=== PATIENT | male | born 1935 | race Caucasian/White ===

== ENCOUNTER → 2020-03-24 14:30 | Outpatient (BNVA) | payer MEDICARE, SELFPAY | PROVIDERS: Visit Provider Urology | DX: R97.21 Rising PSA following treatment for malignant neoplasm of prostate (principal); N20.0 Calculus of kidney; C61 Malignant neoplasm of prostate; R35.0 Frequency of micturition | CPT/HCPCS: 81002; 99212 ==

== ENCOUNTER → 2020-07-23 14:22 | Outpatient (BNVA) | payer MEDICARE, SELFPAY | PROVIDERS: Visit Provider Urology | DX: N20.0 Calculus of kidney (principal); C61 Malignant neoplasm of prostate; R97.21 Rising PSA following treatment for malignant neoplasm of prostate | CPT/HCPCS: Q3014 ==

== ENCOUNTER → 2021-01-05 11:12 | Outpatient (BNVA) | payer MEDICARE, SELFPAY | PROVIDERS: Visit Provider Urology | DX: Z13.89 Encounter for screening for other disorder (principal) | CPT/HCPCS: Q3014 ==

== ENCOUNTER → 2021-04-08 10:24 | Outpatient (BNVA) | payer MEDICARE, SELFPAY | PROVIDERS: Visit Provider Urology | DX: C61 Malignant neoplasm of prostate (principal); N20.0 Calculus of kidney; R97.21 Rising PSA following treatment for malignant neoplasm of prostate | CPT/HCPCS: 99212 ==

== ENCOUNTER → 2021-07-27 14:53 | Outpatient (BNVA) | payer MEDICARE, SELFPAY | PROVIDERS: Visit Provider Urology | DX: C61 Malignant neoplasm of prostate (principal); N20.0 Calculus of kidney | CPT/HCPCS: 99212 ==

== ENCOUNTER → 2021-11-02 09:55 | Outpatient (BNVA) | payer MEDICARE, SELFPAY | PROVIDERS: Visit Provider Urology | DX: C61 Malignant neoplasm of prostate (principal); R97.21 Rising PSA following treatment for malignant neoplasm of prostate | CPT/HCPCS: 51798; 99212 ==

== ENCOUNTER → 2022-02-17 08:43 | Outpatient (BNVA) | payer MEDICARE, SELFPAY | PROVIDERS: PCP Hospitalist; Visit Provider Urology | DX: C61 Malignant neoplasm of prostate (principal); N20.0 Calculus of kidney | CPT/HCPCS: 51798; 99212 ==

== ENCOUNTER → 2022-05-26 08:40 | Outpatient (BNVA) | payer MEDICARE, SELFPAY | PROVIDERS: PCP Hospitalist; Visit Provider Urology | DX: C61 Malignant neoplasm of prostate (principal); N20.0 Calculus of kidney; R97.21 Rising PSA following treatment for malignant neoplasm of prostate; Z79.899 Other long term (current) drug therapy | CPT/HCPCS: Q3014 ==

== ENCOUNTER → 2022-08-24 10:55 | Outpatient (BNVA) | payer MEDICARE, SELFPAY | PROVIDERS: PCP Hospitalist; Visit Provider Urology | DX: C61 Malignant neoplasm of prostate (principal); N20.0 Calculus of kidney | CPT/HCPCS: 99212 ==

== ENCOUNTER 2023-02-22 08:41 | Outpatient (AMB) | payer MEDICARE, SELFPAY ==
--- NOTE | 2023-02-22 08:42 | A.OFFVIS_ITS ---
Intake Intake Visit Reasons: 6 month psa(set) Intake Note: Deangelo is an 87 year old male who presents today for a 6 month PSA follow up Allergies No Known Allergies [No Known Allergies*] Allergy (Verified 02/22/23 08:43) Medication List - Last Reconciled 02/22/23 by Henry Mora MD dutasteride 0.5 mg PO DAILY fluticasone propionate 50 mcg/actuation 2 intranasal DAILY lorazepam 0.5 mg PO Q8H mesalamine ER 0.75 grams PO DAILY omeprazole 40 mg PO DAILY oxybutynin chloride 5 mg PO BEDTIME phenazopyridine 200 mg PO TID PRN pioglitazone 45 mg PO DAILY rosuvastatin 40 mg PO DAILY sulfamethoxazole-trimethoprim 800-160 mg (Bactrim DS) 1 tab PO BID 10 days triamcinolone acetonide 0.025% appl topical HPI HPI Comments History of Present Illness Details Carlos Eduardo is a very pleasant male. He is a patient of Dr. Ruggiero. He is seen for the following urologic conditions - prostate cancer - nephrolithiasis Telemedicine Evaluation 15 min Consultation D[employer] It In Person Daniela Video Attempted PSA increasing despite dutasteride cycling Discussed recent approval for Antiandrogen therapy in BCR space. 01/22 - cycling dutasteride, 1 month on, 1 month off re [facility] Protocol - 08/23 PSMA scan Shows recurrence of dis ease in left base prostate abutting seminal vesicle PSA 07/23 3.9, 10/22 3.6 Dut +, 01/22 4.5 Dut +, 05/26 6.9 Dut -, 08/23 6.4, 01/23 8.0 High Risk Biochemical Recurrence following Salvage Therapy in setting of nmHSPC FDA approved use of enzalutamide (02/23) in the setting of High Risk Biochemical Recurrence based on published data from EMBARK study (NEJM 2022; 389 [address] et al) displaying improved Hazard Ratio for metastasis or comparing GnRH alone with enzalutamide combination therapy with GnRH (HR 0.42) and enzalutamide alone (HR 0.63) at 5 years. Given these findings and the improved tolerability of mono enzalutamide therapy vs GnRH or combination therapy recommendation for enzalutamide therapy Prostate cancer: Initial treatment prostate cancer 2007 with brachytherapy, rising PSA with brachy boost June 201908/23 PSMA persistent activity suggestiv e of locally recurrent disease, no evidence of spread Found to have rising PSA through 2019 Has been treated at [facility] in [place] with prostate seed implant - Performed June [address] Luna Prostate cancer was diagnosed 2007. Diagnosis was reached by needle biopsy, for elevated PSA. The Moy grade is 3+3 = 6. TNM Classification of Malignant Tumours (TNM) T1c. The D'Barbara (NCCN) risk category is Low Risk (PSA< 10, Gl < 7, T1c). Initial therapy included Primary treatment, Brachytherapy 2007 , Additional treatment 02/17 5AR - stopped 01/18 Cysto with dilation of prostate apex to 16Fr 12/20 operative DVIU for prostatic apex stricture to 18 [place] - additional treatment seeds to prostate with Dr. Luna June 2019 Recent labs included a PSA (prostate-specific antigen) 07/17 7.7, 03/18 9.9 08/17 per patient 9.1, 01/17 14.3 05/21 6.4, 10/18 5.0, 01/18 5.1 F 7.8 06/19 5.1 F 11, 09/19 6.0 F 10, 03/21 7.6 07/22 2.6, 12/22 3.1, 04/24 3.9, 07/23 3.9, 10/22 3.6 Recent imaging included 05/21 , a bone scan, with no evidence of metastasis 08/18 an ultrasound, bilateral renal cysts 08/19 , an MRI (magnetic resonance imaging) - bilateral renal cysts up to 4 cm, bilateral renal proteinaceous cysts. Associated conditions erectile dysfunction Yes Nephrolithiasis/Urolithiasis: Episode treated at [facility] 12/22 Calcium oxalate stone on right side 8 mm Urolithiasis was diagnosed 12/19 at [facility] with flank pain and dark urine. The patient previously had kidney stones whose composition w unknown. Laboratory investigations include no recent labs. 24 Hour urine evaluation none on file. Prior treatment(s) include observation. Prior imaging includes 12/[address] (computed tomography) scan of the abdomen/pelvis (stone protocol) - renal cyst, bilateral punctate stones, presumed stone passage on right side 01/18 , a renal ultrasound, small stones with bilateral cysts - 01/20 renal ultrasound no stones Current therapeutic plan will be to continue with imaging surveillance [facility] Medical History (Updated 02/22/23 @ 09:02 by Henry Mora MD) Rising PSA following treatment for malignant neoplasm of prostate Bladder infection Renal stones Neuropathy Mild acid reflux Hyperlipidemia Gross hematuria Prostate stricture Rising PSA following treatment for malignant neoplasm of prostate Urinary urgency Surgical History History of surgery Review of Systems Const All systems reviewed & are unremarkable except as noted in HPI and below Reports no additional complaints Resp Reports no additional complaints GI Reports no additional complaints Reports as per HPI Musc Reports no additional complaints Physical Exam Telemedicine evaluation Appropriate responses Regular breathing rate and rhythm HEENT Head: Yes normal to inspection Ears: hearing grossly normal bilaterally Eyes General: appearance normal, both eyes and all related structures Neck Neck: Yes normal visual inspection Chest Chest palpation & inspection: normal inspection of the chest Resp Effort & Inspection: normal respiratory effort and able to speak in complete sentences Assessment & Plan Assessment & Plan (1) Biochemically recurrent castration-sensitive adenocarcinoma of prostate: Code(s): C61 - Malignant neoplasm of prostate; R97.21 - Rising PSA following treatment for malignant neoplasm of prostate; Z19.1 - Hormone sensitive malignancy status Plan Initiated enzalutamide. Did discuss cycling therapy with patient. Four month follow-up PSA Risks and benefits highlight Orders: Orders PSA,Total (Free>4and<10) 4 Months R97.21 - Rising PSA following treatment for malignant neoplasm of prostate Patient Instructions: Imaging studies, laboratory and physical exam results were discussed and reviewed in detail. No major barriers to patient understanding were identified. An opportunity to ask questions regarding the treatment plan was provided. All questions were answered. The patient expressed understanding and agreement with the above treatment plan. The patient is aware they should contact our office by phone for worsening of their current condition or the appearance of new urologic symptoms. Compliance is encouraged with any medications and followup testing that is ordered. It is a privilege to participate in the urologic care of your patient. If you have any questions or concerns regarding treatment for the above conditions, or other urologic issues, please do not hesitate to contact me. The office telephone contact is [phone]. This note is constructed using voice recognition software. While every effort has been made to ensure accuracy locomotive supervisor errors may have been included. Yours sincerely, Dr Henry Mora MD, [facility] - Urology Providers of Expert, Compassionate Care for the Genitourinary System Telehealth Telehealth Location of provider rendering services: practice address Location of patient: address on file Patient Identification confirmed using: Name, : Yes Telehealth method: video Patient verbally consented to treatment: Yes Patient verbally consented to billing insurance company: Yes Patient informed of any privacy concerns related to visit: Yes Coding Level of Care Code Tele Est Pt Level 4 (68871) Diagnoses Biochemically recurrent castration-sensitive adenocarcinoma of prostate C61; R97.21; Z19.1
== END 2023-02-22 09:19 | disposition home or self-care (01) ==
LOC: HO.HUSH 08:41
PROVIDERS: PCP Hospitalist; Visit Provider Urology
DX: C61 Malignant neoplasm of prostate (principal); R97.21 Rising PSA following treatment for malignant neoplasm of prostate; Z19.1 Hormone sensitive malignancy status
CPT/HCPCS: 99214

== ENCOUNTER → 2023-02-22 08:41 | Outpatient (BNVA) | payer MEDICARE, SELFPAY | PROVIDERS: PCP Hospitalist; Visit Provider Urology ==

== ENCOUNTER 2023-06-13 09:09 | Outpatient (AMB) | payer MEDICARE, SELFPAY ==
--- NOTE | 2023-06-13 09:23 | HO.NEPHOV_ITS ---
HPI HPI Comments History of Present Illness Details I had the privilege of seeing Carlos Eduardo in follow-up of his chronic kidney disease. He has diabetes and has been on Actos. His hemoglobin A1c is under good control. In the past he has taken CHARLIE inhibitor which has been discontinued due to low blood pressures. He has history of prostate cancer and is closely followed up by Dr. Henry Mora. His PSA has gone up and his medications have been changed. He has history of renal stones but has not had a symptom from calculus for a long time. He does not take excessive nonsteroidal anti-inflammatories. He has history of inflammatory bowel disease(ulcerative colitis). He also has renal cyst which is closely followed by Dr. Mora. His serum creatinine has been stable at 1.6. His hemoglobin has dropped to 10.9. He does not have any active blood loss. [facility] Medical History (Updated 06/13/23 @ 10:11 by iMlton Jensen MD) Rising PSA following treatment for malignant neoplasm of prostate Bladder infection Renal stones Neuropathy Mild acid reflux Hyperlipidemia Gross hematuria Prostate stricture Rising PSA following treatment for malignant neoplasm of prostate Urinary urgency Surgical History History of surgery Vital Signs 06/13/23 09:24 Height 5 ft 8 in Weight 145 lb BMI 22.0 BP 110/60 Blood Pressure Location Lt brachial Position Sitting Pulse 60 Pulse Source Pulse Oximeter Pulse Oximetry (%) 100 Oxygen Delivery Method Room Air Physical Exam Vital Signs: Last Vital Signs Pulse 60 06/13/23 09:24 BP 110/60 06/13/23 09:24 Pulse Ox 100 06/13/23 09:24 Oxygen Delivery Method Room Air 06/13/23 09:24 BMI result Body Mass Index 22.0 Const General: comfortable and no acute distress Orientation/consciousness: patient oriented x3 HEENT Head: Yes normocephalic Mouth: Normal oral and palatal mucosa present Eyes EOM: EOMs intact bilaterally Neck Neck: Yes supple Resp Auscultation: clear to auscultation bilaterally Cardio Jugular venous distension: no JVD Rate: regular rate GI Palpation (GI): Soft to palpation Auscultation: normal bowel sounds General: Yes no CVA tenderness Back/Spine/Pelvis Back: no CVA tenderness Skin General skin exam: no rashes or lesions noted Neuro General: patient oriented x3 and moves all extremities Extrem General: Yes no pedal edema Assessment & Plan Assessment & Plan (1) Nephrolithiasis: Code(s): N20.0 - Calculus of kidney (2) CKD (chronic kidney disease) stage 3, GFR 30-59 ml/min: Code(s): N18.30 - Chronic kidney disease, stage 3 unspecified Qualifiers: Chronic kidney disease stage 3 subtype: stage 3a (GFR 45-59) Qualified Code(s): N18.31 - Chronic kidney disease, stage 3a (3) Renal cysts, acquired, bilateral: Code(s): N28.1 - Cyst of kidney, acquired Plan His renal functions are stable and and is at baseline. His blood pressure is at goal. There are no active issues from his renal cysts or renal calculi. He does not take any nonsteroidal inflammatories and tries to maintain good hydration. He is on a new medication for his prostate cancer. He has anemia but his hemoglobin is 10.9. I have ordered repeat CBC and iron studies. He needs a B12 and folate levels checked along with stool occult blood. He will be a candidate for Procrit once his hemoglobin drops less than 10 and if his transferrin saturation is more than 20%. I did not make any medication changes today. Follow-up blood work ordered. Answered all questions. Follow-up appointment given. Orders: Orders Calcium Today N18.30 - Chronic kidney disease, stage 3 unspecified, N20.0 - Calculus of kidney Blood Urea Nitrogen Today N18.30 - Chronic kidney disease, stage 3 unspecified, N20.0 - Calculus of kidney Ferritin Today N18.30 - Chronic kidney disease, stage 3 unspecified, N20.0 - Calculus of kidney Complete Blood Count Auto Diff Today N18.30 - Chronic kidney disease, stage 3 unspecified, N20.0 - Calculus of kidney Electrolytes Today N18.30 - Chronic kidney disease, stage 3 unspecified, N20.0 - Calculus of kidney Creatinine Today N18.30 - Chronic kidney disease, stage 3 unspecified, N20.0 - Calculus of kidney IRON PROFILE Today N18.30 - Chronic kidney disease, stage 3 unspecified, N20.0 - Calculus of kidney Protein Creatinine Ratio, Ur Today N18.30 - Chronic kidney disease, stage 3 unspecified, N20.0 - Calculus of kidney Coding Level of Care Code Est Pt Level 4 (60431) Diagnoses Nephrolithiasis N20.0 Stage 3a chronic kidney disease N18.31 Chronic kidney disease stage 3 subtype: stage 3a (GFR 45-59) Renal cysts, acquired, bilateral N28.1 Results Reviewed Nephrology Results: No Data to Display
[2023-06-13 09:24] VITALS: BP 110/60; PULSE 60; O2SAT 100; BMI 22.0
== END 2023-06-13 09:53 | disposition home or self-care (01) ==
PROVIDERS: PCP Hospitalist; Visit Provider Internal Medicine Nephrology
DX: N20.0 Calculus of kidney (principal); N18.31 Chronic kidney disease, stage 3a; N28.1 Cyst of kidney, acquired
CPT/HCPCS: 99214

== ENCOUNTER → 2023-06-13 09:09 | Outpatient (BNVA) | payer MEDICARE, SELFPAY | PROVIDERS: PCP Hospitalist; Visit Provider Internal Medicine Nephrology | DX: N20.0 Calculus of kidney (principal); N18.31 Chronic kidney disease, stage 3a; N28.1 Cyst of kidney, acquired | CPT/HCPCS: 99212 ==

== ENCOUNTER 2023-06-22 10:09 | Outpatient (AMB) | payer MEDICARE, SELFPAY ==
--- NOTE | 2023-06-22 10:30 | A.OFFVIS_ITS ---
Intake Intake Visit Reasons: 4m/PSA(set) Intake Note: Patient presents today for a follow-up on PSA Meds- Enzalutamide Allergies to Antibiotic- No Known Allergies Blood Thinner- None Stock Dealer Required: No Accompanied by: Self / Same As Patient Allergies No Known Allergies [No Known Allergies*] Allergy (Verified 06/22/23 10:38) HPI HPI Comments History of Present Illness Details Carlos Eduardo is a very pleasant male. He is a patient of Dr. Ruggiero. He is seen for the following urologic conditions - prostate cancer - nephrolithiasis Significant drop in PSA on enzalutamide Will cycle enzalutamide monthly Plan PSMA scan in 3 months with PSA Does have fatigue and tender breasts when on medication - reduced to 1 tab - 08/23 PSMA scan Shows recurrence of dis ease in left base prostate abutting seminal vesicle PSA 07/23 3.9, 10/22 3.6 Dut +, 01/22 4.5 Dut +, 05/26 6.9 Dut -, 08/23 6.4, 01/23 8.0, 06/24 0.2 High Risk Biochemical Recurrence following Salvage Therapy in setting of nmHSPC FDA approved use of enzalutamide (02/23) in the setting of High Risk Biochemical Recurrence based on published data from EMBARK study ([facility] 2022; [facility] [place] et al) displaying improved Hazard Ratio for metastasis or comparing GnRH alone with enzalutamide combination therapy with GnRH (HR 0.42) and enzalutamide alone (HR 0.63) at 5 years. Given these findings and the improved tolerability of mono enzalutamide therapy vs GnRH or combination therapy recommendation for enzalutamide therapy Prostate cancer: Initial treatment prostate cancer 2007 with brachytherapy, rising PSA with brachy boost June 201908/23 PSMA persistent activity suggestiv e of locally recurrent disease, no evidence of spread Found to have rising PSA through 2018 Has been treated at [facility] in [place] with prostate seed implant - Performed June [address] Luna Prostate cancer was diagnosed 2007. Diagnosis was reached by needle biopsy, for elevated PSA. The Presho grade is 3+3 = 6. TNM Classification of Malignant Tumours (TNM) T1c. The D'Barbara (NCCN) risk category is Low Risk (PSA< 10, Gl < 7, T1c). Initial therapy included Primary treatment, Brachytherapy 2007 , Additional treatment 02/17 5AR - stopped 01/18 Cysto with dilation of prostate apex to 16Fr 12/20 operative DVIU for prostatic apex stricture to 18 [place] - additional treatment seeds to prostate with Dr. Luna June 2019 Recent labs included a PSA (prostate-specific antigen) 07/17 7.7, 03/18 9.9 08/17 per patient 9.1, 01/17 14.3 05/21 6.4, 10/18 5.0, 01/18 5.1 F 7.8 06/19 5.1 F 11, 09/19 6.0 F 10, 03/21 7.6 07/22 2.6, 12/22 3.1, 04/24 3.9, 07/23 3.9, 10/22 3.6 Recent imaging included 05/21 , a bone scan, with no evidence of metastasis 08/18 an ultrasound, bilateral renal cysts 08/19 , an MRI (magnetic resonance imaging) - bilateral renal cysts up to 4 cm, bilateral renal proteinaceous cysts. Associated conditions erectile dysfunction Yes Nephrolithiasis/Urolithiasis: Episode treated at [facility] 12/22 Calcium oxalate stone on right side 8 mm Urolithiasis was diagnosed 12/19 at [facility] with flank pain and dark urine. The patient previously had kidney stones whose composition w unknown. Laboratory investigations include no recent labs. 24 Hour urine evaluation none on file. Prior treatment(s) include observation. Prior imaging includes 12/[address] (computed tomography) scan of the abdomen/pelvis (stone protocol) - renal cyst, bilateral punctate stones, presumed stone passage on right side 01/18 , a renal ultrasound, small stones with bilateral cysts - 01/20 renal ultrasound no stones Current therapeutic plan will be to continue with imaging surveillance [facility] Medical History Rising PSA following treatment for malignant neoplasm of prostate Bladder infection Renal stones Neuropathy Mild acid reflux Hyperlipidemia Gross hematuria Prostate stricture Rising PSA following treatment for malignant neoplasm of prostate Urinary urgency Surgical History History of surgery Review of Systems Const Denies chills and Denies fever(s) Card Reports no additional complaints and Denies syncope Resp Denies cough GI Denies abdominal pain and Denies heartburn Reports as per HPI and Denies change in libido Neuro Denies syncope Psych Denies change in libido Endo Denies change in libido Physical Exam Const General: cooperative, healthy appearing, comfortable and no acute distress Orientation/consciousness: patient oriented x3 HEENT Face and sinus: Yes normal facial exam Mouth: moist mucous membranes Neck Neck: Yes normal visual inspection, Yes full ROM and Yes trachea midline Chest Chest palpation & inspection: normal inspection of the chest Resp Effort & Inspection: normal respiratory effort, able to speak in complete sentences and no respiratory distress GI Inspection: Yes normal to inspection Back/Spine/Pelvis Cervical Spine: normal cervical lordosis Thoracic/Lumbar Spine: thoracic and lumbar spine normal to inspection Skin General skin exam: no rashes or lesions noted Neuro General: patient oriented x3, gait normal, tone normal and moves all extremities Extrem General: Yes normal to inspection and Yes capillary refill normal Assessment & Plan Assessment & Plan (1) Biochemically recurrent castration-sensitive adenocarcinoma of prostate: Code(s): C61 - Malignant neoplasm of prostate; R97.21 - Rising PSA following treatment for malignant neoplasm of prostate; Z19.1 - Hormone sensitive malignancy status (2) Prostate cancer: Comment: Initial treatment brachytherapy 2008, brachy boost 2019 [facility]. New gradual rising PSA Code(s): C61 - Malignant neoplasm of prostate Plan Three-month follow-up imaging Orders: Orders PET CT fusion skull to thigh 3 Months C61 - Malignant neoplasm of prostate, R97.21 - Rising PSA following treatment for malignant neoplasm of prostate, Z19.1 - Hormone sensitive malignancy status Creatinine 3 Months C61 - Malignant neoplasm of prostate, R97.21 - Rising PSA following treatment for malignant neoplasm of prostate, Z19.1 - Hormone sensitive malignancy status Blood Urea Nitrogen 3 Months C61 - Malignant neoplasm of prostate, R97.21 - Rising PSA following treatment for malignant neoplasm of prostate, Z19.1 - Hormone sensitive malignancy status Patient Instructions: Imaging studies, laboratory and physical exam results were discussed and reviewed in detail. No major barriers to patient understanding were identified. An opportunity to ask questions regarding the treatment plan was provided. All questions were answered. The patient expressed understanding and agreement with the above treatment plan. The patient is aware they should contact our office by phone for worsening of their current condition or the appearance of new urologic symptoms. Compliance is encouraged with any medications and followup testing that is ordered. It is a privilege to participate in the urologic care of your patient. If you have any questions or concerns regarding treatment for the above conditions, or other urologic issues, please do not hesitate to contact me. The office telephone contact is [phone]. This note is constructed using voice recognition software. While every effort has been made to ensure accuracy senior medical transcriptionist errors may have been included. Yours sincerely, Dr Henry Mora MD, [facility] - Urology Providers of Expert, Compassionate Care for the Genitourinary System Coding Level of Care Code Est Pt Level 4 (89682) Diagnoses Biochemically recurrent castration-sensitive adenocarcinoma of prostate C61; R97.21; Z19.1 Prostate cancer C61
== END 2023-06-22 11:12 | disposition home or self-care (01) ==
PROVIDERS: PCP Hospitalist; Visit Provider Urology
DX: C61 Malignant neoplasm of prostate (principal); R97.21 Rising PSA following treatment for malignant neoplasm of prostate; Z19.1 Hormone sensitive malignancy status
CPT/HCPCS: 99213

== ENCOUNTER → 2023-06-22 10:09 | Outpatient (BNVA) | payer MEDICARE, SELFPAY | PROVIDERS: PCP Hospitalist; Visit Provider Urology | DX: C61 Malignant neoplasm of prostate (principal); R97.21 Rising PSA following treatment for malignant neoplasm of prostate; Z19.1 Hormone sensitive malignancy status | CPT/HCPCS: 99212 ==

== ENCOUNTER 2023-07-27 22:34 | Inpatient (IN) | payer MEDICARE, SELFPAY ==
--- NOTE | ~2023-07-27 | CT_ITS ---
EXAMINATION: CT ABDOMEN AND PELVIS WITHOUT CONTRAST CLINICAL INFORMATION: Abdominal pain. COMPARISON: None available. TECHNIQUE: Multidetector volumetric imaging was performed from the superior aspect of the liver through the pubic symphysis. Sagittal and coronal reformatted images were obtained on the Workstation. This CT examination was performed using dose optimization techniques as appropriate, variously including the following: *Automated exposure control *Adjustment of mA and/or kV according to patient size (this includes techniques or standardized protocols for targeted exams where dose is matched to indication/reason for exam; i.e. extremities or head) *Use of iterative reconstruction technique DLP: 471 mGy-cm FINDINGS: LUNG BASES: There is scarring at both lung bases. LIVER, GALLBLADDER, AND BILIARY TREE: There are a few small hepatic hypodensities measuring up to 2 cm likely small cysts. There is no intrahepatic biliary duct dilatation. A few small gallstones are noted. PANCREAS: There is a 2 mm calcification in the region of the in the pancreatic head near the distal common bile duct. SPLEEN: Unremarkable. ADRENAL GLANDS: Unremarkable. KIDNEYS AND URETERS: The kidneys are normal in overall size and position. Stable bilateral renal cysts are seen. There is mild right hydronephrosis and hydroureter to the level of a 2 mm distal right ureteric calculus. There is mild left hydronephrosis/left renal collecting system dilatation without ureteral calculus. BLADDER: Unremarkable. GASTROINTESTINAL TRACT: There are a few diverticula of the distal descending and sigmoid colon without diverticulitis. The appendix is not identified. ABDOMINAL WALL: There is a small umbilical hernia containing fat. LYMPH NODES: Normal. VASCULAR: There is mild atherosclerotic plaque of the abdominal aorta and proximal branches. PELVIC VISCERA: Unremarkable. OSSEOUS STRUCTURES: There is mild diffuse thoracolumbar disc degenerative change. CT/CT abdomen pelvis wo IV con IMPRESSION: Mild right hydronephrosis and hydroureter to the level of a 2 mm distal right ureteric calculus. Mild left hydronephrosis/left renal collecting system dilatation without ureteral calculus. 2 mm calcification in the region of the pancreatic head near the distal common bile duct. This is likely parenchymal and less likely related to the ductal system. Correlation with biliary function enzymes needed. Small gallstones. Diverticulosis of the distal descending and sigmoid colon without evidence of diverticulitis. Fleischner guidelines were followed.
--- NOTE | ~2023-07-27 | FL_ITS ---
EXAMINATION: XR FLUOROSCOPY WITH IMAGES CLINICAL INFORMATION: Right cysto/ureteroscopy/retro/laser, left stent COMPARISON: None available. TECHNIQUE: Fluoroscopy Supervised By: Dr. Mora. Fluoroscopy Time: 41.3 seconds. Cumulative Dose: 12.52 mGy. DAP: No measurements recorded by the imaging unit Images: 5. FINDINGS: 5 images demonstrate right cysto/ureteroscopy, right retrograde pyelogram and left ureteral stent placement. The final images demonstrate the distal portion of the bilateral ureteral stents projected over the bladder. For full details see Dr. Mora's report. FL/FL guidance in OR IMPRESSION: Fluoroscopic guidance provided for right cysto/ureteroscopy/retro/laser and left ureteral stent placement.
--- NOTE | ~2023-07-27 | US_ITS ---
EXAMINATION: US VENOUS ULTRASOUND WITH DOPPLER LOWER EXTREMITY, BILATERAL CLINICAL INFORMATION: Edema. COMPARISON: None available. TECHNIQUE: Ultrasound of the deep veins is performed from the hip to the calf with compression sonography and color and pulse Doppler assessment. Spectral analysis with color-flow imaging is performed. FINDINGS: RIGHT: There is normal venous compression and respiratory variation and augmented flow. The visualized common femoral vein, superficial femoral vein, profunda femoral vein, popliteal vein, and the trifurcation region shows no evidence of deep venous thrombosis. There is no significant popliteal fossa cyst. LEFT: There is normal venous compression and respiratory variation and augmented flow. The visualized common femoral vein, superficial femoral vein, profunda femoral vein, popliteal vein, and the trifurcation region shows no evidence of deep venous thrombosis. There is no significant popliteal fossa cyst. If the patient's symptoms persist, followup ultrasound in 5 days 7 days might be of value to exclude proximal propagation from a non-visualized calf vein. US/US venous duplex LE BI IMPRESSION: No DVT demonstrated in the bilateral lower extremities.
--- NOTE | ~2023-07-27 | XR_ITS ---
EXAMINATION: XR ABDOMEN KUB CLINICAL INDICATION: constipation COMPARISON: CT abdomen/pelvis 07/27/2023 TECHNIQUE: AP view of the abdomen. FINDINGS: There are no dilated loops of small or large bowel. Stool and air is visualized throughout the entirety of the colon to the rectum. Mild to moderate stool burden. No air-fluid levels. Bilateral ureteral stents in place with the proximal pigtail overlying the regions of the respective renal calyces, and the distal pigtail overlying the region of the bladder. Right inguinal hernia repair mesh. Prostate seeds noted. Pelvis and lower extremity arterial calcifications. Visualized lung bases are clear. No acute osseous abnormality. XR/XR abdomen 1V IMPRESSION: Nonobstructive bowel gas pattern. Mild to moderate stool burden.
[2023-07-27 22:36] VITALS: BP 126/68; PULSE 85; RESP 16; TEMP 36; O2SAT 100; BMI 22.0
[2023-07-27 22:56] LABS: Basophils Percent Auto 0.1 % (0-2); Eosinophils Percent Auto 0.2 % (0-4); Hematocrit 33.4 % (42.0-52.0); Imm Gran Abs Auto 0.03 X10*3/uL (0.00-0.03); Imm Gran Pct Auto 0.4 % (0.0-0.4); Lymphocytes Absolute Auto 0.5 X10*3/uL (1.2-4.9); Lymphocytes Percent Auto 6.2 % (20-40); MANUAL DIFF FLAG NO; Mean Corpuscular HGB Conc 32.9 g/dl (31.0-36.0); Mean Platelet Volume 9.7 fL (9.4-12.4); Monocytes Absolute Auto 1.2 X10*3/uL (0.1-1.2); Monocytes Percent Auto 13.6 % (2-11); Neutrophils Absolute Auto 6.7 x10*3/uL (2.0-8.3); Neutrophils Percent Auto 79.5 % (45-73); Platelet Count 132 X10*3/uL (160-400); Red Blood Count 3.67 X10*6/uL (4.60-5.80); Red Cell Distribution Width 14.6 % (11.0-16.0); White Blood Count 8.5 X10*3/uL (4.8-10.8)
[2023-07-27 23:13] VITALS: BP 125/73; PULSE 81; RESP 16; TEMP 36.8; O2SAT 98
[2023-07-27 23:13] LABS: Alanine Aminotransferase 16 U/L (0-40); Albumin Level 3.7 g/dL (3.5-5.0); Alkaline Phosphatase 69 U/L (39-117); Anion Gap 14 (12-20); Aspartate Amino Transferase 24 U/L (5-37); Bilirubin Total 0.6 mg/dL (0.0-1.0); Blood Urea Nitrogen 51 mg/dL (9-16); Carbon Dioxide 22 mmol/L (22-29); Chloride 109 mmol/L (96-108); Creatinine Clr Calc Pharmacy 8.2; Estimated Glomerular Filt Rate 9; Glucose Random 149 mg/dL (60-115); Potassium 4.7 mmol/L (3.3-5.1); Sodium 140 mmol/L (135-145); Total Protein 6.6 g/dL (6.5-8.0)
--- NOTE | 2023-07-27 23:14 | MHC.EDTECH ---
provide aware the bladder scan was done by this pct and rn Leopoldo and and thev result is reading 0 .
--- NOTE | 2023-07-27 23:34 | ED_ITS ---
HPI - Male Genitourinary General Chief complaint: Urogenital-Male Stated complaint: Dr Corrales ref here, hasnt voided in 3-4 days Time Seen by Provider: 07/27/23 23:14 Source: patient and family Mode of arrival: ambulatory Limitations: no limitations History of Present Illness HPI Narrative: Patient comes to the emergency room accompanied by his son. Patient came in complaining that he has not been able to urinate in over 48 hours. Patient states that he has abdominal bloating but no significant abdominal pain. Over last few weeks, patient states that his urinary stream has become very weak and has not been urinating much. Patient has history of prostate cancer diagnosed in 2007. Patient denies fever chills, no flank pain. Patient states that he has been having loose stools once a day for a few weeks but no significant amount of diarrhea , and denies vomiting. Related Data Home Medications ?Medication ?Instructions ?Recorded ?Confirmed pioglitazone 45 mg tablet 45 mg PO DAILY 07/23/20 02/22/23 rosuvastatin 40 mg tablet 40 mg PO DAILY 07/23/20 02/22/23 cetirizine 10 mg tablet (Zyrtec) 10 mg PO DAILY PRN 06/13/23 cholecalciferol (vitamin D3) 50 50 mcg PO DAILY 06/13/23 mcg (2,000 unit) capsule melatonin 5 mg capsule mg PO BEDTIME PRN 06/13/23 metoprolol succinate 25 mg 25 mg PO DAILY 06/13/23 tablet,extended release 24 hr vitamin B complex 1 tab PO DAILY 06/13/23 Previous Rx's ?Medication ?Instructions ?Recorded dutasteride 0.5 mg capsule 0.5 mg PO DAILY #90 caps 02/20/23 enzalutamide 80 mg tablet 160 mg (2 x 80 mg) PO DAILY 90 02/28/23 days #180 tabs Allergies Allergy/AdvReac Type Severity Reaction Status Date / Time No Known Allergies Allergy Verified 07/27/23 22:41 [No Known Allergies*] Review of Systems 2 Review of Systems: Constitutional : No Weight loss, No Fever, No Chills, No Night Sweats, No Fatigue, No Malaise ENT/Mouth : No Hearing loss, No Ear Pain, No Nasal Congestion, No Sinus Pain, No Hoarseness, No sore throat, No Rhinorrhea, No Swallowing Difficulty Eyes: No Eye Pain, No Swelling, No Redness, No Foreign Body, No Discharge, No Vision Changes Cardiovascular : No Chest Pain, No SOB, No Dyspnea on Exertion, No Orthopnea, No Edema, No Palpitations Respiratory : No Cough, No Sputum, No Wheezing, No Smoke Exposure, No Dyspnea Gastrointestinal : No Nausea, No Vomiting, No Diarrhea, No Constipation, No abdominal Pain, No Hematochezia, No Melena Genitourinary : Unable to urinate for 48 hours, No Dysuria, No Urinary Frequency, No Hematuria, No Urinary Incontinence, No Urgency, No Flank Pain, significantly decreased urinary flow change Musculoskeletal : No joint pain, No Myalgias, No Joint Swelling Skin : No Skin Lesions, No rash Neuro : No Weakness, No Numbness, No Paresthesias, No Loss of Consciousness, No Dizziness, No Headache Psych : No Anxiety/Panic, No Depression, No SI/HI/AH/VH, No Social Issues, Heme/Lymph: No Bruising, No Bleeding,No Lymphadenopathy Endocrine : No Polyuria, No Polydipsia, No Temperature Intolerance [facility] Past Medical History Medical History Rising PSA following treatment for malignant neoplasm of prostate Bladder infection Renal stones Neuropathy Mild acid reflux Hyperlipidemia Gross hematuria Prostate stricture Rising PSA following treatment for malignant neoplasm of prostate Urinary urgency Surgical History History of surgery Social History Social History Advance Directives: No Advance Directives Information Provided: No Do you have a plan to hurt others: No Plan Physical Exam 2 Vital Signs: Vital Signs: Last Vital Signs Temp 97.9 F 07/28/23 01:16 Pulse 89 07/28/23 01:16 Resp 16 07/28/23 01:16 BP 157/64 H 07/28/23 01:16 Pulse Ox 98 07/28/23 01:16 O2 Del Method Room Air 07/28/23 01:16 BMI result Body Mass Index 22.0 Const: Other: Appearance: Alert. Oriented X3. No acute distress. Eyes: Pupils equal, round and reactive to light. ENT: Pharynx normal. Neck: Normal inspection. Neck supple. No lymph nodes noted. No crepitus CVS: Normal heart rate and rhythm. Pulses normal. Normal S1 and S2 Respiratory: No respiratory distress. Breath sounds normal. No Wheezing. No rales Abdomen: Soft , mild discomfort to palpation in suprapubic area and distension, no rigidity Skin: Skin warm and dry. Normal skin color. Normal skin turgor. Extremities: No lower extremity edema. No Lacerations. No Rash Neuro: Oriented X 3. No motor deficit. No sensory deficit. Moving all extremities. No slurred speech. CN 2 through 12 grossly intact Psych: calm, cooperative, normal affect Course Course Course Narrative: Patient receiving IV fluids and CT scan pending -bladder scan shows 0 mL of urine in the bladder Medications Administered Discontinued Medications Generic Name Dose Route Start Last Admin Trade Name Freq PRN Reason Stop Dose Admin Sodium Chloride 2,000 mls @ 999 mls/hr 07/27/23 23:28 07/28/23 00:05 Ns IVCONT 07/28/23 01:28 999 mls/hr .Q2H1M ONE Administration Medical Decision Making Medical Decision Making [facility] Narrative: -my interpretation of labs: Patient's hemoglobin 11.0, patient isn't on blood thinners, patient's creatinine is 6.07, BUN is 51. According to the patient, he has never heard that his labs are this elevated. -there is a note which I reviewed from scientific software engineer Dr. Jensen in the system, in 06/13/2023, patient went to Nephrology office, per Dr. Jensen's note, patient's creatinine has been stable at 1.6 the recent decrease in hemoglobin to 10.9. -CT scan of the abdomen pending, there is a good likelihood that patient may have some kind of urinary obstruction -per ED windshield technician, patient's bladder ultrasound shows 0 mL -my interpretation of CT scan: Large renal cysts which have been previously documented in patient's medical record. However, this time the may be too large and causing an urologic obstruction -patient received 2 L of fluid, creatinine levels will be checked again. -radiology report of the CT scans pending. -sign-out given to Dr. Murguia. I also spoke with Dr. Thorne, admission pending on CT scan results Differential Diagnosis Differential Diagnoses: The differential diagnosis associated with the presentation includes (Acute kidney injury, urology obstruction) Admission/Observation Consideration of admission/observation: Escalation of care including admission/observation considered Consult Healthcare Provider Management of the patient was discussed with: Hospitalist Lab Data MDM Lab Attestation statement: I reviewed the patient's lab results. 07/27/23 22:51 07/27/23 22:51 Labs: Lab Results 07/27/23 Range/Units 22:51 WBC 8.5 (4.8-10.8) X10*3/uL RBC 3.67 L (4.60-5.80) X10*6/uL Hgb 11.0 L (14.0-18.0) g/dl Hct 33.4 L (42.0-52.0) % MCV 91.0 (80.0-98.0) fL MCH 30.0 (27.0-33.0) pg MCHC 32.9 (31.0-36.0) g/dl RDW 14.6 (11.0-16.0) % Plt Count 132 L (160-400) X10*3/uL MPV 9.7 (9.4-12.4) fL Immature Gran % (Auto) 0.4 (0.0-0.4) % Neut % (Auto) 79.5 H (45-73) % Lymph % (Auto) 6.2 L (20-40) % [place] % (Auto) 13.6 H (2-11) % Eos % (Auto) 0.2 (0-4) % Baso % (Auto) 0.1 (0-2) % Lymph # (Auto) 0.5 L (1.2-4.9) X10*3/uL [place] # (Auto) 1.2 (0.1-1.2) X10*3/uL Eos # (Auto) 0.0 (0.0-0.4) X10*3/uL Baso # (Auto) 0.0 (0.0-0.2) X10*3/uL Abs Immat Gran (auto) 0.03 (0.00-0.03) X10*3/uL Absolute Neuts (auto) 6.7 (2.0-8.3) x10*3/uL Absolute Nucleated RBC 0.000 (0.0-0.012) X10*3/uL Nucleated RBC % (auto) 0.0 (0.0-0.2) /100WBC Sodium 140 (135-145) mmol/L Potassium 4.7 (3.3-5.1) mmol/L Chloride 109 H (96-108) mmol/L Carbon Dioxide 22 (22-29) mmol/L Anion Gap 14 (12-20) BUN 51 H (9-16) mg/dL Creatinine 6.07 H* (0.5-1.4) mg/dL Estim Creat Clear Calc 8.2 Estimated GFR 9 Random Glucose 149 H (60-115) mg/dL Calcium 9.0 (8.4-10.2) mg/dL Total Bilirubin 0.6 (0.0-1.0) mg/dL AST 24 (5-37) U/L ALT 16 (0-40) U/L Alkaline Phosphatase 69 (39-117) U/L Total Protein 6.6 (6.5-8.0) g/dL Albumin 3.7 (3.5-5.0) g/dL Critical Care Time Critical Care Time Critical Care Time: Yes Total Critical Care Time: 60 Attestation: I have personally provided critical care time. Time includes review of lab data, radiology results, discussion with consultants, and monitoring for potential decompensation. Intervention performed as documented. Discharge Plan Discharge Clinical Impression: Acute kidney injury Patient Disposition: Admitted As Inpatient Print Language: Czech
[2023-07-28] VITALS (14 sets, daily range): BP systolic 122–157; BP diastolic 52–71; PULSE 70–93; RESP 14–18; TEMP 36.1–37.4; O2SAT 94–100
[2023-07-28] MEDS: 0.9 % Sodium Chloride 2,000 ML 999 ML IVCONT (00:05)
--- NOTE | 2023-07-28 02:42 | MHC.EDTECH ---
PATIENT BELONGING LIST DONE ,WARM BLANKET AND PILLOW GIVEN ,PATIENT AWAKE ,CALL WRIGHT AT PATIENT REACH ,PROVIDER AND RN FREDY AWARE PATIENT NOT ABLE TO GIVE URINE SAMPLE .
[2023-07-28 02:57] LABS: Anion Gap 16 (12-20); Blood Urea Nitrogen 54 mg/dL (9-16); Calcium 8.1 mg/dL (8.4-10.2); Carbon Dioxide 15 mmol/L (22-29); Chloride 113 mmol/L (96-108); Creatinine Clr Calc Pharmacy 7.4; Estimated Glomerular Filt Rate 8; Glucose Random 87 mg/dL (60-115); Potassium 4.6 mmol/L (3.3-5.1); Sodium 139 mmol/L (135-145)
[2023-07-28] MEDS: Lidocaine HCl 2 % Urojet 10 ML JEL.PF.APP TOPICAL ×3 (05:33→09:49)
--- NOTE | 2023-07-28 05:36 | P.HPHOSP_ITS ---
History of Present Illness Date of Service: 07/28/23 Attending physician on admission: Allan Evans Chief Complaint: Inability to urinate Deangelo Wade is 87 years old man with past medical history significant for CKD stage 3 (f/u by Dr. Jensen), nephrolithiasis, colitis, hyperlipidemia, prostate cancer on enzalutamide (every other month; last use at the end of June -f/u with Dr. Mora), hyperlipidemia and type 2 diabetes mellitus presents to the emergency department complaining of inability to urinate over the last 2 days. He recently came back from [place]. He mentioned that last Monday he experience pain to his left groin and took 1 pills of Aleve (naproxen 200 mg) q12h X2. He denied any event of recent vomiting or diarrhea. He mentioned that he usually has loose stools which he attributes to his colitis. He currently denies any abdominal pain. He reports breasts tenderness. He denies headache, chest pain, shortness on breath, fever or chills. Reported swelling to lower extremity. Denied alcohol abuse, tobacco smoking or illicit drug use. In the ED, he was found to have stable vital signs. Blood workup showed no leukocytosis. Hemoglobin is at baseline, 11.0 (last mo it was 10.9). Platelet level is 132. Creatinine increase from 6.07 --> 6.78 (creatinine was 1.6 last month). Bicarb is 15. Potassium 4.6. LFTs are normal. UA is not available. Abdomen pelvis CT scan showed mild right hydronephrosis and hydroureter to the level of 2 mm distal right ureteral calculi, mild left hydronephrosis/left renal collecting system dilatation with a ureteral calculus, small gallstones, diverticulitis without diverticulitis. ED tx: NS 2 L bolus. Review of Systems 2 Review of Systems: All 12 systems were reviewed and normal except as noted in HPI. [facility] Medical History Rising PSA following treatment for malignant neoplasm of prostate Bladder infection Renal stones Neuropathy Mild acid reflux Hyperlipidemia Gross hematuria Prostate stricture Rising PSA following treatment for malignant neoplasm of prostate Urinary urgency Surgical History History of surgery Social History (Reviewed 06/22/23 @ 10:39 by CLAY Guerrero Patient Tobacco Use Status: Never used Tobacco Advance Directives: No Advance Directives Information Provided: No Do you have a plan to hurt others: No Plan Meds Allergies Allergy/AdvReac Type Severity Reaction Status Date / Time No Known Allergies Allergy Verified 07/27/23 22:41 [No Known Allergies*] Active Medications: Current Medications Heparin Sodium (Porcine) (Heparin Sodium,Porcine 5,000 Unit/Ml Vial) 5,000 unit SUBCUT Q12H DOMONIQUE Lactated Ringer's (Lr) 1,000 mls @ 999 mls/hr IV .Q1H1M DOMONIQUE Stop: 07/28/23 06:15 Sodium Chloride (0.9 % Sodium Chloride Flush 3 Ml Syringe) 3 ml [facility] Home Medications ?Medication ?Instructions ?Recorded ?Confirmed ?Last Taken ?Type pioglitazone 45 mg tablet 45 mg PO DAILY 07/23/20 02/22/23 Unknown History rosuvastatin 40 mg tablet 40 mg PO DAILY 07/23/20 02/22/23 Unknown History cetirizine 10 mg tablet (Zyrtec) 10 mg PO DAILY PRN 06/13/23 Unknown History cholecalciferol (vitamin D3) 50 50 mcg PO DAILY 06/13/23 Unknown History mcg (2,000 unit) capsule melatonin 5 mg capsule mg PO BEDTIME PRN 06/13/23 Unknown History metoprolol succinate 25 mg 25 mg PO DAILY 06/13/23 Unknown History tablet,extended release 24 hr vitamin B complex 1 tab PO DAILY 06/13/23 Unknown History Physical Exam 2 Vital Signs and Narrative: Vital Signs: Last Vital Signs Temp 98.2 F 07/28/23 03:18 Pulse 93 07/28/23 03:18 Resp 14 07/28/23 03:18 BP 128/57 L 07/28/23 03:18 Pulse Ox 99 07/28/23 03:18 O2 Del Method Room Air 07/28/23 03:18 BMI result Body Mass Index 22.0 Constitutional - Awake and Alert, No apparent distress. Pleasant and cooperative. Eyes - Normal sclerae Heart - RRR. No murmur. Lungs - Normal lung expansion, Normal respiratory effort, No respiratory distress, CTA bilaterally Breasts: Tenderness to palpation. Gastrointestinal - NT / ND; +BS; No rebound or guarding Extremities - lower extremity pitting edema (L>R) Musculoskeletal - Normal inspection, normal ROM Skin - Warm/Dry Neurological - Alert & oriented x3. No focal weakness. Normal speech. Psychological - Appropriate affect Results Labs 07/27/23 22:51 07/28/23 02:11 Labs: Laboratory Results - last 24 hr 07/27/23 07/28/23 22:51 02:11 MCV 91.0 MCH 30.0 MCHC 32.9 RDW 14.6 Plt Count 132 L MPV 9.7 Immature Gran % (Auto) 0.4 Neut % (Auto) 79.5 H Lymph % (Auto) 6.2 L [place] % (Auto) 13.6 H Eos % (Auto) 0.2 Baso % (Auto) 0.1 Lymph # (Auto) 0.5 L [place] # (Auto) 1.2 Eos # (Auto) 0.0 Baso # (Auto) 0.0 Abs Immat Gran (auto) 0.03 Absolute Neuts (auto) 6.7 Absolute Nucleated RBC 0.000 Nucleated RBC % (auto) 0.0 Anion Gap 14 16 Estim Creat Clear Calc 8.2 7.4 Estimated GFR 9 8 Random Glucose 149 H 87 Calcium 9.0 8.1 L D Total Bilirubin 0.6 AST 24 ALT 16 Alkaline Phosphatase 69 Total Protein 6.6 Albumin 3.7 Imaging Radiologist's Impressions: Impressions Abdomen/Pelvis CT 07/27/23 23:59 IMPRESSION: Mild right hydronephrosis and hydroureter to the level of a 2 mm distal right ureteric calculus. Mild left hydronephrosis/left renal collecting system dilatation without ureteral calculus. 2 mm calcification in the region of the pancreatic head near the distal common bile duct. This is likely parenchymal and less likely related to the ductal system. Correlation with biliary function enzymes needed. Small gallstones. Diverticulosis of the distal descending and sigmoid colon without evidence of diverticulitis. Fleischner guidelines were followed. Assessment and Plan (1) Acute kidney injury: Status: Acute (2) Bilateral hydronephrosis: Status: Acute (3) Lower extremity edema: Status: Acute Plan Deangelo Wade is 87 years old man admitted with: * Acute on chronic renal failure and anuria. Admit to hospitalist service. Avoid nephrotoxic agents. Renal diet. Nephrology consult -Dr. Richmond. * Bilateral lower extremity edema (L>R) likely secondary to above. Recent travel from [place] -will assess for DVT. Check bilateral LE venous US. * Mild left hydronephrosis/left renal collecting duct dilatation without ureteral calculus + mild right hydronephrosis and hydroureter with mm distal right ureteral calculus. Urology consult. * Type 2 diabetes mellitus. Blood glucose monitoring before meals and bedtime. Diabetic diet. Hold Actos. Insulin sliding scale. * BPH and prostate cancer. On enzalutamide every other more. * Hyperlipidemia. Hold statin. * Angina. Continue metoprolol. DVT prophylaxis: Heparin Code status: Full Patient will need hospitalization for at least 2 midnights for acute and chronic renal failure with anuria management and evaluation by Nephrology. Quality Stroke Does the patient have a stroke diagnosis?: No VTE Prior VTE?: No VTE Risk Level:: Medical - moderate - high VTE Device Contraindication: Treatment Not Indicated VTE Drug Contraindication: N/A - Med Ordered
[2023-07-28 05:54] LABS: Phosphorus 4.5 mg/dL (2.7-4.5)
--- NOTE | 2023-07-28 06:38 | MHC.EDTECH ---
0600 ROUNDING DONE ,VITALS TAKING ,PATIENT RESTING IN BED ,CALL WRIGHT WITHIN PATIENT REACH .
[2023-07-28 07:03] LABS: Glucose, Whole Blood 87 mg/dL (60-115)
--- NOTE | 2023-07-28 07:25 | PC.NURSE ---
at approx 0535 esquivel catheter was placed w/ assistance from MD. bladder scan was performed prior to placement and scanned for 3mL. catheter was advanced all the way to the hub by MD w/ no urine output. 10cc balloon inflated by this RN per instruction of the MD. no resistance met. tolerated well by patient. scant amount of blood noted around urethra. MD is aware.
[2023-07-28] MEDS: 0.9 % Sodium Chloride Flush 3 ML SYRINGE IVFLUSH (08:05)
--- NOTE | 2023-07-28 08:16 | PHA.MEDREC ---
Pharmacy Consult ? Medication Reconciliation Pharmacy has completed the medication reconciliation. Pharmacy spoke with patient to confirm, daniel had list on their phone. Last filled mesalamine ER 0.375 gram caps on 06/05/23, but patient is is not really taking. Patient also takes nitric oxide once daily. Patient states he last took Xtandi mid July, and is currently not taking it this month, and will resume next month.
--- NOTE | 2023-07-28 08:22 | PC.NURSE ---
Patient reports bladder spasms from catheter , no output in esquivel bag, bladder scanned for 0mls, provider aware
--- NOTE | 2023-07-28 09:11 | PC.NURSE ---
Provider at bedside and removed esquivel, bladder scanned patient for 2mls, patient reports relief from esquivel removal
--- NOTE | 2023-07-28 09:43 | PC.NURSE ---
Provider at bed side to place new esquivel via guide wire
--- NOTE | 2023-07-28 09:50 | PM.UROCN ---
History of Present Illness Consult details Consult date: 07/28/23 Narrative: Deangelo is an 87-year-old male who is followed by urology for advanced prostate cancer. He has had history of prostate seed implant for treatment. Patient came in complaining that he has not been able to urinate in over 48 hours. Over last few weeks, patient states that his urinary stream has become very weak and has not been urinating much. The patient admitted to some loose stools last couple days. CT imaging nodes mild bilateral hydronephrosis with a 2 mm distal right ureteral stone. Bladder scan notes 2 mL in the bladder. On inspection the patient had a Esquivel that did not irrigate and was not felt to be in the bladder. Attempted placement of 18 Turkish with lidocaine jelly was not successful. Flexible cystoscope noted a narrowing in the proximal urethra. Sixteen [place] tip catheter placed over a guidewire. The patient has chronic kidney disease and presents with acute kidney injury which is less likely due to obstructive uropathy process. Review of Systems Review of Systems: Yes all other systems are reviewed and are negative Constitutional: Constitutional: Reports no additional constitutional complaints Eyes: Eyes: Reports no additional eye complaints ENT: Reports system reviewed and no additional complaints, except as documented Cardiovascular: Cardiovascular: Reports no additional cardiovascular complaints Respiratory: Respiratory: Reports no additional respiratory complaints Gastrointestinal: Gastrointestinal: Reports no additional gastrointestinal complaints Genitourinary: Genitourinary: Reports as per HPI Musculoskeletal: Musculoskeletal: Reports no additional musculoskeletal complaints Integumentary/Breasts: Skin/Breast: Reports system reviewed and no additional complaints, except as docu Neurologic: Reports system reviewed and no additional complaints, except as documented Psychiatric: Psychiatric: Reports no additional psychiatric complaints Endocrine: Endocrine: Reports no additional endocrine complaints Hematologic/Lymphatic: Hematologic/Lymphatic: Reports no additional hematologic/lymphatic complaints Allergic/Immunologic: Allergic/Immunologic: Reports no additional allergic/immunologic complaints [facility] Past Medical History Medical History Rising PSA following treatment for malignant neoplasm of prostate Bladder infection Renal stones Neuropathy Mild acid reflux Hyperlipidemia Gross hematuria Prostate stricture Rising PSA following treatment for malignant neoplasm of prostate Urinary urgency Surgical History Surgical History History of surgery Social History Social History Patient Tobacco Use Status: Never used Tobacco Advance Directives: No Advance Directives Information Provided: No Do you have a plan to hurt others: No Plan Meds Allergies Allergy/AdvReac Type Severity Reaction Status Date / Time No Known Allergies Allergy Verified 07/27/23 22:41 [No Known Allergies*] Active Medications: Current Medications Glucose (Glucose Gel 15 Gm Gel..Gram.) 15 gm PO Q15M PRN; Protocol PRN Reason: per Hypoglycemia Standing Ord. Heparin Sodium (Porcine) (Heparin Sodium,Porcine 5,000 Unit/Ml Vial) 5,000 unit SUBCUT Q12H [facility] Dextrose (D10) 250 mls @ 750 mls/hr IV Q15M PRN; Protocol PRN Reason: per Hypoglycemia Standing Ord. Insulin Human Lispro (Insulin Lispro 100 Unit/Ml 3 Ml Vial) 0 unit SUBCUT QIDACHS [facility]; Protocol Last Admin: 07/28/23 07:14 Dose: Not Given Loratadine (Loratadine 10 Mg Tablet) 10 mg PO DAILY PRN PRN Reason: Allergic Symptoms Metoprolol Succinate (Metoprolol Succinate Er 25 Mg Tab.Er.24h) 25 mg PO DAILY [facility]; Protocol Oxybutynin Chloride (Oxybutynin Chloride Er 5 Mg Tab.Er.24) 5 mg PO DAILY [facility] Sodium Chloride (0.9 % Sodium Chloride Flush 3 Ml Syringe) 3 ml IVFLUSH QSHIFT [facility] Last Admin: 07/28/23 08:05 Dose: 3 ml Vitamin D (Cholecalciferol (Vitamin D3) 25 Mcg Tablet) 50 mcg PO DAILY [facility] Home Medications ?Medication ?Instructions ?Recorded ?Confirmed ?Last Taken ?Type pioglitazone 45 mg tablet 45 mg PO DAILY 07/23/20 07/28/23 07/27/23 History rosuvastatin 40 mg tablet 40 mg PO DAILY 07/23/20 07/28/23 07/27/23 History cetirizine 10 mg tablet (Zyrtec) 10 mg PO DAILY PRN Allergic 06/13/23 07/28/23 07/27/23 History Symptoms cholecalciferol (vitamin D3) 50 50 mcg PO DAILY 06/13/23 07/28/23 07/27/23 History mcg (2,000 unit) capsule melatonin 5 mg capsule mg PO BEDTIME 06/13/23 07/27/23 History metoprolol succinate 25 mg 25 mg PO DAILY 06/13/23 07/28/23 07/27/23 History tablet,extended release 24 hr vitamin B complex 1 tab PO DAILY 06/13/23 07/27/23 History Physical Exam Vital Signs: Vital Signs: Last Vital Signs Temp 97.9 F 07/28/23 06:34 Pulse 82 07/28/23 06:34 Resp 16 07/28/23 06:34 BP 123/65 07/28/23 06:34 Pulse Ox 99 07/28/23 06:34 O2 Del Method Room Air 07/28/23 06:34 BMI result Body Mass Index 22.0 Const: General: healthy appearing, no acute distress and well developed Orientation/consciousness: patient oriented x3 HEENT: Head: Yes normocephalic and Yes atraumatic Eyes: Conjunctivae: conjunctivae normal Neck: Neck: Yes normal visual inspection Chest: Chest palpation & inspection: normal inspection of the chest Resp: Effort & Inspection: normal respiratory effort GI: Inspection: Yes normal to inspection Palpation (GI): Soft to palpation : Penis: normal penis Scrotum: scrotum normal Skin: General skin exam: no rashes or lesions noted Neuro: General: patient oriented x3 Psych: Appearance: grossly normal Affect: normal affect Results Labs 07/27/23 22:51 07/28/23 02:11 Labs: Abnormal lab results 07/27/23 07/28/23 Range/Units 22:51 02:11 RBC 3.67 L (4.60-5.80) X10*6/uL Hgb 11.0 L (14.0-18.0) g/dl Hct 33.4 L (42.0-52.0) % Plt Count 132 L (160-400) X10*3/uL Neut % (Auto) 79.5 H (45-73) % Lymph % (Auto) 6.2 L (20-40) % Orange % (Auto) 13.6 H (2-11) % Lymph # (Auto) 0.5 L (1.2-4.9) X10*3/uL Chloride 109 H 113 H (96-108) mmol/L Carbon Dioxide 15 L (22-29) mmol/L BUN 51 H 54 H (9-16) mg/dL Creatinine 6.07 H* 6.78 H* (0.5-1.4) mg/dL Random Glucose 149 H (60-115) mg/dL Calcium 8.1 L D (8.4-10.2) mg/dL Short CBC 07/27/23 Range/Units 22:51 WBC 8.5 (4.8-10.8) X10*3/uL Hgb 11.0 L (14.0-18.0) g/dl Hct 33.4 L (42.0-52.0) % Plt Count 132 L (160-400) X10*3/uL BMP 07/27/23 07/28/23 22:51 02:11 Sodium 140 139 Potassium 4.7 4.6 Chloride 109 H 113 H Carbon Dioxide 22 15 L BUN 51 H 54 H Creatinine 6.07 H* 6.78 H* Calcium 9.0 8.1 L D Liver Function 07/27/23 Range/Units 22:51 Total Bilirubin 0.6 (0.0-1.0) mg/dL AST 24 (5-37) U/L ALT 16 (0-40) U/L Alkaline Phosphatase 69 (39-117) U/L Albumin 3.7 (3.5-5.0) g/dL Imaging Additional studies: Date of Service: 07/27/23 EXAMINATION: CT ABDOMEN AND PELVIS WITHOUT CONTRAST CLINICAL INFORMATION: Abdominal pain. COMPARISON: None available. TECHNIQUE: Multidetector volumetric imaging was performed from the superior aspect of the liver through the pubic symphysis. Sagittal and coronal reformatted images were obtained on the Workstation. This CT examination was performed using dose optimization techniques as appropriate, variously including the following: *Automated exposure control *Adjustment of mA and/or kV according to patient size (this includes techniques or standardized protocols for targeted exams where dose is matched to indication/reason for exam; i.e. extremities or head) *Use of iterative reconstruction technique DLP: 471 mGy-cm FINDINGS: LUNG BASES: There is scarring at both lung bases. LIVER, GALLBLADDER, AND BILIARY TREE: There are a few small hepatic hypodensities measuring up to 2 cm likely small cysts. There is no intrahepatic biliary duct dilatation. A few small gallstones are noted. PANCREAS: There is a 2 mm calcification in the region of the in the pancreatic head near the distal common bile duct. SPLEEN: Unremarkable. ADRENAL GLANDS: Unremarkable. KIDNEYS AND URETERS: The kidneys are normal in overall size and position. Stable bilateral renal cysts are seen. There is mild right hydronephrosis and hydroureter to the level of a 2 mm distal right ureteric calculus. There is mild left hydronephrosis/left renal collecting system dilatation without ureteral calculus. BLADDER: Unremarkable. GASTROINTESTINAL TRACT: There are a few diverticula of the distal descending and sigmoid colon without diverticulitis. The appendix is not identified. ABDOMINAL WALL: There is a small umbilical hernia containing fat. LYMPH NODES: Normal. VASCULAR: There is mild atherosclerotic plaque of the abdominal aorta and proximal branches. PELVIC VISCERA: Unremarkable. OSSEOUS STRUCTURES: There is mild diffuse thoracolumbar disc degenerative change. IMPRESSION: Mild right hydronephrosis and hydroureter to the level of a 2 mm distal right ureteric calculus. Mild left hydronephrosis/left renal collecting system dilatation without ureteral calculus. 2 mm calcification in the region of the pancreatic head near the distal common bile duct. This is likely parenchymal and less likely related to the ductal system. Correlation with biliary function enzymes needed. Small gallstones. Diverticulosis of the distal descending and sigmoid colon without evidence of diverticulitis. Assessment and Plan (1) Prostate cancer: Status: Acute (2) Bilateral hydronephrosis: Status: Acute (3) Acute kidney injury: Status: Acute (4) Biochemically recurrent castration-sensitive adenocarcinoma of prostate: Status: Acute (5) Ureteral stone: Status: Acute Plan Patient with history of castration sensitive adenocarcinoma of the prostate, chronic kidney disease and acute renal failure. CT scan notes mild bilateral hydro with a 2 mm right ureteral stone. It is unlikely that the 2 mm stone is contributing to a high-grade obstruction. Recommend conservative therapy. Observe for now. Bladder is empty. Patient is not making urine. Procedures Date of Service Date of Service: 07/28/23 Catheter Insertion (Urinary) Date of insertion: 07/28/23 Time of insertion: 09:32 Reason for placing: Measure accurate output Bladder scan/ultrasound used before catheterization: Yes Estimated amount of urine (mLs): 2 Antiseptic solution prep: Povidone-Iodine Topical anesthesia used: Yes Catheter type/location: 2-way Urethral Size (Turkish): 16 Catheter balloon amount: 10 Results: unable to pass, retried with different size/type catheter and consulted Comment: 18 fr esquivel attempted met with resistance Additional comments: There was a esquivel in inserted, that was not in the bladder. 18 fr esquivel attempted. Flexible cystoscope needed for direct visualization and 16 fr [place] tip esquivel placed over a guide wire. Stricture noted.
[2023-07-28] MEDS: Metoprolol Succinate ER 25 MG TAB.ER.24H PO (10:22)
[2023-07-28] MEDS: Cholecalciferol (Vitamin D3) 25 MCG TABLET 50 MCG PO (10:22)
[2023-07-28] MEDS: oxyBUTYnin chloride ER 5 MG TAB.ER.24 PO (10:22)
--- NOTE | 2023-07-28 10:25 | PC.NURSE ---
Patient with scant amount of output in esquivel tubing , provider at bedside and aware.
--- NOTE | 2023-07-28 11:34 | PC.NURSE ---
Patient reporting pain in bladder from catheter. Only scant amount of output from esquivel (appears to be fluid used in cath insertion procedure) , patient educated that esquivel should remain in place for accurate tracking of urine output
[2023-07-28] MEDS: Morphine Sulfate 2 MG/ML CARTRIDGE IVPUSH ×3 (11:50→22:25)
--- NOTE | 2023-07-28 11:59 | P.CONNP_ITS ---
History of Present Illness Reason for Consult Consult date: 07/28/23 Chief Complaint Chief complaint: Acute Kidney Injury, Anuria History of Present Illness Narrative: 87 years old man with a history significant for CKD stage 3 (f/u by Dr. Jensen), nephrolithiasis, s/p removal and stent ,colitis, hyperlipidemia, prostate cancer on enzalutamide (every other month; last use at the end of June -f/u with Dr. Mora), hyperlipidemia and type 2 diabetes mellitus presents to the emergency department complaining of inability to urinate over the last 2 days. HE flew in from [place] last night and cam straight ot ED. 2 days h/o lack of urine output. He mentioned that last Monday he experience pain to his left groin and took 1 pills of Aleve (naproxen 200 mg) He denied any event of recent vomiting or diarrhea. He mentioned that he usually has loose stools which he attributes to his colitis. He currently denies any abdominal pain. He denies headache, chest pain, shortness on breath, fever or chills. Reported swelling to lower extremity. Denied alcohol abuse, tobacco smoking or illicit drug use. In ED, Esquivel has been inserted No urine output Imaging shows thom hydronephrosis- new finding Review of Systems Review of Systems Yes all other systems are reviewed and are negative PMFSH Past Medical History Medical History Rising PSA following treatment for malignant neoplasm of prostate Bladder infection Renal stones Neuropathy Mild acid reflux Hyperlipidemia Gross hematuria Prostate stricture Rising PSA following treatment for malignant neoplasm of prostate Urinary urgency Surgical History Surgical History History of surgery Social History Social History Patient Tobacco Use Status: Never used Tobacco Advance Directives on File: Yes Advance Directives Date on File: 07/28/23 Do you have a plan to hurt others: No Plan Meds Allergies Allergy/AdvReac Type Severity Reaction Status Date / Time No Known Allergies Allergy Verified 07/27/23 22:41 [No Known Allergies*] Active Medications: Current Medications Glucose (Glucose Gel 15 Gm Gel..Gram.) 15 gm PO Q15M PRN; Protocol PRN Reason: per Hypoglycemia Standing Ord. Heparin Sodium (Porcine) (Heparin Sodium,Porcine 5,000 Unit/Ml Vial) 5,000 unit SUBCUT Q12H [facility] Dextrose (D10) 250 mls @ 750 mls/hr IV Q15M PRN; Protocol PRN Reason: per Hypoglycemia Standing Ord. Insulin Human Lispro (Insulin Lispro 100 Unit/Ml 3 Ml Vial) 0 unit SUBCUT QIDACHS [facility]; Protocol Last Admin: 07/28/23 07:14 Dose: Not Given Loratadine (Loratadine 10 Mg Tablet) 10 mg PO DAILY PRN PRN Reason: Allergic Symptoms Metoprolol Succinate (Metoprolol Succinate Er 25 Mg Tab.Er.24h) 25 mg PO DAILY [facility]; Protocol Last Admin: 07/28/23 10:22 Dose: 25 mg Morphine Sulfate (Morphine Sulfate 2 Mg/Ml Cartridge) 2 mg IVPUSH Q4H PRN; Protocol PRN Reason: severe pain Last Admin: 07/28/23 11:50 Dose: 2 mg Oxybutynin Chloride (Oxybutynin Chloride Er 5 Mg Tab.Er.24) 5 mg PO DAILY [facility] Last Admin: 07/28/23 10:22 Dose: 5 mg Sodium Chloride (0.9 % Sodium Chloride Flush 3 Ml Syringe) [facility] Last Admin: 07/28/23 08:05 Dose: 3 ml Vitamin D (Cholecalciferol (Vitamin D3) 25 Mcg Tablet) 50 mcg PO DAILY [facility] Last Admin: 07/28/23 10:22 Dose: 50 mcg Home Medications ?Medication ?Instructions ?Recorded ?Confirmed ?Last Taken ?Type pioglitazone 45 mg tablet 45 mg PO DAILY 07/23/20 07/28/23 07/27/23 History rosuvastatin 40 mg tablet 40 mg PO DAILY 07/23/20 07/28/23 07/27/23 History cetirizine 10 mg tablet (Zyrtec) 10 mg PO DAILY PRN Allergic 06/13/23 07/28/23 07/27/23 History Symptoms cholecalciferol (vitamin D3) 50 50 mcg PO DAILY 06/13/23 07/28/23 07/27/23 History mcg (2,000 unit) capsule melatonin 5 mg capsule mg PO BEDTIME 06/13/23 07/27/23 History metoprolol succinate 25 mg 25 mg PO DAILY 06/13/23 07/28/23 07/27/23 History tablet,extended release 24 hr vitamin B complex 1 tab PO DAILY 06/13/23 07/27/23 History Physical Exam Vital Signs: Last Vital Signs Temp 97.9 F 07/28/23 06:34 Pulse 86 07/28/23 10:22 Resp 16 07/28/23 06:34 BP 123/65 07/28/23 06:34 Pulse Ox 99 07/28/23 06:34 O2 Del Method Room Air 07/28/23 06:34 BMI result Body Mass Index 22.0 Const General: comfortable and no acute distress Orientation/consciousness: patient oriented x3 HEENT Head: Yes normocephalic Mouth: Normal oral and palatal mucosa present Neck Neck: Yes supple Resp Auscultation: clear to auscultation bilaterally Cardio Jugular venous distension: no JVD Rate: regular rate GI Palpation (GI): Soft to palpation Auscultation: normal bowel sounds General: Yes no CVA tenderness Back/Spine/Pelvis Back: no CVA tenderness Skin General skin exam: no rashes or lesions noted Neuro General: patient oriented x3 and moves all extremities Extrem General: Yes edema (1+) Results Lab Results 07/27/23 22:51 07/28/23 02:11 Lab results: Chemistry 07/27/23 07/28/23 22:51 02:11 Sodium 140 139 Potassium 4.7 4.6 Carbon Dioxide 22 15 L BUN 51 H 54 H Creatinine 6.07 H* 6.78 H* Calcium 9.0 8.1 L D Phosphorus 4.5 Hematology 07/27/23 22:51 WBC 8.5 Hgb 11.0 L Plt Count 132 L Assessment and Plan (1) Acute kidney injury: Status: Acute (2) CKD (chronic kidney disease) stage 3, GFR 30-59 ml/min: Qualifiers: Chronic kidney disease stage 3 subtype: stage 3a (GFR 45-59) Qualified Code(s): N18.31 - Chronic kidney disease, stage 3a Status: Acute (3) Nephrolithiasis: Status: Acute Plan . 87 yr old man with JAVON superimposed on CKD Currently anuric with imaging showing thom hydronephrosis - new finding JAVON is most likely due to obstructive uropathy DDX could include hypoperfusion or possible ATN AGN/AiN seem less likely Mild Met acidosis /Potassium is normal Suggest Keep esquivel Cautious hydration - 1/2NS with 50 meq NaHCO3 at 50 cc/hr x 2 L Repeat renal ultrasonogram in 24 hours if no urine output Check urine for Na/Cr and protein, UA NO absolute indication for dialysis at this time Shall follow closely along with the team Procedures Date of Service Date of Service: 07/28/23
--- NOTE | 2023-07-28 12:03 | PC.NURSE ---
Patient aware that he is NPO until stent placement rosanne
--- NOTE | 2023-07-28 12:14 | MHC.CM.PN ---
Met with patient in regards to discharge planning. Patient lives with his , ambulates independently and had no services prior to coming to the hospital. Patient denies the need for services or STR at d/c. PCP verifed as Dr Mounika Ruggiero. Copy of HCP verified to be on file. IMM explained and signed. Patient's or son will transport him home when medically stable. Continue to monitor for d/c needs.
--- NOTE | 2023-07-28 12:51 | PC.NURSE ---
Patient seen by Dr. Mora aware of plan of care
[2023-07-28 13:32] LABS: Glucose, Whole Blood 79 mg/dL (60-115)
--- NOTE | 2023-07-28 14:50 | PM.EVENT ---
Event Note Date of Service: 07/28/23 Event Note: Day hospitalist update S: c/o bladder pain from [place] anuric O: Temp Pulse Resp BP Pulse Ox O2 Del Method 97.9 F 86 16 123/65 99 Room Air 07/28/23 06:34 07/28/23 10:22 07/28/23 06:34 07/28/23 06:34 07/28/23 06:34 07/28/23 06:34 Gen: in no acute distress HEENT: sclera anicteric, moist mucus membranes Neck: supple Lungs: clear to auscultation bilaterally Heart: regular rate and rhythm, no murmurs Abd: soft, non-tender, non-distended Ext: L>R leg edema Skin: warm/well-perfused Neuro: alert and oriented x3, no focal findings Psych: appropriate affect A/P: d1 87yo M with CKD3, nephrolithiasis s/p stenting, colitis, HLD, prostate CA on enzalutamide, HLD, DM2 presenting with anuria x2d, recent though minimal use of naproxen found to have JAVON with Cr 6.07-6.78, bicarbonate 15 bilateral hydronephrosis which is new for pt JAVON/CKD3 - suspect obstructive per Nephrology; Urology consulted and will go for stenting later today metabolic acidosis - IV bicarbonate supplementation leg edema - Doppler pending DM2 - A1c pending; hold pioglitazone; give breann-dose lispro prostate CA - enzalutamide HLD - hold statin stable angina - continue metoprolol VTE ppx - UFH dispo - TBD In my clinical judgment, the patient requires continued inpatient hospitalization for the following reasons: JAVON Time Spent With Patient Time: Total time managing care of this patient today ____ minutes.
--- NOTE | 2023-07-28 15:30 | PC.NURSE ---
report from macrina MASON
[2023-07-28 16:09] LABS: Glucose, Whole Blood 66 mg/dL (60-115)
[2023-07-28] MEDS: Dextrose 10 % 250 ML 750 ML IV (16:24)
--- NOTE | 2023-07-28 16:25 | MHC.EDTECH ---
THIS PCT ASSUMED CARE OF PATIENT AT 1500 ,VITALS TAKEN ,PATIENT ALERT AND ORIENTED ,PATIENT IS RESTING QUIETLY IN BED .
--- NOTE | 2023-07-28 16:27 | PC.NURSE ---
patient awake and alert. skin pwd. resp even and non labored. speaking in full, clear sentences. prn dextrose administered per order for hypoglycemia.
[2023-07-28 16:52] LABS: Glucose, Whole Blood 126 mg/dL (60-115)
--- NOTE | 2023-07-28 17:12 | HO.ANESPROP2 ---
[facility] Active Problems Active Problems: All Active Problems Ureteral stone (Acute) Lower extremity edema (Acute) Bilateral hydronephrosis (Acute) Acute kidney injury (Acute) Renal cysts, acquired, bilateral (Acute) CKD (chronic kidney disease) stage 3, GFR 30-59 ml/min (Acute) Biochemically recurrent castration-sensitive adenocarcinoma of prostate (Acute) Nephrolithiasis (Acute) Prostate cancer (Acute) Frequency of micturition (Acute) Past Medical History Medical History Rising PSA following treatment for malignant neoplasm of prostate Bladder infection Renal stones Neuropathy Mild acid reflux Hyperlipidemia Gross hematuria Prostate stricture Rising PSA following treatment for malignant neoplasm of prostate Urinary urgency Functional capacity: independent ambulation Family History Family history of problems with anesthesia: No Surgical History Surgical History History of surgery History of Problems with Anesthesia: No Social History Social History Patient Tobacco Use Status: Never used Tobacco Advance Directives Date on File: 07/28/23 service: No Meds Allergies Allergy/AdvReac Type Severity Reaction Status Date / Time No Known Allergies Allergy Verified 07/27/23 22:41 [No Known Allergies*] Active Medications: Current Medications Glucose (Glucose Gel 15 Gm Gel..Gram.) 15 gm PO Q15M PRN; Protocol PRN Reason: per Hypoglycemia Standing Ord. Heparin Sodium (Porcine) (Heparin Sodium,Porcine 5,000 Unit/Ml Vial) 5,000 unit SUBCUT Q12H [facility] Dextrose (D10) 250 mls @ 750 mls/hr IV Q15M PRN; Protocol PRN Reason: per Hypoglycemia Standing Ord. Last Admin: 07/28/23 16:24 Dose: 750 mls/hr Sodium Bicarbonate 50 meq/ (Dextrose) 1,000 mls @ 50 mls/hr IV .Q20H [facility] Insulin Human Lispro (Insulin Lispro 100 Unit/Ml 3 Ml Vial) 0 unit SUBCUT QIDACHS [facility]; Protocol Last Admin: 07/28/23 13:50 Dose: Not Given Loratadine (Loratadine 10 Mg Tablet) 10 mg PO DAILY PRN PRN Reason: Allergic Symptoms Metoprolol Succinate (Metoprolol Succinate Er 25 Mg Tab.Er.24h) 25 mg PO DAILY [facility]; Protocol Last Admin: 07/28/23 10:22 Dose: 25 mg Morphine Sulfate (Morphine Sulfate 2 Mg/Ml Cartridge) 2 mg IVPUSH Q4H PRN; Protocol PRN Reason: severe pain Last Admin: 07/28/23 15:52 Dose: 2 mg Oxybutynin Chloride (Oxybutynin Chloride Er 5 Mg Tab.Er.24) 5 mg PO DAILY [facility] Last Admin: 07/28/23 10:22 Dose: 5 mg Sodium Chloride (0.9 % Sodium Chloride Flush 3 Ml Syringe) 3 ml IVFLUSH QSHIFT [facility] Last Admin: 07/28/23 08:05 Dose: 3 ml Vitamin D (Cholecalciferol (Vitamin D3) 25 Mcg Tablet) 50 mcg PO DAILY [facility] Last Admin: 07/28/23 10:22 Dose: 50 mcg Home Medications ?Medication ?Instructions ?Recorded ?Confirmed ?Last Taken ?Type pioglitazone 45 mg tablet 45 mg PO DAILY 07/23/20 07/28/23 07/27/23 History rosuvastatin 40 mg tablet 40 mg PO DAILY 07/23/20 07/28/23 07/27/23 History cetirizine 10 mg tablet (Zyrtec) 10 mg PO DAILY PRN Allergic 06/13/23 07/28/23 07/27/23 History Symptoms cholecalciferol (vitamin D3) 50 50 mcg PO DAILY 06/13/23 07/28/23 07/27/23 History mcg (2,000 unit) capsule melatonin 5 mg capsule mg PO BEDTIME 06/13/23 07/27/23 History metoprolol succinate 25 mg 25 mg PO DAILY 06/13/23 07/28/23 07/27/23 History tablet,extended release 24 hr vitamin B complex 1 tab PO DAILY 06/13/23 07/27/23 History Exam Height,Weight and Vital Signs: Height 5 ft 8 in Weight 65.771 kg Last Vital Signs Temp 97.9 F 07/28/23 17:04 Pulse 78 07/28/23 17:04 Resp 18 07/28/23 17:04 BP 156/71 H 07/28/23 17:04 Pulse Ox 97 07/28/23 17:04 O2 Del Method Room Air 07/28/23 17:04 Pertinent Lab Results Pertinent Lab Results: Laboratory Tests 07/27/23 07/28/23 07/28/23 22:51 02:11 06:57 WBC 8.5 RBC 3.67 L Hgb 11.0 L Hct 33.4 L MCV 91.0 MCH 30.0 MCHC 32.9 RDW 14.6 Plt Count 132 L MPV 9.7 Immature Gran % (Auto) 0.4 Neut % (Auto) 79.5 H Lymph % (Auto) 6.2 L [place] % (Auto) 13.6 H Eos % (Auto) 0.2 Baso % (Auto) 0.1 Lymph # (Auto) 0.5 L [place] # (Auto) 1.2 Eos # (Auto) 0.0 Baso # (Auto) 0.0 Abs Immat Gran (auto) 0.03 Absolute Neuts (auto) 6.7 Absolute Nucleated RBC 0.000 Nucleated RBC % (auto) 0.0 Sodium 140 139 Potassium 4.7 4.6 Chloride 109 H 113 H Carbon Dioxide 22 15 L Anion Gap 14 16 BUN 51 H 54 H Creatinine 6.07 H* 6.78 H* Estim Creat Clear Calc 8.2 7.4 Estimated GFR 9 8 POC Glucose 87 Random Glucose 149 H 87 Calcium 9.0 8.1 L D Phosphorus 4.5 Total Bilirubin 0.6 AST 24 ALT 16 Alkaline Phosphatase 69 Total Protein 6.6 Albumin 3.7 07/28/23 07/28/23 07/28/23 13:29 16:06 16:49 WBC RBC Hgb Hct MCV MCH MCHC RDW Plt Count MPV Immature Gran % (Auto) Neut % (Auto) Lymph % (Auto) [place] % (Auto) Eos % (Auto) Baso % (Auto) Lymph # (Auto) [place] # (Auto) Eos # (Auto) Baso # (Auto) Abs Immat Gran (auto) Absolute Neuts (auto) Absolute Nucleated RBC Nucleated RBC % (auto) Sodium Potassium Chloride Carbon Dioxide Anion Gap BUN Creatinine Estim Creat Clear Calc Estimated GFR POC Glucose 79 66 126 H Random Glucose Calcium Phosphorus Total Bilirubin AST ALT Alkaline Phosphatase Total Protein Albumin Assessment and Plan Final Anesthetic Review Family History of Problems with Anesthesia: No History of Problems with Anesthesia: No
--- NOTE | 2023-07-28 17:13 | HO.ANESPROP2 ---
[facility] Active Problems Active Problems: All Active Problems Ureteral stone (Acute) Lower extremity edema (Acute) Bilateral hydronephrosis (Acute) Acute kidney injury (Acute) Renal cysts, acquired, bilateral (Acute) CKD (chronic kidney disease) stage 3, GFR 30-59 ml/min (Acute) Biochemically recurrent castration-sensitive adenocarcinoma of prostate (Acute) Nephrolithiasis (Acute) Prostate cancer (Acute) Frequency of micturition (Acute) Past Medical History Medical History (Updated 07/28/23 @ 17:32 by Belén Marcelino) Diabetes SOB (shortness of breath) Bladder infection Renal stones Neuropathy Mild acid reflux Hyperlipidemia Gross hematuria Prostate stricture Rising PSA following treatment for malignant neoplasm of prostate Urinary urgency Rising PSA following treatment for malignant neoplasm of prostate Functional capacity: independent ambulation Family History Family history of problems with anesthesia: No Surgical History Surgical History History of prostate surgery History of appendectomy H/O hernia repair History of Problems with Anesthesia: No Social History Social History Patient Tobacco Use Status: Former Tobacco user Tobacco use type: Cigarette Years Smoked: 15 Advance Directives Date on File: 07/28/23 service: No Meds Allergies Allergy/AdvReac Type Severity Reaction Status Date / Time No Known Allergies Allergy Verified 07/28/23 17:33 [No Known Allergies*] Active Medications: Current Medications Glucose (Glucose Gel 15 Gm Gel..Gram.) 15 gm PO Q15M PRN; Protocol PRN Reason: per Hypoglycemia Standing Ord. Heparin Sodium (Porcine) (Heparin Sodium,Porcine 5,000 Unit/Ml Vial) 5,000 unit SUBCUT Q12H [facility] Dextrose (D10) 250 mls @ 750 mls/hr IV Q15M PRN; Protocol PRN Reason: per Hypoglycemia Standing Ord. Last Admin: 07/28/23 16:24 Dose: 750 mls/hr Sodium Bicarbonate 50 meq/ (Dextrose) 1,000 mls @ 50 mls/hr IV .Q20H [facility] Insulin Human Lispro (Insulin Lispro 100 Unit/Ml 3 Ml Vial) 0 unit SUBCUT QIDACHS [facility]; Protocol Last Admin: 07/28/23 13:50 Dose: Not Given Loratadine (Loratadine 10 Mg Tablet) 10 mg PO DAILY PRN PRN Reason: Allergic Symptoms Metoprolol Succinate (Metoprolol Succinate Er 25 Mg Tab.Er.24h) 25 mg PO DAILY [facility]; Protocol Last Admin: 07/28/23 10:22 Dose: 25 mg Morphine Sulfate (Morphine Sulfate 2 Mg/Ml Cartridge) 2 mg IVPUSH Q4H PRN; Protocol PRN Reason: severe pain Last Admin: 07/28/23 15:52 Dose: 2 mg Oxybutynin Chloride (Oxybutynin Chloride Er 5 Mg Tab.Er.24) 5 mg PO DAILY [facility] Last Admin: 07/28/23 10:22 Dose: 5 mg Sodium Chloride (0.9 % Sodium Chloride Flush 3 Ml Syringe) 3 ml IVFLUSH QSHIFT [facility] Last Admin: 07/28/23 08:05 Dose: 3 ml Vitamin D (Cholecalciferol (Vitamin D3) 25 Mcg Tablet) 50 mcg PO DAILY [facility] Last Admin: 07/28/23 10:22 Dose: 50 mcg Home Medications ?Medication ?Instructions ?Recorded ?Confirmed ?Last Taken ?Type pioglitazone 45 mg tablet 45 mg PO DAILY 07/23/20 07/28/23 07/27/23 History rosuvastatin 40 mg tablet 40 mg PO DAILY 07/23/20 07/28/23 07/27/23 History cetirizine 10 mg tablet (Zyrtec) 10 mg PO DAILY PRN Allergic 06/13/23 07/28/23 07/27/23 History Symptoms cholecalciferol (vitamin D3) 50 50 mcg PO DAILY 06/13/23 07/28/23 07/27/23 History mcg (2,000 unit) capsule melatonin 5 mg capsule mg PO BEDTIME 06/13/23 07/27/23 History metoprolol succinate 25 mg 25 mg PO DAILY 06/13/23 07/28/23 07/27/23 History tablet,extended release 24 hr vitamin B complex 1 tab PO DAILY 06/13/23 07/27/23 History Exam Height,Weight and Vital Signs: Height 5 ft 8 in Weight 65.771 kg Last Vital Signs Temp 97.9 F 07/28/23 17:04 Pulse 78 07/28/23 17:04 Resp 18 07/28/23 17:04 BP 156/71 H 07/28/23 17:04 Pulse Ox 97 07/28/23 17:04 O2 Del Method Room Air 07/28/23 17:04 Pertinent Lab Results Pertinent Lab Results: Laboratory Tests 07/27/23 07/28/23 07/28/23 22:51 02:11 06:57 WBC 8.5 RBC 3.67 L Hgb 11.0 L Hct 33.4 L MCV 91.0 MCH 30.0 MCHC 32.9 RDW 14.6 Plt Count 132 L MPV 9.7 Immature Gran % (Auto) 0.4 Neut % (Auto) 79.5 H Lymph % (Auto) 6.2 L [place] % (Auto) 13.6 H Eos % (Auto) 0.2 Baso % (Auto) 0.1 Lymph # (Auto) 0.5 L [place] # (Auto) 1.2 Eos # (Auto) 0.0 Baso # (Auto) 0.0 Abs Immat Gran (auto) 0.03 Absolute Neuts (auto) 6.7 Absolute Nucleated RBC 0.000 Nucleated RBC % (auto) 0.0 Sodium 140 139 Potassium 4.7 4.6 Chloride 109 H 113 H Carbon Dioxide 22 15 L Anion Gap 14 16 BUN 51 H 54 H Creatinine 6.07 H* 6.78 H* Estim Creat Clear Calc 8.2 7.4 Estimated GFR 9 8 POC Glucose 87 Random Glucose 149 H 87 Calcium 9.0 8.1 L D Phosphorus 4.5 Total Bilirubin 0.6 AST 24 ALT 16 Alkaline Phosphatase 69 Total Protein 6.6 Albumin 3.7 07/28/23 07/28/23 07/28/23 13:29 16:06 16:49 WBC RBC Hgb Hct MCV MCH MCHC RDW Plt Count MPV Immature Gran % (Auto) Neut % (Auto) Lymph % (Auto) [place] % (Auto) Eos % (Auto) Baso % (Auto) Lymph # (Auto) [place] # (Auto) Eos # (Auto) Baso # (Auto) Abs Immat Gran (auto) Absolute Neuts (auto) Absolute Nucleated RBC Nucleated RBC % (auto) Sodium Potassium Chloride Carbon Dioxide Anion Gap BUN Creatinine Estim Creat Clear Calc Estimated GFR POC Glucose 79 66 126 H Random Glucose Calcium Phosphorus Total Bilirubin AST ALT Alkaline Phosphatase Total Protein Albumin Airway Mallampati Class: II TM Dist: >3cm Neck ROM: Full Heart: RRR Lungs: CTA Assessment and Plan Assessment Anesthesia Assessment: Anesthesia Plan Discussed Final Anesthetic Review Family History of Problems with Anesthesia: No History of Problems with Anesthesia: No NPO: Yes ASA Class: III and Emergency Final Preanesthetic Review: Meds/Allgs Chart Reviewed, Consent Obtained/Reviewed and Anes Risks/Benef Reviewed Patient Risk: Intermediate Procedure Risk: Low Anesthetic Plan Anesthetic Plan: GA Disposition: Standard PACU
--- NOTE | 2023-07-28 17:38 | PC.NURSE ---
Pt. was called to OR immediately upon arrival to the floor, no assessment or admission done yet.
--- NOTE | 2023-07-28 17:40 | PC.NURSE ---
Patient arrived to preop with a PRN angio #22 in left AC. Site asymptomatic, flushed well.
--- NOTE | 2023-07-28 17:43 | MHC.SHP ---
Pre-Procedural Eval Section A - 24 Hr Update-Section A only Date of Service: 07/28/23 The patient is an INPATIENT: No Changes since office visit: No Cold of Flu in the past 2 weeks, No New Medical Problems, No Changes in Medication and No Patient answered all questions The patient has been examined within 24 hours of the surgical procedure. The History & Physical has been completed within 30 days and I have reviewed it.: Yes Section B - Complete if H&P > 30 days Chief Complaint: Acute Kidney Injury, Anuria Allergies: Allergies Allergy/AdvReac Type Severity Reaction Status Date / Time No Known Allergies Allergy Verified 07/28/23 17:33 [No Known Allergies*] Plan Diagnosis/Plan: Unchanged (cysto, right retrograde, ureteroscopy laser and right stent, left retrograde and stent placement) I have reviewed the history and physical and performed a pertinent physical examination on my patient. No changes have occurred unless specified. Time Spent With Patient Time: Total time managing care of this patient today ____ minutes.
--- NOTE | 2023-07-28 18:39 | W.PM.OPN ---
Operative Note Operative Note Date of Service: 07/28/23 Narrative: PreOperative Diagnosis: Right distal ureteric stone with hydronephrosis, left hydronephrosis Post Operative Diagnosis: Bilateral hydronephrosis with distal stone right side Procedure: - cystoscopy, left retrograde - left stent placement - right retrograde - right ureteroscopy - right stent placement Surgeon: Dr Henry Mora Anesthesia: General Indications for procedure: Presents with anuria. Creatinine 6.7. Question of bilateral ureteric obstruction. Prior history of brachytherapy Procedure: After informed consent was verified the patient was brought to the operating room and placed in a supine position. Anesthesia was administered per protocol. The patient was placed in a modified dorsal lithotomy position and prepped and draped in a sterile fashion. Safety pause time-out and side of surgery were confirmed. Images were available for review. Antibiotic administration confirmed. A 22 [place] cystoscope was inserted per urethra. The urethra was without aabnormality. The bladder was normal in its entirety. Both ureteric orifices were seen in normal position. Open prostate. The left ureteric orifice was cannulated and a retrograde examination was performed. Mild hydro nephrosis with tortuous upper ureter . A Sensor guidewire was placed up to the level of the renal pelvis under fluoroscopy. Six [place] by 26 cm double-J [place] placed into left kidney. Hydronephrotic drip noted after stent placement. Right retrograde performed. Narrowing seen at junction between mid and distal 3rd of ureter. Tortuous upper ureter with hydronephrosis. Sensor guidewire placed. Debris ejected from ureter on sensor guidewire placement. The semi rigid ureteral scope was placed alongside the Sensor guidewire. Transition point between distal and mid ureter with irritation at mid ureter indicative of prior stone. No stone seen. The rigid cystoscope was backloaded over the wire and advanced into the bladder. A 6 [place] by 26 cm double-J stent was placed into the renal pelvis and bladder under a combination of fluoroscopy and direct visualization. A 16 [place] Aden catheter placed into the bladder and a 2 L bag attached. Good urine output seen in to bag. This was in contrast to and urea at beginning of operative case. The patient tolerated the procedure well and was extubated in the operating room. They were transferred in stable condition to the recovery area. Discussion with Madyson outlining findings and stent placement. Pathology: Drains: Bilateral ureteric stents
[2023-07-28 20:24] LABS: Glucose, Whole Blood 95 mg/dL (60-115)
[2023-07-28] MEDS: Acetaminophen 1,000 MG/100 ML PIGGYBACK 400 MG IV (20:37)
[2023-07-28] MEDS: Heparin Sodium,Porcine 5,000 UNIT/ML VIAL 5000 UNIT SUBCUT (21:16)
[2023-07-28] MEDS: Sodium Bicarbonate 8.4% 50 MEQ in Dextrose 5 % 950 ML IV (21:16)
[2023-07-29] MEDS: Morphine Sulfate 2 MG/ML CARTRIDGE IVPUSH ×2 (02:22→08:30)
[2023-07-29 03:11] VITALS: BP 117/56; PULSE 70; RESP 18; TEMP 36.1; O2SAT 98
[2023-07-29 06:16] LABS: MANUAL DIFF FLAG NO
[2023-07-29 06:25] LABS: Basophils Percent Auto 0.2 % (0-2); Eosinophils Absolute Auto 0.1 X10*3/uL (0.0-0.4); Eosinophils Percent Auto 0.8 % (0-4); Hematocrit 28.7 % (42.0-52.0); Hemoglobin 9.2 g/dl (14.0-18.0); Imm Gran Abs Auto 0.03 X10*3/uL (0.00-0.03); Imm Gran Pct Auto 0.5 % (0.0-0.4); Lymphocytes Absolute Auto 0.4 X10*3/uL (1.2-4.9); Lymphocytes Percent Auto 7.2 % (20-40); Mean Corpuscular HGB Conc 32.1 g/dl (31.0-36.0); Mean Corpuscular Hemoglobin 29.3 pg (27.0-33.0); Mean Corpuscular Volume 91.4 fL (80.0-98.0); Mean Platelet Volume 10.7 fL (9.4-12.4); Monocytes Absolute Auto 0.8 X10*3/uL (0.1-1.2); Monocytes Percent Auto 12.4 % (2-11); Neutrophils Absolute Auto 4.8 x10*3/uL (2.0-8.3); Neutrophils Percent Auto 78.9 % (45-73); Platelet Count 113 X10*3/uL (160-400); Red Blood Count 3.14 X10*6/uL (4.60-5.80); Red Cell Distribution Width 14.7 % (11.0-16.0); White Blood Count 6.1 X10*3/uL (4.8-10.8)
[2023-07-29 06:43] LABS: Anion Gap 13 (12-20); Blood Urea Nitrogen 48 mg/dL (9-16); Calcium 8.2 mg/dL (8.4-10.2); Carbon Dioxide 20 mmol/L (22-29); Chloride 112 mmol/L (96-108); Creatinine Clr Calc Pharmacy 9.2; Estimated Glomerular Filt Rate 10; Glucose Random 96 mg/dL (60-115); Potassium 5.1 mmol/L (3.3-5.1); Sodium 140 mmol/L (135-145)
[2023-07-29 07:04] LABS: Estimated Average Glucose 128 mg/dL; Hemoglobin A1C 118.6445 umol/L; Hemoglobin A1c % 6.1 % (<6.0)
[2023-07-29 07:37] LABS: Glucose, Whole Blood 95 mg/dL (60-115)
[2023-07-29 07:42] VITALS: BP 131/59; PULSE 68; RESP 16; TEMP 36.4; O2SAT 99
[2023-07-29] MEDS: Lactated Ringers 1,000 ML 100 ML IVCONT ×2 (08:33→23:54)
[2023-07-29 09:12] VITALS: BP 126/58; PULSE 64
[2023-07-29 09:30] VITALS: BP 126/58; PULSE 64
[2023-07-29] MEDS: Metoprolol Succinate ER 25 MG TAB.ER.24H PO (09:30)
[2023-07-29] MEDS: Cholecalciferol (Vitamin D3) 25 MCG TABLET 50 MCG PO (09:31)
[2023-07-29] MEDS: oxyBUTYnin chloride ER 5 MG TAB.ER.24 PO (09:31)
[2023-07-29] MEDS: Heparin Sodium,Porcine 5,000 UNIT/ML VIAL 5000 UNIT SUBCUT ×2 (09:32→19:40)
--- NOTE | 2023-07-29 10:48 | HO.PM.IMPN ---
Subjective Subjective Date of Service: 07/29/23 Interval History: POD1 c/o irritation from Aden diuresing well Cr improving Review of Systems Review of Systems: Yes all other systems are reviewed and are negative Physical Exam Vital Signs: Vital Signs: Last Vital Signs Temp 97.5 F 07/29/23 07:42 Pulse 64 07/29/23 09:30 Resp 16 07/29/23 07:42 BP 126/58 L 07/29/23 09:30 Pulse Ox 99 07/29/23 07:42 O2 Del Method Room Air 07/29/23 07:42 BMI result Body Mass Index 22.0 Gen: in no acute distress HEENT: sclera anicteric, moist mucus membranes Neck: supple Lungs: clear to auscultation bilaterally Heart: regular rate and rhythm, no murmurs Abd: soft, non-tender, non-distended : Aden draining clear urine Ext: trace bilateral leg edema Skin: warm/well-perfused Neuro: alert and oriented x3, no focal findings Psych: appropriate affect Objective Data Active Medications Glucose (Glucose Gel 15 Gm Gel..Gram.) 15 gm PO Q15M PRN; Protocol PRN Reason: per Hypoglycemia Standing Ord. Heparin Sodium (Porcine) (Heparin Sodium,Porcine 5,000 Unit/Ml Vial) 5,000 unit SUBCUT Q12H [facility] Last Admin: 07/29/23 09:32 Dose: 5,000 unit Documented By: SANDIE Dextrose (D10) 250 mls @ 750 mls/hr IV Q15M PRN; Protocol PRN Reason: per Hypoglycemia Standing Ord. Last Infusion: 07/28/23 23:54 Dose: Infused Documented By: ANTOIC Lactated Ringer's (Lr) 1,000 mls @ 100 mls/hr IVCONT .Q10H [facility] Last Admin: 07/29/23 08:33 Dose: 100 mls/hr Documented By: DOBROB Insulin Human Lispro (Insulin Lispro 100 Unit/Ml 3 Ml Vial) 0 unit SUBCUT QIDACHS [facility]; Protocol Last Admin: 07/29/23 07:56 Dose: Not Given Documented By: SANDIE Non-Admin Reason: No Insulin Coverage Loratadine (Loratadine 10 Mg Tablet) 10 mg PO DAILY PRN PRN Reason: Allergic Symptoms Melatonin (Melatonin 3 Mg Tablet) 6 mg PO BEDTIME PRN PRN Reason: Insomnia Metoprolol Succinate (Metoprolol Succinate Er 25 Mg Tab.Er.24h) 25 mg PO DAILY [facility]; Protocol Last Admin: 07/29/23 09:30 Dose: 25 mg Documented By: SANDIE Morphine Sulfate (Morphine Sulfate 2 Mg/Ml Cartridge) 2 mg IVPUSH Q4H PRN; Protocol PRN Reason: severe pain Last Admin: 07/29/23 08:30 Dose: 2 mg Documented By: EFREN Oxybutynin Chloride (Oxybutynin Chloride Er 5 Mg Tab.Er.24) 5 mg PO DAILY [facility] Last Admin: 07/29/23 09:31 Dose: 5 mg Documented By: SANDIE Sodium Chloride (0.9 % Sodium Chloride Flush 3 Ml Syringe) 3 ml IVFLUSH QSHIFT [facility] Last Admin: 07/29/23 08:17 Dose: Not Given Documented By: EFREN Non-Admin Reason: IV Running Vitamin D (Cholecalciferol (Vitamin D3) 25 Mcg Tablet) 50 mcg PO DAILY [facility] Last Admin: 07/29/23 09:31 Dose: 50 mcg Documented By: SANDIE Labs 07/29/23 05:47 07/29/23 05:47 Labs: Laboratory Results - last 24 hr 07/28/23 07/28/23 07/28/23 13:29 16:06 16:49 MCV MCH MCHC RDW Plt Count MPV Immature Gran % (Auto) Neut % (Auto) Lymph % (Auto) [place] % (Auto) Eos % (Auto) Baso % (Auto) Lymph # (Auto) [place] # (Auto) Eos # (Auto) Baso # (Auto) Abs Immat Gran (auto) Absolute Neuts (auto) Absolute Nucleated RBC Nucleated RBC % (auto) Anion Gap Estim Creat Clear Calc Estimated GFR POC Glucose 79 66 126 H Random Glucose Estimat Average Glucose Hemoglobin A1c % Calcium 07/28/23 07/28/23 07/29/23 20:20 22:51 05:47 MCV 91.4 MCH 29.3 MCHC 32.1 RDW 14.7 Plt Count 113 L MPV 10.7 Immature Gran % (Auto) 0.5 H Neut % (Auto) 78.9 H Lymph % (Auto) 7.2 L [place] % (Auto) 12.4 H Eos % (Auto) 0.8 Baso % (Auto) 0.2 Lymph # (Auto) 0.4 L [place] # (Auto) 0.8 Eos # (Auto) 0.1 Baso # (Auto) 0.0 Abs Immat Gran (auto) 0.03 Absolute Neuts (auto) 4.8 Absolute Nucleated RBC 0.000 Nucleated RBC % (auto) 0.0 Anion Gap 13 Estim Creat Clear Calc 9.2 Estimated GFR 10 POC Glucose 95 Random Glucose 96 Estimat Average Glucose 128 Hemoglobin A1c % 6.1 H Calcium 8.2 L 07/29/23 07:34 MCV MCH MCHC RDW Plt Count MPV Immature Gran % (Auto) Neut % (Auto) Lymph % (Auto) [place] % (Auto) Eos % (Auto) Baso % (Auto) Lymph # (Auto) [place] # (Auto) Eos # (Auto) Baso # (Auto) Abs Immat Gran (auto) Absolute Neuts (auto) Absolute Nucleated RBC Nucleated RBC % (auto) Anion Gap Estim Creat Clear Calc Estimated GFR POC Glucose 95 Random Glucose Estimat Average Glucose Hemoglobin A1c % Calcium Assessment and Plan (1) Ureteral stone: Status: Acute (2) Bilateral hydronephrosis: Status: Acute (3) Acute kidney injury: Status: Acute Plan d2 87yo M with CKD3, nephrolithiasis s/p stenting, colitis, HLD, prostate CA on enzalutamide, HLD, DM2 presenting with anuria x2d, recent though minimal use of naproxen found to have JAVON with Cr 6.07-6.78, bicarbonate 15 bilateral hydronephrosis suggestive of obstructive etiology JAVON/CKD3 ureteral stone - s/p cysto/bilateral stent placement, found to have distal R ureteral stone - SCr improving, monitor UOP + BMP metabolic acidosis - resolving, switch bicarbonate to LR leg edema - Doppler negative for DVT DM2, A1c 6 - d/c correction-dose lispro; on pioglitazone at home prostate CA - enzalutamide HLD - hold statin stable angina - continue metoprolol VTE ppx - UFH dispo - TBD In my clinical judgment, the patient requires continued inpatient hospitalization for the following reasons: JAVON Total time managing care of this patient today: 35 minutes. Quality Stroke Does the patient have a stroke diagnosis?: No VTE Prior VTE?: No VTE Risk Level:: Medical - moderate - high VTE Device Contraindication: Treatment Not Indicated VTE Drug Contraindication: N/A - Med Ordered
[2023-07-29 11:07] LABS: Glucose, Whole Blood 158 mg/dL (60-115)
[2023-07-29] MEDS: Morphine Sulfate 2 MG/ML CARTRIDGE 4 MG IVPUSH ×3 (11:35→23:54)
--- NOTE | 2023-07-29 12:28 | HO.POSTANES ---
Post Anesthesia Evaluation Post Anesthesia Evaluation Date of Service: 07/28/23 Vital Signs: Vital Signs Temp Pulse Resp BP Pulse Ox O2 Del Method 07/29/23 09:30 64 126/58 L 07/29/23 09:12 64 126/58 L 07/29/23 07:42 97.5 F 68 16 131/59 L 99 Room Air 07/29/23 03:11 97.0 F 70 18 117/56 L 98 Room Air Anesthesia: General LMA and General Mental Status: Awake Pain Control: Satisfactory Nausea/Vomiting: None Hydration: Adequate Anesthesia-Related Issues: No Anes. Related Issues
[2023-07-29 14:14] LABS: Appearance Urine Cloudy; Color Urine Red; Glucose Urine UA Negative (Negative); Leukocyte Esterase Urine Moderate (2+) (Negative); Nitrite Urine Negative (Negative); UMIC TRIGGER UACC YES; Urine Blood Large (3+) (Negative); Urine Ketones Negative (Negative); Urine Protein 30 (1+) mg/dL (Neg-Trace)
[2023-07-29 14:15] LABS: Bacteria Urine None Seen (None Seen); Hyaline Casts Urine 0-2 /LPF (0-2); RBC Urine >20 /HPF (0-2); UACC Culture Trigger YES; WBC Urine 21-50 /HPF (0-5)
[2023-07-29 14:32] LABS: Creatinine Urine 63.17 mg/dL; Total Protein Urine Random 42 mg/dL (<12)
[2023-07-29 16:00] VITALS: BP 144/66; PULSE 66; RESP 20; TEMP 36.4; O2SAT 99
[2023-07-29 16:14] LABS: Glucose, Whole Blood 75 mg/dL (60-115)
[2023-07-29 20:00] VITALS: BP 124/60; PULSE 70; RESP 18; TEMP 36.4; O2SAT 94
[2023-07-29 21:15] LABS: Glucose, Whole Blood 103 mg/dL (60-115)
[2023-07-30 03:19] VITALS: BP 139/66; PULSE 67; RESP 20; TEMP 36.3; O2SAT 100
[2023-07-30 06:17] LABS: Hematocrit 30.1 % (42.0-52.0); Hemoglobin 9.8 g/dl (14.0-18.0); Mean Corpuscular HGB Conc 32.6 g/dl (31.0-36.0); Mean Corpuscular Hemoglobin 29.7 pg (27.0-33.0); Mean Corpuscular Volume 91.2 fL (80.0-98.0); Mean Platelet Volume 10.2 fL (9.4-12.4); Platelet Count 131 X10*3/uL (160-400); Red Cell Distribution Width 14.6 % (11.0-16.0); White Blood Count 4.8 X10*3/uL (4.8-10.8)
[2023-07-30 06:51] LABS: Anion Gap 12 (12-20); Blood Urea Nitrogen 35 mg/dL (9-16); Calcium 8.5 mg/dL (8.4-10.2); Carbon Dioxide 22 mmol/L (22-29); Chloride 113 mmol/L (96-108); Creatinine Clr Calc Pharmacy 16.5; Estimated Glomerular Filt Rate 20; Glucose Random 79 mg/dL (60-115); Potassium 5.1 mmol/L (3.3-5.1); Sodium 142 mmol/L (135-145)
[2023-07-30 08:00] VITALS: BP 140/66; PULSE 71; RESP 16; TEMP 36.8; O2SAT 97
[2023-07-30 09:01] VITALS: BP 140/66; PULSE 72
[2023-07-30] MEDS: Metoprolol Succinate ER 25 MG TAB.ER.24H PO (09:01)
[2023-07-30] MEDS: Heparin Sodium,Porcine 5,000 UNIT/ML VIAL 5000 UNIT SUBCUT (09:02)
[2023-07-30] MEDS: oxyBUTYnin chloride ER 5 MG TAB.ER.24 PO (09:02)
[2023-07-30] MEDS: Cholecalciferol (Vitamin D3) 25 MCG TABLET 50 MCG PO (09:02)
--- NOTE | 2023-07-30 10:05 | HO.PM.IMPN ---
Subjective Subjective Date of Service: 07/30/23 Interval History: urinating copiuosly and Cr improving bladder irritation improved constipated Review of Systems Review of Systems: Yes all other systems are reviewed and are negative Physical Exam Vital Signs: Vital Signs: Last Vital Signs Temp 98.3 F 07/30/23 08:00 Pulse 72 07/30/23 09:01 Resp 16 07/30/23 08:00 BP 140/66 H 07/30/23 09:01 Pulse Ox 97 07/30/23 08:00 O2 Del Method Room Air 07/30/23 08:00 BMI result Body Mass Index 22.0 Gen: in no acute distress HEENT: sclera anicteric, moist mucus membranes Neck: supple Lungs: clear to auscultation bilaterally Heart: regular rate and rhythm, no murmurs Abd: soft, non-tender, non-distended : Aden draining clear urine Ext: trace bilateral leg edema Skin: warm/well-perfused Neuro: alert and oriented x3, no focal findings Psych: appropriate affect Objective Data Active Medications Heparin Sodium (Porcine) (Heparin Sodium,Porcine 5,000 Unit/Ml Vial) 5,000 unit SUBCUT Q12H [facility] Last Admin: 07/30/23 09:02 Dose: 5,000 unit Documented By: EFREN Lactulose (Lactulose 20 Gm/30 Ml Solution) 20 gm PO ONCE ONE Stop: 07/30/23 10:05 Loratadine (Loratadine 10 Mg Tablet) 10 mg PO DAILY PRN PRN Reason: Allergic Symptoms Melatonin (Melatonin 3 Mg Tablet) 6 mg PO BEDTIME PRN PRN Reason: Insomnia Metoprolol Succinate (Metoprolol Succinate Er 25 Mg Tab.Er.24h) 25 mg PO DAILY [facility]; Protocol Last Admin: 07/30/23 09:01 Dose: 25 mg Documented By: EFREN Morphine Sulfate (Morphine Sulfate 2 Mg/Ml Cartridge) 4 mg IVPUSH Q4H PRN; Protocol PRN Reason: Pain, Severe (Pain Scale 7-10) Last Admin: 07/29/23 23:54 Dose: 4 mg Documented By: ADRIANA Oxybutynin Chloride (Oxybutynin Chloride Er 5 Mg Tab.Er.24) 5 mg PO DAILY [facility] Last Admin: 07/30/23 09:02 Dose: 5 mg Documented By: EFREN Polyethylene Glycol (Polyethylene Glycol 3350 17 Gm Powd.Pack) 17 gm PO DAILY [facility] Senna/Docusate Sodium (Sennosides/Docusate Sodium Tablet) 2 tab PO BID [facility] Sodium Chloride (0.9 % Sodium Chloride Flush 3 Ml Syringe) 3 ml IVFLUSH QSHIFT [facility] Last Admin: 07/30/23 09:07 Dose: Not Given Documented By: EFREN Non-Admin Reason: IV Running Vitamin D (Cholecalciferol (Vitamin D3) 25 Mcg Tablet) 50 mcg PO DAILY [facility] Last Admin: 07/30/23 09:02 Dose: 50 mcg Documented By: EFREN Labs 07/30/23 05:54 07/30/23 05:54 Labs: Laboratory Results - last 24 hr 07/29/23 07/29/23 07/29/23 11:03 13:56 13:56 MCV MCH MCHC RDW Plt Count MPV Absolute Nucleated RBC Nucleated RBC % (auto) Anion Gap Estim Creat Clear Calc Estimated GFR POC Glucose 158 H Random Glucose Calcium Urine Color Red A Urine Appearance Cloudy Urine pH 5.0 Ur Specific [place] 1.010 Urine Protein 30 (1+) H Urine Glucose (UA) Negative Urine Ketones Negative Urine Blood Large (3+) H Urine Nitrite Negative Ur Leukocyte Esterase Moderate (2+) H Urine RBC >20 H Urine WBC 21-50 H Ur Squamous Epith Cells 3-5 Urine Bacteria None Seen Hyaline Casts 0-2 U Random Total Protein Cancelled 42 H Ur Random Sodium 79.0 Urine Creatinine 63.17 07/29/23 07/29/23 07/30/23 16:10 20:06 05:54 MCV 91.2 MCH 29.7 MCHC 32.6 RDW 14.6 Plt Count 131 L MPV 10.2 Absolute Nucleated RBC 0.000 Nucleated RBC % (auto) 0.0 Anion Gap 12 Estim Creat Clear Calc 16.5 Estimated GFR 20 POC Glucose 75 103 Random Glucose 79 Calcium 8.5 Urine Color Urine Appearance Urine pH Ur Specific [place] Urine Protein Urine Glucose (UA) Urine Ketones Urine Blood Urine Nitrite Ur Leukocyte Esterase Urine RBC Urine WBC Ur Squamous Epith Cells Urine Bacteria Hyaline Casts U Random Total Protein Ur Random Sodium Urine Creatinine Assessment and Plan (1) Ureteral stone: Status: Acute (2) Bilateral hydronephrosis: Status: Acute (3) Acute kidney injury: Status: Acute Plan d3 87yo M with CKD3 [baseline SCr around 1.6], nephrolithiasis s/p stenting, colitis, HLD, prostate CA on enzalutamide, HLD, DM2 presenting with anuria x2d, recent though minimal use of naproxen found to have JAVON with Cr 6.07-6.78, bicarbonate 15 bilateral hydronephrosis suggestive of obstructive etiology JAVON/CKD3 ureteral stone - s/p cysto/bilateral stent placement, found to have distal R ureteral stone - SCr improving, continue to monitor UOP + BMP, d/c IV fluids metabolic acidosis - resolving, off bicarbonate supplementation now leg edema - Doppler negative for DVT DM2, A1c 6 - d/c correction-dose lispro; on pioglitazone at home prostate CA - enzalutamide HLD - resume statin stable angina - continue metoprolol VTE ppx - UFH dispo - home pending further improvement in SCr In my clinical judgment, the patient requires continued inpatient hospitalization for the following reasons: JAVON Total time managing care of this patient today: 35 minutes. Quality Stroke Does the patient have a stroke diagnosis?: No VTE Prior VTE?: No VTE Risk Level:: Medical - moderate - high VTE Device Contraindication: Treatment Not Indicated VTE Drug Contraindication: N/A - Med Ordered
[2023-07-30] MEDS: polyethylene glycoL 3350 17 GM POWD.PACK PO (10:58)
[2023-07-30] MEDS: Sennosides/Docusate Sodium TABLET 2 TAB PO ×2 (10:58→21:06)
[2023-07-30] MEDS: Lactulose 20 GM/30 ML SOLUTION PO (10:58)
[2023-07-30] MEDS: Morphine Sulfate 2 MG/ML CARTRIDGE 4 MG IVPUSH ×3 (13:06→23:06)
[2023-07-30] MEDS: Artificial Tears Ophth Oint 3.5 GM TUBE 1 APPL EYE-BOTH (15:17)
[2023-07-30 16:00] VITALS: BP 149/67; PULSE 75; RESP 16; TEMP 36.7; O2SAT 96
[2023-07-30 19:26] VITALS: BP 166/69; PULSE 84; RESP 18; TEMP 36.8; O2SAT 97
--- NOTE | 2023-07-30 20:00 | PC.NURSE ---
Patient c/o pain in groin/penis area - stating pain is from the esquivel catheter, requesting to have the catheter pulled. Message sent to the urologist applications packager. Per Dr. Pederson focaesar needs to stay in place. Patient was informed that per urology esquivel catheter will stay in place and pain medication was offered.
[2023-07-31 03:19] VITALS: BP 146/65; PULSE 78; RESP 18; TEMP 37.4; O2SAT 97
[2023-07-31 07:04] LABS: Anion Gap 12 (12-20); Blood Urea Nitrogen 27 mg/dL (9-16); Calcium 8.6 mg/dL (8.4-10.2); Carbon Dioxide 21 mmol/L (22-29); Chloride 112 mmol/L (96-108); Creatinine Clr Calc Pharmacy 23.5; Estimated Glomerular Filt Rate 30; Glucose Random 83 mg/dL (60-115); Potassium 4.8 mmol/L (3.3-5.1); Sodium 140 mmol/L (135-145)
[2023-07-31 07:20] VITALS: BP 132/63; PULSE 74; RESP 18; TEMP 36.9; O2SAT 95
[2023-07-31 08:04] VITALS: BP 132/63; PULSE 74
[2023-07-31] MEDS: Sennosides/Docusate Sodium TABLET 2 TAB PO (08:04)
[2023-07-31] MEDS: oxyBUTYnin chloride ER 5 MG TAB.ER.24 PO (08:04)
[2023-07-31] MEDS: Atorvastatin Calcium 80 MG TABLET PO (08:04)
[2023-07-31] MEDS: Cholecalciferol (Vitamin D3) 25 MCG TABLET 50 MCG PO (08:04)
[2023-07-31] MEDS: Metoprolol Succinate ER 25 MG TAB.ER.24H PO (08:04)
[2023-07-31] MEDS: polyethylene glycoL 3350 17 GM POWD.PACK PO (08:05)
[2023-07-31] MEDS: Heparin Sodium,Porcine 5,000 UNIT/ML VIAL 5000 UNIT SUBCUT ×2 (08:05→21:09)
[2023-07-31] MEDS: 0.9 % Sodium Chloride Flush 3 ML SYRINGE IVFLUSH ×3 (08:05→21:50)
--- NOTE | 2023-07-31 09:40 | PC.NURSE ---
Aden removed per MD, Pt tolerated well, Due to void 16:00, Pt resting in bed with call calvert within reach, respirations even and unlabored.
[2023-07-31] MEDS: Morphine Sulfate 2 MG/ML CARTRIDGE 4 MG IVPUSH ×2 (09:46→13:36)
--- NOTE | 2023-07-31 12:36 | MHC.CM.PN ---
EMR reviewed. Per MD rounds esquivel to be removed today, ne home no services if successful voiding trial. CM will continue to follow.
--- NOTE | 2023-07-31 12:52 | P.PNNP_ITS ---
Subjective Subjective Date of Service: 07/31/23 Interval history: Feels much better Cr trending down Non oliguric Physical Exam 2 Vital Signs: Vital Signs: Last Vital Signs Temp 98.4 F 07/31/23 07:20 Pulse 74 07/31/23 08:04 Resp 18 07/31/23 07:20 BP 132/63 07/31/23 08:04 Pulse Ox 95 07/31/23 07:20 O2 Del Method Room Air 07/31/23 07:20 BMI result Body Mass Index 22.0 Const: General: comfortable and no acute distress O rientation/consciousness: patient oriented x3 HEENT: Head: Yes normocephalic Mouth: Normal oral and palatal mucosa present Neck: Neck: Yes supple Resp: Auscultation: clear to auscultation bilaterally Cardio: Jugular venous distension: no JVD Rate: regular rate GI: Palpation (GI): Soft to palpation Auscultation: normal bowel sounds : General: Yes no CVA tenderness Back/Spine/Pelvis: Back: no CVA tenderness Skin: General skin exam: no rashes or lesions noted Neuro: General: patient oriented x3 and moves all extremities Extrem: General: Yes edema (1+) Objective Data Labs 07/30/23 05:54 07/31/23 05:44 Labs: Laboratory Results - last 24 hr 07/31/23 05:44 Hold Purple Top SEE NOTE Sodium 140 Potassium 4.8 Chloride 112 H Carbon Dioxide 21 L Anion Gap 12 BUN 27 H Creatinine 2.13 H Estim Creat Clear Calc 23.5 Estimated GFR 30 Random Glucose 83 Calcium 8.6 Microbiology Microbiology Results: Microbiology 07/29/23 Unknown Urine clean catch - Urine palm top Urine Culture - Final No growth. Procedures Date of Service Date of Service: 07/31/23 Assessment & Plan Assessment and plan (1) Acute kidney injury: Status: Acute (2) CKD (chronic kidney disease) stage 3, GFR 30-59 ml/min: Status: Acute (3) Nephrolithiasis: Status: Acute Plan . 87 yr old man with JAVON superimposed on CKD Currently anuric with imaging showing thom hydronephrosis - new finding JAVON due to obstructive uropathy s/p cystoscopy, left retrograde - left stent placement - right retrograde - right ureteroscopy - right stent placement Mild Met acidosis /Potassium is normal Suggest Keep I > O catheter management per Time Spent With Patient Time: Total time managing care of this patient today ____ minutes. Progress Note: Quality Stroke Does the patient have a stroke diagnosis?: No
[2023-07-31] MEDS: Lactulose 20 GM/30 ML SOLUTION PO (15:00)
[2023-07-31 15:28] VITALS: BP 122/59; PULSE 58; RESP 18; TEMP 36.4; O2SAT 96
--- NOTE | 2023-07-31 16:12 | P.PNIM_ITS ---
Subjective Subjective Date of Service: 07/31/23 Interval History: having severe LLQ pain SCr improved voiding on own after Aden removed Review of Systems Review of Systems: Yes all other systems are reviewed and are negative Physical Exam 2 Vital Signs: Vital Signs: Last Vital Signs Temp 97.6 F 07/31/23 15:28 Pulse 58 07/31/23 15:28 Resp 18 07/31/23 15:28 BP 122/59 L 07/31/23 15:28 Pulse Ox 96 07/31/23 15:28 O2 Del Method Room Air 07/31/23 15:28 BMI result Body Mass Index 22.0 Gen: in no acute distress HEENT: sclera anicteric, moist mucus membranes Neck: supple Lungs: clear to auscultation bilaterally Heart: regular rate and rhythm, no murmurs Abd: soft, non-tender, non-distended Ext: no edema Skin: warm/well-perfused Neuro: alert and oriented x3, no focal findings Psych: appropriate affect Objective Data Active Medications Atorvastatin Calcium (Atorvastatin Calcium 80 Mg Tablet) 80 mg PO DAILY [facility] Last Admin: 07/31/23 08:04 Dose: 80 mg Documented By: CLAUDIO Heparin Sodium (Porcine) (Heparin Sodium,Porcine 5,000 Unit/Ml Vial) 5,000 unit SUBCUT Q12H [facility] Last Admin: 07/31/23 08:05 Dose: 5,000 unit Documented By: CLAUDIO Loratadine (Loratadine 10 Mg Tablet) 10 mg PO DAILY PRN PRN Reason: Allergic Symptoms Melatonin (Melatonin 3 Mg Tablet) 6 mg PO BEDTIME PRN PRN Reason: Insomnia Metoprolol Succinate (Metoprolol Succinate Er 25 Mg Tab.Er.24h) 25 mg PO DAILY [facility]; Protocol Last Admin: 07/31/23 08:04 Dose: 25 mg Documented By: CLAUDIO Morphine Sulfate (Morphine Sulfate 2 Mg/Ml Cartridge) 4 mg IVPUSH Q4H PRN; Protocol PRN Reason: Pain, Severe (Pain Scale 7-10) Last Admin: 07/31/23 13:36 Dose: 4 mg Documented By: CLAUDIO Multi-Ingred Cream/Lotion/Oil/Oint (Artificial Tears Ophth Oint 3.5 Gm Tube) 1 appl EYE-BOTH TID PRN; Protocol PRN Reason: dry eye/irritation Last Admin: 07/30/23 15:17 Dose: 1 appl Documented By: DOBROB Oxybutynin Chloride (Oxybutynin Chloride Er 5 Mg Tab.Er.24) 5 mg PO DAILY [facility] Last Admin: 07/31/23 08:04 Dose: 5 mg Documented By: CLAUDIO Polyethylene Glycol (Polyethylene Glycol 3350 17 Gm Powd.Pack) 17 gm PO DAILY [facility] Last Admin: 07/31/23 08:05 Dose: 17 gm Documented By: CLAUDIO Senna/Docusate Sodium (Sennosides/Docusate Sodium Tablet) 2 tab PO BID [facility] Last Admin: 07/31/23 08:04 Dose: 2 tab Documented By: CLAUDIO Sodium Chloride (0.9 % Sodium Chloride Flush 3 Ml Syringe) 3 ml IVFLUSH QSHIFT [facility] Last Admin: 07/31/23 15:01 Dose: 3 ml Documented By: CLAUDIO Vitamin D (Cholecalciferol (Vitamin D3) 25 Mcg Tablet) 50 mcg PO DAILY [facility] Last Admin: 07/31/23 08:04 Dose: 50 mcg Documented By: CLAUDIO Labs 07/30/23 05:54 07/31/23 05:44 Labs: Laboratory Results - last 24 hr 07/31/23 05:44 Hold Purple Top SEE NOTE Anion Gap 12 Estim Creat Clear Calc 23.5 Estimated GFR 30 Random Glucose 83 Calcium 8.6 Microbiology Microbiology Results: Microbiology 07/29/23 Unknown Urine Culture - Final Urine clean catch - Urine palm top No growth. Assessment and Plan (1) Ureteral stone: Status: Acute (2) Bilateral hydronephrosis: Status: Acute (3) Acute kidney injury: Status: Acute Plan d4 87yo M with CKD3 [baseline SCr around 1.6], nephrolithiasis s/p stenting, colitis, HLD, prostate CA on enzalutamide, HLD, DM2 presenting with anuria x2d, recent though minimal use of naproxen found to have JAVON with Cr 6.07-6.78, bicarbonate 15 bilateral hydronephrosis suggestive of obstructive etiology JAVON/CKD3 ureteral stone - s/p cysto/bilateral stent placement, found to have distal R ureteral stone. Urology follow up in 3 weeks. - SCr improving, continue to monitor UOP + BMP, d/c'ed IV fluids constipation - bowel regimen metabolic acidosis - resolving, off bicarbonate supplementation now leg edema - Doppler negative for DVT DM2, A1c 6 - d/c correction-dose lispro; on pioglitazone at home prostate CA - enzalutamide HLD - resumed statin stable angina - continue metoprolol VTE ppx - UFH dispo - home pending further improvement in SCr In my clinical judgment, the patient requires continued inpatient hospitalization for the following reasons: JAVON Total time managing care of this patient today: 35 minutes. Quality Stroke Does the patient have a stroke diagnosis?: No VTE Prior VTE?: No VTE Risk Level:: Medical - moderate - high VTE Device Contraindication: Treatment Not Indicated VTE Drug Contraindication: N/A - Med Ordered
[2023-07-31] MEDS: bisacodyL 10 MG SUPP.RECT PR (18:03)
[2023-07-31 19:27] VITALS: BP 134/91; PULSE 79; RESP 16; TEMP 37; O2SAT 95
[2023-08-01 03:12] VITALS: BP 144/64; PULSE 68; RESP 16; TEMP 36.4; O2SAT 97
[2023-08-01 07:26] LABS: Anion Gap 13 (12-20); Blood Urea Nitrogen 23 mg/dL (9-16); Calcium 8.5 mg/dL (8.4-10.2); Carbon Dioxide 21 mmol/L (22-29); Chloride 111 mmol/L (96-108); Estimated Glomerular Filt Rate 41; Glucose Random 81 mg/dL (60-115); Potassium 4.5 mmol/L (3.3-5.1); Sodium 140 mmol/L (135-145)
[2023-08-01 07:40] VITALS: BP 157/69; PULSE 78; RESP 16; TEMP 36.4; O2SAT 96
[2023-08-01 08:29] VITALS: BP 157/69; PULSE 78
[2023-08-01] MEDS: Metoprolol Succinate ER 25 MG TAB.ER.24H PO (08:29)
[2023-08-01] MEDS: Sennosides/Docusate Sodium TABLET 2 TAB PO (08:29)
[2023-08-01] MEDS: oxyBUTYnin chloride ER 5 MG TAB.ER.24 PO (08:29)
[2023-08-01] MEDS: Cholecalciferol (Vitamin D3) 25 MCG TABLET 50 MCG PO (08:29)
[2023-08-01] MEDS: Atorvastatin Calcium 80 MG TABLET PO (08:29)
[2023-08-01] MEDS: 0.9 % Sodium Chloride Flush 3 ML SYRINGE IVFLUSH (08:30)
[2023-08-01] MEDS: Heparin Sodium,Porcine 5,000 UNIT/ML VIAL 5000 UNIT SUBCUT (08:30)
--- NOTE | 2023-08-01 10:14 | P.DS_ITS ---
DS: Providers Provider Date of Service: 08/01/23 Date of admission: 07/28/23 05:30 Date of discharge: 08/01/23 Primary care physician: Akshat Ruggiero MD Consults: 07/28/23 05:33 Consult to Nephrology Routine Consulting Provider: [facility] Reason for consultation: JAOVN, Seen by Dr. Mikey Rose Has provider been notified: No 07/28/23 06:04 Consult to Urology Routine Consulting Provider: Henry Mora Reason for consultation: Prostate CA on Xtandi, JAVON Has provider been notified: No DS: Diagnosis Discharge Diagnosis (1) Ureteral stone: Status: Acute (2) Bilateral hydronephrosis: Status: Acute (3) Acute kidney injury: Status: Acute (4) CKD (chronic kidney disease) stage 3, GFR 30-59 ml/min: Status: Acute DS: Summary Hospital Course Hospital Course: From the history and physical by the admitting hospitalist, Allan Izaguirre, 07/28/23: Deangelo Wade is 87 years old man with past medical history significant for CKD stage 3 (f/u by Dr. Jensen), nephrolithiasis, colitis, hyperlipidemia, prostate cancer on enzalutamide (every other month; last use at the end of June -f/u with Dr. Mora), hyperlipidemia and type 2 diabetes mellitus presents to the emergency department complaining of inability to urinate over the last 2 days. He recently came back from [place]. He mentioned that last Monday he experience pain to his left groin and took 1 pills of Aleve (naproxen 200 mg) q12h X2. He denied any event of recent vomiting or diarrhea. He mentioned that he usually has loose stools which he attributes to his colitis. He currently denies any abdominal pain. He reports breasts tenderness. He denies headache, chest pain, shortness on breath, fever or chills. Reported swelling to lower extremity. Denied alcohol abuse, tobacco smoking or illicit drug use. In the ED, he was found to have stable vital signs. Blood workup showed no leukocytosis. Hemoglobin is at baseline, 11.0 (last mo it was 10.9). Platelet level is 132. Creatinine increase from 6.07 --> 6.78 (creatinine was 1.6 last month). Bicarb is 15. Potassium 4.6. LFTs are normal. UA is not available. Abdomen pelvis CT scan showed mild right hydronephrosis and hydroureter to the level of 2 mm distal right ureteral calculi, mild left hydronephrosis/left renal collecting system dilatation with a ureteral calculus, small gallstones, diverticulitis without diverticulitis. ED tx: NS 2 L bolus. 87yo M with CKD3 [baseline SCr around 1.6], nephrolithiasis s/p stenting, colitis, HLD, prostate CA on enzalutamide, HLD, DM2 presenting with anuria x2d, and recent though minimal use of naproxen who presented with anuria and was f ound to have JAVON with Cr 6.07-6.78, bicarbonate 15. Imaging showed bilateral hydronephrosis suggestive of obstructive etiology. He was admitted to the medical-surgical service with Nephrology and Urology consulting. He underwent cystoscopy with placement of bilateral stent placements with Dr Henry Mora on 07/28/23 and was found intraoperatively to find a distal R ureteral stone. Postoperatively, he underwent brisk autodiuresis and creatinine returned to normal. Metabolic acidosis resolved. He was given a bowel regimen for severe constipation. He was discharged home and will need Urology follow up in 3 weeks. Time Attestation Discharge Coordination Time (in mins): 40 Quality: Safe Use of Opioids Does Pt have an Active Cancer Diagnosis on the Problem List?: No Quality: Stroke Does the patient have a stroke diagnosis?: No Physical Exam Vital Signs: Vital Signs: Last Vital Signs Temp 97.5 F 08/01/23 07:40 Pulse 78 08/01/23 08:29 Resp 16 08/01/23 07:40 BP 157/69 H 08/01/23 08:29 Pulse Ox 96 08/01/23 07:40 O2 Del Method Room Air 08/01/23 07:40 BMI result Body Mass Index 22.0 Gen: in no acute distress HEENT: sclera anicteric, moist mucus membranes Neck: supple Lungs: clear to auscultation bilaterally Heart: regular rate and rhythm, no murmurs Abd: soft, non-tender, non-distended Ext: no edema Skin: warm/well-perfused Neuro: alert and oriented x3, no focal findings Psych: appropriate affect DS: Data Data Completed and Pending Completed studies during hospitalization [Text1]: Laboratory Results WBC 4.8 X10*3/uL (4.8-10.8) 07/30/23 05:54 RBC 3.30 X10*6/uL (4.60-5.80) L 07/30/23 05:54 Hgb 9.8 g/dl (14.0-18.0) L 07/30/23 05:54 Hct 30.1 % (42.0-52.0) L 07/30/23 05:54 MCV 91.2 fL (80.0-98.0) 07/30/23 05:54 MCH 29.7 pg (27.0-33.0) 07/30/23 05:54 MCHC 32.6 g/dl (31.0-36.0) 07/30/23 05:54 RDW 14.6 % (11.0-16.0) 07/30/23 05:54 Plt Count 131 X10*3/uL (160-400) L 07/30/23 05:54 MPV 10.2 fL (9.4-12.4) 07/30/23 05:54 Immature Gran % (Auto) 0.5 % (0.0-0.4) H 07/29/23 05:47 Neut % (Auto) 78.9 % (45-73) H 07/29/23 05:47 Lymph % (Auto) 7.2 % (20-40) L 07/29/23 05:47 [place] % (Auto) 12.4 % (2-11) H 07/29/23 05:47 Eos % (Auto) 0.8 % (0-4) 07/29/23 05:47 Baso % (Auto) 0.2 % (0-2) 07/29/23 05:47 Lymph # (Auto) 0.4 X10*3/uL (1.2-4.9) L 07/29/23 05:47 [place] # (Auto) 0.8 X10*3/uL (0.1-1.2) 07/29/23 05:47 Eos # (Auto) 0.1 X10*3/uL (0.0-0.4) 07/29/23 05:47 Baso # (Auto) 0.0 X10*3/uL (0.0-0.2) 07/29/23 05:47 Abs Immat Gran (auto) 0.03 X10*3/uL (0.00-0.03) 07/29/23 05:47 Absolute Neuts (auto) 4.8 x10*3/uL (2.0-8.3) 07/29/23 05:47 Absolute Nucleated RBC 0.000 X10*3/uL (0.0-0.012) 07/30/23 05:54 Nucleated RBC % (auto) 0.0 /100WBC (0.0-0.2) 07/30/23 05:54 Hold Purple Top SEE NOTE 08/01/23 05:39 Sodium 140 mmol/L (135-145) 08/01/23 05:39 Potassium 4.5 mmol/L (3.3-5.1) 08/01/23 05:39 Chloride 111 mmol/L (96-108) H 08/01/23 05:39 Carbon Dioxide 21 mmol/L (22-29) L 08/01/23 05:39 Anion Gap 13 (12-20) 08/01/23 05:39 BUN 23 mg/dL (9-16) H 08/01/23 05:39 Creatinine 1.62 mg/dL (0.5-1.4) H 08/01/23 05:39 Estim Creat Clear Calc 31.0 08/01/23 05:39 Estimated GFR 41 08/01/23 05:39 POC Glucose 103 mg/dL (60-115) 07/29/23 20:06 Random Glucose 81 mg/dL (60-115) 08/01/23 05:39 Estimat Average Glucose 128 mg/dL 07/28/23 22:51 Hemoglobin A1c % 6.1 % (<6.0) H 07/28/23 22:51 Calcium 8.5 mg/dL (8.4-10.2) 08/01/23 05:39 Phosphorus 4.5 mg/dL (2.7-4.5) 07/28/23 02:11 Total Bilirubin 0.6 mg/dL (0.0-1.0) 07/27/23 22:51 AST 24 U/L (5-37) 07/27/23 22:51 ALT 16 U/L (0-40) 07/27/23 22:51 Alkaline Phosphatase 69 U/L (39-117) 07/27/23 22:51 Total Protein 6.6 g/dL (6.5-8.0) 07/27/23 22:51 Albumin 3.7 g/dL (3.5-5.0) 07/27/23 22:51 Urine Color Red A 07/29/23 13:56 Urine Appearance Cloudy 07/29/23 13:56 Urine pH 5.0 (5.0-9.0) 07/29/23 13:56 Ur Specific [place] 1.010 (1.005-1.025) 07/29/23 13:56 Urine Protein 30 (1+) mg/dL (Neg-Trace) H 07/29/23 13:56 Urine Glucose (UA) Negative mg/dL (Negative) 07/29/23 13:56 Urine Ketones Negative mg/dL (Negative) 07/29/23 13:56 Urine Blood Large (3+) (Negative) H 07/29/23 13:56 Urine Nitrite Negative (Negative) 07/29/23 13:56 Ur Leukocyte Esterase Moderate (2+) (Negative) H 07/29/23 13:56 Urine RBC >20 /HPF (0-2) H 07/29/23 13:56 Urine WBC 21-50 /HPF (0-5) H 07/29/23 13:56 Ur Squamous Epith Cells 3-5 /HPF (0-2) 07/29/23 13:56 Urine Bacteria None Seen (None Seen) 07/29/23 13:56 Hyaline Casts 0-2 /LPF (0-2) 07/29/23 13:56 U Random Total Protein 42 mg/dL (<12) H 07/29/23 13:56 U Random Total Protein Cancelled 07/29/23 13:56 Ur Random Sodium 79.0 mmol/L 07/29/23 13:56 Urine Creatinine 63.17 mg/dL 07/29/23 13:56 Impressions Abdomen/Pelvis CT 07/27/23 23:59 IMPRESSION: Mild right hydronephrosis and hydroureter to the level of a 2 mm distal right ureteric calculus. Mild left hydronephrosis/left renal collecting system dilatation without ureteral calculus. 2 mm calcification in the region of the pancreatic head near the distal common bile duct. This is likely parenchymal and less likely related to the ductal system. Correlation with biliary function enzymes needed. Small gallstones. Diverticulosis of the distal descending and sigmoid colon without evidence of diverticulitis. Fleischner guidelines were followed. Venous Duplex 07/28/23 10:08 IMPRESSION: No DVT demonstrated in the bilateral lower extremities. Guidance Fluoroscopy 07/28/23 18:47 IMPRESSION: Fluoroscopic guidance provided for right cysto/ureteroscopy/retro/laser and left ureteral stent placement. Abdomen X-Ray 07/30/23 19:03 IMPRESSION: Nonobstructive bowel gas pattern. Mild to moderate stool burden. Discharge Plan Discharge Anticipated Discharge Date/Time: 08/01/23 10:10 Patient Disposition: Home, Self-Care Discharge Diagnosis: [id number] kidney disease due to obstruction from ureteral stone constipation Referrals: Henry Mora MD [Physician] - 3 Weeks Akshat Ruggiero MD [Primary Care Provider] - 1 Week Discharge Medications: New polyethylene glycol 3350 17 gram Powder In Packet 17 g PO DAILY Qty: 30 0RF sennosides-docusate sodium [Senna Plus] 8.6-50 mg Tablet 1 tab PO BID PRN (Reason: constipation) Qty: 60 0RF Continued enzalutamide 80 mg tablet 160 mg PO DAILY 90 Days Qty: 180 1RF pioglitazone 45 mg tablet 45 mg PO DAILY rosuvastatin 40 mg tablet 40 mg PO DAILY cholecalciferol (vitamin D3) 50 mcg (2,000 unit) capsule 50 mcg PO DAILY vitamin B complex Tablet 1 tab PO DAILY cetirizine [Zyrtec] 10 mg tablet 10 mg PO DAILY PRN (Reason: Allergic Symptoms) melatonin 5 mg capsule 5 mg PO BEDTIME PRN (Reason: Insomnia) metoprolol succinate 25 mg tablet extended release 24 hr 25 mg PO DAILY Discharge Orders: Discharge Order (Routine); Ordered 08/01/23 Ordered By: Omar Vasquez Diet: Advance to usual diet Activity on Discharge: As tolerated Stand Alone Forms: Patient Portal Discharge page Print Language: Iranian Other Ambulatory Orders: Basic Metabolic Panel (Routine) Timeframe: 1 Week Facility: [facility] - Location: Laboratory Ordered By: Omar Vasquez Care Plan Goals: renal recovery Health Concerns: [id number] kidney disease due to obstruction from ureteral stone constipation Plan of Treatment: recheck BMP in 1 week follow up with Dr Mora from [facility] Urology in 3 weeks increase fluid and fiber intake take senna/docusate and Miralax as needed for constipation Please follow up with your primary care doctor within 1 week. Return to the hospital if you experience recurrent or worsening symptoms. Assessment: See Discharge Summary.
--- NOTE | 2023-08-01 10:30 | MHC.CM.PN ---
IMM 08/01/23 Patient is discharged to home self care. He has arranged for transportation home.
== END 2023-08-01 11:41 | disposition home or self-care (01) | DRG 660 ==
LOC: HO.ED 07-28 02:56 → HO.EDOVER 07-28 05:35 → HO.S3 07-28 15:10
PROVIDERS: Emergency Medicine; Urology; Admitting Provider Internal Medicine; Emergency Provider Emergency Medicine; PCP Hospitalist; Visit Provider Family Medicine
PROC: 0T788DZ Dilation of Bilateral Ureters with Intraluminal Device, Via Natural or Artificial Opening Endoscopic (ICD-10-PCS; principal; 2023-07-28 16:00)
DX: N13.2 Hydronephrosis with renal and ureteral calculous obstruction (principal); E87.20 Acidosis, unspecified; N13.8 Other obstructive and reflux uropathy; K59.00 Constipation, unspecified; I20.89 Other forms of angina pectoris; N17.9 Acute kidney failure, unspecified; N18.30 Chronic kidney disease, stage 3 unspecified; N40.1 Benign prostatic hyperplasia with lower urinary tract symptoms; E78.5 Hyperlipidemia, unspecified; C61 Malignant neoplasm of prostate; Z87.891 Personal history of nicotine dependence; Z79.899 Other long term (current) drug therapy
CPT/HCPCS: 36415; 74018; 74176; 80048; 80053; 81001; 82570; 82947; 83036; 84100; 84156; 84300; 85025; 85027; 87086; 93970; 99285; C1758; C1769; C2617; J0131; J1644; J1956; J2270; J2405; J2704; J3010; J7120; Q9967

== ENCOUNTER → 2023-07-28 05:30 | Outpatient (BNV) | payer MEDICARE, SELFPAY | PROVIDERS: Admitting Provider Internal Medicine; Emergency Provider Emergency Medicine; Visit Provider Urology | DX: C61 Malignant neoplasm of prostate (principal); N20.1 Calculus of ureter; N13.30 Unspecified hydronephrosis; N17.9 Acute kidney failure, unspecified; R97.21 Rising PSA following treatment for malignant neoplasm of prostate; Z19.1 Hormone sensitive malignancy status | CPT/HCPCS: 52332; 74420; 99222 ==

== ENCOUNTER → 2023-07-28 05:30 | Outpatient (BNV) | payer MEDICARE, SELFPAY | PROVIDERS: Admitting Provider Internal Medicine; Emergency Provider Emergency Medicine; PCP Hospitalist; Visit Provider Internal Medicine Hypertension Specialist | DX: N17.9 Acute kidney failure, unspecified (principal); N18.31 Chronic kidney disease, stage 3a; N20.0 Calculus of kidney | CPT/HCPCS: 99223; 99232 ==

== ENCOUNTER → 2023-07-28 05:30 | Outpatient (BNV) | payer MEDICARE, SELFPAY | PROVIDERS: Admitting Provider Internal Medicine; Emergency Provider Emergency Medicine; Visit Provider Internal Medicine | DX: N20.1 Calculus of ureter (principal); N13.30 Unspecified hydronephrosis; N17.9 Acute kidney failure, unspecified; N18.31 Chronic kidney disease, stage 3a | CPT/HCPCS: 99223; 99232; 99239; 99499 ==

== ENCOUNTER 2023-08-16 02:23 | Emergency (ER) | payer MEDICARE, SELFPAY ==
--- NOTE | ~2023-08-16 | CT_ITS ---
EXAMINATION: CT ABDOMEN AND PELVIS WITHOUT CONTRAST CLINICAL INFORMATION: Severe pain COMPARISON: CT scan of abdomen and pelvis on 07/27/2023 TECHNIQUE: Multidetector volumetric imaging was performed from the superior aspect of the liver through the pubic symphysis. Sagittal and coronal reformatted images were obtained on the technologist's workstation. This CT examination was performed using dose optimization techniques as appropriate, variously including the following: *Automated exposure control *Adjustment of mA and/or kV according to patient size (this includes techniques or standardized protocols for targeted exams where dose is matched to indication/reason for exam; i.e. extremities or head) *Use of iterative reconstruction technique DLP: 479 mGy-cm FINDINGS: CT ABDOMEN LUNG BASES: Bilateral lung bases are clear. Emphysematous COPD is present. A small hiatus hernia is present. LIVER: Unchanged right hepatic dome segment 8 simple cyst measuring 2.0 x 1.6 cm in size, mean attenuation of 11 Hounsfield units is seen. Posterior right hepatic dome 0.4 cm calcification is also present in segment 7. GALLBLADDER AND BILIARY TREE: Gallbladder contains small gravitating calcified stones. Common bile duct is not dilated. SPLEEN: The spleen is normal in size without focal lesion on noncontrast enhanced images. PANCREAS: Persistent punctate calcification is seen at inferior border of pancreatic neck, series 3 image #32, series 7 image #25. The pancreas appears otherwise unremarkable on noncontrast enhanced images. ADRENAL GLANDS: Adrenal glands are normal in size without focal lesion bilaterally. KIDNEYS: The visualized bilateral kidneys are normal in size without stones. Bilateral multiple large renal cortical simple cysts are present, larger and more numerous in the right kidney with the largest medial inferior right renal cortical simple cyst measuring 8.4 cm in diameter. The largest left renal cyst is seen in posterior mid left renal cortex measuring 5.0 cm in diameter, for which no follow up imaging is recommended. Right ureteric double pigtail stent is seen with the upper pigtail lobe just beneath the right lower renal Pole wrapping around the large medial right renal cyst. Left ureteric double pigtail stent is seen with the upper pigtail lobe ending in right mid renal calyx. No caliectasis or dilated pelvis is seen. No dilated ureters are found. BOWELS: There is no abnormal dilatation of the large and small bowel loops. RETROPERITONEUM: No abnormally enlarged retroperitoneal lymph nodes, mass or hematoma could be seen. BLOOD VESSELS: Abdominal aorta is normal in size, with extensive circumferential atherosclerotic calcifications. ABDOMINAL WALL: Small umbilical hernia containing mesenteric fat is seen. PERITONEUM: There is no ascites. There were no abdominal peritoneal inflammatory changes seen. No free peritoneal air was seen. BONES: Advanced L5-S1 degenerative lumbar disc disease with vacuum disc phenomenon is present. No fracture or dislocation. No focal bone lesion diagnostic of metastatic disease could be seen in the lumbar region. CT PELVIS URINARY BLADDER: The visualized urinary bladder is drained by Aden catheter with inflated balloon. No intraluminal stones are found. Bilateral ureteric stents are seen with the lower pigtail loops in the urinary bladder lumen. The previously reported distal right ureteric calculus is obscured by ureteric stent. BOWELS: There is mild fecal distention of the cecum. Appendix cannot be identified. Multiple diverticula are seen in the descending and sigmoid colon without inflammatory changes. GENITAL ORGANS: Seminal vesicles are unremarkable. Prostate gland contains numerous metastatic implants compatible with radioactive seeds.. LYMPH NODES: No abnormally enlarged iliac or inguinal lymph nodes are seen. PERITONEUM: No inflammatory changes, ascites or free peritoneal air are found in the pelvis. Unchanged small left inguinal hernia containing mesenteric fat is present. BONES: No fracture or dislocation. No focal bone lesion diagnostic of metastatic disease could be seen in the pelvis. CT/CT abdomen pelvis wo IV con IMPRESSION: 1. Interval placement of Bilateral ureteric stents, resolution of hydronephrosis. The distal right ureteric calculus is not visualized, could be obscured by right ureteric stent. 2. Unchanged Bilateral multiple large renal cortical simple cysts are present, larger and more numerous in the right kidney, for which no follow up imaging is recommended. 3. Unchanged Cholelithiasis. 4. Unchanged descending and Sigmoid diverticulosis without evidence of diverticulitis. 5. Unchanged Small hiatus hernia. 6. Unchanged Small umbilical hernia and small left inguinal hernia containing mesenteric fat. 7. Unchanged right hepatic dome simple cyst. 8. Persistent punctate calcification at inferior border of pancreatic neck. 9. Prostate gland contains numerous metastatic implants compatible with radioactive seeds, unchanged. 10. Interval placement of Aden catheter into the urinary bladder. Fleischner guidelines were followed.
[2023-08-16 02:24] VITALS: BP 165/40; PULSE 72; RESP 18; TEMP 36.8; O2SAT 100; BMI 22.0
--- NOTE | 2023-08-16 02:39 | MHC.EDTECH ---
Patient brought into triage area,labs drawn and sent to lab, bladder scanned patient and is 195 RN [place] made aware.
[2023-08-16 02:46] LABS: MANUAL DIFF FLAG NO
[2023-08-16 02:47] LABS: Basophils Percent Auto 0.9 % (0-2); Eosinophils Absolute Auto 0.1 X10*3/uL (0.0-0.4); Eosinophils Percent Auto 1.6 % (0-4); Hematocrit 31.4 % (42.0-52.0); Hemoglobin 10.4 g/dl (14.0-18.0); Lymphocytes Absolute Auto 0.9 X10*3/uL (1.2-4.9); Lymphocytes Percent Auto 27.6 % (20-40); Mean Corpuscular HGB Conc 33.1 g/dl (31.0-36.0); Mean Corpuscular Hemoglobin 30.4 pg (27.0-33.0); Mean Corpuscular Volume 91.8 fL (80.0-98.0); Mean Platelet Volume 10.4 fL (9.4-12.4); Monocytes Absolute Auto 0.4 X10*3/uL (0.1-1.2); Monocytes Percent Auto 11.2 % (2-11); Neutrophils Absolute Auto 1.9 x10*3/uL (2.0-8.3); Neutrophils Percent Auto 58.7 % (45-73); Platelet Count 206 X10*3/uL (160-400); Red Blood Count 3.42 X10*6/uL (4.60-5.80); Red Cell Distribution Width 15.2 % (11.0-16.0); White Blood Count 3.2 X10*3/uL (4.8-10.8)
[2023-08-16] MEDS: Acetaminophen 325 MG TABLET 975 MG PO (02:48)
[2023-08-16 03:01] LABS: Anion Gap 13 (12-20); Bilirubin Total 0.4 mg/dL (0.0-1.0); Blood Urea Nitrogen 26 mg/dL (9-16); Calcium 8.9 mg/dL (8.4-10.2); Carbon Dioxide 21 mmol/L (22-29); Chloride 114 mmol/L (96-108); Creatinine Clr Calc Pharmacy 37.2; Estimated Glomerular Filt Rate 50; Glucose Random 120 mg/dL (60-115); Potassium 4.4 mmol/L (3.3-5.1); Sodium 144 mmol/L (135-145)
[2023-08-16 03:02] LABS: Alanine Aminotransferase 17 U/L (0-40); Albumin Level 3.6 g/dL (3.5-5.0); Alkaline Phosphatase 57 U/L (39-117); Aspartate Amino Transferase 24 U/L (5-37)
--- NOTE | 2023-08-16 04:09 | PC.NURSE ---
pt verbalizing pain level did not decrease despite medication administration in triage. pt c/o urinary retention x 1700 this afternoon. nephrostomy tubes in place - supposed to be taken out by dr. stewart in one week. pt currently c/o 7/10 pain at site of penis. pt waiting to be seen by ED provider at this time.
[2023-08-16] MEDS: Lidocaine HCl 2 % Urojet 10 ML JEL.PF.APP TOPICAL (04:44)
--- NOTE | 2023-08-16 04:47 | ED_ITS ---
HPI - Male Genitourinary General Chief complaint: Urogenital-Male Stated complaint: unable to urination Time Seen by Provider: 08/16/23 04:15 Source: patient, family and old records reviewed Mode of arrival: ambulatory Limitations: no limitations History of Present Illness HPI Narrative: 87 yo male with PMH of CKD, ureteral stones, HLD, prostate cancer just admitted here 07/27 - 07/31 with [facility]ON and obstructive uropathy had bilateral stents done by Dr. Mora and had distal R ureteral stone. He has been going okay up until 6 hours ago when he started to have bladder spasms and cannot urinate. He denies fevers. His follow up appointment is with Morgan on 08/12. He has not had a esquivel since discharge. MD Complaint: other (urinary retention) Onset (ago): hour(s) (6) Duration: constant Location: penis and abdomen Radiation: abdomen Severity: moderate Quality: aching Relieving factors: none and urination Exacerbating factors: none Context: new medication and recent surgery Associated symptoms: Reports denies other symptoms Related Data Home Medications ?Medication ?Instructions ?Recorded ?Confirmed pioglitazone 45 mg tablet 45 mg PO DAILY 07/23/20 07/28/23 rosuvastatin 40 mg tablet 40 mg PO DAILY 07/23/20 07/28/23 cetirizine 10 mg tablet (Zyrtec) 10 mg PO DAILY PRN Allergic 06/13/23 07/28/23 Symptoms cholecalciferol (vitamin D3) 50 50 mcg PO DAILY 06/13/23 07/28/23 mcg (2,000 unit) capsule melatonin 5 mg capsule 5 mg PO BEDTIME PRN Insomnia 06/13/23 07/28/23 metoprolol succinate 25 mg 25 mg PO DAILY 06/13/23 07/28/23 tablet,extended release 24 hr vitamin B complex 1 tab PO DAILY 06/13/23 Previous Rx's ?Medication ?Instructions ?Recorded enzalutamide 80 mg tablet 160 mg (2 x 80 mg) PO DAILY 90 02/28/23 days #180 tabs polyethylene glycol 3350 17 gram 17 g PO DAILY #30 ea 08/01/23 oral powder packet sennosides 8.6 mg-docusate sodium 1 tab PO BID PRN constipation #60 08/01/23 50 mg tablet (Senna Plus) tabs Allergies Allergy/AdvReac Type Severity Reaction Status Date / Time No Known Allergies Allergy Verified 08/16/23 02:27 [No Known Allergies*] Review of Systems 2 Review of Systems: Constitutional : No Fever, No Chills, No Fatigue ENT/Mouth : No sore throat, No Rhinorrhea Eyes: No Eye Pain, No Swelling, No Redness Cardiovascular : No Chest Pain, No SOB, No Dyspnea on Exertion Respiratory : No Cough, No Sputum Gastrointestinal : No Nausea, No Vomiting, No Diarrhea, No abdominal Pain Genitourinary : No Dysuria, No Urinary Frequency, No Hematuria, pos retention Musculoskeletal : No joint pain, No Myalgias, No Joint Swelling Skin : No Skin Lesions, No rash Neuro : No Weakness, No Numbness, No Dizziness, no Headache Psych : No Anxiety/Panic, No Depression Heme/Lymph: No Bruising, No Bleeding,No Lymphadenopathy Endocrine : No Polyuria, No Polydipsia All other systems reviewed and are negative PMFSH Past Medical History Attestation statement: The following information was validated with the patient. Source: old records reviewed Medical History Diabetes SOB (shortness of breath) Bladder infection Renal stones Neuropathy Mild acid reflux Hyperlipidemia Gross hematuria Prostate stricture Rising PSA following treatment for malignant neoplasm of prostate Urinary urgency Rising PSA following treatment for malignant neoplasm of prostate Surgical History History of prostate surgery History of appendectomy H/O hernia repair Social History Social History Household Members: Spouse Housing: House Do you presently have visiting nurse or other home services: No Patient Tobacco Use Status: Former Tobacco user Tobacco use type: Cigarette Years Smoked: 15 Smoked in Last 30 Days: No Use of substances other than those prescribed or required for medical reasons: No Advance Directives: Yes Advance Directives on File: Yes Advance Directives Date on File: 07/28/23 Do you have a plan to hurt others: No Plan service: No Physical Exam 2 Vital Signs: Vital Signs: Last Vital Signs Temp 97.8 F 08/16/23 05:40 Pulse 72 08/16/23 05:40 Resp 17 08/16/23 05:40 BP 137/58 L 08/16/23 05:40 Pulse Ox 98 08/16/23 05:40 O2 Del Method Room Air 08/16/23 05:40 BMI result Body Mass Index 22.0 Appearance: Alert. Oriented X3. No acute distress. Anxious Eyes: Pupils equal, round and reactive to light. ENT: Pharynx normal. Neck: Normal inspection. Neck supple. CVS: Normal heart rate and rhythm. Pulses normal. Respiratory: No respiratory distress. Breath sounds normal. Abdomen: Soft and mild suprapubic ttp Skin: Skin warm and dry. Normal skin color. Normal skin turgor. Extremities: No lower extremity edema. No calf ttp Neuro: Oriented X 3. No motor deficit. No sensory deficit. Course Course Course Narrative: signed out to Dr. Murguia pending CT scan result Reevaluation(s) Reevaluation #1: clear yellow urine draining Medications Administered Discontinued Medications Generic Name Dose Route Start Last Admin Trade Name Freq PRN Reason Stop Dose Admin Acetaminophen 975 mg 08/16/23 02:46 08/16/23 02:48 Acetaminophen 325 Mg Tablet PO 08/16/23 02:47 975 mg ONCE ONE Administration Lidocaine HCl 10 ml 08/16/23 04:38 08/16/23 04:44 Lidocaine Hcl 2 % Urojet 10 Ml Jel.Pf.Daniela TOPICAL 08/16/23 04:39 10 ml ONCE ONE Administration Medical Decision Making Medical Decision Making [facility] Narrative: 87 yo male with PMH of CKD, ureteral stones, HLD, prostate cancer here with c/o retention and bladder spasms at this time labs, UA, CT scan for stent migration, esquivel catheter placement ordered. Will notify Dr. Mora to see if he wants to see the patient in the ED once labs and imaging resulted. Differential Diagnosis Differential Diagnoses: The differential diagnosis associated with the presentation includes retention, UTI, stent migration Admission/Observation Consideration of admission/observation: Escalation of care including admission/observation considered symptoms improved with catheter pending call back from Morgan signed out to Dr. Murguia Lab Data [facility] Lab Attestation statement: I reviewed the patient's lab results. 08/16/23 02:39 08/16/23 02:39 Labs: Lab Results 08/16/23 08/16/23 Range/Units 02:39 05:00 WBC 3.2 L (4.8-10.8) X10*3/uL RBC 3.42 L (4.60-5.80) X10*6/uL Hgb 10.4 L (14.0-18.0) g/dl Hct 31.4 L (42.0-52.0) % MCV 91.8 (80.0-98.0) fL MCH 30.4 (27.0-33.0) pg MCHC 33.1 (31.0-36.0) g/dl RDW 15.2 (11.0-16.0) % Plt Count 206 D (160-400) X10*3/uL MPV 10.4 (9.4-12.4) fL Immature Gran % (Auto) 0.0 (0.0-0.4) % Neut % (Auto) 58.7 (45-73) % Lymph % (Auto) 27.6 (20-40) % Hodgeman % (Auto) 11.2 H (2-11) % Eos % (Auto) 1.6 (0-4) % Baso % (Auto) 0.9 (0-2) % Lymph # (Auto) 0.9 L (1.2-4.9) X10*3/uL Hodgeman # (Auto) 0.4 (0.1-1.2) X10*3/uL Eos # (Auto) 0.1 (0.0-0.4) X10*3/uL Baso # (Auto) 0.0 (0.0-0.2) X10*3/uL Abs Immat Gran (auto) 0.00 (0.00-0.03) X10*3/uL Absolute Neuts (auto) 1.9 L (2.0-8.3) x10*3/uL Absolute Nucleated RBC 0.000 (0.0-0.012) X10*3/uL Nucleated RBC % (auto) 0.0 (0.0-0.2) /100WBC Sodium 144 (135-145) mmol/L Potassium 4.4 (3.3-5.1) mmol/L Chloride 114 H (96-108) mmol/L Carbon Dioxide 21 L (22-29) mmol/L Anion Gap 13 (12-20) BUN 26 H (9-16) mg/dL Creatinine 1.35 (0.5-1.4) mg/dL Estim Creat Clear Calc 37.2 Estimated GFR 50 Random Glucose 120 H (60-115) mg/dL Calcium 8.9 (8.4-10.2) mg/dL Total Bilirubin 0.4 (0.0-1.0) mg/dL AST 24 (5-37) U/L ALT 17 (0-40) U/L Alkaline Phosphatase 57 (39-117) U/L Total Protein 6.0 L (6.5-8.0) g/dL Albumin 3.6 (3.5-5.0) g/dL Urine Color Yellow Urine Appearance Clear Urine pH 5.5 (5.0-9.0) Ur Specific [place] 1.020 (1.005-1.025) Urine Protein 30 (1+) H (Neg-Trace) mg/dL Urine Glucose (UA) Negative (Negative) mg/dL Urine Ketones Negative (Negative) mg/dL Urine Blood Large (3+) H (Negative) Urine Nitrite Negative (Negative) Ur Leukocyte Esterase Trace H (Negative) Urine RBC >20 H (0-2) /HPF Urine WBC 6-10 H (0-5) /HPF Ur Squamous Epith Cells 3-5 (0-2) /HPF Urine Bacteria None Seen (None Seen) Hyaline Casts 0-2 (0-2) /LPF Independent Interpretation I performed an independent interpretation of an: CT Scan Radiology Impression Discussion of test interpretation with radiology: I have reviewed the radiologist's reading. Independent Historian Clinical information obtained from an independent historian. History obtained from or confirmed by: Spouse External Record Review External record reviewed: Inpatient record Discharge Plan Discharge Clinical Impression: Acute retention of urine Patient Disposition: Still a Patient Instructions: Esquivel Catheter Placement and Care (ED) Additional Instructions: return for worsening pain, fevers, confusion, blocked catheter or any other concerns. Prescriptions: No Action enzalutamide 80 mg tablet 160 mg PO DAILY 90 Days Qty: 180 1RF polyethylene glycol 3350 17 gram Powder In Packet 17 g PO DAILY Qty: 30 0RF sennosides-docusate sodium [Senna Plus] 8.6-50 mg Tablet 1 tab PO BID PRN (Reason: constipation) Qty: 60 0RF pioglitazone 45 mg tablet 45 mg PO DAILY rosuvastatin 40 mg tablet 40 mg PO DAILY cholecalciferol (vitamin D3) 50 mcg (2,000 unit) capsule 50 mcg PO DAILY vitamin B complex Tablet 1 tab PO DAILY cetirizine [Zyrtec] 10 mg tablet 10 mg PO DAILY PRN (Reason: Allergic Symptoms) melatonin 5 mg capsule 5 mg PO BEDTIME PRN (Reason: Insomnia) metoprolol succinate 25 mg tablet extended release 24 hr 25 mg PO DAILY Referrals: Henry Mora MD [Physician] - Print Language: Hungarian
--- NOTE | 2023-08-16 05:04 | PC.NURSE ---
16Fr esquivel catheter placed. 400ml of clear, dark yellow urine noted immediately post output. UA obtained/sent to lab. 20gIV placed in the left AC. pt waiting to go to CT at this time. plan of care ongoing.
[2023-08-16 05:06] LABS: Appearance Urine Clear; Color Urine Yellow; Glucose Urine UA Negative (Negative); Leukocyte Esterase Urine Trace (Negative); Nitrite Urine Negative (Negative); PH 5.5 (5.0-9.0); UMIC TRIGGER UACC YES; Urine Blood Large (3+) (Negative); Urine Ketones Negative (Negative); Urine Protein 30 (1+) mg/dL (Neg-Trace)
[2023-08-16 05:08] LABS: Bacteria Urine None Seen (None Seen); Hyaline Casts Urine 0-2 /LPF (0-2); RBC Urine >20 /HPF (0-2); UACC Culture Trigger YES
--- NOTE | 2023-08-16 05:18 | PC.NURSE ---
pt to CT at this time.
[2023-08-16 05:40] VITALS: BP 137/58; PULSE 72; RESP 17; TEMP 36.6; O2SAT 98
--- NOTE | 2023-08-16 10:13 | PC.NURSE ---
at bed for catheter education, verbalized and showed how to cap and uncap esquivel and attach leg bag if needed.
[2023-08-16 10:27] VITALS: BP 137/58; PULSE 72; RESP 17; TEMP 36.6; O2SAT 98
== END 2023-08-16 10:28 | disposition home or self-care (01) ==
PROVIDERS: Emergency Medicine; Emergency Provider Emergency Medicine; PCP Hospitalist
DX: R33.9 Retention of urine, unspecified (principal); R39.198 Other difficulties with micturition; E11.22 Type 2 diabetes mellitus with diabetic chronic kidney disease; N18.9 Chronic kidney disease, unspecified; Z87.442 Personal history of urinary calculi
CPT/HCPCS: 36415; 51702; 51798; 74176; 80053; 81001; 85025; 87086; 99284; 99285

== ENCOUNTER 2023-08-19 13:52 | Emergency (ER) | payer MEDICARE, SELFPAY ==
[2023-08-19 14:06] VITALS: BP 105/44; PULSE 87; RESP 19; TEMP 36.6; O2SAT 98; BMI 22.0
--- NOTE | 2023-08-19 14:07 | ED_ITS ---
HPI - Male Genitourinary General Chief complaint: Urogenital-Male Stated complaint: catheter leakage Time Seen by Provider: 08/19/23 16:35 Source: patient Mode of arrival: ambulatory Limitations: no limitations History of Present Illness ED Provider: Abdelrahman Edwards NP HPI Narrative: Patient is an 87 year old male with history of CKD, ureteral stones, HLD, prostate cancer recently admitted on 07/27 4 [facility] with obstructive uropathy and had bilateral ureteral stents placed by Dr. Mora. He went home without an indwelling urinary catheter but return to the emergency department on 08/15 with urinary retention and an indwelling catheter was placed. Patient reports that he has not had any issues until today when he noted leaking around the catheter during episodes of bladder spasms. He states that the bladder spasms are not new and that he has had these since his procedure but he typically does not have associated leakage. Is currently on pyridium for this. He denies pain, fever, nausea or vomiting. MD Complaint: other (leakage around esquivel) Onset (ago): hour(s) Location: penis Context: indwelling catheter Associated symptoms: Reports denies other symptoms Related Data Home Medications ?Medication ?Instructions ?Recorded ?Confirmed pioglitazone 45 mg tablet 45 mg PO DAILY 07/23/20 07/28/23 rosuvastatin 40 mg tablet 40 mg PO DAILY 07/23/20 07/28/23 cetirizine 10 mg tablet (Zyrtec) 10 mg PO DAILY PRN Allergic 06/13/23 07/28/23 Symptoms cholecalciferol (vitamin D3) 50 50 mcg PO DAILY 06/13/23 07/28/23 mcg (2,000 unit) capsule melatonin 5 mg capsule 5 mg PO BEDTIME PRN Insomnia 06/13/23 07/28/23 metoprolol succinate 25 mg 25 mg PO DAILY 06/13/23 07/28/23 tablet,extended release 24 hr vitamin B complex 1 tab PO DAILY 06/13/23 Previous Rx's ?Medication ?Instructions ?Recorded enzalutamide 80 mg tablet 160 mg (2 x 80 mg) PO DAILY 90 02/28/23 days #180 tabs polyethylene glycol 3350 17 gram 17 g PO DAILY #30 ea 08/01/23 oral powder packet sennosides 8.6 mg-docusate sodium 1 tab PO BID PRN constipation #60 08/01/23 50 mg tablet (Senna Plus) tabs phenazopyridine 100 mg tablet 100 mg PO TID PRN pain 5 days #15 08/17/23 (Pyridium) tabs Allergies Allergy/AdvReac Type Severity Reaction Status Date / Time No Known Allergies Allergy Verified 08/19/23 14:08 [No Known Allergies*] Review of Systems Review of Systems: As per HPI Yes all other systems are reviewed and are negative Constitutional: Constitutional: Reports as per HPI [facility] Past Medical History Medical History Diabetes SOB (shortness of breath) Bladder infection Renal stones Neuropathy Mild acid reflux Hyperlipidemia Gross hematuria Prostate stricture Rising PSA following treatment for malignant neoplasm of prostate Urinary urgency Rising PSA following treatment for malignant neoplasm of prostate Surgical History History of prostate surgery History of appendectomy H/O hernia repair Social History Social History Household Members: Spouse Housing: House Do you presently have visiting nurse or other home services: No Patient Tobacco Use Status: Former Tobacco user Tobacco use type: Cigarette Years Smoked: 15 Advance Directives: Yes Advance Directives on File: Yes Advance Directives Date on File: 07/28/23 Do you have a plan to hurt others: No Plan service: No Physical Exam Vital Signs: Vital Signs: Last Vital Signs Temp 98 F 08/19/23 14:06 Pulse 87 08/19/23 14:06 Resp 19 08/19/23 14:06 BP 105/44 L 08/19/23 14:06 Pulse Ox 98 08/19/23 14:06 O2 Del Method Room Air 08/19/23 14:06 BMI result Body Mass Index 22.0 Vital signs have been reviewed and appear to be correct. Blood pressure normal. Heart rate normal. Respiratory rate normal. Temperature normal. Oxygen saturation normal. Const: General: cooperative, healthy appearing and no acute distress Orientation/consciousness: oriented to person, oriented to place, oriented to time and patient oriented x3 Limitations: no limitations HEENT: Head: Yes normocephalic and Yes atraumatic Ears: external ears normal General nose exam: Normal external nose present Face and sinus: Yes face symmetric Mouth: oropharynx normal and moist mucous membranes Throat: Yes uvula midline Eyes: Pupils: Equal, round and reactive pupils present Neck: Neck: Yes normal visual inspection and Yes supple Resp: Effort & Inspection: normal respiratory effort and able to speak in complete sentences Auscultation: clear to auscultation bilaterally Cardio: Rate: regular rate Rhythm: regular rhythm Heart sounds: S1 normal heart sound present and S2 normal heart sound present GI: Palpation (GI): Soft to palpation and nontender Auscultation: normoactive bowel sounds : Other: Approximately 30mLs orange colored urine in drainage bag, scant amount noted in brief General: Yes no CVA tenderness Back/Spine/Pelvis: Back: no CVA tenderness Skin: General skin exam: elasticity normal and turgor normal Neuro: General: oriented to person, oriented to place, oriented to time, patient oriented x3, moves all extremities, no focal motor deficits and CN's II- XI intact bilaterally Cranial nerves: Yes Equal, round and reactive pupils present Cognition (Neuro): normal cognition Extrem: General: Yes full ROM, Yes no pedal edema and Yes no calf tenderness Psych: Mental Status: mental status grossly normal Affect: normal affect Thought process: Normal thought process present Course Course Course Narrative: This is a rapid medical exam. Deferred additional HPI, ROS PE to primary provider. 87 yo male with history of CKD here complaining of bladder spasm, leaking around esquivel catheter. Unable to visualize in triage. UA ordered. EUSEBIO Truong APRN Medical Decision Making Medical Decision Making [facility] Narrative: Patient is an 87 year old male with history of CKD, ureteral stones, HLD, prostate cancer recently admitted on 07/27 4 [facility] with obstructive uropathy and had bilateral ureteral stents placed by Dr. Mora. On exam patient is awake, A+Ox3, VS WNL, afebrile, normal neurological exam without focal deficits, physical exam findings as above. Given reported symptoms and physical exam findings, initial differential includes esquivel catheter malfunction, UTI. Case discussed with Dr. Mora recommends removal of indwelling catheter. Catheter removed and patient able to urinate without difficulty in the emergency department. Advised patient to keep appointment with Dr. Mora on , as this appointment is for removal of his ureteral stents. Patient discharged prior to urine specimen being obtained by RN. Unlikely UTI as patient otherwise asymptomatic. Return precautions discussed with patient at bedside. Advised patient that if he is unable to urinate he should return to the ED. patient verbalized understanding of and agreement with plan. Differential Diagnosis Differential Diagnoses: The differential diagnosis associated with the presentation includes As per MDM. Admission/Observation Consideration of admission/observation: Escalation of care including admission/observation considered Patient would have been admitted to the hospital had their work up had any findings where hospital admission was appropriate and their clinical presentation warranted hospital admission. Consult Healthcare Provider Management of the patient was discussed with: Production Sanitizer (Dr. Mora, urology) External Record Review External record reviewed: Inpatient record, Office record and Outpatient record Discharge Plan Discharge Clinical Impression: Mechanical complication of urinary catheter Patient Disposition: Home, Self-Care Additional Instructions: You were evaluated in the emergency department today for leakage around your urinary catheter. Your catheter was removed in the emergency department and you were able to urinate without difficulty. Please keep your appointment with Dr. Mora on . Return to the emergency department if you are unable to urinate, develop abdominal pain, fever, nausea and vomiting or any other concerning symptoms. Prescriptions: No Action enzalutamide 80 mg tablet 160 mg PO DAILY 90 Days Qty: 180 1RF phenazopyridine [Pyridium] 100 mg tablet 100 mg PO TID PRN (Reason: pain) 5 Days Qty: 15 0RF polyethylene glycol 3350 17 gram Powder In Packet 17 g PO DAILY Qty: 30 0RF sennosides-docusate sodium [Senna Plus] 8.6-50 mg Tablet 1 tab PO BID PRN (Reason: constipation) Qty: 60 0RF pioglitazone 45 mg tablet 45 mg PO DAILY rosuvastatin 40 mg tablet 40 mg PO DAILY cholecalciferol (vitamin D3) 50 mcg (2,000 unit) capsule 50 mcg PO DAILY vitamin B complex Tablet 1 tab PO DAILY cetirizine [Zyrtec] 10 mg tablet 10 mg PO DAILY PRN (Reason: Allergic Symptoms) melatonin 5 mg capsule 5 mg PO BEDTIME PRN (Reason: Insomnia) metoprolol succinate 25 mg tablet extended release 24 hr 25 mg PO DAILY Referrals: [facility] [Provider Group] Print Language: Maltese
[2023-08-19 18:21] VITALS: BP 123/59; PULSE 69; RESP 18; TEMP 37.1; O2SAT 98
== END 2023-08-19 18:21 | disposition home or self-care (01) ==
PROVIDERS: Emergency Provider Internal Medicine; PCP Hospitalist
DX: T83.098A Other mechanical complication of other urinary catheter, initial encounter (principal); Y84.6 Urinary catheterization as the cause of abnormal reaction of the patient, or of later complication, without mention of misadventure at the time of the procedure; Y92.9 Unspecified place or not applicable; Z46.6 Encounter for fitting and adjustment of urinary device
CPT/HCPCS: 99282

== ENCOUNTER 2023-08-24 12:31 | Outpatient (AMB) | payer MEDICARE, SELFPAY ==
--- NOTE | 2023-08-24 12:57 | A.OFFVIS_ITS ---
Intake Visit Reasons: stent removal/CREAN Allergies No Known Allergies [No Known Allergies*] Allergy (Verified 08/19/23 14:08) HPI Comments Details: Carlos Eduardo is a very pleasant male. He is a patient of Dr. Ruggiero. He is seen for the following urologic conditions - prostate cancer - nephrolithiasis - retention with tortuous ureters and elevated creatinine Here for cysto and stent removal Plan for Lasix renogram in 3-4 weeks to ensure renal clearance Significant drop in PSA on enzalutamide Cycle enzalutamide monthly Plan PSMA scan with PSA Does have fatigue and tender breasts when on medication - reduced to 1 tab - 08/23 PSMA scan Shows recurrence of disease in left base prostate abutting seminal vesicle PSA 07/23 3.9, 10/22 3.6 Dut +, 01/22 4.5 Dut +, 05/26 6.9 Dut -, 08/23 6.4, 01/23 8.0, 06/24 0.2 High Risk Biochemical Recurrence following Salvage Therapy in setting of nmHSPC FDA approved use of enzalutamide (02/23) in the setting of High Risk Biochemical Recurrence based on published data from EMBARK study (NEJM 2022; 389 [facility] et al) displaying improved Hazard Ratio for metastasis or comparing GnRH alone with enzalutamide combination therapy with GnRH (HR 0.42) and enzalutamide alone (HR 0.63) at 5 years. Given these findings and the improved tolerability of mono enzalutamide therapy vs GnRH or combination therapy recommendation for enzalutamide therapy Bilateral hydronephrosis Presentation through emergency room with retention and elevated creatinine to 6.[address] - 07/25 here is mild right hydronephrosis and hydroureter to the level of a 2 mm distal right ureteric calculus. There is mild left hydronephrosis/left renal collecting system dilatation without ureteral calculus Prostate cancer: Initial treatment prostate cancer 2007 with brachytherapy, rising PSA with brachy boost June 201908/23 PSMA persistent activity suggestive of locally recurrent disease, no evidence of spread Found to have rising PSA through 2019 Has been treated at [facility] in [place] with prostate seed implant - Performed June [address] Luna Prostate cancer was diagnosed 2007. Diagnosis was reached by needle biopsy, for elevated PSA. The Moy grade is 3+3 = 6. TNM Classification of Malignant Tumours (TNM) T1c. The D'Barbara (NCCN) risk category is Low Risk (PSA< 10, Gl < 7, T1c). Initial therapy included Primary treatment, Brachytherapy 2007 , Additional treatment 02/17 5AR - stopped 01/18 Cysto with dilation of prostate apex to 16Fr 12/20 operative DVIU for prostatic apex stricture to 18 Mosotho - additional treatment seeds to prostate with Dr. Luna June 2019 Recent labs included a PSA (prostate-specific antigen) 07/17 7.7, 03/18 9.9 08/17 per patient 9.1, 01/17 14.3 05/21 6.4, 10/18 5.0, 01/18 5.1 F 7.8 06/19 5.1 F 11, 09/19 6.0 F 10, 03/21 7.6 07/22 2.6, 12/22 3.1, 04/24 3.9, 07/23 3.9, 10/22 3.6 Recent imaging included 05/21 , a bone scan, with no evidence of metastasis 08/18 an ultrasound, bilateral renal cysts 08/19 , an MRI (magnetic resonance imaging) - bilateral renal cysts up to 4 cm, bilateral renal proteinaceous cysts. Associated conditions erectile dysfunction Yes Nephrolithiasis/Urolithiasis: Episode treated at [facility] 12/22 Calcium oxalate stone on right side 8 mm Urolithiasis was diagnosed 12/[address] [facility] with flank pain and dark urine. The patient previously had kidney stones whose composition w unknown. Laboratory investigations include no recent labs. 24 Hour urine evaluation none on file. Prior treatment(s) include observation. Prior imaging includes 12/[address] (computed tomography) scan of the abdomen/pelvis (stone protocol) - renal cyst, bilateral punctate stones, presumed stone passage on right side 01/18 , a renal ultrasound, small stones with bilateral cysts - 01/20 renal ultrasound no stones Current therapeutic plan will be to continue with imaging surveillance [facility] Medical History Diabetes SOB (shortness of breath) Bladder infection Renal stones Neuropathy Mild acid reflux Hyperlipidemia Gross hematuria Prostate stricture Rising PSA following treatment for malignant neoplasm of prostate Urinary urgency Rising PSA following treatment for malignant neoplasm of prostate Surgical History History of prostate surgery History of appendectomy H/O hernia repair Social History Household Members: Spouse Housing: House Do you presently have visiting nurse or other home services: No Patient Tobacco Use Status: Former Tobacco user Tobacco use type: Cigarette Years Smoked: 15 Advance Directives Date on File: 07/28/23 service: No Review of Systems Const Denies chills and Denies fever(s) Card Reports no additional complaints and Denies syncope Resp Denies cough GI Denies abdominal pain and Denies heartburn Reports as per HPI and Denies change in libido Neuro Denies syncope Psych Denies change in libido Endo Denies change in libido Physical Exam Const General: cooperative, healthy appearing, comfortable and no acute distress Orientation/consciousness: patient oriented x3 HEENT Face and sinus: Yes normal facial exam Mouth: moist mucous membranes Neck Neck: Yes normal visual inspection, Yes full ROM and Yes trachea midline Chest Chest palpation & inspection: normal inspection of the chest Resp Effort & Inspection: normal respiratory effort, able to speak in complete sentences and no respiratory distress GI Inspection: Yes normal to inspection Back/Spine/Pelvis Cervical Spine: normal cervical lordosis Thoracic/Lumbar Spine: thoracic and lumbar spine normal to inspection Skin General skin exam: no rashes or lesions noted Neuro General: patient oriented x3, gait normal, tone normal and moves all extremities Extrem General: Yes normal to inspection and Yes capillary refill normal Office Procedures Cystoscopy Consent Discussed risk and benefit or proposed procedure with the patient. Information consent for procedure given to the patient. Discussed technical aspects, risks, benefits and alternatives in full. Addressed all of the patient's questions and concerns regarding the procedure. The patient demonstrated knowledge and understanding. They wish to proceed with this procedure. Preparation The patient was prepped in the usual manner. A office supervisor was present and in the room. Genitalia was prepped with betadine solution in a sterile manner. Lidocaine Jelly 2% was placed into the urethra and 16Fr flexible Olympus cystoscope was inserted into the meatus after adequate lubrication. Procedure A well lubricated 16 Mosotho cystoscope was placed No abnormality noted of urethra during placement Indwelling stent seen within bladder emerging from bilateral ureteric orifices The stent was grasped with a 3 prong grasper and removed without difficulty, the scope was placed in the 2nd stent removed The patient tolerated the procedure well [id number] DISPOSABLE SCOPE URO-G FLEXIBLE SCOPE Procedure code (CPT) selection complete Office Meds lidocaine HCl 2 % mucosal jelly in applicator Performing Provider: Henry Mora MD Performing Location: [facility] [place] [facility] Administered by: Ellyn Matos RN on 08/24/23 13:26 Dose Route Admin Location Dispensed Lot Number Expiration Date [employer] 10 mL intra-urethral 10 mL nitrofurantoin monohydrate/macrocrystals 100 mg capsule Performing Provider: Henry Mora MD Performing Location: [facility] [place] [facility] Administered by: Ellyn aMtos RN on 08/24/23 13:26 Dose Route Admin Location Dispensed Lot Number Expiration Date [employer] 100 mg PO 1 cap naproxen 500 mg tablet Performing Provider: Henry Mora MD Performing Location: [facility] [place] [facility] Administered by: Ellyn Matos RN on 08/24/23 13:26 Dose Route Admin Location Dispensed Lot Number Expiration Date [employer] 500 mg PO 1 tab Results AMB Urinalysis, Automated UA Leukoctes 70 Gregorio/uL Last Edit by ANTONIO Olson on 08/24/23 13:35 UA Nitrite Negative Last Edit by ANTONIO Olson on 08/24/23 13:35 UA Urobilinogen 0.2 mg/dL Last Edit by ANTONIO Olson on 08/24/23 13:3 5 UA Protein 30 mg/dL Last Edit by ANTONIO Olson on 08/24/23 13:35 UA pH 6.0 Last Edit by ANTONIO Olson on 08/24/23 13:35 UA Blood 80 Ciaran/uL Last Edit by YANET Olson on 08/24/23 13:35 UA Specific [place] 1.015 Last Edit by ANTONIO Olson on 08/24/23 13: 35 UA Ketone Negative Last Edit by ANTONIO Olson on 08/24/23 13:35 UA Bilirubin 0 mg/dL Last Edit by ANTONIO Olson on 08/24/23 13:35 UA Glucose 0 mg/dL Last Edit by ANTONIO Olson on 08/24/23 13:35 Results Reviewed Results Reviewed: Laboratory Last Values Urine pH (Auto) 6.0 08/24/23 13:24 Specific [place] (Auto) 1.015 08/24/23 13:24 Urine Protein (Auto) 30 mg/dL 08/24/23 13:24 Glucose (UA)(Auto) 0 mg/dL 08/24/23 13:24 Urine Ketones (Auto) Negative 08/24/23 13:24 Urine Blood (Auto) 80 Ciaran/uL 08/24/23 13:24 Urine Nitrite (Auto) Negative 08/24/23 13:24 Urine Bilirubin (Auto) 0 mg/dL 08/24/23 13:24 Urine Urobilinogen (Auto) 0.2 mg/dL 08/24/23 13:24 Leukocyte Esterase (Auto) 70 Gregorio/uL 08/24/23 13:24 Assessment & Plan Assessment & Plan (1) Prostate cancer: Comment: Initial treatment brachytherapy 2008, brachy boost 2019 [facility]. New gradual rising PSA Code(s): C61 - Malignant neoplasm of prostate Category: Medical (2) Acute kidney injury: Code(s): N17.9 - Acute kidney failure, unspecified Category: Medical Plan Keep September follow-up for prostate cancer Plan nuclear renal scan to review emptying Orders: Orders NM renal flow w pharm int Today N13.30 - Unspecified hydronephrosis, N17.9 - Acute kidney failure, unspecified AMB Cystoscopy Today N17.9 - Acute kidney failure, unspecified AMB Urinalysis Automated Today N17.9 - Acute kidney failure, unspecified, Z13.9 - Encounter for screening, unspecified Patient Instructions: Imaging studies, laboratory and physical exam results were discussed and reviewed in detail. No major barriers to patient understanding were identified. An opportunity to ask questions regarding the treatment plan was provided. All questions were answered. The patient expressed understanding and agreement with the above treatment plan. The patient is aware they should contact our office by phone for worsening of their current condition or the appearance of new urologic symptoms. Compliance is encouraged with any medications and followup testing that is ordered. It is a privilege to participate in the urologic care of your patient. If you have any questions or concerns regarding treatment for the above conditions, or other urologic issues, please do not hesitate to contact me. The office telephone contact is [phone]. This note is constructed using voice recognition software. While every effort has been made to ensure accuracy dealer analyst errors may have been included. Yours sincerely, Dr Henry Mora MD, ROJELIO [facility] - Urology Providers of Expert, Compassionate Care for the Genitourinary System Coding Level of Care Code Est Pt Level 3 (49579) Diagnoses Prostate cancer C61 Acute kidney injury N17.9 CPT Codes Cystoscopy - CPT: [id number] ([id number])
== END 2023-08-24 13:48 | disposition home or self-care (01) ==
PROVIDERS: PCP Hospitalist; Visit Provider Urology
DX: C61 Malignant neoplasm of prostate (principal); N17.9 Acute kidney failure, unspecified; Z96.0 Presence of urogenital implants; Z13.9 Encounter for screening, unspecified
CPT/HCPCS: 52310; 99213

== ENCOUNTER → 2023-08-24 12:31 | Outpatient (BNVA) | payer MEDICARE, SELFPAY | PROVIDERS: PCP Hospitalist; Visit Provider Urology | DX: R33.9 Retention of urine, unspecified (principal); N13.8 Other obstructive and reflux uropathy; C61 Malignant neoplasm of prostate; N17.9 Acute kidney failure, unspecified | CPT/HCPCS: 52310; 81003; 99212 ==

== ENCOUNTER 2023-09-04 11:04 | Outpatient (REF) | payer MEDICARE, SELFPAY | END 2023-09-04 11:05 | disposition home or self-care (01) | LOC: HO.LAB 11:04 | PROVIDERS: PCP Hospitalist; Visit Provider Urology | DX: C61 Malignant neoplasm of prostate (principal); R35.0 Frequency of micturition | CPT/HCPCS: 51798; 81003; 87086; 87088; 87186 ==

== ENCOUNTER 2023-09-04 11:04 | Outpatient (AMB) | payer MEDICARE, SELFPAY ==
--- NOTE | 2023-09-04 11:20 | AM.OFFVISNUR ---
Intake Intake Visit Reasons: PVR/UA/CS Allergies No Known Allergies [No Known Allergies*] Allergy (Verified 08/19/23 14:08) Nursing Note Patient presents to office for PVR and urinalysis after calling in stating that he thinks he may have a UTI, but is also having trouble urinating. Patient reporting that he was able to urinate before coming to office at 10:30, but not much urine came out. Patient also reporting that during the day he is usually able to urinate just fine, but it seems at night and when he gets up he is having these issues. Patient able to give urine for sample with no issues, UA not indicative of infection but will send for culture. PVR 27mls. Inquired if patient is drinking fluids up until he goes to sleep, patient reporting stopping fluids at dinner time which is 2-3 hours before bed. Patient does not have regular intake of caffeine, spicy foods, acidic fruits, juice or other bladder irritants. Reviewed all information with Dr. Barajas as Dr. Mora who is provider is in OR today. Patient is not in retention, has no UTI indications from UA- schedule patient televisit with Dr. Mora to discuss concerns. Patient agreeable to have tele appt scheduled at checkout. Office Procedures Post Void Residual Post Residual Void Details: bladder scanned for 27mls Post Void Residual (PVR): 27 [id number] Void Residual by ultrasound Results AMB Urinalysis, Automated UA Leukoctes 15 Gregorio/uL Last Edit by Alex De La Garza LPN on 09/04/23 11:44 UA Nitrite Negative Last Edit by Alex De La Garza LPN on 09/04/23 11:44 UA Urobilinogen 0 mg/dL Last Edit by Alex De La Garza LPN on 09/04/23 11:44 UA Protein 30 mg/dL Last Edit by Alex De La Garza LPN on 09/04/23 11:44 UA pH 6.0 Last Edit by Alex De La Garza LPN on 09/04/23 11:44 UA Blood 10 Ciaran/uL Last Edit by Alex De La Garza LPN on 09/04/23 11:44 UA Specific [place] 1.015 Last Edit by Alex De La Garza LPN on 09/04/23 11:44 UA Ketone Negative Last Edit by Alex De La Garza LPN on 09/04/23 11:44 UA Bilirubin 0 mg/dL Last Edit by Alex De La Garza LPN on 09/04/23 11:44 UA Glucose 0 mg/dL Last Edit by Alex De La Garza LPN on 09/04/23 11:44 Coding CPT Codes Post Residual Void - PVR CPT Code: [id number]-[id number] Void Residual by ultrasound ([id number]) Assessment & Plan Assessment & Plan Orders: Orders AMB Post Void Residual by ultrasound Today C61 - Malignant neoplasm of prostate, R35.0 - Frequency of micturition AMB Urinalysis Automated Today C61 - Malignant neoplasm of prostate, R35.0 - Frequency of micturition
== END 2023-09-04 12:00 | disposition home or self-care (01) ==
PROVIDERS: PCP Hospitalist; Visit Provider Urology
DX: R35.0 Frequency of micturition (principal); C61 Malignant neoplasm of prostate

== ENCOUNTER 2023-09-05 10:29 | Outpatient (AMB) | payer MEDICARE, SELFPAY ==
--- NOTE | 2023-09-05 10:29 | A.OFFVIS_ITS ---
Intake Visit Reasons: Nocturia Intake Note: Patient is Present for Telephone Follow Up Nocturia Urology Med:Enzalutamide Antibiotic Allergy: None Blood Thinner:None Allergies No Known Allergies [No Known Allergies*] Allergy (Verified 08/19/23 14:08) HPI Comments Details: Carlos Eduardo is a very pleasant male. He is a patient of Dr. Ruggiero. He is seen for the following urologic conditions - prostate cancer - nephrolithiasis - retention with tortuous ureters and elevated creatinine Telemedicine Evaluation 15 min Consultation Trupanion Daniela Video attempted Creatinine 1.3 Restart Enzalutamide - 1 tab Cycle enzalutamide monthly Plan PSMA scan with PSA Does have fatigue and tender breasts when on medication - reduced to 1 tab - 08/23 PSMA scan Shows recurrence of disease in left base prostate abutting seminal vesicle PSA 07/23 3.9, 10/22 3.6 Dut +, 01/22 4.5 Dut +, 05/26 6.9 Dut -, 08/23 6.4, 01/23 8.0, 06/24 0.2 High Risk Biochemical Recurrence following Salvage Therapy in setting of nmHSPC FDA approved use of enzalutamide (02/23) in the setting of High Risk Biochemical Recurrence based on published data from EMBARK study (NEJ 2022; [facility] et al) displaying improved Hazard Ratio for metastasis or comparing GnRH alone with enzalutamide combination therapy with GnRH (HR 0.42) and enzalutamide alone (HR 0.63) at 5 years. Given these findings and the improved tolerability of mono enzalutamide therapy vs GnRH or combination therapy recommendation for enzalutamide therapy Bilateral hydronephrosis Presentation through emergency room with retention and elevated creatinine to 6.[address] - 07/25 here is mild right hydronephrosis and hydroureter to the level of a 2 mm distal right ureteric calculus. There is mild left hydronephrosis/left renal collecting system dilatation without ureteral calculus Prostate cancer: Initial treatment prostate cancer 2007 with brachytherapy, rising PSA with brachy boost June 201908/23 PSMA persistent activity suggestive of locally recurrent disease, no evidence of spread Found to have rising PSA through 2019 Has been treated at [facility] in [place] with prostate seed implant - Performed June [address] Luna Prostate cancer was diagnosed 2007. Diagnosis was reached by needle biopsy, for elevated PSA. The Co[place] grade is 3+3 = 6. TNM Classification of Malignant Tumours (TNM) T1c. The D'Barbara (NCCN) risk category is Low Risk (PSA< 10, Gl < 7, T1c). Initial therapy included Primary treatment, Brachytherapy 2007 , Additional treatment 02/17 5AR - stopped 01/18 Cysto with dilation of prostate apex to 16Fr 12/20 operative DVIU for prostatic apex stricture to 18 Stateless - additional treatment seeds to prostate with Dr. Luna June 2019 Recent labs included a PSA (prostate-specific antigen) 07/17 7.7, 03/18 9.9 08/17 per patient 9.1, 01/17 14.3 05/21 6.4, 10/18 5.0, 01/18 5.1 F 7.8 06/19 5.1 F 11, 09/19 6.0 F 10, 03/21 7.6 07/22 2.6, 12/22 3.1, 04/24 3.9, 07/23 3.9, 10/22 3.6 Recent imaging included 05/21 , a bone scan, with no evidence of metastasis 08/18 an ultrasound, bilateral renal cysts 08/19 , an MRI (magnetic resonance imaging) - bilateral renal cysts up to 4 cm, bilateral renal proteinaceous cysts. Associated conditions erectile dysfunction Yes Nephrolithiasis/Urolithiasis: Episode treated at [facility] 12/22 Calcium oxalate stone on right side 8 mm Urolithiasis was diagnosed 12/19 [place] [facility] [place] flank pain and dark urine. The patient previously had kidney stones whose composition w unknown. Laboratory investigations include no recent labs. 24 Hour urine evaluation none on file. Prior treatment(s) include observation. Prior imaging includes 12/[address] (computed tomography) scan of the ab domen/pelvis (stone protocol) - renal cyst, bilateral punctate stones, presumed stone passage on right side 01/18 , a renal ultrasound, small stones with bilateral cysts - 01/20 renal ultrasound no stones Current therapeutic plan will be to continue with imaging surveillance [facility] Medical History Diabetes SOB (shortness of breath) Bladder infection Renal stones Neuropathy Mild acid reflux Hyperlipidemia Gross hematuria Prostate stricture Rising PSA following treatment for malignant neoplasm of prostate Urinary urgency Rising PSA following treatment for malignant neoplasm of prostate Surgical History History of prostate surgery History of appendectomy H/O hernia repair Social History Household Members: Spouse Housing: House Do you presently have visiting nurse or other home services: No Patient Tobacco Use Status: Former Tobacco user Tobacco use type: Cigarette Years Smoked: 15 Advance Directives Date on File: 07/28/23 service: No Review of Systems Const All systems reviewed & are unremarkable except as noted in HPI and below Reports no additional complaints Resp Reports no additional complaints GI Reports no additional complaints Reports as per HPI Musc Reports no additional complaints Physical Exam Telemedicine evaluation Appropriate responses Regular breathing rate and rhythm HEENT Head: Yes normal to inspection Ears: hearing grossly normal bilaterally Eyes General: appearance normal, both eyes and all related structures Neck Neck: Yes normal visual inspection Chest Chest palpation & inspection: normal inspection of the chest Resp Effort & Inspection: normal respiratory effort and able to speak in complete sentences Telehealth Telehealth Location of provider rendering services: practice address Location of patient: address on file Patient Identification confirmed using: Name, : Yes Telehealth method: video Patient verbally consented to treatment: Yes Patient verbally consented to billing insurance company: Yes Patient informed of any privacy concerns related to visit: Yes Assessment & Plan Assessment & Plan (1) Acute kidney injury: Code(s): N17.9 - Acute kidney failure, unspecified Category: Medical (2) Prostate cancer: Comment: Initial treatment brachytherapy 2008, brachy boost 2019 [facility]. New gradual rising PSA Code(s): C61 - Malignant neoplasm of prostate Category: Medical Plan Follow-up is planned for PSMA scan Patient Instructions: Imaging studies, laboratory and physical exam results were discussed and reviewed in detail. No major barriers to patient understanding were identified. An opportunity to ask questions regarding the treatment plan was provided. All questions were answered. The patient expressed understanding and agreement with the above treatment plan. The patient is aware they should contact our office by phone for worsening of their current condition or the appearance of new urologic symptoms. Compliance is encouraged with any medications and followup testing that is ordered. It is a privilege to participate in the urologic care of your patient. If you have any questions or concerns regarding treatment for the above conditions, or other urologic issues, please do not hesitate to contact me. The office telephone contact is [phone]. This note is constructed using voice recognition software. While every effort has been made to ensure accuracy accountant bookkeeper errors may have been included. Yours sincerely, Dr Henry Mora MD, ROJELIO [facility] - Urology Providers of Expert, Compassionate Care for the Genitourinary System Coding Level of Care Code Tele Est Pt Level 3 (02402) Diagnoses Acute kidney injury N17.9 Prostate cancer C61
== END 2023-09-05 10:51 | disposition home or self-care (01) ==
LOC: HO.HUSH 10:29
PROVIDERS: PCP Hospitalist; Visit Provider Urology
DX: N17.9 Acute kidney failure, unspecified (principal); C61 Malignant neoplasm of prostate
CPT/HCPCS: 99213

== ENCOUNTER → 2023-09-05 10:29 | Outpatient (BNVA) | payer MEDICARE, SELFPAY | PROVIDERS: PCP Hospitalist; Visit Provider Urology ==

== ENCOUNTER 2023-09-21 10:28 | Outpatient (AMB) | payer MEDICARE, SELFPAY ==
--- NOTE | 2023-09-21 10:35 | MHC.OFFVIS ---
Intake Visit Reasons: follow up/PSA Intake Note: Patient is Present for Telephone Follow Up PSA Urology Med Enzalutamide Antibiotic Allergy:None Blood Thinner:None Allergies No Known Allergies [No Known Allergies*] Allergy (Verified 08/19/23 14:08) Medication List - Last Reconciled 09/21/23 by Henry Mora MD cetirizine (Zyrtec) 10 mg PO DAILY PRN cholecalciferol (vitamin D3) 50 mcg PO DAILY enzalutamide 160 mg (2 x 80 mg) PO DAILY 90 days melatonin 5 mg PO BEDTIME PRN metoprolol succinate ER 25 mg PO DAILY phenazopyridine (Pyridium) 100 mg PO TID PRN 5 days pioglitazone 45 mg PO DAILY polyethylene glycol 3350 17 grams PO DAILY rosuvastatin 40 mg PO DAILY sennosides-docusate sodium 8.6-50 mg (Senna Plus) 1 tab PO BID PRN tadalafil 5 mg PO DAILY 90 days vitamin B complex 1 tab PO DAILY HPI Comments Details: Carlos Eduardo is a very pleasant male. He is a patient of Dr. Ruggiero. He is seen for the following urologic conditions - prostate cancer - nephrolithiasis - retention with tortuous ureters and elevated creatinine Telemedicine Evaluation 15 min Consultation [place] Daniel[place] Video attempted Main issue is urinary urgency at night and only getting an hour of sleep at a time Trial tadalafil Has upcoming PSMA scan 08/24 Creatinine 1.3 Restart Enzalutamide - 1 tab Cycle enzalutamide monthly Does have fatigue and tender breasts when on medication - reduced to 1 tab - 08/23 PSMA scan Shows recurrence of disease in left base prostate abutting seminal vesicle PSA 07/23 3.9, 10/22 3.6 Dut +, 01/22 4.5 Dut +, 05/26 6.9 Dut -, 08/23 6.4, 01/23 8.0, 06/24 0.2, 09/24 3.2 High Risk Biochemical Recurrence following Salvage Therapy in setting of nmHSPC FDA approved use of enzalutamide (02/23) in the setting of High Risk Biochemical Recurrence based on published data from EMBARK study (NEJ 2022; 389 Chance et al) displaying improved Hazard Ratio for metastasis or comparing GnRH alone with enzalutamide combination therapy with GnRH (HR 0.42) and enzalutamide alone (HR 0.63) at 5 years. Given these findings and the improved tolerability of mono enzalutamide therapy vs GnRH or combination therapy recommendation for enzalutamide therapy Bilateral hydronephrosis Presentation through emergency room with retention and elevated creatinine to 6.[address] - 07/25 here is mild right hydronephrosis and hydroureter to the level of a 2 mm distal right ureteric calculus. There is mild left hydronephrosis/left renal collecting system dilatation without ureteral calculus Prostate cancer: Initial treatment prostate cancer 2007 with brachytherapy, rising PSA with brachy boost June 201908/23 PSMA persistent activity suggestive of locally recurrent disease, no evidence of spread Found to have rising PSA through 2018 Has been treated at [facility] in [place] with prostate seed implant - Performed June [address] Luna Prostate cancer was diagnosed 2007. Diagnosis was reached by needle biopsy, for elevated PSA. The [place] grade is 3+3 = 6. TNM Classification of Malignant Tumours (TNM) T1c. The D'Barbara (NCCN) risk category is Low Risk (PSA< 10, Gl < 7, T1c). Initial therapy included Primary treatment, Brachytherapy 2007 , Additional treatment 02/17 5AR - stopped 01/18 Cysto with dilation of prostate apex to 16Fr 12/20 operative DVIU for prostatic apex stricture to 18 Italian - additional treatment seeds to prostate with Dr. Luna June 2019 Recent labs included a PSA (prostate-specific antigen) 07/17 7.7, 03/18 9.9 08/17 per patient 9.1, 01/17 14.3 05/21 6.4, 10/18 5.0, 01/18 5.1 F 7.8 06/19 5.1 F 11, 09/19 6.0 F 10, 03/21 7.6 07/22 2.6, 12/22 3.1, 04/24 3.9, 07/23 3.9, 10/22 3.6 Recent imaging included 05/21 , a bone scan, with no evidence of metastasis 08/18 an ultrasound, bilateral renal cysts 08/19 , an MRI (magnetic resonance imaging) - bilateral renal cysts up to 4 cm, bilateral renal proteinaceous cysts. Associated conditions erectile dysfunction Yes Nephrolithiasis/Urolithiasis: Episode treated at [facility] 12/22 Calcium oxalate stone on right side 8 mm Urolithiasis [place] [facility] [place] and dark urine. The patient previously had kidney stones whose composition w unknown. Laboratory investigations include no recent labs. 24 Hour urine evaluation none on file. Prior treatment(s) include observation. Prior imaging includes 12/[address] (computed tomography) scan of the abdomen/pelvis (stone protocol) - renal cyst, bilateral punctate stones, presumed stone passage on right side 01/18 , a renal ultrasound, small stones with bilateral cysts - 01/20 renal ultrasound no stones Current therapeutic plan will be to continue with imaging surveillance REPLACED BY [facility] Medical History Diabetes SOB (shortness of breath) Bladder infection Renal stones Neuropathy Mild acid reflux Hyperlipidemia Gross hematuria Prostate stricture Rising PSA following treatment for malignant neoplasm of prostate Urinary urgency Rising PSA following treatment for malignant neoplasm of prostate Surgical History History of prostate surgery History of appendectomy H/O hernia repair Social History Household Members: Spouse Housing: House Do you presently have visiting nurse or other home services: No Patient Tobacco Use Status: Former Tobacco user Tobacco use type: Cigarette Years Smoked: 15 Advance Directives Date on File: 07/28/23 service: No Review of Systems Const All systems reviewed & are unremarkable except as noted in HPI and below Reports no additional complaints Resp Reports no additional complaints GI Reports no additional complaints Reports as per HPI Musc Reports no additional complaints Physical Exam Telemedicine evaluation Appropriate responses Regular breathing rate and rhythm HEENT Head: Yes normal to inspection Ears: hearing grossly normal bilaterally Eyes General: appearance normal, both eyes and all related structures Neck Neck: Yes normal visual inspection Chest Chest palpation & inspection: normal inspection of the chest Resp Effort & Inspection: normal respiratory effort and able to speak in complete sentences Telehealth Telehealth Location of provider rendering services: practice address Location of patient: address on file Patient Identification confirmed using: Name, : Yes Telehealth method: video Patient verbally consented to treatment: Yes Patient verbally consented to billing insurance company: Yes Patient informed of any privacy concerns related to visit: Yes Assessment & Plan Assessment & Plan (1) Prostate cancer: Comment: Initial treatment brachytherapy 2008, brachy boost 2019 [facility]. New gradual rising PSA Code(s): C61 - Malignant neoplasm of prostate Category: Medical (2) Frequency of micturition: Code(s): R35.0 - Frequency of micturition Category: Medical Plan Follow-up next month after imaging Orders: Orders Prostate Specific Antigen Today C61 - Malignant neoplasm of prostate, R97.21 - Rising PSA following treatment for malignant neoplasm of prostate, Z19.1 - Hormone sensitive malignancy status Medications: New tadalafil 5 mg PO DAILY 90 days 90 tabs 0RF urgency R35.0 - Frequency of micturition Patient Instructions: Imaging studies, laboratory and physical exam results were discussed and reviewed in detail. No major barriers to patient understanding were identified. An opportunity to ask questions regarding the treatment plan was provided. All questions were answered. The patient expressed understanding and agreement with the above treatment plan. The patient is aware they should contact our office by phone for worsening of their current condition or the appearance of new urologic symptoms. Compliance is encouraged with any medications and followup testing that is ordered. It is a privilege to participate in the urologic care of your patient. If you have any questions or concerns regarding treatment for the above conditions, or other urologic issues, please do not hesitate to contact me. The office telephone contact is [phone]. This note is constructed using voice recognition software. While every effort has been made to ensure accuracy room service server errors may have been included. Yours sincerely, Dr Henry Mora MD, ROJELIO [facility] - Urology Providers of Expert, Compassionate Care for the Genitourinary System Coding Level of Care Code Tele Est Pt Level 4 (15833) Diagnoses Prostate cancer C61 Frequency of micturition R35.0
== END 2023-09-21 11:20 | disposition home or self-care (01) ==
LOC: HO.HUSH 10:28
PROVIDERS: PCP Hospitalist; Visit Provider Urology
DX: C61 Malignant neoplasm of prostate (principal); R35.0 Frequency of micturition
CPT/HCPCS: 99214

== ENCOUNTER → 2023-09-21 10:28 | Outpatient (BNVA) | payer MEDICARE, SELFPAY | PROVIDERS: PCP Hospitalist; Visit Provider Urology ==

== ENCOUNTER → 2023-10-10 10:39 | Outpatient (REF) | payer MEDICARE, SELFPAY ==
--- NOTE | ~2023-10-10 | NM_ITS ---
EXAMINATION: NM RENOGRAM WITH LASIX CLINICAL INFORMATION: 88-year-old male with unspecified hydronephrosis. Status post bilateral internal ureteric stent placement done on 07/28/2023. COMPARISON: CT of the abdomen and pelvis done on 07/27/2023 and 08/16/2023. TECHNIQUE: Dynamic renal scintigraphy was performed after intravenous administration of 10.0 mCi Tc-99m Technetium 99m DTPA. 33 mg of furosemide was administered at 30 minutes and continued dynamic imaging of the abdomen/pelvis was obtained for a total of 60 minutes. Please note that approximately 17 minutes post Lasix injection, the study was stopped since the patient had to go to the bathroom for voiding. FINDINGS: Left kidney 44.8% and the right kidney 55.2% of total renal uptake. Left Kidney: Normal perfusion. Following administration of furosemide, the renal washout half-time is 15.3 minutes. The time activity curve shows downsloping following administration of Lasix consistent with progressive washout. Right Kidney: Normal perfusion. Following administration of furosemide, the renal washout half-time is 13.9 minutes. The time activity curve shows progressive washout before as well as after administration of Lasix. Other: None. NM/NM renal flow w pharm int IMPRESSION: 1. Differential renal function: Left 44.8%, Right 55.2%. 2. Left kidney has non-obstructive parameters after diuresis. 3. Right kidney has non-obstructive parameters after diuresis.
== END ==
LOC: HO.NUCMED 10:39
PROVIDERS: PCP Hospitalist; Visit Provider Urology
DX: N13.30 Unspecified hydronephrosis (principal); N17.9 Acute kidney failure, unspecified
CPT/HCPCS: 78708; A9539; J1940

== ENCOUNTER 2023-10-27 08:23 | Outpatient (AMB) | payer MEDICARE, SELFPAY ==
--- NOTE | 2023-10-27 08:36 | MHC.OFFVIS ---
Intake Visit Reasons: PSA/PSMA/Lasix renogram(set) Intake Note: Patient is Present for PSA/PSMA/Lasix reogram Urology Med Enzalutamide, pyridium, tadalafil, vitamin B Antibiotic Allergy:None Blood Thinner:None De Alcholizer Required: No Allergies No Known Allergies [No Known Allergies*] Allergy (Verified 10/27/23 08:38) HPI Comments Details: Carlos Eduardo is a very pleasant male. He is a patient of Dr. Rugigero. He is seen for the following urologic conditions - prostate cancer - nephrolithiasis - retention with tortuous ureters and elevated creatinine Follow-up from hospital admission with elevated creatinine and question of hydronephrosis 10/24 Lasix renogram. Normal bilateral excretion. No evidence of obstruction. Normal split function. PET-CT - persistent prostate activity but no activity detected outside prostate 08/24 Creatinine 1.3 Restart Enzalutamide - 1 tab Cycle enzalutamide monthly Does have fatigue and tender breasts when on medication - reduced to 1 tab - 08/23 PSMA scan Shows recurrence of disease in left base prostate abutting seminal vesicle PSA 07/23 3.9, 10/22 3.6 Dut +, 01/22 4.5 Dut +, 05/26 6.9 Dut -, 08/23 6.4, 01/23 8.0, 06/24 0.2, 09/24 3.2, 10/24 PSA 0.6 Bilateral hydronephrosis Presentation through emergency room with retention and elevated creatinine to 6.[address] - 07/25 here is mild right hydronephrosis and hydroureter to the level of a 2 mm distal right ureteric calculus. There is mild left hydronephrosis/left renal collecting system dilatation without ureteral calculus Prostate cancer: Initial treatment prostate cancer 2007 with brachytherapy, rising PSA with brachy boost June 201908/23 PSMA persistent activity suggestive of locally recurrent disease, no evidence of spread Found to have rising PSA through 2018 Has been treated at [facility] in [place] with prostate seed implant - Performed June [address] Luna Prostate cancer was diagnosed 2007. Diagnosis was reached by needle biopsy, for elevated PSA. The [place] grade is 3+3 = 6. TNM Classification of Malignant Tumours (TNM) T1c. The D'Barbara (NCCN) risk category is Low Risk (PSA< 10, Gl < 7, T1c). Initial therapy included Primary treatment, Brachytherapy 2007 , Additional treatment 02/17 5AR - stopped 01/18 Cysto with dilation of prostate apex to 16Fr 12/20 operative DVIU for prostatic apex stricture to 18 Korean - additional treatment seeds to prostate with Dr. Luna June 2019 Recent labs included a PSA (prostate-specific antigen) 07/17 7.7, 03/18 9.9 08/17 per patient 9.1, 01/17 14.3 05/21 6.4, 10/18 5.0, 01/18 5.1 F 7.8 06/19 5.1 F 11, 09/19 6.0 F 10, 03/21 7.6 07/22 2.6, 12/22 3.1, 04/24 3.9, 07/23 3.9, 10/22 3.6 Recent imaging included 05/21 , a bone scan, with no evidence of metastasis 08/18 an ultrasound, bilateral renal cysts 08/19 , an MRI (magnetic resonance imaging) - bilateral renal cysts up to 4 cm, bilateral renal proteinaceous cysts. Associated conditions erectile dysfunction Yes Nephrolithiasis/Urolithiasis: Episode treated at [facility] 12/22 Calcium oxalate stone on right side 8 mm Urolithiasis was diagnosed 12/19 at [facility] [place] pain and dark urine. The patient previously had kidney stones whose composition w unknown. Laboratory investigations include no recent labs. 24 Hour urine evaluation none on file. Prior treatment(s) include observation. Prior imaging includes 12/[address] (computed tomography) scan of the abdomen/pelvis (stone protocol) - renal cyst, bilateral punctate stones, presumed stone passage on right side 01/18 , a renal ultrasound, small stones with bilateral cysts - 01/20 renal ultrasound no stones Current therapeutic plan will be to continue with imaging surveillance [facility] Medical History Diabetes SOB (shortness of breath) Bladder infection Renal stones Neuropathy Mild acid reflux Hyperlipidemia Gross hematuria Prostate stricture Rising PSA following treatment for malignant neoplasm of prostate Urinary urgency Rising PSA following treatment for malignant neoplasm of prostate Surgical History History of prostate surgery History of appendectomy H/O hernia repair Social History Household Members: Spouse Housing: House Do you presently have visiting nurse or other home services: No Patient Tobacco Use Status: Former Tobacco user Tobacco use type: Cigarette Years Smoked: 15 Advance Directives Date on File: 07/28/23 service: No Review of Systems Const Denies chills and Denies fever(s) Card Reports no additional complaints and Denies syncope Resp Denies cough GI Denies abdominal pain and Denies heartburn Reports as per HPI and Denies change in libido Neuro Denies syncope Psych Denies change in libido Endo Denies change in libido Physical Exam Const General: cooperative, healthy appearing, comfortable and no acute distress Orientation/consciousness: patient oriented x3 HEENT Face and sinus: Yes normal facial exam Mouth: moist mucous membranes Neck Neck: Yes normal visual inspection, Yes full ROM and Yes trachea midline Chest Chest palpation & inspection: normal inspection of the chest Resp Effort & Inspection: normal respiratory effort, able to speak in complete sentences and no respiratory distress GI Inspection: Yes normal to inspection Back/Spine/Pelvis Cervical Spine: normal cervical lordosis Thoracic/Lumbar Spine: thoracic and lumbar spine normal to inspection Skin General skin exam: no rashes or lesions noted Neuro General: patient oriented x3, gait normal, tone normal and moves all extremities Extrem General: Yes normal to inspection and Yes capillary refill normal Results AMB Urinalysis, Automated UA Leukoctes 0 Gregorio/uL Last Edit by BLAISE Ornelas on 10/27/23 08:50 UA Nitrite Negative Last Edit by BLAISE Ornelas on 10/27/23 08:50 UA Urobilinogen 0.2 mg/dL Last Edit by BLAISE Ornelas on 10/27/23 08:50 UA Protein 15 mg/dL Last Edit by BLAISE Ornelas on 10/27/23 08:50 UA pH 5.5 Last Edit by BLAISE Ornelas on 10/27/23 08:50 UA Blood 80 Ciaran/uL Last Edit by BLAISE Ornelas on 10/27/23 08:50 UA Specific Ridge 1.015 Last Edit by BLAISE Ornelas on 10/27/23 08:50 UA Ketone Negative Last Edit by BLAISE Ornelas on 10/27/23 08:50 UA Bilirubin 0 mg/dL Last Edit by BLAISE Ornelas on 10/27/23 08:50 UA Glucose 0 mg/dL Last Edit by BLAISE Ornelas on 10/27/23 08:50 Results Reviewed Results Reviewed: Laboratory Last Values Urine pH (Auto) 5.5 10/27/23 08:49 Specific Ridge (Auto) 1.015 10/27/23 08:49 Urine Protein (Auto) 15 mg/dL 10/27/23 08:49 Glucose (UA)(Auto) 0 mg/dL 10/27/23 08:49 Urine Ketones (Auto) Negative 10/27/23 08:49 Urine Blood (Auto) 80 Ciaran/uL 10/27/23 08:49 Urine Nitrite (Auto) Negative 10/27/23 08:49 Urine Bilirubin (Auto) 0 mg/dL 10/27/23 08:49 Urine Urobilinogen (Auto) 0.2 mg/dL 10/27/23 08:49 Leukocyte Esterase (Auto) 0 Gregorio/uL 10/27/23 08:49 Assessment & Plan Assessment & Plan (1) Prostate cancer: Comment: Initial treatment brachytherapy 2008, brachy boost 2019 [facility]. New gradual rising PSA Code(s): C61 - Malignant neoplasm of prostate Category: Medical (2) Biochemically recurrent castration-sensitive adenocarcinoma of prostate: Code(s): C61 - Malignant neoplasm of prostate; R97.21 - Rising PSA following treatment for malignant neoplasm of prostate; Z19.1 - Hormone sensitive malignancy status Category: Medical Plan Three month follow-up Orders: Orders AMB Urinalysis Automated Today Z13.9 - Encounter for screening, unspecified Prostate Specific Antigen 3 Months C61 - Malignant neoplasm of prostate US renal BI 3 Months N28.1 - Cyst of kidney, acquired Patient Instructions: Imaging studies, laboratory and physical exam results were discussed and reviewed in detail. No major barriers to patient understanding were identified. An opportunity to ask questions regarding the treatment plan was provided. All questions were answered. The patient expressed understanding and agreement with the above treatment plan. The patient is aware they should contact our office by phone for worsening of their current condition or the appearance of new urologic symptoms. Compliance is encouraged with any medications and followup testing that is ordered. It is a privilege to participate in the urologic care of your patient. If you have any questions or concerns regarding treatment for the above conditions, or other urologic issues, please do not hesitate to contact me. The office telephone contact is [phone]. This note is constructed using voice recognition software. While every effort has been made to ensure accuracy ophthalmic medical technologist errors may have been included. Yours sincerely, Dr Henry Mora MD, ROJEL[facility] - Urology Providers of Expert, Compassionate Care for the Genitourinary System Coding Level of Care Code Est Pt Level 3 (03379) Diagnoses Prostate cancer C61 Biochemically recurrent castration-sensitive adenocarcinoma of prostate C61; R97.21; Z19.1
== END 2023-10-27 09:15 | disposition home or self-care (01) ==
PROVIDERS: PCP Hospitalist; Visit Provider Urology
DX: C61 Malignant neoplasm of prostate (principal); R97.21 Rising PSA following treatment for malignant neoplasm of prostate; Z19.1 Hormone sensitive malignancy status; Z13.9 Encounter for screening, unspecified
CPT/HCPCS: 99213

== ENCOUNTER → 2023-10-27 08:23 | Outpatient (BNVA) | payer MEDICARE, SELFPAY | PROVIDERS: PCP Hospitalist; Visit Provider Urology | DX: C61 Malignant neoplasm of prostate (principal); R97.21 Rising PSA following treatment for malignant neoplasm of prostate; N20.0 Calculus of kidney; N13.8 Other obstructive and reflux uropathy; R33.8 Other retention of urine; Z19.1 Hormone sensitive malignancy status | CPT/HCPCS: 81003; 99212 ==

== ENCOUNTER 2023-12-12 09:54 | Outpatient (AMB) | payer MEDICARE, SELFPAY ==
--- NOTE | 2023-12-12 10:07 | HO.NEPHOV_ITS ---
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 He has diabetes and has been on Actos which is causing edema. His hemoglobin A1c is under good control. In the past he has taken CHARLIE inhibitor which has been discontinued due to low blood pressures. He has history of prostate cancer and is closely followed up by Dr. Henry Mora. He recently had JAVON due to obstructive uropathy. His renal functions have settled back to baseline. He has history of renal stones. He does not take excessive nonsteroidal anti- inflammatories. He has history of inflammatory bowel disease(ulcerative colitis ). He also has renal cyst which is closely followed by Dr. Mora. His serum creatinine is back to baseline. [facility] Medical History Diabetes SOB (shortness of breath) Bladder infection Renal stones Neuropathy Mild acid reflux Hyperlipidemia Gross hematuria Prostate stricture Rising PSA following treatment for malignant neoplasm of prostate Urinary urgency Rising PSA following treatment for malignant neoplasm of prostate Surgical History History of prostate surgery History of appendectomy H/O hernia repair Social History Household Members: Spouse Housing: House Do you presently have visiting nurse or other home services: No Patient Tobacco Use Status: Former Tobacco user Tobacco use type: Cigarette Years Smoked: 15 Advance Directives Date on File: 07/28/23 service: No Review of Systems Const All systems reviewed & are unremarkable except as noted in HPI and below Physical Exam Vital Signs: Last Vital Signs Pulse 60 12/12/23 10:08 BP 104/50 L 12/12/23 10:08 Pulse Ox 100 12/12/23 10:08 Oxygen Delivery Method Room Air 12/12/23 10:08 BMI result Body Mass Index 22.1 Const General: comfortable and no acute distress Orientation/consciousness: patient oriented x3 HEENT Head: Yes normocephalic Mouth: Normal oral and palatal mucosa present Eyes EOM: EOMs intact bilaterally Neck Neck: Yes supple Resp Auscultation: clear to auscultation bilaterally Cardio Jugular venous distension: no JVD Rate: regular rate GI Palpation (GI): Soft to palpation Auscultation: normal bowel sounds General: Yes no CVA tenderness Back/Spine/Pelvis Back: no CVA tenderness Skin General skin exam: no rashes or lesions noted Neuro General: patient oriented x3 and moves all extremities Extrem General: Yes no pedal edema Results Reviewed Nephrology Results: No Data to Display Assessment & Plan Assessment & Plan (1) CKD (chronic kidney disease) stage 3, GFR 30-59 ml/min: Code(s): N18.30 - Chronic kidney disease, stage 3 unspecified Category: Medical Qualifiers: Chronic kidney disease stage 3 subtype: stage 3a (GFR 45-59) Qualified Code(s): N18.31 - Chronic kidney disease, stage 3a (2) Renal cysts, acquired, bilateral: Code(s): N28.1 - Cyst of kidney, acquired Category: Medical Plan His renal functions is back at baseline. His blood pressure is at goal. He had JAVON in July which has been resolved. He was encouraged not to take any nonsteroidal inflammatories and tries to maintain good hydration. He has anemia but his hemoglobin is stable. He will be a candidate for Procrit once his hemoglobin drops less than 10 and if his transferrin saturation is more than 20%. I did not make any medication changes today. Follow-up blood work ordered. Answered all questions. Follow-up appointment given. Orders: Orders Blood Urea Nitrogen Today N18.31 - Chronic kidney disease, stage 3a, N28.1 - Cyst of kidney, acquired Electrolytes Today N18.31 - Chronic kidney disease, stage 3a, N28.1 - Cyst of kidney, acquired Creatinine Today N18.31 - Chronic kidney disease, stage 3a, N28.1 - Cyst of kidney, acquired Calcium Today N18.31 - Chronic kidney disease, stage 3a, N28.1 - Cyst of kidney, acquired Coding Level of Care Code Est Pt Level 4 (95806) Diagnoses Stage 3a chronic kidney disease N18.31 Chronic kidney disease stage 3 subtype: stage 3a (GFR 45-59) Renal cysts, acquired, bilateral N28.1
[2023-12-12 10:08] VITALS: BP 104/50; PULSE 60; O2SAT 100; BMI 22.1
== END 2023-12-12 10:33 | disposition home or self-care (01) ==
PROVIDERS: PCP Hospitalist; Visit Provider Internal Medicine Nephrology
DX: N18.31 Chronic kidney disease, stage 3a (principal); N28.1 Cyst of kidney, acquired
CPT/HCPCS: 99214

== ENCOUNTER → 2023-12-12 09:54 | Outpatient (BNVA) | payer MEDICARE, SELFPAY | PROVIDERS: PCP Hospitalist; Visit Provider Internal Medicine Nephrology | DX: N18.31 Chronic kidney disease, stage 3a (principal); N28.1 Cyst of kidney, acquired | CPT/HCPCS: 99212 ==

== ENCOUNTER 2023-12-21 13:32 | Outpatient (AMB) | payer MEDICARE, SELFPAY ==
--- NOTE | 2023-12-21 13:40 | AM.OFFVISNUR ---
Intake Visit Reasons: PVR/UA Allergies No Known Allergies [No Known Allergies*] Allergy (Verified 12/12/23 10:09) Office Procedures Bladder/Catheter Procedure Details: Patient presents to office for PVR after calling to report he has not been able to urinate since 7am this morning. Bladder scanned for [address] Barajas- memo catheterize patient to gather urine sample, review with her for next steps but also let patient know to stop myrbetriq. 14 fr coude tip straight catheter insterted, unable to get past prostate. Reviewed with Dr. Barajas- do lidocaine urojet, place clamp and she will insert 16fr coude tip straight catheter to obtain urine sample for further steps. Patient aware of plan, instilled lidocaine urojet through urethra, clamp placed, patient tolerated well. Dr. Barajas to room for insertion of 16fr coude tip catheter. Dr. Barajas unable to pass over prostte with 16fr coude tip catheter or 14fr coude tip catheter. Patient able to void, bladder scanned again for [address] Barajas attempted to use cystoscope as well as guidewire without any success. Patient attempting to void. Bladder scanned again for 238mls. [id number] Bladder Catheter Procedure code (CPT) selection complete Post Void Residual Post Residual Void Details: bladder scanned for 370 mls Post Void Residual (PVR): 370 35669-[id number] Void Residual by ultrasound Assessment & Plan Assessment & Plan Orders: Orders AMB Post Void Residual by ultrasound Today C61 - Malignant neoplasm of prostate, N17.9 - Acute kidney failure, unspecified, N18.31 - Chronic kidney disease, stage 3a, N28.1 - Cyst of kidney, acquired, R35.0 - Frequency of micturition AMB Bladder/Catheter Procedure Today C61 - Malignant neoplasm of prostate, N17.9 - Acute kidney failure, unspecified, N18.31 - Chronic kidney disease, stage 3a, N28.1 - Cyst of kidney, acquired, R35.0 - Frequency of micturition, R97.21 - Rising PSA following treatment for malignant neoplasm of prostate, Z19.1 - Hormone sensitive malignancy status AMB Urinalysis Automated Today C61 - Malignant neoplasm of prostate, N17.9 - Acute kidney failure, unspecified, N18.31 - Chronic kidney disease, stage 3a, N28.1 - Cyst of kidney, acquired, R35.0 - Frequency of micturition, R97.21 - Rising PSA following treatment for malignant neoplasm of prostate, Z19.1 - Hormone sensitive malignancy status
--- NOTE | 2023-12-21 15:55 | MHC.OFFVIS ---
Intake Visit Reasons: PVR/UA Allergies No Known Allergies [No Known Allergies*] Allergy (Verified 12/12/23 10:09) HPI Comments Details: Carlos Eduardo is followed by Dr. Mora for h/o - prostate cancer., h/o radiation therapy, nephrolithiasis, - retention with tortuous ureters and elevated creatinine. Deangelo called the nurse complaining that he was not able to urinate, The nurse was unable to place a catheter. The patient was evaluated by me and I was not able to place a 16 fr or 14 fr catheter. Consent obtained for cystoscopy. Cystoscopy, finding obstructed proximal urethra, unable to pass a guide wire into the bladder. Discussed plan - further evaluation in the OR under anesthesia. Review of chart: 10/24 Lasix renogram. Normal bilateral excretion. No evidence of obstruction. Normal split function. PET-CT - persistent prostate activity but no activity detected outside prostate 08/24 Creatinine 1.3 Restart Enzalutamide - 1 tab, Cycle enzalutamide monthly Does have fatigue and tender breasts when on medication - reduced to 1 tab - 08/23 PSMA scan Shows recurrence of disease in left base prostate abutting seminal vesicle PSA 07/23 3.9, 10/22 3.6 Dut +, 01/22 4.5 Dut +, 05/26 6.9 Dut -, 08/23 6.4, 01/23 8.0, 06/24 0.2, 09/24 3.2, 10/24 PSA 0.6 Bilateral hydronephrosis--Presentation through emergency room with retention and elevated creatinine to 6.[address] - 07/25 here is mild right hydronephrosis and hydroureter to the level of a 2 mm distal right ureteric calculus. There is mild left hydronephrosis/left renal collecting system dilatation without ureteral calculus Prostate cancer: Initial treatment prostate cancer 2007 with brachytherapy, rising PSA with brachy boost June 2019, The [place] grade is 3+3 = 6. 08/23 PSMA persistent activity suggestive of locally recurrent disease, no evidence of spread, Found to have rising PSA through 2018 Has been treated at [facility] in [place] with prostate seed implant - Performed June [address] Luna Nephrolithiasis/Urolithiasis: Episode treated at [facility] 12/22 Calcium oxalate stone on right side 8 mm Current therapeutic plan will be to continue with imaging surveillance [facility] Medical History Diabetes SOB (shortness of breath) Bladder infection Renal stones Neuropathy Mild acid reflux Hyperlipidemia Gross hematuria Prostate stricture Rising PSA following treatment for malignant neoplasm of prostate Urinary urgency Rising PSA following treatment for malignant neoplasm of prostate Surgical History History of prostate surgery History of appendectomy H/O hernia repair Social History Household Members: Spouse Housing: House Do you presently have visiting nurse or other home services: No Patient Tobacco Use Status: Former Tobacco user Tobacco use type: Cigarette Years Smoked: 15 Advance Directives Date on File: 07/28/23 service: No Office Procedures Bladder/Catheter Procedure Details: duplicate Procedure code (CPT) selection complete Bladder/Catheter Procedure Details: Patient presents to office for PVR after calling to report he has not been able to urinate since 7am this morning. Bladder scanned for [address] Barajas- memo catheterize patient to gather urine sample, review with her for next steps but also let patient know to stop myrbetriq. 14 fr coude tip straight catheter insterted, unable to get past prostate. Reviewed with Dr. Barajas- lidocaine urojet, place clamp and she will insert 16fr coude tip straight catheter to obtain urine sample for further steps. Patient aware of plan, instilled lidocaine urojet through urethra, clamp placed, patient tolerated well. Dr. Barajas to room for insertion of 16fr coude tip catheter. Dr. Barajas unable to pass over prostte with 16fr coude tip catheter or 14fr coude tip catheter. Patient able to void, bladder scanned again for [address] Barajas attempted to use cystoscope as well as guidewire without any success. Patient attempting to void. Bladder scanned again for 238mls. [id number] Bladder Catheter Procedure code (CPT) selection complete Cystoscopy Consent Discussed risk and benefit or proposed procedure with the patient. Information consent for procedure given to the patient. Discussed technical aspects, risks, benefits and alternatives in full. Addressed all of the patient's questions and concerns regarding the procedure. The patient demonstrated knowledge and understanding. They wish to proceed with this procedure. Preparation The patient was prepped in the usual manner. A medicare nurse was present and in the room. Genitalia was prepped with betadine solution in a sterile manner. Lidocaine Jelly 2% was placed into the urethra and 16Fr flexible Olympus cystoscope was inserted into the meatus after adequate lubrication. Procedure Time out per protocol performed. Cystoscopy The 16 fr flexible cystoscope was passed transurethrally, the was an obstruction noted in the proximal urethra. [id number] Procedure code (CPT) selection complete Post Void Residual Post Residual Void Details: bladder scanned for 370 mls Post Void Residual (PVR): 370 [id number]-[id number] Void Residual by ultrasound Post Void Residual Post Residual Void Details: duplicate Post Void Residual (PVR): 0 [id number]-Joys Void Residual by ultrasound Office Meds lidocaine HCl 2 % mucosal jelly in applicator Performing Provider: Radha Pederson MD Performing [facility] Administered by: Alex De La Garza LPN on 12/21/23 15:56 Dose Route Admin Location Dispensed Lot Number Expiration Date [facility] [employer] 10 mL intra-urethral 10 mL Assessment & Plan Assessment & Plan (1) Prostate cancer: Comment: Initial treatment brachytherapy 2008, brachy boost 2019 [facility]. New gradual rising PSA Code(s): C61 - Malignant neoplasm of prostate Category: Medical (2) Urinary retention: Code(s): R33.9 - Retention of urine, unspecified Category: Medical (3) Urethral stricture: Code(s): N35.919 - Unspecified urethral stricture, male, unspecified site Category: Medical Plan Take to OR to place catheter, the patient had soup at 1:00 pm, will have to wait about 6 hours. Orders: Orders AMB Post Void Residual by ultrasound 12/21/23 Henry Mora MD C61 - Malignant neoplasm of prostate, R35.0 - Frequency of micturition, N18.31 - Chronic kidney disease, stage 3a, N28.1 - Cyst of kidney, acquired, N17.9 - Acute kidney failure, unspecified AMB Bladder/Catheter Procedure 12/21/23 Henry Mora MD N17.9 - Acute kidney failure, unspecified, N28.1 - Cyst of kidney, acquired, N18.31 - Chronic kidney disease, stage 3a, C61 - Malignant neoplasm of prostate, R97.21 - Rising PSA following treatment for malignant neoplasm of prostate, Z19.1 - Hormone sensitive malignancy status, R35.0 - Frequency of micturition AMB Urinalysis Automated 12/21/23 Henry Mora MD N17.9 - Acute kidney failure, unspecified, N28.1 - Cyst of kidney, acquired, N18.31 - Chronic kidney disease, stage 3a, C61 - Malignant neoplasm of prostate, R97.21 - Rising PSA following treatment for malignant neoplasm of prostate, Z19.1 - Hormone sensitive malignancy status, R35.0 - Frequency of micturition AMB Bladder/Catheter Procedure 12/21/23 Radha Pederson MD N17.9 - Acute kidney failure, unspecified, N28.1 - Cyst of kidney, acquired, N18.31 - Chronic kidney disease, stage 3a, C61 - Malignant neoplasm of prostate, R97.21 - Rising PSA following treatment for malignant neoplasm of prostate, Z19.1 - Hormone sensitive malignancy status, R35.0 - Frequency of micturition AMB Cystoscopy 12/21/23 Radha Pederson MD R35.0 - Frequency of micturition, C61 - Malignant neoplasm of prostate, R97.21 - Rising PSA following treatment for malignant neoplasm of prostate, Z19.1 - Hormone sensitive malignancy status, N18.31 - Chronic kidney disease, stage 3a, N28.1 - Cyst of kidney, acquired, N17.9 - Acute kidney failure, unspecified AMB Post Void Residual by ultrasound 12/21/23 Radha Pederson MD N17.9 - Acute kidney failure, unspecified, N28.1 - Cyst of kidney, acquired, N18.31 - Chronic kidney disease, stage 3a, C61 - Malignant neoplasm of prostate, R97.21 - Rising PSA following treatment for malignant neoplasm of prostate, Z19.1 - Hormone sensitive malignancy status, R35.0 - Frequency of micturition Urine Culture 12/21/23 Radha Pederson MD R35.0 - Frequency of micturition, C61 - Malignant neoplasm of prostate, R97.21 - Rising PSA following treatment for malignant neoplasm of prostate, Z19.1 - Hormone sensitive malignancy status, N18.31 - Chronic kidney disease, stage 3a, N28.1 - Cyst of kidney, acquired, N17.9 - Acute kidney failure, unspecified Coding Level of Care Code Procedure Only Diagnoses Prostate cancer C61 Urinary retention R33.9 Urethral stricture N35.919 CPT Codes Bladder/Catheter Procedure - CPT: 50092-Lyblpg Bladder Catheter ([id number]) Cystoscopy - CPT: 18169-Qfndjkfpxj ([id number]) Post Residual Void - PVR CPT Code: 50496-Snyj Void Residual by ultrasound ([id number]) Post Residual Void - PVR CPT Code: 87625-Tain Void Residual by ultrasound ([id number])
== END 2023-12-21 16:05 | disposition home or self-care (01) ==
PROVIDERS: PCP Hospitalist; Visit Provider Urology
DX: R35.0 Frequency of micturition (principal); C61 Malignant neoplasm of prostate; R97.21 Rising PSA following treatment for malignant neoplasm of prostate; Z19.1 Hormone sensitive malignancy status; N18.31 Chronic kidney disease, stage 3a; N28.1 Cyst of kidney, acquired; N17.9 Acute kidney failure, unspecified
CPT/HCPCS: 52000

== ENCOUNTER → 2023-12-21 13:32 | Outpatient (BNVA) | payer MEDICARE, SELFPAY | PROVIDERS: PCP Hospitalist; Visit Provider Urology | DX: C61 Malignant neoplasm of prostate (principal); R33.9 Retention of urine, unspecified; N35.919 Unspecified urethral stricture, male, unspecified site; N28.1 Cyst of kidney, acquired; N17.9 Acute kidney failure, unspecified; R35.0 Frequency of micturition; R97.21 Rising PSA following treatment for malignant neoplasm of prostate; Z92.3 Personal history of irradiation | CPT/HCPCS: 52000; 87086; 87088; 87186; J0690; J2405; J2704; J3010; Q9967 ==

== ENCOUNTER 2023-12-21 17:14 | Outpatient (REF) | payer MEDICARE, SELFPAY | END 2023-12-21 17:15 | disposition home or self-care (01) | LOC: HO.LNP 17:14 | PROVIDERS: Visit Provider Urology | DX: Z13.89 Encounter for screening for other disorder (principal) | CPT/HCPCS: 87086 ==

== ENCOUNTER → 2023-12-21 | Day surgery (SDC) | payer MEDICARE, SELFPAY ==
[2023-12-21 17:55] VITALS: BMI 21.8
--- NOTE | 2023-12-21 17:56 | HO.ANESPROP2 ---
HPI - Anesthesia Eval Consult details Narrative: urethral stenosis PMFSH Active Problems Active Problems: All Active Problems Acute kidney injury (Acute) Renal cysts, acquired, bilateral (Acute) CKD (chronic kidney disease) stage 3, GFR 30-59 ml/min (Acute) Biochemically recurrent castration-sensitive adenocarcinoma of prostate (Acute) Prostate cancer (Acute) Frequency of micturition (Acute) Past Medical History Medical History Diabetes SOB (shortness of breath) Bladder infection Renal stones Neuropathy Mild acid reflux Hyperlipidemia Gross hematuria Prostate stricture Rising PSA following treatment for malignant neoplasm of prostate Urinary urgency Rising PSA following treatment for malignant neoplasm of prostate Family History Family history of problems with anesthesia: No Surgical History Surgical History History of prostate surgery History of appendectomy H/O hernia repair History of Problems with Anesthesia: No Social History Social History Household Members: Spouse Housing: House Do you presently have visiting nurse or other home services: No Patient Tobacco Use Status: Former Tobacco user Tobacco use type: Cigarette Years Smoked: 15 Advance Directives Date on File: 07/28/23 service: No Meds Allergies Allergy/AdvReac Type Severity Reaction Status Date / Time No Known Allergies Allergy Verified 12/12/23 10:09 [No Known Allergies*] Home Medications ?Medication ?Instructions ?Recorded ?Confirmed ?Last Taken ?Type pioglitazone 45 mg tablet 45 mg PO DAILY 07/23/20 09/21/23 07/27/23 History rosuvastatin 40 mg tablet 40 mg PO DAILY 07/23/20 09/21/23 07/27/23 History cholecalciferol (vitamin D3) 50 50 mcg PO DAILY 06/13/23 09/21/23 07/27/23 History mcg (2,000 unit) capsule melatonin 5 mg capsule 5 mg PO BEDTIME PRN Insomnia 06/13/23 09/21/23 07/27/23 History vitamin B complex 1 tab PO DAILY 06/13/23 09/21/23 07/27/23 History enzalutamide 80 mg tablet 80 mg PO DAILY 12/12/23 Unknown History ferrous sulfate 325 mg (65 mg 325 mg PO .tiw 12/12/23 Unknown History iron) tablet (Feosol) mesalamine 0.375 gram 0.75 g PO DAILY 12/12/23 Unknown History capsule,extended release 24 hr Exam Airway Mallampati Class: II TM Dist: >3cm Neck ROM: Full Loose/Missing/Broken Teeth: No Heart: RRR Lungs: CTA Assessment and Plan Assessment Anesthesia Assessment: Anesthesia Plan Discussed and Chart Reviewed Final Anesthetic Review Family History of Problems with Anesthesia: No History of Problems with Anesthesia: No NPO: Yes ASA Class: III Final Preanesthetic Review: No Changes in Pt Med Stat, Meds/Allgs Chart Reviewed, Consent Obtained/Reviewed and Anes Risks/Benef Reviewed Patient Risk: Intermediate Procedure Risk: Low Anesthetic Plan Anesthetic Plan: GA
[2023-12-21 17:59] VITALS: BP 142/58; PULSE 75; RESP 16; TEMP 36.9; O2SAT 98
[2023-12-21 18:04] VITALS: BMI 21.8
--- NOTE | 2023-12-21 18:36 | MHC.SHP ---
Pre-Procedural Eval Section A - 24 Hr Update-Section A only Date of Service: 12/21/23 The patient is an INPATIENT: No The patient has been examined within 24 hours of the surgical procedure. The History & Physical has been completed within 30 days and I have reviewed it.: Yes Section B - Complete if H&P > 30 days Chief Complaint: ckd, urinary retention Allergies: Allergies Allergy/AdvReac Type Severity Reaction Status Date / Time No Known Allergies Allergy Verified 12/12/23 10:09 [No Known Allergies*] Review of Systems Review of Systems Comment: 10 point ROS negative other than stated in HPI Exam Surgical H&P Exam: Normal: HEENT, Normal: Heart, Normal: Lungs and Normal: Neurological Plan Diagnosis/Plan: Unchanged I have reviewed the history and physical and performed a pertinent physical examination on my patient. No changes have occurred unless specified. Cystoscopy Urethral dilation, esquivel catheter, possible suprapubic tube. Time Spent With Patient Time: Total time managing care of this patient today ____ minutes.
[2023-12-21 19:48] VITALS: BP 150/62; PULSE 74; RESP 15; TEMP 36.7; O2SAT 97
--- NOTE | 2023-12-21 19:52 | W.PM.OPN ---
Operative Note Operative Note Date of Service: 12/21/23 Narrative: PREOP DIAGNOSIS: urinary retention, h/o prostate cancer s/p brachytherapy POSTOP DIAGNOSIS: proximal urethral stricture PROCEDURE: Cystoscopy, Urethral dilation SURGEON: Radha Pederson MD ANESTHESIA: General Details of procedure: The patient was brought into the operating room placed on the OR table in supine position. Ancef 2 mg IV. General anesthesia was administered. The patient was repositioned into lithotomy position, prepped and draped in the usual sterile fashion. Time-out was done per protocol. A 20 fr cystoscope with 0 degree lens was placed transurethrally into the bladder. There was an obstruction at the proximal urethra. A 0.038 hydrophillic guide wire was passed through a pinhole opening into the bladder. Fluoroscopy was used during the case. A 6 fr open ended catheter was passed over the guide wire, contrast was injected and confirmed proper placement in the bladder. The stiff amplatz guide wire was placed and the urethra was sequentially dilated from an 8 fr to a 20 fr, a 16 fr [place] tip catheter was then placed. The patient was brought out of anesthesia and taken to recovery in stable condition. Complications: None Drains: 16 fr [place] tip catheter
[2023-12-21 19:53] VITALS: BP 149/61; PULSE 76; RESP 12; O2SAT 98
[2023-12-21 19:58] VITALS: BP 158/60; PULSE 78; RESP 12; O2SAT 98
[2023-12-21 20:03] VITALS: BP 154/66; PULSE 78; RESP 12; O2SAT 98
[2023-12-21 20:18] VITALS: BP 140/44; PULSE 76; RESP 16; TEMP 37; O2SAT 99
[2023-12-22 08:40] LABS: Glucose, Whole Blood 114 mg/dL (60-115)
== END | disposition home or self-care (01) ==
LOC: HO.SSS 12-22 08:44
PROVIDERS: PCP Hospitalist; Visit Provider Urology
PROC: (CPT 52281; principal; 2023-12-21 19:00)
DX: N35.919 Unspecified urethral stricture, male, unspecified site (principal); R33.9 Retention of urine, unspecified; C61 Malignant neoplasm of prostate; N17.9 Acute kidney failure, unspecified; E11.22 Type 2 diabetes mellitus with diabetic chronic kidney disease; N18.31 Chronic kidney disease, stage 3a; N28.1 Cyst of kidney, acquired; R35.0 Frequency of micturition; R97.21 Rising PSA following treatment for malignant neoplasm of prostate; Z19.1 Hormone sensitive malignancy status; E78.5 Hyperlipidemia, unspecified; Z79.818 Long term (current) use of other agents affecting estrogen receptors and estrogen levels; Z79.84 Long term (current) use of oral hypoglycemic drugs; Z79.899 Other long term (current) drug therapy; Z87.891 Personal history of nicotine dependence; Z98.890 Other specified postprocedural states
CPT/HCPCS: 52281; 51701; 51798; 52000; 82947; C1758; C1769

== ENCOUNTER → 2023-12-21 | Outpatient (BNV) | payer MEDICARE, SELFPAY | PROVIDERS: PCP Hospitalist; Visit Provider Urology | DX: N35.919 Unspecified urethral stricture, male, unspecified site (principal) | CPT/HCPCS: 52281 ==

== ENCOUNTER → 2023-12-27 10:06 | Outpatient (BNVA) | payer MEDICARE, SELFPAY | PROVIDERS: PCP Hospitalist; Visit Provider Urology ==

== ENCOUNTER 2024-01-16 07:40 | Outpatient (REF) | payer MEDICARE, SELFPAY ==
--- NOTE | ~2024-01-16 | US_ITS ---
EXAMINATION: US RETROPERITONEAL LIMITED (RENAL ONLY) CLINICAL INFORMATION: Cyst of kidney, acquired. COMPARISON: CT abdomen and pelvis 08/16/2023. X-ray abdomen KUB 07/30/2023. Renal ultrasound 10/19/2021 and 02/11/2021. TECHNIQUE: Real-time imaging of the kidneys. FINDINGS: RIGHT KIDNEY: 10.1 x 3.1 x 5.0 cm (SAG x AP x TRV). The kidney is normal in size, contour, and echogenicity. Renal cortical thickness is normal. No renal calculi or hydronephrosis. Multiple renal cysts largest upper pole 3.7 cm, middle Pole 8.7 cm and lower pole 1.8 cm mildly complex septated. LEFT KIDNEY: 11.6 x 4.9 x 4.9 cm (SAG x AP x TRV). The kidney is normal in size, contour, and echogenicity. Renal cortical thickness is normal. No renal calculi or hydronephrosis. Multiple renal cysts largest upper pole 2.8 cm, middle Pole 6.1 cm and lower pole 1.4 cm. Scattered echogenic foci likely nonobstructing stones. US/US renal BI IMPRESSION: 1. Bilateral renal cysts some of which are mildly complex septated cyst in the right kidney measure up to 8.7 cm. Consider correlation with follow-up ultrasound in one year. 2. Echogenic foci in the left kidney likely nonobstructing stones. Electronically signed by: Deng Espino MD 02/18/2024 07:56 PM KIT
[2024-01-16 08:39] LABS: MANUAL DIFF FLAG NO
[2024-01-16 09:10] LABS: Basophils Percent Auto 0.2 % (0-2); Eosinophils Absolute Auto 0.1 X10*3/uL (0.0-0.4); Eosinophils Percent Auto 1.8 % (0-4); Hematocrit 34.9 % (42.0-52.0); Hemoglobin 11.1 g/dl (14.0-18.0); Imm Gran Abs Auto 0.02 X10*3/uL (0.00-0.03); Imm Gran Pct Auto 0.4 % (0.0-0.4); Lymphocytes Absolute Auto 0.5 X10*3/uL (1.2-4.9); Lymphocytes Percent Auto 9.9 % (20-40); Mean Corpuscular HGB Conc 31.8 g/dl (31.0-36.0); Mean Corpuscular Hemoglobin 29.8 pg (27.0-33.0); Mean Corpuscular Volume 93.6 fL (80.0-98.0); Monocytes Absolute Auto 0.5 X10*3/uL (0.1-1.2); Monocytes Percent Auto 9.9 % (2-11); Neutrophils Absolute Auto 3.9 x10*3/uL (2.0-8.3); Neutrophils Percent Auto 77.8 % (45-73); Platelet Count 127 X10*3/uL (160-400); Red Blood Count 3.73 X10*6/uL (4.60-5.80); Red Cell Distribution Width 14.9 % (11.0-16.0)
[2024-01-16 09:13] LABS: Appearance Urine Clear; Color Urine Dark Yellow; Glucose Urine UA Negative (Negative); Leukocyte Esterase Urine Negative (Negative); Nitrite Urine Negative (Negative); PH 5.5 (5.0-9.0); Specific Gravity - Urine 1.025 (1.005-1.025); UMIC TRIGGER UA YES; Urine Blood Negative (Negative); Urine Ketones Trace mg/dL (Negative); Urine Protein 30 (1+) mg/dL (Neg-Trace)
[2024-01-16 09:19] LABS: Bacteria Urine None Seen (None Seen); Hyaline Casts Urine 0-2 /LPF (0-2); RBC Urine 0-2 /HPF (0-2); Squamous Epithelial Cell Urine 0-2 /HPF (0-2); WBC Urine 0-5 /HPF (0-5)
[2024-01-16 09:37] LABS: Anion Gap 9 (12-20); Blood Urea Nitrogen 19 mg/dL (9-16); Calcium 8.7 mg/dL (8.4-10.2); Carbon Dioxide 27 mmol/L (22-29); Chloride 110 mmol/L (96-108); Estimated Glomerular Filt Rate 59; Iron 28 mcg/dL (45-160); Percent Iron Saturation 11 % (15-50); Potassium 4.2 mmol/L (3.3-5.1); Sodium 142 mmol/L (135-145); Total Iron Binding Capacity 248 mcg/dL (228-428); Unsaturated Iron Binding 220 ug/dL
[2024-01-16 09:45] LABS: Blood Urea Nitrogen 19 mg/dL (9-16); Estimated Glomerular Filt Rate 57
[2024-01-16 10:01] LABS: Ferritin 60 ng/mL (20-250)
[2024-01-16 10:02] LABS: Prostate Specific Antigen 0.58 ng/mL (<0.05-4.0)
[2024-01-16 10:17] LABS: Creatinine Urine 189.91 mg/dL; Protein/Creatinine Ratio, Ur 0.26 (<0.2); Total Protein Urine Random 49 mg/dL (<12)
== END 2024-01-16 07:41 | disposition home or self-care (01) ==
LOC: HO.US 07:40
PROVIDERS: Internal Medicine Nephrology; PCP Hospitalist; Visit Provider Urology
DX: N28.1 Cyst of kidney, acquired (principal); C61 Malignant neoplasm of prostate; R97.21 Rising PSA following treatment for malignant neoplasm of prostate; N18.30 Chronic kidney disease, stage 3 unspecified; R35.0 Frequency of micturition; R33.8 Other retention of urine; N20.0 Calculus of kidney; Z19.1 Hormone sensitive malignancy status; Z12.5 Encounter for screening for malignant neoplasm of prostate
CPT/HCPCS: 36415; 76775; 80051; 81001; 82310; 82565; 82570; 82728; 83540; 84153; 84156; 84520; 85025; 87086

== ENCOUNTER 2024-01-23 08:35 | Outpatient (AMB) | payer MEDICARE, SELFPAY ==
--- NOTE | 2024-01-23 08:47 | A.OFFVIS_ITS ---
Intake Visit Reasons: 3m/PSA(set) Intake Note: Patient is present for 3M/PSA Urology Medication:VITAMIN B COMPLEX, ENZALUTAMIDE Antibiotic Allergy:NONE Blood Thinner:NONE Butadiene Converter Helper Required: No Allergies No Known Allergies [No Known Allergies*] Allergy (Verified 01/23/24 08:49) Medication List - Last Reconciled 01/23/24 by Henry Mora MD amoxicillin-pot clavulanate 500-125 mg (Augmentin) 1 tab PO BID cholecalciferol (vitamin D3) 50 mcg PO DAILY enzalutamide 80 mg PO DAILY ferrous sulfate (Feosol) 325 mg PO .tiw melatonin 5 mg PO BEDTIME PRN mesalamine ER 0.75 grams PO DAILY pioglitazone 45 mg PO DAILY rosuvastatin 40 mg PO DAILY vitamin B complex 1 tab PO DAILY HPI Comments Details: Carlos Eduardo is a very pleasant male. He is a patient of Dr. Ruggiero. He is seen for the following urologic conditions - prostate cancer - nephrolithiasis Continued good effect from enzalutamide and low PSA Plan on repeating PET-CT in six-month Underwent stricture dilatation in December with recovery of creatinine 01/24 PSA 0.6 Current therapy Enzalutamide 1 tab daily 12/25 apical stricture with dilatation 10/24 Lasix renogram. Normal bilateral excretion. No evidence of obstruction. Normal split function. PET-CT - persistent prostate activity but no activity detected outside prostate 08/24 Creatinine 1.3 Restart Enzalutamide - 1 tab Cycle enzalutamide monthly Does have fatigue and tender breasts when on medication - reduced to 1 tab - 08/23 PSMA scan Shows recurrence of disease in left base prostate abutting seminal vesicle PSA 07/23 3.9, 10/22 3.6 Dut +, 01/22 4.5 Dut +, 05/26 6.9 Dut -, 08/23 6.4, 01/23 8.0, 06/24 0.2, 09/24 3.2, 10/24 PSA 0.6, 01/24 Bilateral hydronephrosis Presentation through emergency room with retention and elevated creatinine to 6.[address] - 07/25 here is mild right hydronephrosis and hydroureter to the level of a 2 mm distal right ureteric calculus. There is mild left hydronephrosis/left renal collecting system dilatation without ureteral calculus Prostate cancer: Initial treatment prostate cancer 2007 with brachytherapy, rising PSA with brachy boost June 201908/23 PSMA persistent activity suggestive of locally recurrent disease, no evidence of spread Found to have rising PSA through 2019 Has been treated at [facility] in [place] with prostate seed implant - Performed June [address] Luna Prostate cancer was diagnosed 2007. Diagnosis was reached by needle biopsy, for elevated PSA. The Moy grade is 3+3 = 6. TNM Classification of Malignant Tumours (TNM) T1c. The D'Barbara (NCCN) risk category is Low Risk (PSA< 10, Gl < 7, T1c). Initial therapy included Primary treatment, Brachytherapy 2007 , Additional treatment 02/17 5AR - stopped 01/18 Cysto with dilation of prostate apex to 16Fr 12/20 operative DVIU for prostatic apex stricture to 18 Arabic - additional treatment seeds to prostate with Dr. Luna June 2019 Recent labs included a PSA (prostate-specific antigen) 07/17 7.7, 03/18 9.9 08/17 per patient 9.1, 01/17 14.3 05/21 6.4, 10/18 5.0, 01/18 5.1 F 7.8 06/19 5.1 F 11, 09/19 6.0 F 10, 03/21 7.6 07/22 2.6, 12/22 3.1, 04/24 3.9, 07/23 3.9, 10/22 3.6 Recent imaging included 05/21 , a bone scan, with no evidence of metastasis 08/18 an ultrasound, bilateral renal cysts 08/19 , an MRI (magnetic resonance imaging) - bilateral renal cysts up to 4 cm, bilateral renal proteinaceous cysts. Associated conditions erectile dysfunction Yes Nephrolithiasis/Urolithiasis: Episode treated at [facility] 12/22 Calcium oxalate stone on right side 8 mm Urolithiasis was diagnosed 12/19 at [facility] with flank pain and dark urine. The patient previously had kidney stones whose composition w unknown. Laboratory investigations include no recent labs. 24 Hour urine evaluation none on file. Prior treatment(s) include observation. Prior imaging includes 12/[address] (computed tomography) scan of the abdomen/pelvis (stone protocol) - renal cyst, bilateral punctate stones, presumed stone passage on right side 01/18 , a renal ultrasound, small stones with bilateral cysts - 01/20 renal ultrasound no stones Current therapeutic plan will be to continue with imaging surveillance [facility] Medical History Diabetes SOB (shortness of breath) Bladder infection Renal stones Neuropathy Mild acid reflux Hyperlipidemia Gross hematuria Prostate stricture Rising PSA following treatment for malignant neoplasm of prostate Urinary urgency Rising PSA following treatment for malignant neoplasm of prostate Surgical History History of prostate surgery History of appendectomy H/O hernia repair Social History Household Members: Spouse Housing: House Do you presently have visiting nurse or other home services: No Patient Tobacco Use Status: Former Tobacco user Tobacco use type: Cigarette Years Smoked: 15 Advance Directives Date on File: 07/28/23 service: No Review of Systems Const Denies chills and Denies fever(s) Card Reports no additional complaints and Denies syncope Resp Denies cough GI Denies abdominal pain and Denies heartburn Reports as per HPI and Denies change in libido Neuro Denies syncope Psych Denies change in libido Endo Denies change in libido Physical Exam Const General: cooperative, healthy appearing, comfortable and no acute distress Orientation/consciousness: patient oriented x3 HEENT Face and sinus: Yes normal facial exam Mouth: moist mucous membranes Neck Neck: Yes normal visual inspection, Yes full ROM and Yes trachea midline Chest Chest palpation & inspection: normal inspection of the chest Resp Effort & Inspection: normal respiratory effort, able to speak in complete sentences and no respiratory distress GI Inspection: Yes normal to inspection Back/Spine/Pelvis Cervical Spine: normal cervical lordosis Thoracic/Lumbar Spine: thoracic and lumbar spine normal to inspection Skin General skin exam: no rashes or lesions noted Neuro General: patient oriented x3, gait normal, tone normal and moves all extremities Extrem General: Yes normal to inspection and Yes capillary refill normal Results AMB Urinalysis, Automated UA Leukoctes 0 Gregorio/uL Last Edit by BLAISE Ornelas on 01/23/24 09:29 UA Nitrite Negative Last Edit by BLAISE Ornelas on 01/23/24 09:29 UA Urobilinogen 0.2 mg/dL Last Edit by BLAISE Ornelas on 01/23/24 09:2 9 UA Protein 30 mg/dL Last Edit by BLAISE Ornelas on 01/23/24 09:29 UA pH 6.0 Last Edit by BLAISE Ornelas on 01/23/24 09:29 UA Blood 0 Ciaran/uL Last Edit by BLAISE Ornelas on 01/23/24 09:29 UA Specific [place] 1.025 Last Edit by BLAISE Ornelas on 01/23/24 09: 29 UA Ketone Negative Last Edit by BLAISE Ornelas on 01/23/24 09:29 UA Bilirubin 0 mg/dL Last Edit by BLAISE Ornelas on 01/23/24 09:29 UA Glucose 500 mg/dL Last Edit by BLAISE Ornelas on 01/23/24 09:29 Results Reviewed Results Reviewed: Laboratory Last Values Urine pH (Auto) 6.0 01/23/24 09:28 Specific [place] (Auto) 1.025 01/23/24 09:28 Urine Protein (Auto) 30 mg/dL 01/23/24 09:28 Glucose (UA)(Auto) 500 mg/dL 01/23/24 09:28 Urine Ketones (Auto) Negative 01/23/24 09:28 Urine Blood (Auto) 0 Ciaran/uL 01/23/24 09:28 Urine Nitrite (Auto) Negative 01/23/24 09:28 Urine Bilirubin (Auto) 0 mg/dL 01/23/24 09:28 Urine Urobilinogen (Auto) 0.2 mg/dL 01/23/24 09:28 Leukocyte Esterase (Auto) 0 Gregorio/uL 01/23/24 09:28 Assessment & Plan Assessment & Plan (1) Urethral stricture: Code(s): N35.919 - Unspecified urethral stricture, male, unspecified site Category: Medical (2) Prostate cancer: Comment: Initial treatment brachytherapy 2008, brachy boost 2019 [facility]. New gradual rising PSA Code(s): C61 - Malignant neoplasm of prostate Category: Medical Plan Six-month follow-up imaging continue on enzalutamide Orders: Orders Prostate Specific Antigen 6 Months C61 - Malignant neoplasm of prostate AMB Urinalysis Automated Today Z13.9 - Encounter for screening, unspecified Testosterone, Total 6 Months C61 - Malignant neoplasm of prostate PET CT fusion skull to thigh 6 Months C61 - Malignant neoplasm of prostate Patient Instructions: Imaging studies, laboratory and physical exam results were discussed and reviewed in detail. No major barriers to patient understanding were identified. An opportunity to ask questions regarding the treatment plan was provided. All questions were answered. The patient expressed understanding and agreement with the above treatment plan. The patient is aware they should contact our office by phone for worsening of their current condition or the appearance of new urologic symptoms. Compliance is encouraged with any medications and followup testing that is ordered. It is a privilege to participate in the urologic care of your patient. If you have any questions or concerns regarding treatment for the above conditions, or other urologic issues, please do not hesitate to contact me. The office telephone contact is [phone]. This note is constructed using voice recognition software. While every effort has been made to ensure accuracy window installer errors may have been included. Yours sincerely, Dr Henry Mora MD, [facility] - Urology Providers of Expert, Compassionate Care for the Genitourinary System Coding Level of Care Code Est Pt Level 3 (49379) Diagnoses Urethral stricture N35.919 Prostate cancer C61
--- NOTE | 2024-01-31 13:01 | A.OFFVIS_ITS ---
Intake Visit Reasons: 3m/PSA(set) Allergies No Known Allergies [No Known Allergies*] Allergy (Verified 01/23/24 08:49) Medication List - Last Reconciled 01/23/24 by Henry Mora MD amoxicillin-pot clavulanate 500-125 mg (Augmentin) 1 tab PO BID cholecalciferol (vitamin D3) 50 mcg PO DAILY enzalutamide 80 mg PO DAILY ferrous sulfate (Feosol) 325 mg PO .tiw melatonin 5 mg PO BEDTIME PRN mesalamine ER 0.75 grams PO DAILY pioglitazone 45 mg PO DAILY rosuvastatin 40 mg PO DAILY vitamin B complex 1 tab PO DAILY HPI Comments Details: Carlos Eduardo is a very pleasant male. He is a patient of Dr. Ruggiero. He is seen for the following urologic conditions - prostate cancer - nephrolithiasis - apical urethral stricture Feels urination is closing Previously had discussed urethral dilatation for urethral stricture Would encourage once per day Discussed different types of catheters Given prostate radiation would recommend coude-tip Would expect this to be ongoing for the foreseeable future 01/24 PSA 0.6 Current therapy Enzalutamide 1 tab daily 12/25 apical stricture with dilatation 10/24 Lasix renogram. Normal bilateral excretion. No evidence of obstruction. Normal split function. PET-CT - persistent prostate activity but no activity detected outside prostate 08/24 Creatinine 1.3 Restart Enzalutamide - 1 tab Cycle enzalutamide monthly Does have fatigue and tender breasts when on medication - reduced to 1 tab - 08/23 PSMA scan Shows recurrence of disease in left base prostate abutting seminal vesicle PSA 07/23 3.9, 10/22 3.6 Dut +, 01/22 4.5 Dut +, 05/26 6.9 Dut -, 08/23 6.4, 01/23 8.0, 06/24 0.2, 09/24 3.2, 10/24 PSA 0.6, 01/24 Bilateral hydronephrosis Presentation through emergency room with retention and elevated creatinine to 6.[address] - 07/25 here is mild right hydronephrosis and hydroureter to the level of a 2 mm distal right ureteric calculus. There is mild left hydronephrosis/left renal collecting system dilatation without ureteral calculus Prostate cancer: Initial treatment prostate cancer 2007 with brachytherapy, rising PSA with brachy boost June 201908/23 PSMA persistent activity suggestive of locally recurrent disease, no evidence of spread Found to have rising PSA through 2019 Has been treated at [facility] in [place] with prostate seed implant - Performed June [address] Luna Prostate cancer was diagnosed 2007. Diagnosis was reached by needle biopsy, for elevated PSA. The Moy grade is 3+3 = 6. TNM Classification of Malignant Tumours (TNM) T1c. The D'Barbara (NCCN) risk category is Low Risk (PSA< 10, Gl < 7, T1c). Initial therapy included Primary treatment, Brachytherapy 2007 , Additional treatment 02/17 5AR - stopped 01/18 Cysto with dilation of prostate apex to 16Fr 12/20 operative DVIU for prostatic apex stricture to 18 [place] - additional treatment seeds to prostate with Dr. Luna June 2019 Recent labs included a PSA (prostate-specific antigen) 07/17 7.7, 03/18 9.9 08/17 per patient 9.1, 01/17 14.3 05/21 6.4, 10/18 5.0, 01/18 5.1 F 7.8 06/19 5.1 F 11, 09/19 6.0 F 10, 03/21 7.6 07/22 2.6, 12/22 3.1, 04/24 3.9, 07/23 3.9, 10/22 3.6 Recent imaging included 05/21 , a bone scan, with no evidence of metastasis 08/18 an ultrasound, bilateral renal cysts 08/19 , an MRI (magnetic resonance imaging) - bilateral renal cysts up to 4 cm, bilateral renal proteinaceous cysts. Associated conditions erectile dysfunction Yes Nephrolithiasis/Urolithiasis: Episode treated at [facility] 12/22 Calcium oxalate stone on right side 8 mm Urolithiasis was diagnosed 12/19 at [facility] with flank pain and dark urine. The patient previously had kidney stones whose composition w unknown. Laboratory investigations include no recent labs. 24 Hour urine evaluation none on file. Prior treatment(s) include observation. Prior imaging includes 12/[address] (computed tomography) scan of the abdomen/pelvis (stone protocol) - renal cyst, bilateral punctate stones, presumed stone passage on right side 01/18 , a renal ultrasound, small stones with bilateral cysts - 01/20 renal ultrasound no stones Current therapeutic plan will be to continue with imaging surveillance [facility] Medical History Diabetes SOB (shortness of breath) Bladder infection Renal stones Neuropathy Mild acid reflux Hyperlipidemia Gross hematuria Prostate stricture Rising PSA following treatment for malignant neoplasm of prostate Urinary urgency Rising PSA following treatment for malignant neoplasm of prostate Surgical History History of prostate surgery History of appendectomy H/O hernia repair Social History Household Members: Spouse Housing: House Do you presently have visiting nurse or other home services: No Patient Tobacco Use Status: Former Tobacco user Tobacco use type: Cigarette Years Smoked: 15 Advance Directives Date on File: 07/28/23 service: No Review of Systems Const Denies chills and Denies fever(s) Card Reports no additional complaints and Denies syncope Resp Denies cough GI Denies abdominal pain and Denies heartburn Reports as per HPI and Denies change in libido Neuro Denies syncope Psych Denies change in libido Endo Denies change in libido Physical Exam Const General: cooperative, healthy appearing, comfortable and no acute distress Orientation/consciousness: patient oriented x3 HEENT Face and sinus: Yes normal facial exam Mouth: moist mucous membranes Neck Neck: Yes normal visual inspection, Yes full ROM and Yes trachea midline Chest Chest palpation & inspection: normal inspection of the chest Resp Effort & Inspection: normal respiratory effort, able to speak in complete sen tences and no respiratory distress GI Inspection: Yes normal to inspection Back/Spine/Pelvis Cervical Spine: normal cervical lordosis Thoracic/Lumbar Spine: thoracic and lumbar spine normal to inspection Skin General skin exam: no rashes or lesions noted Neuro General: patient oriented x3, gait normal, tone normal and moves all extremities Extrem General: Yes normal to inspection and Yes capillary refill normal Results AMB Urinalysis, Automated UA Leukoctes 0 Gregorio/uL Last Edit by BLAISE Ornelas on 01/23/24 09:29 UA Nitrite Negative Last Edit by BLAISE Ornelas on 01/23/24 09:29 UA Urobilinogen 0.2 mg/dL Last Edit by BLAISE Ornelas on 01/23/24 09:2 9 UA Protein 30 mg/dL Last Edit by BLAISE Ornelas on 01/23/24 09:29 UA pH 6.0 Last Edit by BLAISE Ornelas on 01/23/24 09:29 UA Blood 0 Ciaran/uL Last Edit by BLAISE Ornelas on 01/23/24 09:29 UA Specific [place] 1.025 Last Edit by BLAISE Ornelas on 01/23/24 09: 29 UA Ketone Negative Last Edit by BLAISE Ornelas on 01/23/24 09:29 UA Bilirubin 0 mg/dL Last Edit by BLAISE Ornelas on 01/23/24 09:29 UA Glucose 500 mg/dL Last Edit by BLAISE Ornelas on 01/23/24 09:29 Results Reviewed Results Reviewed: Laboratory Last Values Urine pH (Auto) 6.0 01/23/24 09:28 Specific [place] (Auto) 1.025 01/23/24 09:28 Urine Protein (Auto) 30 mg/dL 01/23/24 09:28 Glucose (UA)(Auto) 500 mg/dL 01/23/24 09:28 Urine Ketones (Auto) Negative 01/23/24 09:28 Urine Blood (Auto) 0 Ciaran/uL 01/23/24 09:28 Urine Nitrite (Auto) Negative 01/23/24 09:28 Urine Bilirubin (Auto) 0 mg/dL 01/23/24 09:28 Urine Urobilinogen (Auto) 0.2 mg/dL 01/23/24 09:28 Leukocyte Esterase (Auto) 0 Gregorio/uL 01/23/24 09:28 Assessment & Plan Assessment & Plan (1) Urethral stricture: Code(s): N35.919 - Unspecified urethral stricture, male, unspecified site Category: Medical (2) Prostate cancer: Comment: Initial treatment brachytherapy 2008, brachy boost 2019 [facility]. New gradual rising PSA Code(s): C61 - Malignant neoplasm of prostate Category: Medical Plan Recommend daily catheterization with 14 on 16 [place] Orders: Orders Prostate Specific Antigen 6 Months C61 - Malignant neoplasm of prostate AMB Urinalysis Automated 01/23/24 Z13.9 - Encounter for screening, unspecified Testosterone, Total 6 Months C61 - Malignant neoplasm of prostate PET CT fusion skull to thigh 6 Months C61 - Malignant neoplasm of prostate Patient Instructions: Imaging studies, laboratory and physical exam results were discussed and reviewed in detail. No major barriers to patient understanding were identified. An opportunity to ask questions regarding the treatment plan was provided. All questions were answered. The patient expressed understanding and agreement with the above treatment plan. The patient is aware they should contact our office by phone for worsening of their current condition or the appearance of new urologic symptoms. Compliance is encouraged with any medications and followup testing that is ordered. It is a privilege to participate in the urologic care of your patient. If you have any questions or concerns regarding treatment for the above conditions, or other urologic issues, please do not hesitate to contact me. The office telephone contact is [phone]. This note is constructed using voice recognition software. While every effort has been made to ensure accuracy supervisor sheet manufacturing errors may have been included. Yours sincerely, Dr Henry Mora MD, [facility] - Urology Providers of Expert, Compassionate Care for the Genitourinary System Coding Level of Care Code Est Pt Level 3 (09326) Diagnoses Urethral stricture N35.919 Prostate cancer C61
== END 2024-01-23 09:52 | disposition home or self-care (01) ==
PROVIDERS: PCP Hospitalist; Visit Provider Urology
DX: N35.919 Unspecified urethral stricture, male, unspecified site (principal); C61 Malignant neoplasm of prostate; Z13.9 Encounter for screening, unspecified
CPT/HCPCS: 99213

== ENCOUNTER → 2024-01-23 08:35 | Outpatient (BNVA) | payer MEDICARE, SELFPAY | PROVIDERS: PCP Hospitalist; Visit Provider Urology | DX: C61 Malignant neoplasm of prostate (principal); N35.819 Other urethral stricture, male, unspecified site; N52.9 Male erectile dysfunction, unspecified; Z87.442 Personal history of urinary calculi | CPT/HCPCS: 81003; 99212 ==

== ENCOUNTER → 2024-01-29 11:11 | Outpatient (BNVA) | payer MEDICARE, SELFPAY | PROVIDERS: PCP Hospitalist; Visit Provider Urology ==

== ENCOUNTER 2024-05-30 09:57 | Outpatient (AMB) | payer MEDICARE, SELFPAY ==
--- NOTE | 2024-05-30 10:08 | HO.NEPHOV_ITS ---
Vital Signs 05/30/24 10:12 Height 5 ft 8 in Weight 157 lb BMI 23.9 BP 112/52 L Blood Pressure Location Lt brachial Position Sitting Intake Visit Reasons: 6 mon follow up-[employer] Infusion Specialist Required: No Accompanied by: Self / Same As Patient Allergies No Known Allergies [No Known Allergies*] Allergy (Verified 05/30/24 10:11) HPI Comments Details: Carlos Eduardo was seen in follow-up of his chronic kidney disease. He has diabetes and has been on Actos which is causing edema. His hemoglobin A1c is under good control. In the past he has taken CHARLIE inhibitor which has been discontinued due to low blood pressures. He has history of prostate cancer and is closely followed up by Dr. Henry Mora. 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 His renal functions have settled back to baseline. He has history of renal stones. He does not take excessive nonsteroidal anti-inflammatories. He has history of inflammatory bowel disease(ulcerative colitis). He also has renal cyst which is closely followed by Dr. Mora. His serum creatinine is back to baseline [facility] Medical History Diabetes SOB (shortness of breath) Bladder infection Renal stones Neuropathy Mild acid reflux Hyperlipidemia Gross hematuria Prostate stricture Rising PSA following treatment for malignant neoplasm of prostate Urinary urgency Rising PSA following treatment for malignant neoplasm of prostate Surgical History History of prostate surgery History of appendectomy H/O hernia repair Social History Household Members: Spouse Housing: House Do you presently have visiting nurse or other home services: No Patient Tobacco Use Status: Former Tobacco user Tobacco use type: Cigarette Years Smoked: 15 Advance Directives Date on File: 07/28/23 service: No Review of Systems Const All systems reviewed & are unremarkable except as noted in HPI and below Physical Exam Vital Signs: Last Vital Signs BP 112/52 L 05/30/24 10:12 BMI result Body Mass Index 23.9 Const General: comfortable and no acute distress Orientation/consciousness: patient oriented x3 HEENT Head: Yes normocephalic Mouth: Normal oral and palatal mucosa present Eyes EOM: EOMs intact bilaterally Neck Neck: Yes supple Resp Auscultation: clear to auscultation bilaterally Cardio Jugular venous distension: no JVD Rate: regular rate GI Palpation (GI): Soft to palpation Auscultation: normal bowel sounds General: Yes no CVA tenderness Back/Spine/Pelvis Back: no CVA tenderness Skin General skin exam: no rashes or lesions noted Neuro General: patient oriented x3 and moves all extremities Extrem General: Yes no pedal edema Results Reviewed Nephrology Results: Hgb 11.1 g/dl (14.0-18.0) L 01/16/24 WBC 5.0 X10*3/uL (4.8-10.8) 01/16/24 Plt Count 127 X10*3/uL (160-400) L 01/16/24 Sodium 142 mmol/L (135-145) 01/16/24 Potassium 4.2 mmol/L (3.3-5.1) 01/16/24 Chloride 110 mmol/L (96-108) H 01/16/24 Carbon Dioxide 27 mmol/L (22-29) 01/16/24 BUN 19 mg/dL (9-16) H 01/16/24 Creatinine 1.21 mg/dL (0.5-1.4) 01/16/24 Calcium 8.7 mg/dL (8.4-10.2) 01/16/24 Urine Protein 30 (1+) mg/dL (Neg-Trace) H 01/16/24 Urine Creatinine 189.91 mg/dL 01/16/24 Protein/Creatinin Ratio 0.26 (<0.2) H 01/16/24 Renal US 01/16/24 Assessment & Plan Assessment & Plan (1) Renal cysts, acquired, bilateral: Code(s): N28.1 - Cyst of kidney, acquired Category: Medical (2) CKD (chronic kidney disease) stage 3, GFR 30-59 ml/min: Code(s): N18.30 - Chronic kidney disease, stage 3 unspecified Category: Medical Qualifiers: Chronic kidney disease stage 3 subtype: stage 3a (GFR 45-59) Qualified Code(s): N18.31 - Chronic kidney disease, stage 3a Plan His renal functions is back at baseline. His blood pressure is at goal. He had JAVON in 2023 which has been resolved. He was encouraged not to take any nonsteroidal inflammatories and tries to maintain good hydration. He has anemia but his hemoglobin is stable. He will be a candidate for Jardiance after discontinuation of Actos. I did not make any medication changes today. Follow-up blood work ordered. Answered all questions. Follow-up appointment given. Orders: Orders Creatinine 6 Months N18.31 - Chronic kidney disease, stage 3a Blood Urea Nitrogen 6 Months N18.31 - Chronic kidney disease, stage 3a Electrolytes 6 Months N18.31 - Chronic kidney disease, stage 3a Calcium 6 Months N18.31 - Chronic kidney disease, stage 3a Coding Level of Care Code Est Pt Level 4 (24322) Diagnoses Renal cysts, acquired, bilateral N28.1 Stage 3a chronic kidney disease N18.31 Chronic kidney disease stage 3 subtype: stage 3a (GFR 45-59)
[2024-05-30 10:12] VITALS: BP 112/52; BMI 23.9
--- OUTSIDE RECORDS SUMMARY | 2024-05-30 11:26 | XMS_ITS | Clinical Summary ---
Author Organization [facility] Address [address] [facility] [address] [place] [address] Phone Care Team Providers Care Retail Service Specialist Name Role Phone Dolly Ruggiero MD Primary Care Provider [phone] Allergies Active Allergy Reactions Criticality Noted Date Comments Amoxicillin 11/21/2022 Doxazosin 11/21/2022 Gabapentin 11/21/2022 Lisinopril 11/21/2022 Losartan 11/21/2022 Tamsulosin 11/21/2022 Medications pioglitazone (ACTOS) 45 MG tablet Take 45 mg by mouth 1 (one) time each day Active rosuvastatin (CRESTOR) 40 MG tablet Take 40 mg by mouth 1 (one) time each day Active Multiple Vitamins-Minera ls (PreserVision AREDS) capsule Take 1 capsule by mouth in the morning and 1 capsule in the evening. Active cholecalciferol (VITAMIN D-3) 25 MCG (1000 UT) capsule Take 1,000 Units by mouth 1 (one) time each day Active b complex vitamins capsule Take 1 capsule by mouth 1 (one) time each day Active dutasteride (AVODART) 0.5 MG capsule Take 0.5 mg by mouth 1 (one) time each day Active calcium carbonate (Calcium 600) 600 MG tablet Take 600 mg by mouth 1 (one) time each day Active Active Problems Problem Noted Date Diagnosed Date Stage 3 chronic kidney disease 11/18/2022 Encounters Date Type Department Care Team Description 05/24/2024 Orders Only [facility] [address] [facility] [address] [place] [address] Milton Jensen MD from Last 3 Months Family History Medical History Relation Comments Diabetes Father Relation Status Comments Father Mother Social History Tobacco Use Types Packs/Day Years Used Date Smoking Tobacco: Former Cigarettes Smokeless Tobacco: Never Alcohol Use Standard Drinks/Week Comments Yes 0 (1 standard drink = 0.6 oz pur e alcohol) social Sex and Gender Information Value Date Recorded Sex Assigned at Not on file Legal Sex Male 11:15 AM EDT Gender Identity Not on file Sexual Orientation Not on file Last Filed Vital Signs Vital Sign Reading Time Taken Comments Blood Pressure 128/56 12/29/2022 2:52 PM EDT Pulse 62 12/29/2022 2:52 PM EDT Temperature - - Respiratory Rate - - Oxygen Saturation 96% 12/29/2022 2:52 PM EDT Inhaled Oxygen Concentration - - Weight 67 kg (147 lb 9.6 oz) 12/29/2022 2:52 PM EDT Height 172.7 cm (5' 8 ) 12/29/2022 2:52 PM EDT Body Mass Index 22.44 12/29/2022 2:52 PM EDT Plan of Treatment Health Maintenance Due Date Last Done Comments Pneumococcal Vaccine: 65+ Ye ars (1 of 2 - PCV) 10/07/1941 Influenza Vaccine (#1) 2023 Hepatitis B Vaccine Aged Out No longe r eligible based on patient's age to complete this topic Procedures Procedure Name Priority Date/Time Associated Diagnosis Comments CALCIUM Routine 05/24/2024 9:23 AM EST CREATININE, SERUM Routine 05/24/2024 9:2 3 AM EST BUN Routine 05/24/2024 9:23 AM EST ELECTROLYTE PANEL Routine 05/24/2024 9:2 3 AM EST from Last 3 Months Results * BUN (05/24/2024 9:23 AM EST) BUN 26 8 - 27 mg/dL [facility] 05/24/2024 9:23 AM EST 05/24/2024 Milton Jensen MD LAB BLOOD ORDERABLES Final Resul t Performing Organization Address [facility] Co de Phone Number [facility] [address] [place] [address] * (ABNORMAL) Creatinine, serum (05/24/2024 9:23 AM EST) Creatinine 1.28(H) 0.76 - 1.27 mg/dL [facility] eGFR CKD-EPI CR 2020 55(L) >59 mL/min/1.7 3 [facility] 05/24/2024 9:23 AM EST 05/24/2024 Milton Jensen MD LAB BLOOD ORDERABLES Final Resul t Performing Organization Address [facility] de Phone Number [facility] Population [facility] [address] [place] [address] * (ABNORMAL) Calcium (05/24/2024 9:23 AM EST) Calcium 8.5(L) 8.6 - 10.2 mg/dL [facility] 05/24/2024 9:23 AM EST 05/24/2024 Milton Jensen MD LAB BLOOD ORDERABLES Final Resul t Performing Organization Address [facility] de Phone Number [facility] [facility] [address] [place] [address] * (ABNORMAL) Electrolyte panel (05/24/2024 9:23 AM EST) Sodium 142 134 - 144 mmol/L [facility] Potassium 4.8 3.5 - 5.2 mmol/L [facility] Chloride 109(H) 96 - 106 mmol/L [facility] Bicarbonate (CO2) 20 20 - 29 mmol/L [facility] 05/24/2024 9:23 AM EST 05/24/2024 us Milton Jensen MD LAB BLOOD ORDERABLES Final Resul t [facility] [address] [place] [address] from Last 3 Months Insurance [facility] [employer] Member Subscriber Plan / Payer (Ef fective 2022-Present) Name:Deangelo Wade Relation to Subscriber:Self Name:Deangelo Wade Payer ID:[id number] (NAIC) Type:Not on file Address: [place] [id number] [facility] [employer] Care Teams Retail Service Specialist Relationship Specialty Start Date End Date Dolly Ruggiero MD [address] [place] [address] PCP - General Internal Medicine 07/27/22
--- OUTSIDE RECORDS SUMMARY | 2024-05-30 11:26 | XMS_ITS | Encounter Summary ---
Author Organization [facility] Address [address] [facility] [address] [place] [address] Phone Care Team Providers Care Neuropsychology Division Chief Name Role Phone Dolly Ruggiero MD Primary Care Provider [phone] Encounter Details Date Type Department Care Team (Late st Contact Info) Description 05/24/2024 Orders Only [facility] [address] [facility] [address] [place] [address] Milton Jensen MD Social History Tobacco Use Types Packs/Day Years Used Date Smoking Tobacco: Former Cigarettes Smokeless Tobacco: Never Alcohol Use Standard Drinks/Week Comments Yes 0 (1 standard drink = 0.6 oz pur e alcohol) social Sex and Gender Information Value Date Recorded Sex Assigned at Not on file Legal Sex Male 11:15 AM EDT Gender Identity Not on file Sexual Orientation Not on file documented as of this encounter Plan of Treatment Not on file documented as of this encounter Procedures Procedure Name Priority Date/Time Associated Diagnosis Comments BUN Routine 05/24/2024 9:23 AM EST CREATININE, SERUM Routine 05/24/2024 9:2 3 AM EST CALCIUM Routine 05/24/2024 9:23 AM EST ELECTROLYTE PANEL Routine 05/24/2024 9:2 3 AM EST documented in this encounter Results * (ABNORMAL) Calcium (05/24/2024 9:23 AM EST) Calcium 8.5(L) 8.6 - 10.2 mg/dL [facility] 05/24/2024 9:23 AM EST 05/24/2024 us Milton Jensen MD LAB BLOOD ORDERABLES Final Resul t Performing Organization Address [facility] Co de Phone Number [facility] [address] [place] [address] * (ABNORMAL) Creatinine, serum (05/24/2024 9:23 AM EST) Creatinine 1.28(H) 0.76 - 1.27 mg/dL [facility] eGFR CKD-EPI CR 2020 55(L) >59 mL/min/1.7 3 [facility] 05/24/2024 9:23 AM EST 05/24/2024 us Milton Jensen MD LAB BLOOD ORDERABLES Final Resul t Performing Organization Address [facility] de Phone Number [facility] [place] [address] [place] [address] * BUN (05/24/2024 9:23 AM EST) BUN 26 8 - 27 mg/dL [facility] 05/24/2024 9:23 AM EST 05/24/2024 Milton Jensen MD LAB BLOOD ORDERABLES Final Resul t Performing Organization Address [facility] Co de Phone Number [facility] [place] [address] [place] [address] * (ABNORMAL) Electrolyte panel (05/24/2024 9:23 AM EST) Sodium 142 134 - 144 mmol/L [facility] Potassium 4.8 3.5 - 5.2 mmol/L [facility] Chloride 109(H) 96 - 106 mmol/L [facility] Bicarbonate (CO2) 20 20 - 29 mmol/L [facility] 05/24/2024 9:23 AM EST 05/24/2024 us Milton eJnsen MD LAB BLOOD ORDERABLES Final Resul t [facility] [address] [place] [address] documented in this encounter Visit Diagnoses Not on filedocumented in this encounter Care Teams Neuropsychology Division Chief Relationship Specialty Start Date End Date Dolly Ruggiero MD [address] [place] [address] PCP - General Internal Medicine 07/27/22 documented as of this encounter
--- OUTSIDE RECORDS SUMMARY | 2024-05-30 11:26 | XMS_ITS | Clinical Summary ---
Author Organization 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 Active cetirizine (ZyrTEC) 10 mg tablet Take 1 tablet (10 mg total) by mouth 1 (one) time each day. Active cholecalciferol (VITAMIN D-3) 50 mcg (2,000 unit) tablet Take 1 tablet (2,000 Units total) by mouth 1 (one) time each day. Active enzalutamide (Xtandi) 80 mg tablet Take 2 tablets (160 mg total) by mouth 1 (one) time each day Active ferrous sulfate 325 mg (65 mg elemental iron) tablet Take 1 tablet (325 mg total) by mouth 2 (two) times a week. Active lansoprazole (PREVACID) [address] capsule Take 1 capsule (15 mg total) by mouth 1 (one) time each day. Active melatonin 5 mg tablet Take 1 Tablet by mouth at bedtime. Active mesalamine (APRISO) 0.375 gram 24 hr capsule Take 1 capsule (0.375 g total) by mouth 2 (two) times a day. Active vit C/E/Zn/coppr/lut ein/zeaxan (PRESERVISION AREDS-2 ORAL) Take 1 Capsule by mouth 2 Times Daily. Active pioglitazone (ACTOS) 45 mg tablet Take 1 tablet (45 mg total) by mouth 1 (one) time each day. Active rosuvastatin (CRESTOR) 40 mg tablet Take 1 tablet (40 mg total) by mouth 1 (one) time each day. Active multivitamin with minerals tabletIndication s:Orthostatic hypotension Take 1 tablet by mouth 1 (one) time each day. Active Active Problems Problem Noted Date Diagnosed Date Iron deficiency anemia secon mariajose to inadequate dietary iron intake 04/17/2024 Systolic murmur 04/17/2024 Assessment & Plan (04/17/2024 10:58 AM EST): Early systolic murmur likely mild aortic stenosis. Patient is sure he had an echocardiogram in past, but I am unable to find this study. I will need to look back through previous records, but if unavailable will consider repeat echocardiogram. Hypotension 09/04/2023 Assessment & Plan (04/17/2024 10:58 AM EST): Positive in office. Systolic drop from 120 systolic sitting to 90 systolic standing. Likely cause of lightheadedness and could be associated with enzalutamide. This medication also has high incidence of swelling. Encouraged hydration, compression stockings, rising slowly and not restarting metoprolol. Coronary artery disease invo lving [place] coronary artery of [place] heart without angina pectoris 04/18/2023 Overview (04/17/2024): 2008 - angiogram demonstrated a 70% diagonal artery stenosis without significant lesions elsewhere in the coronary tree - this was treated medically December 2017 - repeat angiogram continued to demonstrate disease limited to relatively small diagonal branches with major vessels free of narrowing April 2023 - Exercise Nuclear stress test showing probably normal perfusion with no evidence of ischemia or infarct by myocardial perfusion imaging after attenuation correction at this borderline adequate level of stress (80% MPHR), normal LVEF calculated be 74%, moderate coronary calcifications, very good exercise capacity for age and no chest pain with testing Assessment & Plan (04/17/2024 10:58 AM EST): Catheterization from 2018 showed limited small vessel disease with no other significant disease elsewhere. Last Nuclear stress test from April 2023 showed no ischemia or infarct with preserved LV systolic function. No anginal symptoms despite discontinuation of metoprolol. Aspirin was on hold due to anemia, but should be consider for re-initiation. Continue with rosuvastatin. We discussed risk reduction through lifestyle choices including healthy diet, routine exercise and weight management. Orders: ECG 12 lead Essential hypertension 04/18/2023 Assessment & Plan (04/17/2024 10:58 AM EST): Controlled off of Metoprolol. Not current on antihypertensives. Orders: ECG 12 lead Dysphagia 04/14/2023 Overview (04/17/2024): Status post Armand fundoplication dysphagia requiring recurrent esophageal dilatation by Dr. Jama due to symptomatic partial obstruction following his esophageal surgery HLD (hyperlipidemia) 04/14/2023 Assessment & Plan (04/17/2024 10:58 AM EST): January 2024 - LDL 39. Continue with rosuvastatin. Angina pectoris 04/13/2023 Encounters Date Type Department Care Team Description 04/17/2024 9:10 AM EST Office Visit [facility] [address] [place] [id number] Gonzales Stephen NP Coronary artery disease involving [place] coronary artery of [place] heart without angina pectoris (Primary Dx); Essential hypertension; Orthostatic hypotension; Hyperlipidemia, unspecified hyperlipidemia type; Systolic murmur 03/28/2024 Telephone Gastroenterology - [address] [facility] [address] [place] [phone] Yolanda Gamino MA 03/22/2024 1:32 PM EST Anesthesia Event [facility] [address] [place] [phone] Ministerio Arredondo MD 03/22/2024 12:37 PM EST - 03/22/2024 11:59 PM EST Hospital Encounter [facility] [address] [place] [phone] Antoni Funes MD Saliga, Jesse L, MD Dysphagia, unspecified Discharge Disposition: Home or Self Care 03/21/2024 Telephone Gastroenterology - [address] [facility] [address] [place] [address] Antoni Funes MD from Last 3 Months Surgical History Surgery Date Site/Laterality Comments POST PROSTATE SEED IMPLANT CT 04/03/2007 - 04/02/2008 X2 REPAIR HIATAL HERNIA TRANSAB DOMINAL APPROACH 04/03/2017 - 04/02/2018 AT [facility] Medical History Medical History Date Comments Type 2 diabetes mellitus wit h unspecified complications (CMS/HCC) DX:Type 2 diabetes mellitus with unspecified complications (HCC) Malignant neoplasm of prostate (CMS/HCC) DX:Malignant neoplasm of prostate (HCC) 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) DX: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 (HCC) Esophageal obstruction DX:Esopha geal obstruction Chronic kidney disease, stag e 3a (CMS/HCC) DX:Chronic kidney disease, s tage 3a (HCC) Ulcerative colitis (CMS/HCC) DX: Ulcerative colitis (HCC) Prostate cancer (CMS/HCC) DX:Pro state cancer (HCC) Angina of effort (CMS/HCC) 2003 GERD (gastroesophageal reflux disease) Social History Tobacco Use Types Packs/Day Years Used Date Smoking Tobacco: Former Cigarettes Smokeless Tobacco: Never Tobacco Cessation:Counseling Given: Not Answered Alcohol Use Standard Drinks/Week Comments Yes 0 (1 standard drink = 0.6 oz pur e alcohol) once a week wine Interpersonal Safety Answer Date Record ed Physical Abuse 03/22/2024 Verbal Abuse 03/22/2024 Sex and Gender Information Value Date Recorded Sex Assigned at Male 03/21/2024 4:20 PM EST Legal Sex Male 4:58 PM EST Gender Identity Male 03/21/2024 4:20 PM EST Sexual Orientation Straight 03/21/2024 4: 20 PM EST Obstetrics History Last Filed Vital Signs Vital Sign Reading Time Taken Comments Blood Pressure 120/42 04/17/2024 9:01 AM EST Pulse 72 04/17/2024 9:01 AM EST Temperature 36.8 ??C (98.2 ??F) 03/22/2024 2:02 PM ES T Respiratory Rate 18 03/22/2024 2:22 PM EST Oxygen Saturation 97% 04/17/2024 9:01 AM EST Inhaled Oxygen Concentration - - Weight 69.5 kg (153 lb 4.8 oz) 04/17/2024 9:01 A M EST Height 170.2 cm (5' 7 ) 04/17/2024 9:01 AM EST Body Mass Index 24.01 04/17/2024 9:01 AM EST Plan of Treatment Upcoming Encounters Date Type Department Care Team (Late st Contact Info) Description 10/08/2024 9:20 AM EDT Office Visit [facility] [address] [place] [address] Fransisco Smith MD [address] [place] [address] [address] [place] [address] Health Maintenance Due Date Last Done Comments Zoster Vaccines (1 of 2) 10/07/1987 Pneumococcal Vaccine: 50+ Years (2 of 2 - PPSV23) 01/20/2020 01/19/2019, 02/12/2016 Cholesterol Screening (Lipid Panel) 03/02/2022 Depression Screening 03/02/2022 Medicare Annual Wellness Visit 03/02/2022 Social Influencers of Health Screening 03/02/2022 Hypertension/CHF/CAD Annual BMP Blood Test 05/18/2023 Falls Risk Assessment 03/22/2025 03/22/2024 DTaP,Tdap,and Td Vaccines (2 - Td or Tdap) 02/04/2026 02/05/2016 RSV Immunization Patients 60+ Years Old Completed 03/04/2023 COVID-19 Vaccine Completed 12/08/2023, , 12/14/2021, Additional history exists Influenza Vaccine Completed 02/01/2024, , 01/08/2022, Additional history exists HIB Vaccines Aged Out No longer eligi ble based on patient's age to complete this topic HPV Vaccines Aged Out No longer eligi ble based on patient's age to complete this topic Hepatitis A Vaccines Aged Out No long er eligible based on patient's age to complete this topic Hepatitis B Vaccines Aged Out No long er eligible based on patient's age to complete this topic IPV Vaccines Aged Out No longer eligi ble based on patient's age to complete this topic MMR Vaccines Aged Out No longer eligi ble based on patient's age to complete this topic Meningococcal ACWY Vaccine Aged Out N o longer eligible based on patient's age to complete this topic Meningococcal B Vacine Aged Out No lo nger eligible based on patient's age to complete this topic RSV Immunization Patients Under 20 months Aged Out No longer eligible based on patient's age to complete this topic Varicella Vaccines Aged Out No longer eligible based on patient's age to complete this topic Procedures Procedure Name Priority Date/Time Associated Diagnosis Comments ECG 12-LEAD Routine 04/17/2024 10:58 AM EST Coronary artery disease involving [place] coronary artery of [place] heart without angina pectoris Essential hypertension EGD Routine 03/22/2024 2:01 PM EST Dysphagia, unspecified TISSUE EXAM Routine 03/22/2024 1:55 PM EST Dysphagia, unspecified from Last 3 Months Results * ECG 12 lead (04/17/2024 10:58 AM EST) Ventricular Rate ECG 72 BPM GEMUSE Atrial Rate 72 BPM GEMUSE P-R Interval 242 ms GEMUSE QRS Duration 92 ms GEMUSE Q-T Interval 394 ms GEMUSE QTc 431 ms GEMUSE P Wave [place] 32 degrees GEMUSE R [place] 24 degrees GEMUSE T [place] 36 degrees GEMUSE ECG Interpretation Sinus rhythm with sinus arrhythmia with 1st degree A-V block with occasional Premature ventricular complexes Otherwise normal ECG When compared with ECG of 09-DEC-2020 11:41, Premature ventricular complexes are now Present Confirmed by IGNACIO BRADLEY ([id number]) on 04/20/2024 11:46:54 AM GEMUSE 04/17/2024 9:15 AM EST 04/20/2024 11:46 AM EST us Gonzales Stephen NP ECG ORDERABLES Edited Resu lt - Final GEMUSE * EGD Anesthesia - MAC; SP ENDOSCOPY (03/22/2024 2:01 PM EST) Anatomical Region Laterality Modality Other 03/22/2024 1:30 PM EST Impressions 03/22/2024 2:00 PM EST - Z-line variable, 40 cm from the incisors. ? - Food in the distal esophagus. Removal was successful. ? - Mild Schatzki ring. Dilated. ? - Congested, erythematous, friable (with contact ? bleeding) mucosa in the esophagus. Biopsied. ? - Normal stomach. ? - Normal examined duodenum. Recommendation: ?- Discharge patient to home. ? - Clear liquid diet today. ? - Advance diet as tolerated for 1 day. ? - Continue present medications. ? - Await pathology results. ? - Return to my office as previously scheduled. Narrative 03/22/2024 2:00 PM EST [facility] Patient Name: Deangelo Wade Procedure Date: 03/22/2024 1:30 PM Date of : 1935 Age: 88 Room: ROOM 14 Gender: Male Note Status: Finalized Attending MD: Antoni Funes MD, Procedure Date No Time: 03/22/2024 Procedure: ? Upper GI endoscopy Indications: ? Dysphagia, Suspected ingestion of foreign body, ? Foreign body in the esophagus Providers: ? Antoni Funes MD Referring MD: ?Antoni Funes MD Medicines: ? Monitored Anesthesia Care Complications: ? No immediate complications. Estimated Blood Loss: ? Estimated blood loss was minimal. Procedure: ? Pre-Anesthesia Assessment: ? - ASA Grade Assessment: III - A patient with severe ? systemic disease. ? - After reviewing the risks and benefits, the patient ? was deemed in satisfactory condition to undergo the ? procedure. ? After obtaining informed consent, the endoscope was ? passed under direct vision. Throughout the procedure, ? the patient's blood pressure, pulse, and oxygen ? saturations were monitored continuously.The Endoscope ? was introduced through the mouth, and advanced to the ? second part of duodenum. The upper GI endoscopy was ? accomplished without difficulty. The patient tolerated ? the procedure well. Findings: ?The Z-line was variable and was found 40 cm from the ? incisors. ? Food was found in the distal esophagus. Removal was ? accomplished with a basket. Estimated blood loss was ? minimal. ? A mild Schatzki ring was found at the gastroesophageal ? junction. A TTS dilator was passed through the scope. ? Dilation with an 18-19-20 mm balloon dilator was ? performed to 20 mm. Estimated blood loss was minimal. ? Localized moderate mucosal changes characterized by ? congestion, erythema and friability (with contact ? bleeding) were found at the gastroesophageal junction. ? Biopsies were taken with a cold forceps for histology. ? Estimated blood loss was minimal. ? The exam of the esophagus was otherwise normal. ? The stomach was normal. ? The examined duodenum was normal. Procedure Code(s): ? --- Professional --- ? 41969, Esophagogastroduodenoscopy, flexible, ? transoral; with removal of foreign body(s) ? 37626, Esophagogastroduodenoscopy, flexible, ? transoral; with transendoscopic balloon dilation of ? esophagus (less than 30 mm diameter) Diagnosis Code(s): ? --- Professional --- ? T18.128A, Food in esophagus causing other injury, ? initial encounter ? K22.2, Esophageal obstruction ? R13.10, Dysphagia, unspecified ? T18.108A, Unspecified foreign body in esophagus ? causing other injury, initial encounter CPT copyright 202 [employer]. All rights reserved. The codes documented in this report are preliminary and upon salvage diver review may be revised to meet current compliance requirements. Antoni Funes MD 03/22/2024 2:00:29 PM This report has been signed electronically.Antoni Funes MD Number of Addenda: 0 Note Initiated On: 03/22/2024 1:30 PM Scope In: Scope Out: ? Endoscopy Department at [facility] - [address] [place] [address], ? [place] [address] Procedure Note Antoni Funes MD - 03/22/2024 [facility] Patient Name: Deangelo Wade Procedure Date: 03/22/2024 1:30 PM Date of : 1935 Age: 88 Room: ROOM 14 Gender: Male Note Status: Finalized Attending MD: Antoni Funes MD, Procedure Date No Time: 03/22/2024 Procedure: Upper GI endoscopy Indications: Dysphagia, Suspected ingestion of foreign body, Foreign body in the esophagus Providers: Antoni Funes MD Referring MD: Antoni Funes MD Medicines: Monitored Anesthesia Care Complications: No immediate complications. Estimated Blood Loss: Estimated blood loss was minimal. Procedure: Pre-Anesthesia Assessment: - ASA Grade Assessment: III - A patient with severe systemic disease. - After reviewing the risks and benefits, thepatient was deemed in satisfactory condition to undergo the procedure. After obtaining informed consent, the endoscope was passed under direct vision. Throughout theprocedure, the patient's blood pressure, pulse, and oxygen saturations were monitored continuously.TheEndoscope was introduced through the mouth, and advanced tothe second part of duodenum. The upper GI endoscopy was accomplished without difficulty. The patienttolerated the procedure well. Findings: The Z-line was variable and was found 40 cm fromthe incisors. Food was found in the distal esophagus. Removal was accomplished with a basket. Estimated blood losswas minimal. A mild Schatzki ring was found at thegastroesophageal junction. A TTS dilator was passed through thescope. Dilation with an 18-19-20 mm balloon dilator was performed to 20 mm. Estimated blood loss wasminimal. Localized moderate mucosal changes characterized by congestion, erythema and friability (with contact bleeding) were found at the gastroesophagealjunction. Biopsies were taken with a cold forceps forhistology. Estimated blood loss was minimal. The exam of the esophagus was otherwise normal. The stomach was normal. The examined duodenum was normal. Procedure Code(s): --- Professional --- 92143, Esophagogastroduodenoscopy, flexible, transoral; with removal of foreign body(s) 20443, Esophagogastroduodenoscopy, flexible, transoral; with transendoscopic balloon dilation of esophagus (less than 30 mm diameter) Diagnosis Code(s): --- Professional --- T18.128A, Food in esophagus causing other injury, initial encounter K22.2, Esophageal obstruction R13.10, Dysphagia, unspecified T18.108A, Unspecified foreign body in esophagus causing other injury, initial encounter CPT copyright 2020 [employer]. All rights reserved. The codes documented in this report are preliminary and upon salvage diver reviewmay be revised to meet current compliance requirements. Antoni Funes MD 03/22/2024 2:00:29 PM This report has been signed electronically.Antoni Funes MD Number of Addenda: 0 Note Initiated On: 03/22/2024 1:30 PM Scope In: Scope Out: Endoscopy Department at [facility] - [address] [place] [phone] IMPRESSION: - Z-line variable, 40 cm from the incisors. - Food in the distal esophagus. Removal wassuccessful. - Mild Schatzki ring. Dilated. - Congested, erythematous, friable (with contact bleeding) mucosa in the esophagus. Biopsied. - Normal stomach. - Normal examined duodenum. Recommendation: - Discharge patient to home. - Clear liquid diet today. - Advance diet as tolerated for 1 day. - Continue present medications. - Await pathology results. - Return to my office as previously scheduled. us Antoni Funes MD GI~PROCEDURE ORDERABLES Final Result * Tissue exam (03/22/2024 1:55 PM EST) Final Diagnosis Gastroesophageal junction, biopsy: Esophageal squamous mucosa with acute (neutrophilic inflammation) and reactive epithelial changes. Gastric cardiac type mucosa with chronic inflammation. A GMS stain is negative for fungal forms (appropriate control reviewed). 4 12:50 PM EST [facility] Gross Description A. Esophagus, g.e. junction biopsies: Labeled GE junction esophagus . Received in formalin are five irregular to friable owen-pink mucosal tissue fragments, each measuring approximately 0.2 cm in greatest dimension, which are wrapped in paper and submitted in toto in one cassette, five pieces, multiple levels on one slide. CAMILO 12:50 PM EST [facility] Disclaimer NOTE: The immunohistochemical tests and in situ hybridization tests were developed and their performance characteristics were determined by [facility]. They have not been cleared or approved by the U.S. Food and Drug Administration. The FDA has determined that such clearance or approval is not necessary. These tests are used for clinical purposes. They should not be regarded as investigational or for research. This laboratory is certified under the Clinical Laboratory Improvement Amendments of 1988 (CLIA) as qualified to perform high complexity clinical laboratory testing. (controls appropriate) Unless otherwise specified, all tissue is 10% NB formalin fixed and paraffin embedded. 12:50 PM EST [facility] Tissue Esophageal structure / Unknown 03/22/2024 1:55 PM EST 03/22/2024 2:23 PM EST us Antoni Funes MD LAB PATHOLOGY ORDERABLES [place] Result [facility] [address] [place] [address], from Last 3 Months Insurance [employer] MEDICARE Care Teams Multi Spindle Operator Relationship Specialty Start Date End Date Dolly Ruggiero MD [address] [place] [address] PCP - General 01/31/23
--- OUTSIDE RECORDS SUMMARY | 2024-05-30 11:26 | XMS_ITS ---
Author Name [facility] Organization Unknown Results Test Name/Text Value Interpretation Date Range Source LAB AP DIAGNOSIS COMMENT Received from [facility], [address], [place] [address], are one slide and one block labeled [id number] , which are retained for our files. Normal [facility] AP GROSS DESCRIPTION Received in formalin is an irregularly shaped fragment of skin measuring 0.7 x 0.6 x 0.2 cm. The specimen is serially sectioned and submitted entirely in one cassette. (Gross description performed by [facility].) Normal [facility] AP CLINICAL INFORMATION Basal cell carcinoma Normal [facility]
== END 2024-05-30 10:51 | disposition home or self-care (01) ==
PROVIDERS: PCP Hospitalist; Visit Provider Internal Medicine Nephrology
DX: N28.1 Cyst of kidney, acquired (principal); N18.31 Chronic kidney disease, stage 3a
CPT/HCPCS: 99214

== ENCOUNTER → 2024-05-30 09:57 | Outpatient (BNVA) | payer MEDICARE, SELFPAY | PROVIDERS: PCP Hospitalist; Visit Provider Internal Medicine Nephrology | DX: N18.31 Chronic kidney disease, stage 3a (principal); N28.1 Cyst of kidney, acquired | CPT/HCPCS: 99212 ==

== ENCOUNTER 2024-07-09 09:39 | Outpatient (AMB) | payer MEDICARE, SELFPAY ==
--- NOTE | 2024-07-09 09:39 | A.OFFVIS_ITS ---
Intake Visit Reasons: 6m/Pet-CT/labs Intake Note: Patient is present for 6M/PET CT,LABS Urology Medication:ENZALUTAMIDE Antibiotic Allergy:NONE Blood Thinner:NONE Senior Software Project Manager Required: No Allergies No Known Allergies [No Known Allergies*] Allergy (Verified 07/09/24 09:41) HPI Comments Details: Carlos Eduardo is a very pleasant male. He is a patient of Dr. Ruggiero. He is seen for the following urologic conditions - prostate cancer - nephrolithiasis - apical urethral stricture Does well with 12 Albanian catheter catheterizing once a week PSA remains stable as does PSMA scan Is alternating enzalutamide 1 month on in 1 month off 06/25 PSA 0.6, PSMA PET remains the same persistent prostate activity, enzalutamide 1 tab daily month on and month off 01/24 PSA 0.6, Current therapy Enzalutamide 1 tab daily 12/25 apical stricture with dilatation 10/24 Lasix renogram. Normal bilateral excretion. No evidence of obstruction. Normal split function. PET-CT - persistent prostate activity but no activity detected outside prostate 08/24 Creatinine 1.3 Restart Enzalutamide - 1 tab Cycle enzalutamide monthly Does have fatigue and tender breasts when on medication - reduced to 1 tab - 08/23 PSMA scan Shows recurrence of disease in left base prostate abutting seminal vesicle PSA 07/23 3.9, 10/22 3.6 Dut +, 01/22 4.5 Dut +, 05/26 6.9 Dut -, 08/23 6.4, 01/23 8.0, 06/24 0.2, 09/24 3.2, 10/24 PSA 0.6, 01/24 Bilateral hydronephrosis Presentation through emergency room with retention and elevated creatinine to 6.[address] - 07/25 here is mild right hydronephrosis and hydroureter to the level of a 2 mm distal right ureteric calculus. There is mild left hydronephrosis/left renal collecting system dilatation without ureteral calculus Prostate cancer: Initial treatment prostate cancer 2007 with brachytherapy, rising PSA with brachy boost June 201908/23 PSMA persistent activity suggestive of locally recurrent disease, no evidence of spread Found to have rising PSA through 2018 Has been treated at [facility] in [place] with prostate seed implant - Performed June [address] Luna Prostate cancer was diagnosed 2007. Diagnosis was reached by needle biopsy, for elevated PSA. The Myo grade is 3+3 = 6. TNM Classification of Malignant Tumours (TNM) T1c. The D'Barbara (NCCN) risk category is Low Risk (PSA< 10, Gl < 7, T1c). Initial therapy included Primary treatment, Brachytherapy 2007 , Additional treatment 02/17 5AR - stopped 01/18 Cysto with dilation of prostate apex to 16Fr 12/20 operative DVIU for prostatic apex stricture to 18 Albanian - additional treatment seeds to prostate with Dr. Luna June 2019 Recent labs included a PSA (prostate-specific antigen) 07/17 7.7, 03/18 9.9 08/17 per patient 9.1, 01/17 14.3 05/21 6.4, 10/18 5.0, 01/18 5.1 F 7.8 06/19 5.1 F 11, 09/19 6.0 F 10, 03/21 7.6 07/22 2.6, 12/22 3.1, 04/24 3.9, 07/23 3.9, 10/22 3.6 Recent imaging included 05/21 , a bone scan, with no evidence of metastasis 08/18 an ultrasound, bilateral renal cysts 08/19 , an MRI (magnetic resonance imaging) - bilateral renal cysts up to 4 cm, bilateral renal proteinaceous cysts. Associated conditions erectile dysfunction Yes Nephrolithiasis/Urolithiasis: Episode treated at [facility] 12/22 Calcium oxalate stone on right side 8 mm Urolithiasis was diagnosed 12/19 at [facility] with flank pain and dark urine. The patient previously had kidney stones whose composition w unknown. Laboratory investigations include no recent labs. 24 Hour urine evaluation none on file. Prior treatment(s) include observation. Prior imaging includes 12/[address] (computed tomography) scan of the abdomen/pelvis (stone protocol) - renal cyst, bilateral punctate stones, presumed stone passage on right side 01/18 , a renal ultrasound, small stones with bilateral cysts - 01/20 renal ultrasound no stones Current therapeutic plan will be to continue with imaging surveillance [facility] Medical History Diabetes SOB (shortness of breath) Bladder infection Renal stones Neuropathy Mild acid reflux Hyperlipidemia Gross hematuria Prostate stricture Rising PSA following treatment for malignant neoplasm of prostate Urinary urgency Rising PSA following treatment for malignant neoplasm of prostate Surgical History History of prostate surgery History of appendectomy H/O hernia repair Social History Household Members: Spouse Housing: House Do you presently have visiting nurse or other home services: No Patient Tobacco Use Status: Former Tobacco user Tobacco use type: Cigarette Years Smoked: 15 Advance Directives Date on File: 07/28/23 service: No Review of Systems Const Denies chills and Denies fever(s) Card Reports no additional complaints and Denies syncope Resp Denies cough GI Denies abdominal pain and Denies heartburn Reports as per HPI and Denies change in libido Neuro Denies syncope Psych Denies change in libido Endo Denies change in libido Physical Exam Const General: cooperative, healthy appearing, comfortable and no acute distress Orientation/consciousness: patient oriented x3 HEENT Face and sinus: Yes normal facial exam Mouth: moist mucous membranes Neck Neck: Yes normal visual inspection, Yes full ROM and Yes trachea midline Chest Chest palpation & inspection: normal inspection of the chest Resp Effort & Inspection: normal respiratory effort, able to speak in complete sentences and no respiratory distress GI Inspection: Yes normal to inspection Back/Spine/Pelvis Cervical Spine: normal cervical lordosis Thoracic/Lumbar Spine: thoracic and lumbar spine normal to inspection Skin General skin exam: no rashes or lesions noted Neuro General: patient oriented x3, gait normal, tone normal and moves all extremities Extrem General: Yes normal to inspection and Yes capillary refill normal Results AMB Urinalysis, Automated UA Leukoctes 0 Gregorio/uL Last Edit by BLAISE Ornelas on 07/09/24 09:53 UA Nitrite Negative Last Edit by BLAISE Ornelas on 07/09/24 09:53 UA Urobilinogen 0.2 mg/dL Last Edit by BLAISE Ornelas on 07/09/24 09:5 3 UA Protein 100 mg/dL Last Edit by BLAISE Ornelas on 07/09/24 09:53 UA pH 6.0 Last Edit by BLAISE Ornelas on 07/09/24 09:53 UA Blood 0 Ciaran/uL Last Edit by BLAISE Ornelas on 07/09/24 09:53 UA Specific Prather 1.030 Last Edit by BLAISE Ornelas on 07/09/24 09: 53 UA Ketone Negative Last Edit by BLAISE Orneals on 07/09/24 09:53 UA Bilirubin 0 mg/dL Last Edit by BLAISE Ornelas on 07/09/24 09:53 UA Glucose 0 mg/dL Last Edit by BLAISE Ornelas on 07/09/24 09:53 Results Reviewed Results Reviewed: Laboratory Last Values Urine pH (Auto) 6.0 07/09/24 09:52 Specific Prather (Auto) 1.030 07/09/24 09:52 Urine Protein (Auto) 100 mg/dL 07/09/24 09:52 Glucose (UA)(Auto) 0 mg/dL 07/09/24 09:52 Urine Ketones (Auto) Negative 07/09/24 09:52 Urine Blood (Auto) 0 Ciaran/uL 07/09/24 09:52 Urine Nitrite (Auto) Negative 07/09/24 09:52 Urine Bilirubin (Auto) 0 mg/dL 07/09/24 09:52 Urine Urobilinogen (Auto) 0.2 mg/dL 07/09/24 09:52 Leukocyte Esterase (Auto) 0 Gregorio/uL 07/09/24 09:52 Assessment & Plan Assessment & Plan (1) Biochemically recurrent castration-sensitive adenocarcinoma of prostate: Code(s): C61 - Malignant neoplasm of prostate; R97.21 - Rising PSA following treatment for malignant neoplasm of prostate; Z19.1 - Hormone sensitive malignancy status Category: Medical (2) Urethral stricture: Code(s): N35.919 - Unspecified urethral stricture, male, unspecified site Category: Medical Plan Six-month follow-up PSA office Orders: Orders AMB Urinalysis Automated Today Z13.9 - Encounter for screening, unspecified Prostate Specific Antigen 6 Months C61 - Malignant neoplasm of prostate Patient Instructions: This note is constructed using voice recognition software. While every effort has been made to ensure accuracy quality facilitator errors may have been included. Imaging studies, laboratory and physical exam results were discussed and reviewed in detail. No major barriers to patient understanding were identified. An opportunity to ask questions regarding the treatment plan was provided. All questions were answered. The patient expressed understanding and agreement with the above treatment plan. The patient is aware they should contact our office by phone for worsening of their current condition or the appearance of new urologic symptoms. Compliance is encouraged with any medications and followup testing that is ordered. It is a privilege to participate in the urologic care of your patient. If you have any questions or concerns regarding treatment for the above conditions, or other urologic issues, please do not hesitate to contact me. The office telephone contact is [phone]. Sincerely, Dr Henry Mora MD, [facility] - Urology Compassionate Specialist Care for the Genitourinary System Coding Level of Care Code Est Pt Level 3 (97919) Complex EM visit Add On G2211 Diagnoses Biochemically recurrent castration-sensitive adenocarcinoma of prostate C61; R97.21; Z19.1 Urethral stricture N35.919
--- OUTSIDE RECORDS SUMMARY | 2024-07-09 10:54 | XMS_ITS | Clinical Summary ---
Author Organization [facility] Address [address] [facility] [address] [place] [address] Phone Care Team Providers Care College Service Officer Name Role Phone Dolly Ruggiero MD Primary Care Provider [phone] Allergies Active Allergy Reactions Criticality Noted Date [...] Only [facility] [address] [facility] [address] [place] [address] Milton Jensen MD from Last 3 Months [...] of 2 - PCV) 10/07/1941 Influenza Vaccine (Season Ended) 2024 Hepatitis B Vaccine Aged Out No longe [...] EST) BUN 26 8 - 27 mg/dL [facility] 05/24/2024 9:23 AM EST 05/24/2024 Milton Jensen MD LAB BLOOD ORDERABLES Final Resul t Performing Organization Address [facility] Co de Phone Number [facility] [place] [address] [place] [address] * (ABNORMAL) Creatinine, serum (05/24/2024 9:23 AM EST) Creatinine 1.28(H) 0.76 - 1.27 mg/dL [facility] [place] eGFR CKD-EPI CR 2020 55(L) >59 mL/min/1.7 3 [facility] 05/24/2024 9:23 AM EST 05/24/2024 Milton Jensen MD LAB BLOOD ORDERABLES Final Resul t Performing Organization Address [facility] [place]/[facility] de Phone Number [facility] [place] [address] [place] [address] * (ABNORMAL) Calcium (05/24/2024 9:23 AM EST) Calcium 8.5(L) 8.6 - 10.2 mg/dL [facility] 05/24/2024 9:23 AM EST 05/24/2024 Milton Jensen MD LAB BLOOD ORDERABLES Final Resul t Performing Organization Address [facility] [place] de Phone Number [facility] [place] [address] [place] [address] * (ABNORMAL) Electrolyte panel (05/24/2024 9:23 AM EST) Sodium 142 134 - 144 mmol/L [facility] Potassium 4.8 3.5 - 5.2 mmol/L [facility] Chloride 109(H) 96 - 106 mmol/L [facility] Bicarbonate (CO2) 20 20 - 29 mmol/L [facility] 05/24/2024 9:23 AM EST 05/24/2024 us Milton Jensen MD LAB BLOOD ORDERABLES Final Resul t [facility] [address] [place] [address] from Last 3 Months Insurance [facility] MEDICARE Member Subscriber Plan / Payer (Ef fective 2022-Present) Name:Deangelo Wade Relation to Subscriber:Self Name:Deangelo Wade Payer ID:[id number] (NAIC) Type:Not on file Address: [place] [id number] [facility] MEDICARE Care Teams College Service Officer Relationship Specialty Start Date End Date Dolly Ruggiero MD [address] [place] [address] PCP - General Internal Medicine 07/27/22
--- OUTSIDE RECORDS SUMMARY | 2024-07-09 10:54 | XMS_ITS ---
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 Metabolic Panel [id number] 2024 Next Appt Details Provider Name:PIEDAD PADILLA , 08/05/2024 08:00:00 AM, [address] [facility] [address], [place], [address], Progress Notes * MIRELA PFEIFFERDOB: (88 yo M)Acc No.[id number]:06/14/2024 Patient:?MIRELA PFEIFFER :1935???Age:88 Y???Sex:Male Address: [place] [address] Subjective: * Chief Complaints: * ???Lab Order Req * Medical History:? * Surgical History:? * Hospitalization/Major Diagno stic Procedure:? * Medications:? Objective: * Vitals:? * Physical Examination:? 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 Plan: * Treatment: 2.?Ulcerative (chronic) rect osigmoiditis without complications?LAB: CBC, Platelet, No Differential-[id number] (Ordered for 06/16/2024) * Procedure Codes:? * true * Date:? Generated for Lizette castellanos/Duane/eTransmitting on:?07/09/2024 10:53 AM EDT
--- OUTSIDE RECORDS SUMMARY | 2024-07-09 10:54 | XMS_ITS ---
Author Organization [facility] Address [address] [address] Care Team Providers Care Church Worker Name Role Phone PIEDAD PADILLA Primary Care Provider REASON FOR VISIT Antibiotics Request Medications Medication SIG (Take, Route, Frequency, Duration) Notes Start Date End Date Status Doxycycline Hyclate 100 MG 1 tablet Oral ly 2 times a day for 10 days 04/26/2024 Active Encounters Encounter Location Date Provider Diagnosis [facility] [address] [address] 04/25/2024 PIEDAD PADILLA Plan Of Treatment Medication Medication Name Sig Start Date Stop Date Notes Doxycycline Hyclate 100 MG 1 tablet Oral ly 2 times a day for 10 days 04/26/2024 Next Appt Details Provider Name:PIEDAD PADILLA , 08/05/2024 08:00:00 AM, [address] [place] [address], [place], [address], Progress Notes * MIRELA PFEIFFERDOB: (88 yo M)Acc No.[id number]:04/25/2024 Patient:?MIRELA PFEIFFER AU :1935???Age:88 Y???Sex:Male Address: [place] [address] * Refills? Start Doxycycline Hyclate Tablet, 100 MG, Orally, 20 Tablet, 1 tablet, 2 times a day, 10 days * true * Date:? Generated for Talitai jasmin/Fagretag/eTransmitting on:?07/09/2024 10:53 AM EDT
--- OUTSIDE RECORDS SUMMARY | 2024-07-09 10:54 | XMS_ITS | Clinical Summary ---
Author Organization [facility] Address [address] [place] [address] Phone Care Team Providers Care Senior Technical Editor Name Role Phone Dolly Ruggiero MD Primary Care Provider [phone] Allergies Active Allergy Reactions Criticality Noted Date [...] restarting metoprolol. 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 angina pectoris 04/18/2023 Overview (04/17/2024): [...] Encounters Date Type Department Care Team Description 06/04/2024 1:25 PM EST - 06/04/2024 11:59 PM EST Hospital Encounter [facility] PET Scan [address] [place] [phone] Malignant neoplasm of prostate (CMS/HCC) Discharge Disposition: Home or Self Care 04/17/2024 9:10 AM EST Office Visit [facility] [address] [facility] [address] [place] [phone] Gonzales Stephen NP 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 (Primary Dx); Essential hypertension; Orthostatic hypotension; Hyperlipidemia, unspecified hyperlipidemia type; Systolic murmur from Last 3 Months Surgical History Surgery Date Site/Laterality Comments POST PROSTATE SEED IMPLANT CT 04/03/2007 - 04/02/2008 X2 REPAIR HIATAL HERNIA TRANSAB DOMINAL APPROACH 04/03/2017 - 04/02/2018 AT [facility] Medical History Medical History Date Comments Type 2 diabetes mellitus wit h unspecified complications DX:Type 2 diabetes mellitus with unspecified complications (HCC) Malignant neoplasm of prostate (CMS/HCC) DX:Malignant neoplasm of prostate (HCC) 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) DX: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 (HCC) Esophageal obstruction DX:Esopha geal obstruction Chronic kidney disease, stag e 3a (CMS/HCC) DX:Chronic kidney disease, s tage 3a (HCC) Ulcerative colitis DX:Ulcerative colitis (HCC) Prostate cancer (CMS/HCC) DX:Pro state [...] Description 10/08/2024 9:20 AM EDT Office Visit [facility] [address] [facility] [facility] [place] [address] Fransisco Smith MD [address] [place] [address],[address] [place] [address] Health Maintenance Due Date Last Done Comments Zoster Vaccines (1 of 2) 1954 Pneumococcal Vaccine: 50+ Years (2 of 2 - PPSV23) 03/16/2019 01/19/2019, 02/12/2016 Cholesterol Screening (Lipid Panel) 03/02/2022 Depression Screening 03/02/2022 Medicare Annual Wellness Visit 03/02/2022 Social Influencers of Health Screening 03/02/2022 Hypertension/CHF/CAD Annual BMP Blood Test 05/18/2023 Falls Risk Assessment 03/22/2025 03/22/2024 DTaP,Tdap,and Td Vaccines (2 - Td or Tdap) 02/04/2026 02/05/2016 RSV Immunization Adult Patients Completed 03/04/2023 COVID-19 Vaccine Completed 12/08/2023, , [...] age to complete this topic Meningococcal B Vaccine Aged Out No l onger eligible based on patient's age to complete this topic RSV Immunization Patients Under 20 months Aged Out No longer eligible based on patient's age to complete this topic Varicella Vaccines Aged Out No longer eligible based on patient's age to complete this topic Procedures Procedure Name Priority Date/Time Associated Diagnosis Comments PET CT SKULL TO MID THIGH SUBSEQUENT Routine 06/04/2024 3:11 PM EST Malignant neoplasm of prostate (CMS/HCC) ECG 12-LEAD Routine 04/17/2024 10:58 AM EST 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 -------- FINAL REPORT -------- Dictated By: Bre Vale Dictated Date: 06/06/2024 05:32 ET Assigned Physician: Bre Vale Reviewed and Electronically Signed By: Bre Vale Signed Date: 06/06/2024 07:20 ET Workstation ID: [id number] Transcribed By: Self Edit Transcribed Date: 06/06/2024 05:32 ET Narrative 06/06/2024 7:20 AM EST HISTORY: Prostate carcinoma, subsequent treatment PRIOR IMAGING STUDIES: Prior PSMA PET 09/24 RADIOPHARMACEUTICAL: 10.0 mCi F-18 piflufolastat IV INJECTION SITE: Right antecubital fossa INJECTION TIME TO SCAN TIME: 69 min PROCEDURE: Routine body PET-CT imaging performed from the head to the upper thighs and reconstructed in axial, coronal, sagittal planes at the computer workstation with fused data from both the PET imaging study and attenuation correction CT study. Please note, CT imaging utilized strictly for attenuation correction and anatomic localization: CT not designed to produce and cannot replace csexf-ch-gid-art true diagnostic CT examination with specific protocols. ??Standardized uptake values (SUV) normalized to patient body weight and indicate the highest active concentration (SUV max) in a given disease site. DLP: ??415 mGy-cm IMAGING FINDINGS: Expected pattern of physiological activity noted. HEAD AND NECK: No abnormal activity. THORAX: No abnormal activity. Bilateral gynecomastia demonstrating mild activity. ABDOMEN/PELVIS: Activity within the prostate gland SUV max 13.6 (previously 13.5). Nonenlarged retroperitoneal lymph nodes without significant activity SUV max 2.0. Low-attenuation lesions in the liver and both kidneys without significant metabolic activity. ??Diverticulosis. MUSCULOSKELETAL: No abnormal activity. Procedure Note Bre Vale MD - 06/06/2024 HISTORY: Prostate carcinoma, subsequent treatment PRIOR IMAGING STUDIES: Prior PSMA PET 09/24 RADIOPHARMACEUTICAL: 10.0 mCi F-18 piflufolastat IV INJECTION SITE: Right antecubital fossa INJECTION TIME TO SCAN TIME: 69 min PROCEDURE: Routine body PET-CT imaging performed from the head to the upper thighsand reconstructed in axial, coronal, sagittal planes at the computerworkstation with fused data from both the PET imaging study andattenuation correction CT study. Please note, CT imaging utilized strictlyfor attenuation correction and anatomic localization: CT not designed toproduce and cannot replace quvvv-zx-yqi-art true diagnostic CT examinationwith specific protocols. Standardized uptake values (SUV) normalized topatient body weight and indicate the highest active concentration (SUVmax) in a given disease site. DLP: 415 mGy-cm IMAGING FINDINGS: Expected pattern of physiological activity noted. HEAD AND NECK: No abnormal activity. THORAX: No abnormal activity. Bilateral gynecomastia demonstrating mild activity. ABDOMEN/PELVIS: Activity within the prostate gland SUV max 13.6(previously 13.5). Nonenlarged retroperitoneal lymph nodes without significant activity SUVmax 2.0. Low-attenuation lesions in the liver and both kidneys without significantmetabolic activity. Diverticulosis. MUSCULOSKELETAL: No abnormal activity. IMPRESSION: Persistent activity within the prostate gland; similar to most recentprior. -------- FINAL REPORT -------- Dictated By: Bre Vale Dictated Date: 06/06/2024 05:32 ET Assigned Physician: Bre Vale Reviewed and Electronically Signed By: Bre Vale Signed Date: 06/06/2024 07:20 ET Workstation ID: [id number] Transcribed By: Self Edit Transcribed Date: 06/06/2024 05:32 ET Henry Mora MD [facility] PROCEDURES Final Resul t * ECG 12 lead (04/17/2024 10:58 AM EST) Ventricular Rate ECG 72 BPM GEMUSE Atrial Rate 72 BPM GEMUSE P-R Interval 242 ms GEMUSE QRS Duration 92 ms GEMUSE Q-T Interval 394 ms GEMUSE QTc 431 ms GEMUSE P Wave [place] 32 degrees GEMUSE R [place] 24 degrees GEMUSE T [place] 36 degrees GEMUSE ECG Interpretation Sinus rhythm with sinus arrhythmia with 1st degree A-V block with occasional Premature ventricular complexes Otherwise normal ECG When compared with ECG of 09-DEC-2020 11:41, Premature ventricular complexes are now Present Confirmed by IGNACIO BRADLEY ([id number]) on 04/20/2024 11:46:54 AM GEMUSE 04/17/2024 9:15 AM EST 04/20/2024 11:46 AM EST us Gonzales Stephen FARMWORKER MACHINE ECG ORDERABLES Edited Resu lt - Final GEMUSE from Last 3 Months Insurance [employer] MEDICARE Care Teams Senior Technical Editor Relationship Specialty Start Date End Date Dolly Ruggiero MD [address] [place] [address] PCP - General 01/31/23
--- OUTSIDE RECORDS SUMMARY | 2024-07-09 10:54 | XMS_ITS ---
Author Organization [facility] Address [address] [place] [address] Care Team Providers Care Manager Merchandising Name Role Phone PIEDAD PAIDLLA Primary Care Provider [phone] REASON FOR VISIT Cold symptoms Medications Medication SIG (Take, Route, Frequency, Duration) Notes Start Date End Date Status Benzonatate 100 MG 1 capsule as needed Orally Three times a day for 7 days 04/15/2024 Active Flonase Sensimist 27.5 MCG/SPRAY 1 spray each nostril Nasally twice a day for 7 days 04/15/2024 Active Encounters Encounter Location Date Provider Diagnosis [facility] [address] [address] 04/15/2024 PIEDAD PADILLA Plan Of Treatment Medication Medication Name Sig Start Date Stop Date Notes Benzonatate 100 MG 1 capsule as needed Orally Three times a day for 7 days 04/15/2024 Flonase Sensimist 27.5 MCG/SPRAY 1 spray each nostril Nasally twice a day for 7 days 04/15/2024 Next Appt Details Provider Name:PIEDAD PADILLA , 08/05/2024 08:00:00 AM, [address] [address], [place], [address], Progress Notes * MIRELA PFEIFFER: (88 yo M)Acc No.[id number]:04/15/2024 Patient:?MIRELA PFEIFFER :1935???Age:88 Y???Sex:Male Address:[address] [place] [place] [address] * Refills? Start Benzonatate Capsule, 100 MG, Orally, 21 Capsule, 1 capsule as needed, Three times a day, 7 days Start Flonase Sensimist Suspension, 27.5 MCG/SPRAY, Nasally, 1, 1 spray each nostril, twice a day, 7 days, Refills=1 * true * Date:? Generated for Lizette castellanos/Duane/Stephanieitting on:?07/09/2024 10:53 AM EDT
--- OUTSIDE RECORDS SUMMARY | 2024-07-09 10:55 | XMS_ITS | Patient Health Record ---
Author Organization [facility] Address [address] [place] [address] Care Team Providers Care Human Resources Benefits Manager Name Role Phone PIEDAD PADILLA Primary Care Provider Marbin Carpenter Unavailable [phone] Allergies No Known Allergies Results Component Value Reference Range Notes Comp. Metabolic Panel ([id number] Reviewed date:11/16/2023 12:40:22 PM Interpretation: Performing Lab:[facility], [place] [facility], Phone - [phone], Director - [facility] Notes/Report: Glucose 105 70-99 mg/dL BUN 26 8-27 mg/dL Creatinine 1.48 0.76-1.27 mg/dL eGFR 46 >59 mL/min/1.73 BUN/Creatinine Ratio 18 10-24 Sodium 140 134-144 mmol/L Potassium 4.6 3.5-5.2 mmol/L Chloride 107 96-106 mmol/L Anion Gap 11.0 10.0-18.0 mmol/L Carbon Dioxide, Total 22 20-29 mmol/L Calcium 8.7 8.6-10.2 mg/dL Protein, Total 5.8 6.0-8.5 g/dL Albumin 3.9 3.7-4.7 g/dL Globulin, Total 1.9 1.5-4.5 g/dL Bilirubin, Total 0.5 0.0-1.2 mg/dL Alkaline Phosphatase 67 44-121 IU/L AST (SGOT) 21 0-40 IU/L ALT (SGPT) 11 0-44 IU/L LP+Non-HDL Cholesterol-[id number] 5 Reviewed date:11/16/2023 12:40:20 PM Interpretation: Performing Lab:[facility], [address], [place], Phone - [phone], Director - OKNhany Notes/Report: Cholesterol, Total 114 100-199 mg/dL Triglycerides 77 0-149 mg/dL HDL Cholesterol 58 >39 mg/dL VLDL Cholesterol Tariq 16 5-40 mg/dL LDL Chol Calc (NIH) 40 0-99 mg/dL Non-HDL Cholesterol 56 0-129 mg/dL Albumin/Creatinine Ratio,Uri ne-[id number] Reviewed date:11/16/2023 12:40:17 PM Interpretation: Performing Lab:[address], Phone - [phone], Director - MDJodry Notes/Report: Creatinine, Urine 138.2 Not Estab. mg/dL Albumin, Urine 193.7 Not Estab. ug/mL Alb/Creat Ratio 140 0-29 mg/g creat Normal: 0 - 29 Moderately increased: 30 - 300 Severely increased: >300 Hgb A1c with eAG Estimation- [id number] Reviewed date:11/16/2023 12:40:15 PM Interpretation: Performing Lab:[address], Phone - [phone], Director - OKNhany Notes/Report: Hemoglobin A1c 6.1 4.8-5.6 % . Prediabetes: 5.7 - 6.4 Diabetes: >6.4 Glycemic control for adults with diabetes: <7.0 Estim. Avg Glu (eAG) 128 Vitamin [id number] Reviewed date:08/30/2023 12:25:06 PM Interpretation: Performing Lab:[address], Phone - [phone], Director - Gulshan Notes/Report: Vitamin B12 447 190-0017 pg/mL Ferritin-[id number] Reviewed date:08/30/2023 12:24:25 PM Interpretation: Performing Lab:[address], Phone - [phone], Director - Riverdry Notes/Report: Ferritin 206 30-400 ng/mL Iron and TIBC-360703 Reviewed date:09/01/2023 01:56:47 PM Interpretation: Performing Lab:[address], Phone - [phone], Director - Gulshan Notes/Report: Iron Bind.Cap.(TIBC) 235 250-450 ug/dL UIBC 208 111-343 ug/dL Iron 27 38-169 ug/dL Iron Saturation 11 15-55 % CBC With Differential/Platel et-[id number] Reviewed date:08/30/2023 12:25:09 PM Interpretation: Performing Lab:[facility], [address] [facility], Phone - [phone], Director - Gulshan Notes/Report: WBC 5.5 3.4-10.8 x10E3/uL RBC 3.49 4.14-5.80 x10E6/uL Hemoglobin 10.1 13.0-17.7 g/dL Hematocrit 32.9 37.5-51.0 % MCV 94 79-97 fL MCH 28.9 26.6-33.0 pg MCHC 30.7 31.5-35.7 g/dL RDW 13.0 11.6-15.4 % Platelets 194 150-450 x10E3/uL Neutrophils 73 Not Estab. % Lymphs 13 Not Estab. % Monocytes 13 Not Estab. % Eos 1 Not Estab. % Basos 0 Not Estab. % Neutrophils (Absolute) 4.0 1.4-7.0 x10E3/uL Lymphs (Absolute) 0.7 0.7-3.1 x10E3/uL Monocytes(Absolute) 0.7 0.1-0.9 x10E3/uL Eos (Absolute) 0.0 0.0-0.4 x10E3/uL Baso (Absolute) 0.0 0.0-0.2 x10E3/uL Immature Granulocytes 0 Not Estab. % Immature Grans (Abs) 0.0 0.0-0.1 x10E3/uL Ferritin, (Serial)-[id number] Reviewed date:02/02/2024 05:41:05 PM Interpretation: Performing Lab:[facility], [address] [facility], [place], Phone - [phone], Director - Gulshan Notes/Report: Ferritin 111 30-400 ng/mL Basic Metabolic Panel (7)-30 [id number] Reviewed date:02/02/2024 05:40:52 PM Interpretation: Performing Lab:[facility], [address] [facility], [place], Phone - [phone], Director - Gulshan Notes/Report: Glucose 123 70-99 mg/dL BUN 20 8-27 mg/dL Creatinine 1.39 0.76-1.27 mg/dL eGFR 49 >59 mL/min/1.73 BUN/Creatinine Ratio 14 10-24 Sodium 141 134-144 mmol/L Potassium 4.4 3.5-5.2 mmol/L Chloride 105 96-106 mmol/L Carbon Dioxide, Total 20 20-29 mmol/L Lipid Panel-[id number] Reviewed date:02/02/2024 05:41:02 PM Interpretation: Performing Lab:[facility], [address] [place] [address], Phone - [phone], Director - MDJodry Notes/Report: Cholesterol, Total 118 100-199 mg/dL Triglycerides 68 0-149 mg/dL HDL Cholesterol 65 >39 mg/dL VLDL Cholesterol Tariq 14 5-40 mg/dL LDL Chol Calc ([facility]) 39 0-99 mg/dL Albumin/Creatinine Ratio,Uri ne-[id number] Reviewed date:02/02/2024 05:41:00 PM Interpretation: Performing Lab:[facility], [address] [place] [address], Phone - [phone], Director - MDJodry Notes/Report: Creatinine, Urine 104.6 Not Estab. mg/dL Albumin, Urine 81.7 Not Estab. ug/mL Alb/Creat Ratio 78 0-29 mg/g creat Normal: 0 - 29 Moderately increased: 30 - 300 Severely increased: >300 CBC With Differential/Platel et-[id number] Reviewed date:02/02/2024 05:40:55 PM Interpretation: Performing Lab:[facility], [address] [place] [address], Phone - [phone], Director - MDJodry Notes/Report: WBC 3.6 3.4-10.8 x10E3/uL RBC 3.96 4.14-5.80 x10E6/uL Hemoglobin 11.8 13.0-17.7 g/dL Hematocrit 36.7 37.5-51.0 % MCV 93 79-97 fL MCH 29.8 26.6-33.0 pg MCHC 32.2 31.5-35.7 g/dL RDW 12.8 11.6-15.4 % Platelets 156 150-450 x10E3/uL Neutrophils 66 Not Estab. % Lymphs 23 Not Estab. % Monocytes 9 Not Estab. % Eos 2 Not Estab. % Basos 0 Not Estab. % Neutrophils (Absolute) 2.4 1.4-7.0 x10E3/uL Lymphs (Absolute) 0.8 0.7-3.1 x10E3/uL Monocytes(Absolute) 0.3 0.1-0.9 x10E3/uL Eos (Absolute) 0.1 0.0-0.4 x10E3/uL Baso (Absolute) 0.0 0.0-0.2 x10E3/uL Immature Granulocytes 0 Not Estab. % Immature Grans (Abs) 0.0 0.0-0.1 x10E3/uL Hemoglobin [id number] Reviewed date:02/02/2024 05:41:07 PM Interpretation: Performing Lab:[facility] [address] [place] [address], Phone - [phone], Director - MDAnnabelladry Notes/Report: Hemoglobin A1c 6.5 4.8-5.6 % . Prediabetes: 5.7 - 6.4 Diabetes: >6.4 Glycemic control for adults with diabetes: <7.0 Iron and TIBC-[id number] Reviewed date:02/02/2024 05:40:57 PM Interpretation: Performing Lab:[facility] [address] [place] [address], Phone - [phone], Director - MDNhany Notes/Report: Iron Bind.Cap.(TIBC) 312 250-450 ug/dL UIBC 250 111-343 ug/dL Iron 62 38-169 ug/dL Iron Saturation 20 15-55 % Iron and TIBC-[id number] Reviewed date:11/16/2023 07:56:01 AM Interpretation: Performing Lab:[facility] [address] [place] [address], Phone - [phone], Director - MDJodry Notes/Report: Iron Bind.Cap.(TIBC) 301 250-450 ug/dL UIBC 250 111-343 ug/dL Iron 51 38-169 ug/dL Iron Saturation 17 15-55 % PET CT SKULL TO MID THIGH OSORIO BSEQUENT Reviewed date:06/06/2024 07:44:27 AM Interpretation: Performing Lab: Notes/Report: Note See Note [facility], a member of [employer] Patient Name: DEANGELO PFEIFFER Date of : 1935 Reason for Exam: PROSTATE CANCER Exam Date: 06/04/2024 [id number] EST Report Status: Final Ordering Provider: HENRY COOLEY PCP: PIEDAD PADILLA HISTORY: Prostate carcinoma, subsequent treatment PRIOR IMAGING STUDIE S: Prior PSMA PET 09/24 RADIOPHARMACEUTICAL: 10.0 mCi F-18 piflufolastat IV INJECTION SITE: Righ t antecubital fossa INJECTION TIME TO SC AN TIME: 69 min PROCEDURE: Routine body PET-CT imaging performed from the head to the upper thighs and reconstructed in axial, coronal, sagittal planes at the computer workstation with fused data from both the PET imaging study and attenuation correction CT study. Please note, CT imaging utilized strictly for attenuation correction and anatomic localization: CT not designed to produce and cannot replace rlkir-gl-zyn-art true diagnostic CT examination with specific protocols. Standardized uptake values (SUV) normalized to patient body weight and indicate the highest active concentration (SUV max) in a given disease site. DLP: 415 mGy-cm IMAGING FINDINGS: Expected pattern of physiological activity noted. HEAD AND NECK: No abnormal activity. THORAX: No abnormal activity. Bilateral gynecomast ia demonstrating mild activity. ABDOMEN/PELVIS: Acti vity within the prostate gland SUV max 13.6 (previously 13.5). Nonenlarged retroperitoneal lymph nodes without significant activity SUV max 2.0. Low-attenuation lesi ons in the liver and both kidneys without significant metabolic activity. Diverticulosis. MUSCULOSKELETAL: No abnormal activity. IMPRESSION: Persistent activity within the prostate gland; similar to most recent prior. -------- FINAL REPOR T -------- Dictated By: Bre Vale Dictated Date: 06/06 05:32 ET Assigned Physician: Bre Vale Reviewed and Electronically Signed By: Bre Vale Signed Date: 025 07:20 ET Workstation ID: [id number] Transcribed By: Self Edit Transcribed Date: 06/06/2024 05:32 ET Comp. Metabolic Panel (14)-[id number] Reviewed date:07/14/2023 12:39:21 PM Interpretation: Performing Lab:[facility], [address], [place], Phone - [phone], Director - Gulshan Notes/Report: Glucose 101 70-99 mg/dL BUN 21 8-27 mg/dL Creatinine 1.24 0.76-1.27 mg/dL eGFR 57 >59 mL/min/1.73 BUN/Creatinine Ratio 17 10-24 Sodium 141 134-144 mmol/L Potassium 4.6 3.5-5.2 mmol/L Chloride 106 96-106 mmol/L Anion Gap 13.0 10.0-18.0 mmol/L Carbon Dioxide, Total 22 20-29 mmol/L Calcium 9.1 8.6-10.2 mg/dL Protein, Total 5.7 6.0-8.5 g/dL Albumin 3.8 3.7-4.7 g/dL Globulin, Total 1.9 1.5-4.5 g/dL A/G Ratio 2.0 1.2-2.2 Bilirubin, Total 0.4 0.0-1.2 mg/dL Alkaline Phosphatase 71 44-121 IU/L AST (SGOT) 25 0-40 IU/L ALT (SGPT) 13 0-44 IU/L LP+Non-HDL Cholesterol-[id number] 5 Reviewed date:07/14/2023 12:39:45 PM Interpretation: Performing Lab:[facility], [place] [facility], Phone - [phone], Director - MDJoy Notes/Report: Cholesterol, Total 114 100-199 mg/dL Triglycerides 68 0-149 mg/dL HDL Cholesterol 60 >39 mg/dL VLDL Cholesterol Tariq 14 5-40 mg/dL LDL Chol Calc (NIH) 40 0-99 mg/dL Non-HDL Cholesterol 54 0-129 mg/dL Albumin/Creatinine Ratio,Uri ne-[id number] Reviewed date:07/14/2023 12:39:40 PM Interpretation: Performing Lab:[facility], [place] [facility], Phone - [phone], Director - MDJodry Notes/Report: Creatinine, Urine 135.6 Not Estab. mg/dL Albumin, Urine 110.6 Not Estab. ug/mL Alb/Creat Ratio 82 0-29 mg/g creat Normal: 0 - 29 Moderately increased: 30 - 300 Severely increased: >300 Hgb A1c with eAG Estimation- [id number] Reviewed date:07/14/2023 02:12:09 PM Interpretation: Performing Lab:[facility], [place] [facility], Phone - [phone], Director - Gulshan Notes/Report: Hemoglobin A1c 6.3 4.8-5.6 % . Prediabetes: 5.7 - 6.4 Diabetes: >6.4 Glycemic control for adults with diabetes: <7.0 Estim. Avg Glu (eAG) 134 Reason For Referral No Information Medications Medication SIG (Take, Route, Frequency, Duration) Notes Start Date End Date Status Vitamin D3 Active Vitamin B Complex - as directed Orally Active PreserVision AREDS - as directed Orally Active Iron 325 (65 Fe) MG 1 tablet Orally Thre e times a Week Active Molnupiravir 200 MG 4 capsules Orally ev jesse 12 hrs for 5 days 05/08/2023 Not-Taking Rosuvastatin Calcium 40 MG TAKE 1 TABLET ONCE DAILY for 90 Active Multi For Him Not-Ta shira Benzonatate 100 MG 1 capsule as needed Orally Three times a day for 7 days 04/15/2024 Active Mesalamine Active Dutasteride 0.5 MG 1 capsule Orally Onc e a day Not-Taking Melatonin Active Flonase Sensimist 27.5 MCG/SPRAY 1 spray each nostril Nasally twice a day for 7 days 04/15/2024 Active ZyrTEC Allergy 10 MG 1 tablet Orally Onc e a day Not-Taking Xtandi 80 MG 1 tablet Orally 1 ti me a day every other month Active Doxycycline Hyclate 100 MG 1 tablet Orally 2 times a day for 10 days 04/26/2024 Active Pioglitazone HCl 45 MG TAKE 1 TABLET DESTINEE LY for 90 Active Immunizations Vaccine Route Administration Date Status Comme nts COVID 19 Pfizer Unknown 01/21/2021 Administered COVID Pfizer Unknown 08/23/2021 Administered COVID-19 Pfizer Unknown 12/14/2021 Administered Flu Unknown 01/08/2022 Administered Pneumococcal conjugate PCV 13 Unknown 02/12/2016 Admini stered Pneumococcal conjugate PCV 13 Unknown 01/19/2019 Admini stered Social History Tobacco Use: Social History Observation Description Date Details (start date - stop date) Former Smoker NA - NA Tobacco Use/Smoking Question Answer Notes Are you a former smoker How long has it been since you last smoked? > 10 years Alcohol Screen (Audit-C) Question Answer Notes Did you have a drink contain ing alcohol in the past year? Yes How often did you have a dri nk containing alcohol in the past year? Monthly or less (1 point) How many drinks did you have on a typical day when you were drinking in the past year? 1 or 2 drinks (0 point) Points 1 Interpretation Negative Problems Problem Type SNOMED Code ICD Code Onset Dates Problem Status W/U Status Risk Notes Problem Anemia (194745741) Anemia, unspecified (D64.9) Active confirmed Problem Disorder due to type 2 diabetes mellitus (948865865) Type 2 diabetes mellitus with unspecified complications (E11.8) Active confirmed Problem Mixed hyperlipidemia (797887204) Mixed hyperlipidemia (E78.2) Active confirmed Problem Angina pectoris (828515084) Angina pectoris, unspecified (I20.9) Active confirmed Problem Stricture of esophagus (06989630) Esophageal obstruction (K22.2) Active confirmed Problem 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) Active confirmed Problem History of malignant neoplasm of prostate (508266924) Personal history of malignant neoplasm of prostate (Z85.46) Active confirmed Problem Lower urinary tract symptoms due to benign prostatic hypertrophy (53478892772304) Benign prostatic hyperplasia with lower urinary tract symptoms (N40.1) Active confirmed Problem Chronic kidney disease stage 3 (disorder) (672669298) Chronic kidney disease, stage 3 unspecified (N18.30) Active confirmed Problem 89791837 Essential hypertension (I10) Active confirmed Vital Signs Heart Rate 69 /min 02/05/2024 Temperature 97.5 degrees Fahrenheit 02/05/2024 Blood pressure diastolic 60 mm Hg 02/05/2024 Oximetry 96 % 02/05/2024 Height 5'5 in 02/05/2024 Blood pressure systolic 126 mm Hg 02/05/2024 Weight 152.4 lbs 02/05/2024 BMI 25.36 kg/m2 02/05/2024 Encounters Encounter Location Date Provider Diagnosis [address] [address] 08/02/2023 HERBERT GUL Type 2 diabetes kaleigh itus with unspecified complications E11.8 ; Encounter for general adult medical examination without abnormal findings Z00.00 ; Mixed hyperlipidemia E78.2 and Chronic kidney disease, stage 3 unspecified N18.[address] [address] 08/29/2023 HERBERT GUL Dizziness and giddin ess R42 and Anemia, unspecified D64.9 [facility] [address] [place] [address] 02/05/2024 [place] Mixed hyperlipidemia E78.2 ; Anemia, unspecified D64.9 and Type 2 diabetes mellitus with unspecified complications E11.8 [facility] [address] [place] [address] 07/12/2023 [facility] [address] [place] [address] 07/14/2023 HERBERT L Impaired fasting glu cose R73.01 [facility] [address] [place] [address] 08/29/2023 [facility] [address] [place] [address] 09/01/2023 HERBERT GUL Anemia, unspecified D64.9 [facility] [address] [place] [address] 11/14/2023 [facility] [address] [place] [address] [address] [place] [address] 11/14/2023 HERBERT GUL Mixed hyperlipidemia E78.2 and Anemia, unspecified D64.9 [facility] [address] [place] [address] [address] [place] [address] 11/17/2023 [facility] [address] [place] [address] 11/21/2023 [facility] [address] [place] [address] [address] [place] [address] 04/15/2024 [facility] [address] [place] [address] [address] [place] [address] 04/25/2024 [facility] [address] [place] [address] [address] [place] [address] 06/14/2024 HERBERT GUL Type 2 diabetes kaleigh itus with unspecified complications E11.8 and Ulcerative (chronic) rectosigmoiditis without complications K51.[address] [place] [address] 08/30/[address] [place] [address] 11/16/[address] [place] [address] 11/16/[address] [place] [address] 11/16/[address] [place] [address] 11/16/2023 HERBERTDELFINO LINDQUIST Assessments Encounter Date Diagnosis (ICD Code) Assessment Notes Treatment Notes Treatment Clinical Notes Section Notes 07/14/2023 Impaired fasting glucose (ICD-10 - R73.01) 08/02/2023 Type 2 diabetes mellitus with unspecified complications (ICD-10 - E11.8) Mr. Pfeiffer is an 87 year old gentleman with type II diabetes mellitus, mixed hyperlipidemia, esophageal obstruction, chronic kidney disease stage 3a, ulcerative colitis and prostate cancer here for annual wellness visit. He has prostate cancer and is s/p brachytherapy in and he currently sees Dr. Luna at [facility] and Dr. Corrales locally. Plan is as follows: Type II diabetes mellitus. A1c 6.3. He is on right medications. He sees his certified legal secretary specialist. Foot care discussed. check A1c. Hyperlipidemia. Last lipid panel within normal limits. Continue Rosuvastatin 40 MG. Chronic kidney disease stage 3. He does not appear to be in volume overload. Advised appropriate hydration. Avoid NSAIDs. Prostate cancer. s/p brachytherapy in and he currently sees Dr. Luna at [facility] and Dr. Corrales locally. He is s/p cystoscopy, bilateral retrograde and bilateral stent placement at [place] last 07/28/2023 where he presented with anuria. Eye screening. He sees his certified legal secretary specialist regularly. Dental screening. He sees dentist regularly. Osteoporosis screening. He is up to date on BMD. Colon cancer screening. He is up to date on colonoscopy. Immunizations. He is up-to-date on his COVID, pneumonia and influenza vaccinations. Healthcare proxy. His is healthcare proxy and he is full code Blood work reviewed with patient and questions answered. General health concerns discussed with patient. Scribe services used to formulate this note under HIPAA compliance and under [place] law mandated for scribe services. Patient aware of service. Verbal consent and written consent taken from the patient. Patient understands and verbalizes understanding of the scribes services and all questions answered regarding scribes services. Patient agrees to use of scribes services. 08/02/2023 Encounter for general adult medical examination without abnormal findings (ICD-10 - Z00.00) Mr. Pfeiffer is an 87 year old gentleman with type II diabetes mellitus, mixed hyperlipidemia, esophageal obstruction, chronic kidney disease stage 3a, ulcerative colitis and prostate cancer here for annual wellness visit. He has prostate cancer and is s/p brachytherapy in and he currently sees Dr. Luna at [facility] and Dr. Corrales locally. Plan is as follows: Type II diabetes mellitus. A1c 6.3. He is on right medications. He sees his certified legal secretary specialist. Foot care discussed. check A1c. Hyperlipidemia. Last lipid panel within normal limits. Continue Rosuvastatin 40 MG. Chronic kidney disease stage 3. He does not appear to be in volume overload. Advised appropriate hydration. Avoid NSAIDs. Prostate cancer. s/p brachytherapy in and he currently sees Dr. Luna at [facility] and Dr. Corrales locally. He is s/p cystoscopy, bilateral retrograde and bilateral stent placement at [place] last 07/28/2023 where he presented with anuria. Eye screening. He sees his certified legal secretary specialist regularly. Dental screening. He sees dentist regularly. Osteoporosis screening. He is up to date on BMD. Colon cancer screening. He is up to date on colonoscopy. Immunizations. He is up-to-date on his COVID, pneumonia and influenza vaccinations. Healthcare proxy. His is healthcare proxy and he is full code Blood work reviewed with patient and questions answered. General health concerns discussed with patient. Scribe services used to formulate this note under HIPAA compliance and under [place] law mandated for scribe services. Patient aware of service. Verbal consent and written consent taken from the patient. Patient understands and verbalizes understanding of the scribes services and all questions answered regarding scribes services. Patient agrees to use of scribes services. 08/29/2023 Dizziness and giddiness (ICD-10 - R42) Deangelo is 87 years old gentleman with DM type II, hyperlipidemia, esophageal obstruction, CKD stage III, ulcerative colitis and history of prostate cancer is here for dizzy spells which last for less than a minute. He also has history of anemia. Plan is as follows Dizzy spells. His blood pressure in the office is running low. Decrease metoprolol succinate 25 mg and take half a tablet daily and monitor blood pressure at home. Appropriate replacement of water and electrolytes encouraged. Anemia. His last hemoglobin was 10.5 and hematocrit was 31.1. Check CBC, iron studies and ferritin levels. 09/01/2023 Anemia, unspecified (ICD-10 - D64.9) 11/14/2023 Mixed hyperlipidemia (ICD-10 - E78.2) 02/05/2024 Mixed hyperlipidemia (ICD-10 - E78.2) 87 year old gentleman with type II diabetes mellitus, mixed hyperlipidemia, esophageal obstruction, chronic kidney disease stage 3a, ulcerative colitis and prostate cancer is here today for his blood pressure check. Blood pressure is within normal range today back in August he was hypotensive and felt dizzy found to have iron deficiency anemia which has also resolved Patient denies any dizziness or weakness he is exercising daily. Hyperlipidemia lipid profile is within normal limits he is on lovastatin which he will continue . He has prostate cancer and is s/p brachytherapy in and he currently sees Dr. Luna at [facility] and Dr. Corrales locally. Type II diabetes mellitus. A1c 6.5 Slightly increase from his previous A1c patient reported eating more sweet but he is aware and will follow a more strict diet. Lipid profile and HbA1c done in January 2024 were both discussed with patient. No change to his diabetic medication therapy. . He is on right medications. He sees his certified legal secretary specialist. Foot care discussed. Chronic kidney disease stage 3. He does not appear to be in volume overload. creatinine runs from 1.4-1.6 Prostate cancer. s/p brachytherapy in and he currently sees Dr. Luna at [facility] and Dr. Corrales locally. He is s/p cystoscopy, bilateral retrograde and bilateral stent placement at [place] last 07/28/2023 iron deficiency anemia continue with iron supplements, lab work showed normalization of iron levels. All questions were answered 06/14/2024 Type 2 diabetes mellitus with unspecified complications (ICD-10 - E11.8) 06/14/2024 Ulcerative (chronic) rectosigmoiditis without complications (ICD-10 - K51.30) 02/05/2024 Anemia, unspecified (ICD-10 - D64.9) 87 year old gentleman with type II diabetes mellitus, mixed hyperlipidemia, esophageal obstruction, chronic kidney disease stage 3a, ulcerative colitis and prostate cancer is here today for his blood pressure check. Blood pressure is within normal range today back in August he was hypotensive and felt dizzy found to have iron deficiency anemia which has also resolved Patient denies any dizziness or weakness he is exercising daily. Hyperlipidemia lipid profile is within normal limits he is on lovastatin which he will continue . He has prostate cancer and is s/p brachytherapy in and he currently sees Dr. Luna at [facility] and Dr. Corrales locally. Type II diabetes mellitus. A1c 6.5 Slightly increase from his previous A1c patient reported eating more sweet but he is aware and will follow a more strict diet. Lipid profile and HbA1c done in January 2024 were both discussed with patient. No change to his diabetic medication therapy. . He is on right medications. He sees his certified legal secretary specialist. Foot care discussed. Chronic kidney disease stage 3. He does not appear to be in volume overload. creatinine runs from 1.4-1.6 Prostate cancer. s/p brachytherapy in and he currently sees Dr. Luna at [facility] and Dr. Corrales locally. He is s/p cystoscopy, bilateral retrograde and bilateral stent placement at [place] last 07/28/2023 iron deficiency anemia continue with iron supplements, lab work showed normalization of iron levels. All questions were answered 11/14/2023 Anemia, unspecified (ICD-10 - D64.9) 08/29/2023 Anemia, unspecified (ICD-10 - D64.9) Deangelo is 87 years old gentleman with DM type II, hyperlipidemia, esophageal obstruction, CKD stage III, ulcerative colitis and history of prostate cancer is here for dizzy spells which last for less than a minute. He also has history of anemia. Plan is as follows Dizzy spells. His blood pressure in the office is running low. Decrease metoprolol succinate 25 mg and take half a tablet daily and monitor blood pressure at home. Appropriate replacement of water and electrolytes encouraged. Anemia. His last hemoglobin was 10.5 and hematocrit was 31.1. Check CBC, iron studies and ferritin levels. 08/02/2023 Mixed hyperlipidemia (ICD-10 - E78.2) Mr. Pfeiffer is an 87 year old gentleman with type II diabetes mellitus, mixed hyperlipidemia, esophageal obstruction, chronic kidney disease stage 3a, ulcerative colitis and prostate cancer here for annual wellness visit. He has prostate cancer and is s/p brachytherapy in and he currently sees Dr. Luna at [facility] and Dr. Corrales locally. Plan is as follows: Type II diabetes mellitus. A1c 6.3. He is on right medications. He sees his certified legal secretary specialist. Foot care discussed. check A1c. Hyperlipidemia. Last lipid panel within normal limits. Continue Rosuvastatin 40 MG. Chronic kidney disease stage 3. He does not appear to be in volume overload. Advised appropriate hydration. Avoid NSAIDs. Prostate cancer. s/p brachytherapy in and he currently sees Dr. Luna at [facility] and Dr. Corrales locally. He is s/p cystoscopy, bilateral retrograde and bilateral stent placement at [place] last 07/28/2023 where he presented with anuria. Eye screening. He sees his certified legal secretary specialist regularly. Dental screening. He sees dentist regularly. Osteoporosis screening. He is up to date on BMD. Colon cancer screening. He is up to date on colonoscopy. Immunizations. He is up-to-date on his COVID, pneumonia and influenza vaccinations. Healthcare proxy. His is healthcare proxy and he is full code Blood work reviewed with patient and questions answered. General health concerns discussed with patient. Scribe services used to formulate this note under HIPAA compliance and under [place] law mandated for scribe services. Patient aware of service. Verbal consent and written consent taken from the patient. Patient understands and verbalizes understanding of the scribes services and all questions answered regarding scribes services. Patient agrees to use of scribes services. 08/02/2023 Chronic kidney disease, stage 3 unspecified (ICD-10 - N18.30) Mr. Pfeiffer is an 87 year old gentleman with type II diabetes mellitus, mixed hyperlipidemia, esophageal obstruction, chronic kidney disease stage 3a, ulcerative colitis and prostate cancer here for annual wellness visit. He has prostate cancer and is s/p brachytherapy in and he currently sees Dr. Luna at [facility] and Dr. Corrales locally. Plan is as follows: Type II diabetes mellitus. A1c 6.3. He is on right medications. He sees his certified legal secretary specialist. Foot care discussed. check A1c. Hyperlipidemia. Last lipid panel within normal limits. Continue Rosuvastatin 40 MG. Chronic kidney disease stage 3. He does not appear to be in volume overload. Advised appropriate hydration. Avoid NSAIDs. Prostate cancer. s/p brachytherapy in and he currently sees Dr. Luna at [facility] and Dr. Corrales locally. He is s/p cystoscopy, bilateral retrograde and bilateral stent placement at [place] last 07/28/2023 where he presented with anuria. Eye screening. He sees his certified legal secretary specialist regularly. Dental screening. He sees dentist regularly. Osteoporosis screening. He is up to date on BMD. Colon cancer screening. He is up to date on colonoscopy. Immunizations. He is up-to-date on his COVID, pneumonia and influenza vaccinations. Healthcare proxy. His is healthcare proxy and he is full code Blood work reviewed with patient and questions answered. General health concerns discussed with patient. Scribe services used to formulate this note under HIPAA compliance and under [place] law mandated for scribe services. Patient aware of service. Verbal consent and written consent taken from the patient. Patient understands and verbalizes understanding of the scribes services and all questions answered regarding scribes services. Patient agrees to use of scribes services. 02/05/2024 Type 2 diabetes mellitus with unspecified complications (ICD-10 - E11.8) 87 year old gentleman with type II diabetes mellitus, mixed hyperlipidemia, esophageal obstruction, chronic kidney disease stage 3a, ulcerative colitis and prostate cancer is here today for his blood pressure check. Blood pressure is within normal range today back in August he was hypotensive and felt dizzy found to have iron deficiency anemia which has also resolved Patient denies any dizziness or weakness he is exercising daily. Hyperlipidemia lipid profile is within normal limits he is on lovastatin which he will continue . He has prostate cancer and is s/p brachytherapy in and he currently sees Dr. Luna at [facility] and Dr. Corrales locally. Type II diabetes mellitus. A1c 6.5 Slightly increase from his previous A1c patient reported eating more sweet but he is aware and will follow a more strict diet. Lipid profile and HbA1c done in January 2024 were both discussed with patient. No change to his diabetic medication therapy. . He is on right medications. He sees his certified legal secretary specialist. Foot care discussed. Chronic kidney disease stage 3. He does not appear to be in volume overload. creatinine runs from 1.4-1.6 Prostate cancer. s/p brachytherapy in and he currently sees Dr. Luna at [facility] and Dr. Corrales locally. He is s/p cystoscopy, bilateral retrograde and bilateral stent placement at [place] last 07/28/2023 iron deficiency anemia continue with iron supplements, lab work showed normalization of iron levels. All questions were answered Plan Of Treatment Pending Test Test Name Order Date BASIC METABOLIC PANEL 07/26/2022 COMPREHENSIVE METABOLIC PANEL 03/23/2022 HEMOGLOBIN A1C 03/23/2022 LIPID PANEL 03/23/2022 MICROALBUMIN, URINE 03/23/2022 Hemoglobin A1c 07/14/2023 Future Test Test Name Order Date Hemoglobin [id number] 06/16/2024 CBC, Platelet, No [id number] Albumin/Creatinine Ratio,[id number] Lipid Panel-[id number] 06/16/2024 Comp. Metabolic Panel [id number] 2024 Next Appt Details Provider Name:PIEDAD APDILLA , 08/05/2024 08:00:00 AM, [address] [place] [address], [id number], Insurance Providers Payer Name Payer Address Payer Phone Subscriber Number Group Number Insured Name Patient Relationship to Insured Coverage Start Date Coverage End Date [employer] [address] [address] [place] [address] [phone] [id number] DEANGELO PECK Self - patient is the insured Medical (General) History Medical History History ICD Code Chronic kidney disease stage 3a Type II diabetes mellitus Prostate cancer, s/p brachyt herapy , sees Dr. Cheryl Nava and Dr. Corrales locally Mixed hyperlipidemia Esophageal obstruction Hearing loss on hearing aids Ulcerative colitis f/u with Dr Da Silva angioplasty in 2018 kidney stones and he sees Dr. Henry Corrales hearing loss. He uses hearing aids Surgical History Surgery Date(Month/Year) Armand fundoplication
== END 2024-07-09 10:24 | disposition home or self-care (01) ==
LOC: HO.HUSH 09:39
PROVIDERS: PCP Hospitalist; Visit Provider Urology
DX: C61 Malignant neoplasm of prostate (principal); R97.21 Rising PSA following treatment for malignant neoplasm of prostate; Z19.1 Hormone sensitive malignancy status; N35.919 Unspecified urethral stricture, male, unspecified site; Z13.9 Encounter for screening, unspecified
CPT/HCPCS: 99213; G2211

== ENCOUNTER → 2024-07-09 09:39 | Outpatient (BNVA) | payer MEDICARE, SELFPAY | PROVIDERS: PCP Hospitalist; Visit Provider Urology | DX: R97.21 Rising PSA following treatment for malignant neoplasm of prostate (principal); C61 Malignant neoplasm of prostate; N35.919 Unspecified urethral stricture, male, unspecified site; Z19.1 Hormone sensitive malignancy status | CPT/HCPCS: 81003; 99212 ==

== ENCOUNTER 2024-11-28 09:41 | Outpatient (AMB) | payer MEDICARE, SELFPAY ==
--- OUTSIDE RECORDS SUMMARY | 2024-08-05 04:00 | XMS_ITS ---
Author Organization [facility] Address [address] [place] [id number] Care Team Providers Care Bar Catcher Name Role Phone PIEDAD PADILLA Primary Care Provider REASON FOR VISIT Medicare Wellness Encounters Encounter Location Date Provider Diagnosis [facility] [address] [address] 08/05/2024 PIEDAD PADILLA Plan Of Treatment Next Appt Details Provider Name:PIEDAD PADILLA , 05/21/2025 09:00:00 AM, [address] [place] [address], [place], [phone], Progress Notes * Deangelo PFEIFFER PDOB:[birth year] (89 yo M)Acc No.[id number]:08/05/2024 Progress Note Patient: Baljit Deangelo FRYE Provider: Madi PADILLA MD :1935 A ge:88 Y S ex:Male Date:08/05/2024 Address: [address] [facility] Subjective: * Chief Complaints: * 1 . [...] Electronic signature of BILLY PADILLA MD on 11/28/2024 at 10:47 AM EDT Sign off status: Pending * Provider: Madi PADILLA MD Date: 0 08/05/2024 Generated for Lizette castellanos/Duane/Aliyaransmitting on: 0 11/28/2024 10:47 AM EDT History and Physical Notes * [...]
--- NOTE | 2024-11-28 09:55 | HO.NEPHOV ---
Vital Signs 11/28/24 09:58 Height 5 ft 8 in Weight 144 lb 6 oz BMI 21.9 BP 100/62 Blood Pressure Location Lt brachial Position Sitting Pulse 65 Pulse Source Pulse Oximeter Pulse Oximetry (%) 98 Oxygen Delivery Method Room Air Intake Visit Reasons: 6mon follow-up w/labs-Conf Buyer Required: No Accompanied by: Self / Same As Patient Allergies No Known Allergies (No Known Allergies*) Allergy (Verified 11/28/24 09:58) HPI Comments Details: Carlos Eduardo was seen in follow-up of his chronic kidney disease. He has diabetes and had been on Actos which is causing edema. His hemoglobin A1c is under good control. In the past he has taken CHARLIE inhibitor which has been discontinued due to low blood pressures. He has history of prostate cancer and is closely followed up by Dr. Henry Mora. 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 His renal functions have settled back to baseline. He has history of renal stones. He does not take excessive nonsteroidal anti-inflammatories. He has history of inflammatory bowel disease(ulcerative colitis). He also has renal cyst which is closely followed by Dr. Mora. He recently had UTI and was treated with Nitrofurantoin [facility] Medical History Diabetes SOB (shortness of breath) Bladder infection Renal stones Neuropathy Mild acid reflux Hyperlipidemia Gross hematuria Prostate stricture Rising PSA following treatment for malignant neoplasm of prostate Urinary urgency Rising PSA following treatment for malignant neoplasm of prostate Surgical History History of prostate surgery History of appendectomy H/O hernia repair Social History Household Members: Spouse Housing: House Do you presently have visiting nurse or other home services: No Patient Tobacco Use Status: Former Tobacco user Tobacco use type: Cigarette Years Smoked: 15 Advance Directives Date on File: 07/28/23 service: No Review of Systems Const All systems reviewed & are unremarkable except as noted in HPI and below Physical Exam Vital Signs: Last Vital Signs Pulse 65 11/28/24 09:58 BP 100/62 11/28/24 09:58 Pulse Ox 98 11/28/24 09:58 Oxygen Delivery Method Room Air 11/28/24 09:58 BMI result Body Mass Index 21.9 Const General: comfortable and no acute distress Orientation/consciousness: patient oriented x3 HEENT Head: Yes normocephalic Mouth: Normal oral and palatal mucosa present Eyes EOM: EOMs intact bilaterally Neck Neck: Yes supple Resp Auscultation: clear to auscultation bilaterally Cardio Jugular venous distension: no JVD Rate: regular rate GI Palpation (GI): Soft to palpation Auscultation: normal bowel sounds General: Yes no CVA tenderness Back/Spine/Pelvis Back: no CVA tenderness Skin General skin exam: no rashes or lesions noted Neuro General: patient oriented x3 and moves all extremities Extrem General: Yes no pedal edema Assessment & Plan Assessment & Plan (1) CKD (chronic kidney disease) stage 3, GFR 30-59 ml/min: Code(s): N18.30 - Chronic kidney disease, stage 3 unspecified Category: Medical Qualifiers: Chronic kidney disease stage 3 subtype: stage 3a (GFR 45-59) Qualified Code(s): N18.31 - Chronic kidney disease, stage 3a (2) Renal cysts, acquired, bilateral: Code(s): N28.1 - Cyst of kidney, acquired Category: Medical Plan His renal functions is close to baseline. His blood pressure is at goal. He had JAVON in 2023 which has been resolved. He was encouraged not to take any nonsteroidal inflammatories and tries to maintain good hydration. He has anemia but his hemoglobin is stable. I did not make any medication changes today. Follow-up blood work ordered. Answered all questions. Follow-up appointment given. Orders: Orders Complete Blood Count Auto Diff 6 Months N18.31 - Chronic kidney disease, stage 3a, N28.1 - Cyst of kidney, acquired Blood Urea Nitrogen 6 Months N18.31 - Chronic kidney disease, stage 3a, N28.1 - Cyst of kidney, acquired Phosphorus 6 Months N18.31 - Chronic kidney disease, stage 3a, N28.1 - Cyst of kidney, acquired Calcium 6 Months N18.31 - Chronic kidney disease, stage 3a, N28.1 - Cyst of kidney, acquired Electrolytes 6 Months N18.31 - Chronic kidney disease, stage 3a, N28.1 - Cyst of kidney, acquired Creatinine 6 Months N18.31 - Chronic kidney disease, stage 3a, N28.1 - Cyst of kidney, acquired Parathyroid Hormone Intact 6 Months N18.31 - Chronic kidney disease, stage 3a, N28.1 - Cyst of kidney, acquired Vitamin D 25-OH Total 6 Months N18.31 - Chronic kidney disease, stage 3a, N28.1 - Cyst of kidney, acquired Coding Level of Care Code Est Pt Level 4 (40014) Diagnoses Stage 3a chronic kidney disease N18.31 Chronic kidney disease stage 3 subtype: stage 3a (GFR 45-59) Renal cysts, acquired, bilateral N28.1
[2024-11-28 09:58] VITALS: BP 100/62; PULSE 65; O2SAT 98; BMI 21.9
--- OUTSIDE RECORDS SUMMARY | 2024-11-28 10:47 | XMS_ITS ---
Author Name [facility] Organization Unknown Results Test Name/Text Value Interpretation Date Range Source LAB AP DIAGNOSIS COMMENT Received from [facility], [address], [place] [address], are one slide and one block labeled [id number] , which are retained for our files. Normal 11/04/2023 [facility] AP GROSS DESCRIPTION Received in formalin is an irregularly shaped fragment of skin measuring 0.7 x 0.6 x 0.2 cm. The specimen is serially sectioned and submitted entirely in one cassette. (Gross description performed by [facility].) Normal 11/04/2023 [facility] LAB AP CLINICAL INFORMATION Basal cell carcinoma Normal 11/04/2023 [facility]
--- OUTSIDE RECORDS SUMMARY | 2024-11-28 10:47 | XMS_ITS | Patient Health Record ---
Author Organization [facility] Address [address] [place] [address] Care Team Providers Care Health Unit Clerk Name Role Phone PIEDAD PADILLA Primary Care Provider [phone] Marbin Carpenter Unavailable [phone] SánchezdemarCiara andrews Unavailable [phone] Allergies Allergen (clinical drug ingredient) Drug/Non Drug Allergy documented on EMR Reaction Allergy Type Onset Date Status Amoxicillin-Pot Clavulanate diarrhea Drug Allergy Active Results Component Value Reference Range Notes Hemoglobin [id number] Reviewed date:11/21/2024 07:46:37 AM Interpretation: Performing Lab:[facility], [address] [facility], Phone - [phone], Director - MDJodry Notes/Report: Hemoglobin A1c 6.1 4.8-5.6 % . Prediabetes: 5.7 - 6.4 Diabetes: >6.4 Glycemic control for adults with diabetes: <7.0 Basic Metabolic Panel ([id number] Reviewed date:11/21/2024 07:46:33 AM Interpretation: Performing Lab:[facility], [address] [facility], Phone - [phone], Director - MDJodry Notes/Report: Glucose 175 70-99 mg/dL BUN 20 8-27 mg/dL Creatinine 1.27 0.76-1.27 mg/dL eGFR 55 >59 mL/min/1.73 BUN/Creatinine Ratio 16 10-24 Sodium 141 134-144 mmol/L Potassium 4.1 3.5-5.2 mmol/L Chloride 107 96-106 mmol/L Carbon Dioxide, Total 18 20-29 mmol/L Calcium 9.1 8.6-10.2 mg/dL CBC, Platelet, No Differenti [id number] Reviewed date:07/21/2024 07:55:15 AM Interpretation: Performing Lab:[facility] [place], [address] [place] [address], Phone - [phone], Director - Michelley Notes/Report: WBC 3.7 3.4-10.8 x10E3/uL RBC 3.85 4.14-5.80 x10E6/uL Hemoglobin 11.2 13.0-17.7 g/dL Hematocrit 35.1 37.5-51.0 % MCV 91 79-97 fL MCH 29.1 26.6-33.0 pg MCHC 31.9 31.5-35.7 g/dL RDW 12.9 11.6-15.4 % Platelets 134 150-450 x10E3/uL Hemoglobin [id number] Reviewed date:07/21/2024 07:55:22 AM Interpretation: Performing Lab:[facility] [place], [address] [place] [address], Phone - [phone], Director - MDAnnabelladry Notes/Report: Hemoglobin A1c 6.2 4.8-5.6 % . Prediabetes: 5.7 - 6.4 Diabetes: >6.4 Glycemic control for adults with diabetes: <7.0 Albumin/Creatinine Ratio,Uri [id number] Reviewed date:07/21/2024 07:55:29 AM Interpretation: Performing Lab:[facility] [place], [address] [place] [address], Phone - [phone], Director - MDAnnabelladry Notes/Report: Creatinine, Urine 195.8 Not Estab. mg/dL Albumin, Urine 172.0 Not Estab. ug/mL Alb/Creat Ratio 88 0-29 mg/g creat Normal: 0 - 29 Moderately increased: 30 - 300 Severely increased: >300 Lipid Panel-[id number] Reviewed date:07/21/2024 07:55:46 AM Interpretation: Performing Lab:[facility] [place], [address] [place] [address], Phone - [phone], Director - MDJodry Notes/Report: Cholesterol, Total 121 100-199 mg/dL Triglycerides 82 0-149 mg/dL HDL Cholesterol 62 >39 mg/dL VLDL Cholesterol Tariq 16 5-40 mg/dL LDL Chol Calc (NIH) 43 0-99 mg/dL Comp. Metabolic Panel (14)-3 Reviewed date:07/21/2024 07:55:53 AM Interpretation: Performing Lab:[facility], [address], [place], Phone - [phone], Director - Gulshan Notes/Report: Glucose 100 70-99 mg/dL BUN 17 8-27 mg/dL Creatinine 1.27 0.76-1.27 mg/dL eGFR 55 >59 mL/min/1.73 BUN/Creatinine Ratio 13 10-24 Sodium 142 134-144 mmol/L Potassium 4.4 3.5-5.2 mmol/L Chloride 107 96-106 mmol/L Carbon Dioxide, Total 21 20-29 mmol/L Calcium 8.9 8.6-10.2 mg/dL Protein, Total 5.7 6.0-8.5 g/dL Albumin 3.8 3.7-4.7 g/dL Globulin, Total 1.9 1.5-4.5 g/dL Bilirubin, Total 0.4 0.0-1.2 mg/dL Alkaline Phosphatase 72 44-121 IU/L AST (SGOT) 20 0-40 IU/L ALT (SGPT) 13 0-44 IU/L TISSUE EXAM Reviewed date:11/11/2024 12:40:33 PM Interpretation: Performing Lab: Notes/Report: hs/DG Labeled esophagus biopsies . Received in formalin, are six irregular soft to rubbery, owen-pink to red, tissue fragments, approximately ranging from 0.2 cm to 0.4 cm in greatest diameters, which are wrapped in paper and submitted in toto in one cassette, six pieces, multiple levels. Please note: Small tissue fragments may not survive processing. Final Diagnosis A. Esophagus, biopsi es ge junction: - Esophageal squamocolumnar junction mucosa with focal acute inflammation. - Negative for intestinal metaplasia. Gross Description A. Esophagus, biopsi es ge junction: Disclaimer Unless otherwise specified, all tissue is 10% NB formalin fixed and paraffin embedded. PET CT SKULL TO MID THIGH OSORIO BSEQUENT Reviewed date:06/06/2024 07:44:27 AM Interpretation: Performing Lab: Notes/Report: Note See Note [facility], a member of [employer] Patient Name: DEANGELO PFEIFFER Date of : 1935 Reason for Exam: PROSTATE CANCER Exam Date: 06/04/2024 [id number] EST Report Status: Final Ordering Provider: HENRY [...] not designed to produce and cannot replace vahpf-sv-aha-art true diagnostic CT examination with specific protocols. [...] Signed Date: 025 07:20 ET Workstation ID: [id number] Transcribed By: Self Edit Transcribed Date: 06/06/2024 05:32 ET Reason For Referral No Information Medications Medication SIG (Take, Route, Frequency, Duration) Notes Start Date End Date Status Vitamin B Complex - as directed Orally Not-Taking Melatonin Not-Taking metFORMIN HCl ER 500 MG 1 tablet with ev ening meal Orally Once a day; Duration: 90 days 11/14/2024 Active Pioglitazone HCl 45 MG TAKE 1 TABLET DESTINEE LY; Duration: 90 Not-Taking Rosuvastatin Calcium 40 MG TAKE 1 TABLET ONCE DAILY; Duration: 90 Active Dutasteride 0.5 MG 1 capsule Orally Onc e a day Not-Taking Iron 325 (65 Fe) MG 1 tablet Orally Thre e times a Week Active Doxycycline Hyclate 100 MG 1 tablet Orally 2 times a day; Duration: 10 days 04/26/2024 Not-Taking Lansoprazole Active Flonase Sensimist 27.5 MCG/SPRAY 1 spray each nostril Nasally twice a day; Duration: 7 days 04/15/2024 Not-Taking Mirabegron ER 25 MG 1 tablet Orally Once a day Active Benzonatate 100 MG 1 capsule as needed Orally Three times a day; Duration: 7 days 04/15/2024 Not-Taking Daily Multivitamin - as directed Orally Active Vitamin D3 Not-Valdez shirley Xtandi 80 MG 1 tablet Orally 1 ti me a day every other month Active Mesalamine Active Multi For Him Not-Magdi silva PreserVision AREDS - as directed Orally Active Molnupiravir 200 MG 4 capsules Orally ev jesse 12 hrs; Duration: 5 days 05/08/2023 Not-Taking ZyrTEC Allergy 10 MG 1 tablet Orally Onc e a day Not-Taking Immunizations Vaccine Route Administration Date Status Comme nts COVID 19 Pfizer Unknown 01/21/2021 Administered COVID Pfizer Unknown 08/23/2021 Administered COVID-19 Pfizer Unknown 12/14/2021 Administered Flu Unknown 01/08/2022 Administered Pneumococcal conjugate PCV 13 Unknown 02/12/2016 Admini stered Pneumococcal conjugate PCV 13 Unknown 01/19/2019 Admini stered Shingrix Unknown 09/16/2024 Administered Social History Tobacco Use: Social History Observation [...] Status W/U Status Risk Notes Problem Anemia (576871730) Anemia, unspecified (D64.9) Active confirmed Problem Diabetic nephropathy (054598565) Diabetes mellitus due to underlying condition with diabetic nephropathy (E08.21) Active confirmed Problem Mixed hyperlipidemia (405984215) Mixed hyperlipidemia (E78.2) Active confirmed Problem Angina pectoris (258470043) Angina pectoris, unspecified (I20.9) Active confirmed Problem Stricture of esophagus (72441984) Esophageal obstruction (K22.2) Active confirmed Problem 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) Active confirmed Problem History of malignant neoplasm of prostate (835325466) Personal history of malignant neoplasm of prostate (Z85.46) Active confirmed Problem Lower urinary tract symptoms due to benign prostatic hypertrophy (11253929964643) Benign prostatic hyperplasia with lower urinary tract symptoms (N40.1) Active confirmed Problem Chronic kidney disease stage 3A (disorder) (799778685) Chronic kidney disease, stage 3a (N18.31) Active confirmed Problem Essential hypertension (46458732) Essential hypertension (I10) Active confirmed Vital Signs Heart Rate 57 /min 11/14/2024 Temperature 96.8 degrees Fahrenheit 11/14/2024 Blood pressure diastolic 60 mm Hg 11/14/2024 Oximetry 99 % 11/14/2024 Height 5'5 in 11/14/2024 Blood pressure systolic 120 mm Hg 11/14/2024 Weight 147.0 lbs 11/14/2024 BMI 24.46 kg/m2 11/14/2024 Encounters Encounter Location Date Provider Diagnosis [address] [address] 02/05/2024 [place] [facility] Mixed hyperlipidemia E78.2 ; Anemia, unspecified D64.9 and Type 2 diabetes mellitus with unspecified complications E11.[address] [address] 08/12/2024 [facility] discharge follow-up Z09 ; Diabetes mellitus due to underlying condition with diabetic nephropathy E08.21 ; Mixed hyperlipidemia E78.2 ; Personal history of malignant neoplasm of prostate Z85.46 ; Esophageal obstruction K22.2 and Unspecified bacterial pneumonia J15.[address] [place] [address] 11/14/2024 PIEDAD PADILLA Diabetes mellitus du e to underlying condition with diabetic nephropathy E08.21 ; Annual wellness visit Z00.00 ; Mixed hyperlipidemia E78.2 ; Personal history of malignant neoplasm of prostate Z85.46 ; Esophageal obstruction K22.2 and Edema, unspecified R60.[address] [place] [address] 04/15/[address] [place] [address] 04/25/[address] [place] [address] 06/14/2024 PIEDAD LINDQUIST Type 2 diabetes kaleigh itus with unspecified complications E11.8 and Ulcerative (chronic) rectosigmoiditis without complications K51.[address] [place] [address] 09/16/2024 Ciara Esteban [address] [address] 09/17/2024 Ciara Esteban Assessments Encounter Date Diagnosis (ICD Code) Assessment Notes Treatment Notes Treatment Clinical Notes Section Notes 02/05/2024 Mixed hyperlipidemia (ICD-10 - E78.2) 87 [...] and he currently sees Dr. Luna at [facility] and Dr. Corrales locally. Type II diabetes mellitus. A1c 6.5 Slightly increase from his previous A1c patient reported eating more sweet but he is aware and will follow a more strict diet. Lipid profile and HbA1c done in January 2024 were both discussed with patient. No change to his diabetic medication therapy. . He is on right medications. He sees his director digital sales. Foot care discussed. Chronic kidney disease stage 3. He does not appear to be in volume overload. creatinine runs from 1.4-1.6 Prostate cancer. s/p brachytherapy in and he currently sees Dr. Luna at [facility] and Dr. Corrales locally. He is s/p cystoscopy, bilateral retrograde and bilateral stent placement at [place] last 07/28/2023 iron deficiency anemia continue with iron supplements, lab work showed normalization of iron levels. All questions were answered 06/14/2024 Type 2 diabetes mellitus with unspecified complications (ICD-10 - E11.8) 08/12/2024 Diabetes mellitus due to underlying condition with diabetic nephropathy (ICD-10 - E08.21) Deangelo is 88 years old gentleman with diabetes mellitus type 2 with diabetic nephropathy, hypertension, hyperlipidemia, esophageal obstruction and dilation in the past by Dr. Jimenez, hiatal hernia, BPH, prostate cancer currently on Xtandi, anemia, CKD stage IIIa and she follows up with Dr. Jensen, ulcerated colitis is here today for follow-up after hospital admission for multifocal pneumonia. Plan is as follows Community-acquire d pneumonia. CT scan positive for multifocal pneumonia and he was treated with Z-Luis and Augmentin along with steroids. He is feeling better. Follow-up CT scan of the lung was recommended which will be done in September. Esophageal obstruction. CT scan showed distal esophageal fluid accumulation. It can be inflammation or narrowing of the distal end of the esophagus. He will call GI and will most likely need upper endoscopy for further evaluation. Meanwhile he will continue on PPIs. Diabetes mellitus type 2 with nephropathy. Hemoglobin A1c 6.2 which is pretty much within reasonable limits he is currently on pioglitazone and is having mild bilateral pedal edema and we discussed switching him to SGPLT-1 but he is not interested. Other option is Metformin because his renal function is stable. he has seen director digital sales in the past 1 year. Foot care discussed with the patient. Hypertension/CKD stage IIIa/mixed hyperlipidemia. He is normotensive and he is on Crestor 40 mg daily and chronic kidney disease stage IIIa stable and he does not appear to be in volume overload. He follows up with Dr. Jensen. Ulcerative colitis. Stable at this point and he follows up with GI. Anemia. Continue iron supplements to 25 mg 1 tablet 3 times a week. 08/12/2024 Hospital discharge follow-up (ICD-10 - Z09) Deangelo is 88 years old gentleman with diabetes mellitus type 2 with diabetic nephropathy, hypertension, hyperlipidemia, esophageal obstruction and dilation in the past by Dr. Jimenez, hiatal hernia, BPH, prostate cancer currently on Xtandi, anemia, CKD stage IIIa and she follows up with Dr. Jensen, ulcerated colitis is here today for follow-up after hospital admission for multifocal pneumonia. Plan is as follows Community-acquire d pneumonia. CT scan positive for multifocal pneumonia and he was treated with Z-Luis and Augmentin along with steroids. He is feeling better. Follow-up CT scan of the lung was recommended which will be done in September. Esophageal obstruction. CT scan showed distal esophageal fluid accumulation. It can be inflammation or narrowing of the distal end of the esophagus. He will call GI and will most likely need upper endoscopy for further evaluation. Meanwhile he will continue on PPIs. Diabetes mellitus type 2 with nephropathy. Hemoglobin A1c 6.2 which is pretty much within reasonable limits he is currently on pioglitazone and is having mild bilateral pedal edema and we discussed switching him to SGPLT-1 but he is not interested. Other option is Metformin because his renal function is stable. he has seen director digital sales in the past 1 year. Foot care discussed with the patient. Hypertension/CKD stage IIIa/mixed hyperlipidemia. He is normotensive and he is on Crestor 40 mg daily and chronic kidney disease stage IIIa stable and he does not appear to be in volume overload. He follows up with Dr. Jensen. Ulcerative colitis. Stable at this point and he follows up with GI. Anemia. Continue iron supplements to 25 mg 1 tablet 3 times a week. 11/14/2024 Diabetes mellitus due to underlying condition with diabetic nephropathy (ICD-10 - E08.21) Deangelo is 88 years old gentleman with diabetes mellitus type 2 with diabetic nephropathy, hypertension, hyperlipidemia, esophageal obstruction and dilation in the past by Dr. Jimenez, hiatal hernia, BPH, prostate cancer currently on Xtandi, anemia, CKD stage IIIa and she follows up with Dr. Jensen, ulcerated colitis is here today for follow-up after hospital admission for multifocal pneumonia. Plan is as follows Esophageal obstruction. stable currently and he is on PPIs and impulse with [facility]. Diabetes mellitus type 2 with nephropathy. Hemoglobin A1c 6.2 which is pretty much within reasonable limits he is currently on pioglitazone and is having mild bilateral pedal edema and we discussed switching him to SGPLT-1 but he is not interested. Other option is Metformin ER 500 mg 1 tablet daily because his renal function is stable. he has seen director digital sales in the past 1 year. Foot care discussed with the patient. Hypertension/CKD stage IIIa/mixed hyperlipidemia. He is normotensive and he is on Crestor 40 mg daily and chronic kidney disease stage IIIa stable and he does not appear to be in volume overload. He follows up with Dr. Jensen. Ulcerative colitis. Stable at this point and he follows up with GI. Anemia. Continue iron supplements to 25 mg 1 tablet 3 times a week. Screening blood work reviewed and questions answered. He is up to date on age specific screening. He is full code and his is his healthcare proxy. 11/14/2024 Annual wellness visit (ICD-10 - Z00.00) Deangelo is 88 years old gentleman with diabetes mellitus type 2 with diabetic nephropathy, hypertension, hyperlipidemia, esophageal obstruction and dilation in the past by Dr. Jimenez, hiatal hernia, BPH, prostate cancer currently on Xtandi, anemia, CKD stage IIIa and she follows up with Dr. Jensen, ulcerated colitis is here today for follow-up after hospital admission for multifocal pneumonia. Plan is as follows Esophageal obstruction. stable currently and he is on PPIs and impulse with [facility]. Diabetes mellitus type 2 with nephropathy. Hemoglobin A1c 6.2 which is pretty much within reasonable limits he is currently on pioglitazone and is having mild bilateral pedal edema and we discussed switching him to SGPLT-1 but he is not interested. Other option is Metformin ER 500 mg 1 tablet daily because his renal function is stable. he has seen director digital sales in the past 1 year. Foot care discussed with the patient. Hypertension/CKD stage IIIa/mixed hyperlipidemia. He is normotensive and he is on Crestor 40 mg daily and chronic kidney disease stage IIIa stable and he does not appear to be in volume overload. He follows up with Dr. Jensen. Ulcerative colitis. Stable at this point and he follows up with GI. Anemia. Continue iron supplements to 25 mg 1 tablet 3 times a week. Screening blood work reviewed and questions answered. He is up to date on age specific screening. He is full code and his is his healthcare proxy. 11/14/2024 Mixed hyperlipidemia (ICD-10 - E78.2) Deangelo is 88 years old gentleman with diabetes mellitus type 2 with diabetic nephropathy, hypertension, hyperlipidemia, esophageal obstruction and dilation in the past by Dr. Jimenez, hiatal hernia, BPH, prostate cancer currently on Xtandi, anemia, CKD stage IIIa and she follows up with Dr. Jensen, ulcerated colitis is here today for follow-up after hospital admission for multifocal pneumonia. Plan is as follows Esophageal obstruction. stable currently and he is on PPIs and impulse with [facility]. Diabetes mellitus type 2 with nephropathy. Hemoglobin A1c 6.2 which is pretty much within reasonable limits he is currently on pioglitazone and is having mild bilateral pedal edema and we discussed switching him to SGPLT-1 but he is not interested. Other option is Metformin ER 500 mg 1 tablet daily because his renal function is stable. he has seen director digital sales in the past 1 year. Foot care discussed with the patient. Hypertension/CKD stage IIIa/mixed hyperlipidemia. He is normotensive and he is on Crestor 40 mg daily and chronic kidney disease stage IIIa stable and he does not appear to be in volume overload. He follows up with Dr. Jensen. Ulcerative colitis. Stable at this point and he follows up with GI. Anemia. Continue iron supplements to 25 mg 1 tablet 3 times a week. Screening blood work reviewed and questions answered. He is up to date on age specific screening. He is full code and his is his healthcare proxy. 08/12/2024 Mixed hyperlipidemia (ICD-10 - E78.2) Deangelo is 88 years old gentleman with diabetes mellitus type 2 with diabetic nephropathy, hypertension, hyperlipidemia, esophageal obstruction and dilation in the past by Dr. Jimenez, hiatal hernia, BPH, prostate cancer currently on Xtandi, anemia, CKD stage IIIa and she follows up with Dr. Jensen, ulcerated colitis is here today for follow-up after hospital admission for multifocal pneumonia. Plan is as follows Community-acquire d pneumonia. CT scan positive for multifocal pneumonia and he was treated with Z-Luis and Augmentin along with steroids. He is feeling better. Follow-up CT scan of the lung was recommended which will be done in September. Esophageal obstruction. CT scan showed distal esophageal fluid accumulation. It can be inflammation or narrowing of the distal end of the esophagus. He will call GI and will most likely need upper endoscopy for further evaluation. Meanwhile he will continue on PPIs. Diabetes mellitus type 2 with nephropathy. Hemoglobin A1c 6.2 which is pretty much within reasonable limits he is currently on pioglitazone and is having mild bilateral pedal edema and we discussed switching him to SGPLT-1 but he is not interested. Other option is Metformin because his renal function is stable. he has seen director digital sales in the past 1 year. Foot care discussed with the patient. Hypertension/CKD stage IIIa/mixed hyperlipidemia. He is normotensive and he is on Crestor 40 mg daily and chronic kidney disease stage IIIa stable and he does not appear to be in volume overload. He follows up with Dr. Jensen. Ulcerative colitis. Stable at this point and he follows up with GI. Anemia. Continue iron supplements to 25 mg 1 tablet 3 times a week. 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 Luna at [facility] and Dr. Corrales locally. Type II diabetes mellitus. A1c 6.5 Slightly increase from his previous A1c patient reported eating more sweet but he is aware and will follow a more strict diet. Lipid profile and HbA1c done in January 2024 were both discussed with patient. No change to his diabetic medication therapy. . He is on right medications. He sees his director digital sales. Foot care discussed. Chronic kidney disease stage 3. He does not appear to be in volume overload. creatinine runs from 1.4-1.6 Prostate cancer. s/p brachytherapy in and he currently sees Dr. Luna at [facility] and Dr. Corrales locally. He is s/p cystoscopy, bilateral retrograde and bilateral stent placement at [place] last 07/28/2023 iron deficiency anemia continue with iron supplements, lab work showed normalization of iron levels. All questions were answered 02/05/2024 Type 2 diabetes mellitus with unspecified [...] and he currently sees Dr. Luna at [facility] and Dr. Corrales locally. Type II diabetes mellitus. A1c 6.5 Slightly increase from his previous A1c patient reported eating more sweet but he is aware and will follow a more strict diet. Lipid profile and HbA1c done in January 2024 were both discussed with patient. No change to his diabetic medication therapy. . He is on right medications. He sees his director digital sales. Foot care discussed. Chronic kidney disease stage 3. He does not appear to be in volume overload. creatinine runs from 1.4-1.6 Prostate cancer. s/p brachytherapy in and he currently sees Dr. Luna at [facility] and Dr. Corrales locally. He is s/p cystoscopy, bilateral retrograde and bilateral stent placement at [place] last 07/28/2023 iron deficiency anemia continue with iron supplements, lab work showed normalization of iron levels. All questions were answered 08/12/2024 Personal history of malignant neoplasm of prostate (ICD-10 - Z85.46) Deangelo is 88 years old gentleman with diabetes mellitus type 2 with diabetic nephropathy, hypertension, hyperlipidemia, esophageal obstruction and dilation in the past by Dr. Jimenez, hiatal hernia, BPH, prostate cancer currently on Xtandi, anemia, CKD stage IIIa and she follows up with Dr. Jensen, ulcerated colitis is here today for follow-up after hospital admission for multifocal pneumonia. Plan is as follows Community-acquire d pneumonia. CT scan positive for multifocal pneumonia and he was treated with Z-Luis and Augmentin along with steroids. He is feeling better. Follow-up CT scan of the lung was recommended which will be done in September. Esophageal obstruction. CT scan showed distal esophageal fluid accumulation. It can be inflammation or narrowing of the distal end of the esophagus. He will call GI and will most likely need upper endoscopy for further evaluation. Meanwhile he will continue on PPIs. Diabetes mellitus type 2 with nephropathy. Hemoglobin A1c 6.2 which is pretty much within reasonable limits he is currently on pioglitazone and is having mild bilateral pedal edema and we discussed switching him to SGPLT-1 but he is not interested. Other option is Metformin because his renal function is stable. he has seen director digital sales in the past 1 year. Foot care discussed with the patient. Hypertension/CKD stage IIIa/mixed hyperlipidemia. He is normotensive and he is on Crestor 40 mg daily and chronic kidney disease stage IIIa stable and he does not appear to be in volume overload. He follows up with Dr. Jensen. Ulcerative colitis. Stable at this point and he follows up with GI. Anemia. Continue iron supplements to 25 mg 1 tablet 3 times a week. 11/14/2024 Personal history of malignant neoplasm of prostate (ICD-10 - Z85.46) Deangelo is 88 years old gentleman with diabetes mellitus type 2 with diabetic nephropathy, hypertension, hyperlipidemia, esophageal obstruction and dilation in the past by Dr. Jimenez, hiatal hernia, BPH, prostate cancer currently on Xtandi, anemia, CKD stage IIIa and she follows up with Dr. Jensen, ulcerated colitis is here today for follow-up after hospital admission for multifocal pneumonia. Plan is as follows Esophageal obstruction. stable currently and he is on PPIs and impulse with [facility]. Diabetes mellitus type 2 with nephropathy. Hemoglobin A1c 6.2 which is pretty much within reasonable limits he is currently on pioglitazone and is having mild bilateral pedal edema and we discussed switching him to SGPLT-1 but he is not interested. Other option is Metformin ER 500 mg 1 tablet daily because his renal function is stable. he has seen director digital sales in the past 1 year. Foot care discussed with the patient. Hypertension/CKD stage IIIa/mixed hyperlipidemia. He is normotensive and he is on Crestor 40 mg daily and chronic kidney disease stage IIIa stable and he does not appear to be in volume overload. He follows up with Dr. Jensen. Ulcerative colitis. Stable at this point and he follows up with GI. Anemia. Continue iron supplements to 25 mg 1 tablet 3 times a week. Screening blood work reviewed and questions answered. He is up to date on age specific screening. He is full code and his is his healthcare proxy. 08/12/2024 Esophageal obstruction (ICD-10 - K22.2) Deangelo is 88 years old gentleman with diabetes mellitus type 2 with diabetic nephropathy, hypertension, hyperlipidemia, esophageal obstruction and dilation in the past by Dr. Jimenez, hiatal hernia, BPH, prostate cancer currently on Xtandi, anemia, CKD stage IIIa and she follows up with Dr. Jensen, ulcerated colitis is here today for follow-up after hospital admission for multifocal pneumonia. Plan is as follows Community-acquire d pneumonia. CT scan positive for multifocal pneumonia and he was treated with Z-Luis and Augmentin along with steroids. He is feeling better. Follow-up CT scan of the lung was recommended which will be done in September. Esophageal obstruction. CT scan showed distal esophageal fluid accumulation. It can be inflammation or narrowing of the distal end of the esophagus. He will call GI and will most likely need upper endoscopy for further evaluation. Meanwhile he will continue on PPIs. Diabetes mellitus type 2 with nephropathy. Hemoglobin A1c 6.2 which is pretty much within reasonable limits he is currently on pioglitazone and is having mild bilateral pedal edema and we discussed switching him to SGPLT-1 but he is not interested. Other option is Metformin because his renal function is stable. he has seen director digital sales in the past 1 year. Foot care discussed with the patient. Hypertension/CKD stage IIIa/mixed hyperlipidemia. He is normotensive and he is on Crestor 40 mg daily and chronic kidney disease stage IIIa stable and he does not appear to be in volume overload. He follows up with Dr. Jensen. Ulcerative colitis. Stable at this point and he follows up with GI. Anemia. Continue iron supplements to 25 mg 1 tablet 3 times a week. 11/14/2024 Esophageal obstruction (ICD-10 - K22.2) Deangelo is 88 years old gentleman with diabetes mellitus type 2 with diabetic nephropathy, hypertension, hyperlipidemia, esophageal obstruction and dilation in the past by Dr. Jimenez, hiatal hernia, BPH, prostate cancer currently on Xtandi, anemia, CKD stage IIIa and she follows up with Dr. Jensen, ulcerated colitis is here today for follow-up after hospital admission for multifocal pneumonia. Plan is as follows Esophageal obstruction. stable currently and he is on PPIs and impulse with [facility]. Diabetes mellitus type 2 with nephropathy. Hemoglobin A1c 6.2 which is pretty much within reasonable limits he is currently on pioglitazone and is having mild bilateral pedal edema and we discussed switching him to SGPLT-1 but he is not interested. Other option is Metformin ER 500 mg 1 tablet daily because his renal function is stable. he has seen director digital sales in the past 1 year. Foot care discussed with the patient. Hypertension/CKD stage IIIa/mixed hyperlipidemia. He is normotensive and he is on Crestor 40 mg daily and chronic kidney disease stage IIIa stable and he does not appear to be in volume overload. He follows up with Dr. Jensen. Ulcerative colitis. Stable at this point and he follows up with GI. Anemia. Continue iron supplements to 25 mg 1 tablet 3 times a week. Screening blood work reviewed and questions answered. He is up to date on age specific screening. He is full code and his is his healthcare proxy. 11/14/2024 Edema, unspecified (ICD-10 - R60.9) Deangelo is 88 years old gentleman with diabetes mellitus type 2 with diabetic nephropathy, hypertension, hyperlipidemia, esophageal obstruction and dilation in the past by Dr. Jimenez, hiatal hernia, BPH, prostate cancer currently on Xtandi, anemia, CKD stage IIIa and she follows up with Dr. Jensen, ulcerated colitis is here today for follow-up after hospital admission for multifocal pneumonia. Plan is as follows Esophageal obstruction. stable currently and he is on PPIs and impulse with [facility]. Diabetes mellitus type 2 with nephropathy. Hemoglobin A1c 6.2 which is pretty much within reasonable limits he is currently on pioglitazone and is having mild bilateral pedal edema and we discussed switching him to SGPLT-1 but he is not interested. Other option is Metformin ER 500 mg 1 tablet daily because his renal function is stable. he has seen director digital sales in the past 1 year. Foot care discussed with the patient. Hypertension/CKD stage IIIa/mixed hyperlipidemia. He is normotensive and he is on Crestor 40 mg daily and chronic kidney disease stage IIIa stable and he does not appear to be in volume overload. He follows up with Dr. Jensen. Ulcerative colitis. Stable at this point and he follows up with GI. Anemia. Continue iron supplements to 25 mg 1 tablet 3 times a week. Screening blood work reviewed and questions answered. He is up to date on age specific screening. He is full code and his is his healthcare proxy. 08/12/2024 Unspecified bacterial pneumonia (ICD-10 - J15.9) Deangelo is 88 years old gentleman with diabetes mellitus type 2 with diabetic nephropathy, hypertension, hyperlipidemia, esophageal obstruction and dilation in the past by Dr. Jimenez, hiatal hernia, BPH, prostate cancer currently on Xtandi, anemia, CKD stage IIIa and she follows up with Dr. Jensen, ulcerated colitis is here today for follow-up after hospital admission for multifocal pneumonia. Plan is as follows Community-acquire d pneumonia. CT scan positive for multifocal pneumonia and he was treated with Z-Luis and Augmentin along with steroids. He is feeling better. Follow-up CT scan of the lung was recommended which will be done in September. Esophageal obstruction. CT scan showed distal esophageal fluid accumulation. It can be inflammation or narrowing of the distal end of the esophagus. He will call GI and will most likely need upper endoscopy for further evaluation. Meanwhile he will continue on PPIs. Diabetes mellitus type 2 with nephropathy. Hemoglobin A1c 6.2 which is pretty much within reasonable limits he is currently on pioglitazone and is having mild bilateral pedal edema and we discussed switching him to SGPLT-1 but he is not interested. Other option is Metformin because his renal function is stable. he has seen director digital sales in the past 1 year. Foot care discussed with the patient. Hypertension/CKD stage IIIa/mixed hyperlipidemia. He is normotensive and he is on Crestor 40 mg daily and chronic kidney disease stage IIIa stable and he does not appear to be in volume overload. He follows up with Dr. Jensen. Ulcerative colitis. Stable at this point and he follows up with GI. Anemia. Continue iron supplements to 25 mg 1 tablet 3 times a week. Plan Of Treatment Pending Test Test Name Order Date BASIC METABOLIC PANEL 07/26/2022 COMPREHENSIVE METABOLIC PANEL 03/23/2022 HEMOGLOBIN A1C 03/23/2022 LIPID PANEL 03/23/2022 MICROALBUMIN, URINE 03/23/2022 CHEST C- CT 08/12/2024 Hemoglobin A1c 07/14/2023 Next Appt Details Provider Name:PIEDAD PADILLA , 05/21/2025 09:00:00 AM, [address] [place] [address], [id number], Insurance Providers Payer Name Payer Address Payer Phone Subscriber Number Group Number Insured Name Patient Relationship to Insured Coverage Start Date Coverage End Date [employer] [address] [address] [place] [address] [phone] [id number] Deangelo Frey i Self - patient is the insured Medical (General) History Medical History History ICD Code Chronic kidney disease stage 3a Type II diabetes mellitus Prostate cancer, s/p brachyt herapy , sees Dr. Cheryl Nava and Dr. Corrales locally Mixed hyperlipidemia Esophageal obstruction Hearing loss on hearing aids Ulcerative colitis f/u with Dr Avinash page in 2018 kidney stones and he sees Dr. Henry Corrales hearing loss. He uses hearing aids Surgical History Surgery Date(Month/Year) Armand fundoplication
--- OUTSIDE RECORDS SUMMARY | 2024-11-28 10:47 | XMS_ITS | Clinical Summary ---
Author Organization [facility] Address [address] [place] [address] Phone Care Team Providers Care Sales Exhibitor Name Role Phone Dolly Ruggiero MD Primary Care Provider [phone] Allergies Active Allergy Reactions Criticality Noted Date Comments Amoxicillin 11/21/2022 Doxazosin 11/21/2022 Gabapentin 11/21/2022 Lisinopril 11/21/2022 Losartan 11/21/2022 Tamsulosin 11/21/2022 Medications enzalutamide (Xtandi) 80 mg tablet Take 1 tablet (80 mg total) by mouth Every other month Active ferrous sulfate 325 mg (65 mg [...] mouth 1 (one) time each day. Active mirabegron (MYRBETRIQ) 25 mg 24 hr tablet 1 tablet (25 mg total) 1 (one) time each day at the same time. 08/03/2024 Active Active Problems Problem Noted Date Diagnosed Date Chronic ulcerative rectosigm oiditis ([facility] V24, [facility] V28) 09/05/2024 Stricture of esophagus 09/05/2024 Prostate cancer ([facility] V24, [facility] V28) 09/05 Sensorineural hearing loss, bilateral 08/27/2024 Anemia 08/27/2024 Iron deficiency anemia secon mariajose to inadequate dietary iron intake 04/17/2024 Systolic murmur 04/17/2024 Assessment & Plan (10/08/2024 12:43 PM EDT): Patient has a soft early systolic ejection murmur consistent with aortic sclerosis without stenosis or regurgitation. I do not feel that an updated echocardiogram is necessary. Assessment & Plan (04/17/2024 10:58 AM EST): Early systolic murmur likely mild aortic stenosis. Patient is sure he had an echocardiogram in past, but I am unable to find this study. I will need to look back through previous records, but if unavailable will consider repeat echocardiogram. Hypotension 09/04/2023 Overview (2024): History of documented orthostasis with postural lightheadedness. Assessment & Plan (04/17/2024 10:58 AM EST): Positive in office. Systolic drop from 120 systolic sitting to 90 systolic standing. Likely cause of lightheadedness and could be associated with enzalutamide. This medication also has high incidence of swelling. Encouraged hydration, compression stockings, rising slowly and not restarting metoprolol. Coronary artery disease invo lving eastern shoshone coronary artery of eastern shoshone heart without angina pectoris 04/18/2023 Overview (04/17/2024): [...] chest pain with testing Assessment & Plan (10/08/2024 12:43 PM EDT): Catheterization from 2017 showed limited small vessel disease with no other significant disease elsewhere. Last Nuclear stress test from April 2023 showed no ischemia or infarct with preserved LV systolic function. No anginal symptoms despite discontinuation of metoprolol. Continue with rosuvastatin. We discussed risk reduction through lifestyle choices including healthy diet, routine exercise and weight management. Assessment & Plan (04/17/2024 10:58 AM EST): Catheterization from 2017 showed limited small vessel disease with no [...] lead Essential hypertension 04/18/2023 Assessment & Plan (10/08/2024 12:43 PM EDT): Blood pressure has been well-controlled. Will continue present regimen. The patient has stable but fluctuating bilateral lower extremity edema in the setting of dietary indiscretion including hot dogs over the holiday/birthday weekend. In addition he is taking Actos which may aggravate fluid retention. Assessment & Plan (04/17/2024 10:58 AM EST): Controlled off of Metoprolol. Not current on antihypertensives. Orders: ECG 12 lead Dysphagia 04/14/2023 Overview (04/17/2024): Status post Armand fundoplication dysphagia requiring recurrent esophageal dilatation by Dr. Slitsky due to symptomatic partial obstruction following his esophageal surgery Assessment & Plan (09/05/2024 5:32 PM EDT): Ongoing dysphagia since last EGD which is manageable but persistent. In light of discussion on abnormal CT scan and continued dysphagia recommend repeat EGD for further evaluation and possible dilation. Upper Endoscopy: Discussed with patient indications for procedure as well as risks of bleeding, infection, risk of perforation and reaction to anesthesia. Patient is aware of risk of missed lesions. Patient understands and would like to proceed. Alternatives to endoscopic evaluation discussed. Benefit of procedure for screening, diagnostic and therapeutic purposes discussed. The patient acknowledges risks, benefits and alternatives and all questions are answered. Patient is to follow up after the procedure for biopsy results General: Patient aware needs a ride home Not to have liquids for at least two hours before procedure. HLD (hyperlipidemia) 04/14/2023 Assessment & Plan (10/08/2024 12:43 PM EDT): The patient is tolerating rosuvastatin. His LDL cholesterol is less than 50 mg/dL and clearly meets desirable target for lipid lowering therapy. Assessment & Plan (04/17/2024 10:58 AM EST): January 2024 - LDL 39. Continue with rosuvastatin. Angina pectoris ([facility] V24) 04/13/2023 Stage 3 chronic kidney disease ([facility]/HCC V24, CMS /HCC V28) 11/18/2022 Encounters Date Type Department Care Team Description 11/08/2024 7:28 AM EDT Anesthesia Event [facility] [address] [place] [address] Abdulkadir Guillory MD 11/08/2024 6:40 AM EDT - 11/08/2024 11:59 PM EDT Hospital Encounter [facility] [address] [place] [address] Antoni Funes MD Guerin, Erik R, CRNA Dasilva, John E, MD Abnormal CT scan; Pharyngoesophageal dysphagia Discharge Disposition: Home or Self Care 10/08/2024 9:20 AM EDT Office Visit [facility] Cardiology [address] [place] [address] Fransisco Smith MD Coronary artery disease involving eastern shoshone coronary artery of eastern shoshone heart without angina pectoris (Primary Dx); Essential hypertension; Hyperlipidemia, unspecified hyperlipidemia type; Systolic murmur 09/06/2024 Telephone Gastroenterology - [address] [place] [address] Antoni Funes MD 09/05/2024 1:50 PM EDT Office Visit Gastroenterology - [address] [place] [address] Zakiya Perez PA Abnormal CT scan (Primary Dx); Pharyngoesophageal dysphagia from Last 3 Months Surgical History Surgery Date Site/Laterality Comments POST PROSTATE SEED IMPLANT CT 04/03/2007 - 04/02/2008 X2 REPAIR HIATAL HERNIA TRANSAB DOMINAL APPROACH 04/03/2017 - 04/02/2018 AT [facility] APPENDECTOMY ARMAND FUNDOPLICATION ESOPHAGOGASTRODUODENOSCOPY 03/22/2024 Mild schatzki ring found with food in distal esophagus and successfully removed and dilated. ESOPHAGOGASTRODUODENOSCOPY 01/14/2022 ESOPHAGOGASTRODUODENOSCOPY 12/02/2021 Food distal esophagus ESOPHAGOGASTRODUODENOSCOPY 09/23/2020 Cole's mucosa negative for dysplasia COLONOSCOPY 09/23/2020 ESOPHAGOGASTRODUODENOSCOPY 08/14/2019 COLONOSCOPY 05/24/2018 Medical History Medical History Date Comments Type 2 diabetes mellitus wit h unspecified complications (CMS/HCC V24, CMS/HCC V28) DX:Type 2 diabetes mellitus with unspecified complications (HCC) Malignant neoplasm of prosta te (CMS/HCC V24, CMS/HCC V28) DX:Malignant neoplasm of pro state (HCC) 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 V24, CMS/HCC V28) DX:Ulcerative rectosigmoiditis without complication (HCC) Esophageal obstruction DX:Esopha geal obstruction Chronic kidney disease, stag e 3a (CMS/HCC V24, CMS/HCC V28) DX:Chronic kidney disease, stage 3a (HCC) Ulcerative colitis (CMS/HCC V24, CMS/HCC V28) DX:Ulcerative colitis (HCC) Prostate cancer ([facility] V24 , [facility] V28) DX:Prostate cancer (HCC) Angina of effort ([facility] V24) 2004 GERD (gastroesophageal reflux disease) Social History Tobacco Use Types Packs/Day Years Used Date Smoking Tobacco: Former Cigarettes Smokeless Tobacco: Never Tobacco Cessation:Counseling Given: Not Answered Alcohol Use Standard Drinks/Week Comments Yes 0 (1 standard drink = 0.6 oz pur e alcohol) once a week wine Interpersonal Safety Answer Date Record ed Physical Abuse 11/08/2024 Verbal Abuse 11/08/2024 Sex and Gender Information Value Date Recorded Sex Assigned at Male 03/21/2024 4:20 PM EST Legal Sex Male 4:58 PM EST Gender Identity Male 03/21/2024 4:20 PM EST Sexual Orientation Straight 03/21/2024 4: 20 PM EST Obstetrics History Last Filed Vital Signs Vital Sign Reading Time Taken Comments Blood Pressure 134/71 11/08/2024 7:59 AM EDT Pulse 55 11/08/2024 7:59 AM EDT Temperature 36.3 C (97.3 F) 11/08/2024 7:03 AM EDT Respiratory Rate 16 11/08/2024 7:59 AM EDT Oxygen Saturation 99% 11/08/2024 7:59 AM EDT Inhaled Oxygen Concentration - - Weight 65.8 kg (145 lb) 11/01/2024 11:00 AM EDT Height 172.7 cm (5' 8 ) 11/01/2024 11:00 AM EDT Body Mass Index 22.05 11/01/2024 11:00 AM EDT Plan of Treatment Health Maintenance Due Date Last Done Comments Diabetes: Annual Foot Exam 10/07/1945 Diabetes: Annual Retina Eye Exam 10/07/1945 Cholesterol Screening (Lipid Panel) 03/02/2022 Medicare Annual Wellness Visit 03/02/2022 Social Influencers of Health Screening 03/02/2022 Hypertension/CHF/CAD Annual BMP Blood Test 05/18/2023 Depression Screening 04/03/2024 COVID-19 Vaccine (6 - Pfizer risk season) 2024 12/08/2023, 01/19/2023, 12/14/2021, Additional history exists Diabetes: Blood Sugar Control Test (HGBA1C) 09/05/2024 Zoster Vaccines (2 of 2) 11/11/2024 09/16/2024 Influenza Vaccine (#1) 2024 , 12/20/2022, 01/08/2022, Additional history exists Falls Risk Assessment 11/08/2025 11/08/2024 DTaP,Tdap,and Td Vaccines (2 - Td or Tdap) 02/04/2026 02/05/2016 RSV Immunization Adult Patients Completed 03/04/2023 Pneumococcal Vaccine: 50+ Years Completed 09/30/2024, 01/19/2019, 02/12/2016 HIB Vaccines Aged Out No longer eligi [...] Procedure Name Priority Date/Time Associated Diagnosis Comments EGD Routine 11/08/2024 7:[address] scan Pharyngoesophageal dysphagia TISSUE EXAM Routine 11/08/2024 7:[address] scan Pharyngoesophageal dysphagia COLONOSCOPY Routine 10/16/2024 10:09 AM EDT from Last 3 Months Results * EGD Anesthesia - MAC; [facility] ENDOSCOPY (11/08/2024 7:38 AM EDT) Anatomical Region Laterality Modality Other 11/08/2024 7:25 AM EDT Impressions 11/08/2024 7:39 AM EDT - Z-line variable, 40 cm from the incisors. 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 Biopsied. - Normal stomach. - Normal examined duodenum. Recommendation: - Discharge patient to home. - Resume previous diet. - Continue present medications. - Await pathology results. - Return to GI clinic as previously scheduled. Narrative 11/08/2024 7:[address] [facility] GI Patient Name: Deangelo Pfeiffer Procedure Date: 11/08/2024 7:25 AM Date of : 1935 Age: 89 Room: ROOM 14 Gender: Male Note Status: Finalized Attending MD: Antoni Funes MD, Procedure Date No Time: 11/08/2024 Procedure: Upper GI endoscopy Indications: Abnormal CT of the GI tract Providers: Antoni Funes MD Referring MD: Antoni Funes MD Medicines: Monitored Anesthesia Care Complications: No immediate complications. Estimated Blood Loss: Estimated blood loss: none. Procedure: Pre-Anesthesia Assessment: - ASA Grade Assessment: II - A patient with mild systemic disease. - After reviewing the risks and benefits, the patient was deemed in satisfactory condition to undergo the procedure. After obtaining informed consent, the endoscope was passed under direct vision. Throughout the procedure, the patient's blood pressure, pulse, and oxygen saturations were monitored continuously.The Olympus Gastroscope was introduced through the mouth, and advanced to the second part of duodenum. The upper GI endoscopy was accomplished without difficulty. The patient tolerated the procedure well. Findings: The Z-line was variable and was found 40 cm from the incisors. The esophagus and gastroesophageal junction were examined with white light from a forward view and retroflexed position. 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 These changes involved the mucosa along an irregular Z-line (40 cm from the incisors). One tongue of salmon-colored mucosa was present from 38 to 40 cm. The maximum longitudinal extent of these esophageal mucosal changes was 2 cm in length. Biopsies were taken with a cold forceps for histology. Estimated blood loss was minimal. The exam of the esophagus was otherwise normal. The stomach was normal. The examined duodenum was normal. Procedure Code(s): --- Professional --- 27178, Esophagogastroduodenoscopy, flexible, transoral; with biopsy, single or multiple Diagnosis Code(s): --- Professional --- R93.3, Abnormal findings on diagnostic imaging of other parts of digestive tract CPT copyright 2020 [employer]. All rights reserved. The codes documented in this report are preliminary and upon fuel system maintenance supervisor review may be revised to meet current compliance requirements. Antoni Funes MD 11/08/2024 7:39:30 AM This report has been signed electronically.Antoni Funes MD Number of Addenda: 0 Note Initiated On: 11/08/2024 7:25 AM Scope In: Scope Out: Endoscopy Department at [facility] - [address] [place] [id number] Procedure Note Antoni Funes MD - 11/08/2024 [facility] GI Patient Name: Deangelo Pfeiffer Procedure Date: 11/08/2024 7:25 AM Date of : 1935 Age: 89 Room: ROOM 14 Gender: Male Note Status: Finalized Attending MD: Antoni Funes MD, Procedure Date No Time: 11/08/2024 Procedure: Upper GI endoscopy Indications: Abnormal CT of the GI tract Providers: Antoni Funes MD Referring MD: Antoni Funes MD Medicines: Monitored Anesthesia Care Complications: No immediate complications. Estimated Blood Loss: Estimated blood loss: none. Procedure: Pre-Anesthesia Assessment: - ASA Grade Assessment: II - A patient with mild systemic disease. - After reviewing the risks and benefits, thepatient was deemed in satisfactory condition to undergo the procedure. After obtaining informed consent, the endoscope was passed under direct vision. Throughout theprocedure, the patient's blood pressure, pulse, and oxygen saturations were monitored continuously.The Olympus Gastroscope was introduced through the mouth, and advanced to the second part of duodenum. The upperGI endoscopy was accomplished without difficulty. The patient tolerated the procedure well. Findings: The Z-line was variable and was found 40 cm fromthe incisors. The esophagus and gastroesophageal junction were examined with white light from a forward view and retroflexed position. 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 These changes involved the mucosa alongan irregular Z-line (40 cm from the incisors). Onetongue of salmon-colored mucosa was present from 38 to 40cm. The maximum longitudinal extent of these esophageal mucosal changes was 2 cm in length. Biopsies were taken with a cold forceps for histology. Estimated blood loss was minimal. The exam of the esophagus was otherwise normal. The stomach was normal. The examined duodenum was normal. Procedure Code(s): --- Professional --- 44894, Esophagogastroduodenoscopy, flexible, transoral; with biopsy, single or multiple Diagnosis Code(s): --- Professional --- R93.3, Abnormal findings on diagnostic imaging of other parts of digestive tract CPT copyright 2020 [employer]. All rights reserved. The codes documented in this report are preliminary and upon fuel system maintenance supervisor reviewmay be revised to meet current compliance requirements. Antoni Funes MD 11/08/2024 7:39:30 AM This report has been signed electronically.Antoni Funes MD Number of Addenda: 0 Note Initiated On: 11/08/2024 7:25 AM Scope In: Scope Out: Endoscopy Department at [facility] - [address] [place] [phone] IMPRESSION: - Z-line variable, 40 cm from the incisors. 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 Biopsied. - Normal stomach. - Normal examined duodenum. Recommendation: - Discharge patient to home. - Resume previous diet. - Continue present medications. - Await pathology results. - Return to GI clinic as previously scheduled. us Antoni Funes MD GI~PROCEDURE ORDERABLES Final Result * Tissue exam (11/08/2024 7:34 AM EDT) Final Diagnosis A. Esophagus, biopsies ge junction: - Esophageal squamocolumnar junction mucosa with focal acute inflammation. - Negative for intestinal metaplasia. 11/11/2024 9:30 AM EDT [facility] Gross Description A. Esophagus, biopsies ge junction: Labeled esophagus biopsies . Received in formalin, are six irregular soft to rubbery, owen-pink to red, tissue fragments, approximately ranging from 0.2 cm to 0.4 cm in greatest diameters, which are wrapped in paper and submitted in toto in one cassette, six pieces, multiple levels. Please note: Small tissue fragments may not survive processing. hs/DG 11/11/2024 9:30 AM EDT [facility] Disclaimer Unless otherwise specified, all tissue is 10% NB formalin fixed and paraffin embedded. 11/11/2024 9:30 AM EDT [facility] Tissue Esophageal structure / Unknown 11/08/2024 7:34 AM EDT 11/08/2024 10:11 AM EDT Antoni Funes MD LAB PATHOLOGY ORDERABLES [facility] [place] Result [facility] [address] [place] [address], * COLONOSCOPY (10/16/2024 10:09 AM EDT) Anatomical Region Laterality Modality Endoscopy Historical Provider GI~PROCEDURE ORDERABLES F inal Result from Last 3 Months Insurance [employer] MEDICARE Care Teams Sales Exhibitor Relationship Specialty Start Date End Date Dolly Ruggiero MD [address] [place] [address] PCP - General 01/31/23
--- OUTSIDE RECORDS SUMMARY | 2024-11-28 10:47 | XMS_ITS | Clinical Summary ---
Author Organization [facility] Address [address] [place] [address] Phone Care Team Providers Care Hospice Admitting Clerk Name Role Phone Dolly Ruggiero MD Primary Care Provider [phone] Allergies Active Allergy Reactions Criticality Noted Date [...] Date Stage 3 chronic kidney disease 11/18/2022 Family History Medical History Relation Comments Diabetes [...] Due Date Last Done Comments Pneumococcal Vaccine: 50+ Ye ars (1 of 2 - PCV) 1954 Influenza Vaccine (#1) 2024 Hepatitis B Vaccine Aged Out No longe r eligible based on patient's age to complete this topic Insurance Jessica Alma [facility] Medicare UHC Medicare Care Teams Hospice Admitting Clerk Relationship Specialty Start Date End Date Dolly Ruggiero MD [address] [place] [address] PCP - General Internal Medicine 07/27/22
== END 2024-11-28 10:12 | disposition home or self-care (01) ==
LOC: HO.HKAS 09:42
PROVIDERS: PCP Hospitalist; Visit Provider Internal Medicine Nephrology
DX: N18.31 Chronic kidney disease, stage 3a (principal); N28.1 Cyst of kidney, acquired
CPT/HCPCS: 99214

== ENCOUNTER → 2024-11-28 09:41 | Outpatient (BNVA) | payer MEDICARE, SELFPAY | PROVIDERS: PCP Hospitalist; Visit Provider Internal Medicine Nephrology | DX: E11.22 Type 2 diabetes mellitus with diabetic chronic kidney disease (principal); N18.31 Chronic kidney disease, stage 3a; N28.1 Cyst of kidney, acquired | CPT/HCPCS: 99212 ==

== ENCOUNTER 2025-01-14 09:21 | Outpatient (AMB) | payer MEDICARE, SELFPAY ==
--- OUTSIDE RECORDS SUMMARY | 2024-08-05 04:00 | XMS_ITS ---
Author Organization [facility] Address [address] [place] [id number] Care Team Providers Care Health Education Specialist Name Role Phone PIEDAD PADILLA Primary Care Provider [phone] REASON FOR VISIT Medicare Wellness Encounters Encounter Location Date Provider Diagnosis [facility] [address] [phone] 08/05/2024 PIEDAD PADILLA Plan Of Treatment Next Appt Details Provider Name:PIEDAD PADILLA , 05/21/2025 09:00:00 AM, [address] [place] [address], [place], [phone], Progress Notes * Deangelo PFEIFFER PDOB:[birth year] (89 yo M)Acc No.[id number]:08/05/2024 Progress Note Patient: Baljit Deangelo FRYE Provider: Madi PADILLA MD :1935 A ge:88 Y S ex:Male Date:08/05/2024 Address: [address] [id number] Subjective: * Chief Complaints: * 1 . Medicare Wellness. * HPI: D epression Screening: PHQ-9 L ittle interest or pleasure in doing things?Not at all F eeling down, depressed, or hopeless N ot at all T rouble falling or staying asleep, or sleeping too much N ot at all F eeling tired or having little energy N ot at all P oor appetite or overeating N ot at all F eeling bad about yourself or that you are a failure, or have let yourself or your family down N ot at all T rouble concentrating on things, such as reading the newspaper or watching television N ot at all M oving or speaking so slowly that other people could have noticed; or the opposite, being so fidgety or restless that you have been moving around a lot more than usual N ot at all T houghts that you would be better off or of hurting yourself in some way N ot at all T otal Score 0 * Medical History: Objective: * Vitals: Assessment: Plan: * Treatment: * Procedure Codes: N OSHO NO SHOW FEE * Preventive Medicine: F NORMAN - COVID - TDAP - SHINGREX - PNEMONIA - COLONOSCOPY - EYE EXAM - DERM - DENTIST -. * Images: * Electronic signature of BILLY PADILLA MD on 01/14/2025 at 10:14 AM EDT Sign off status: Pending * Provider: Madi PADILLA MD Date: 0 08/05/2024 Generated for Lizette castellanos/Duane/Aliyaransmitting on: 10:14 AM EDT History and Physical Notes * HPI (History of Present Illness) Category Sub-Category Detail Notes Category Not es Depression Screening PHQ-9 Little inte rest or pleasure in doing things: Not at all Feeling down, depressed, or hopeless: No t at all Trouble falling or staying asleep, or sl eeping too much: Not at all Feeling tired or having little energy: N ot at all Poor appetite or overeating: Not at all Feeling bad about yourself o r that you are a failure, or have let yourself or your family down: Not at all Trouble concentrating on thi ngs, such as reading the newspaper or watching television: Not at all Moving or speaking so slowly that other people could have noticed; or the opposite, being so fidgety or restless that you have been moving around a lot more than usual: Not at all Thoughts that you would be b pawel off or of hurting yourself in some way: Not at all Total Score: 0
--- NOTE | 2025-01-14 09:23 | MHC.OFFVIS ---
Intake Visit Reasons: 6M follow up/ PSA Total Intake Note: patient presents today for: 6mo follow up urology medications: none blood thinners: none labs done 12/23/24: PSA 0.7 Sales And Marketing Executive Required: No Accompanied by: Self / Same As Patient Allergies No Known Allergies (No Known Allergies*) Allergy (Verified 01/14/25 09:24) HPI Comments Details: Carlos Eduardo is a very pleasant male. He is a patient of Dr. Ruggiero. He is seen for the following urologic conditions - prostate cancer - nephrolithiasis - apical urethral stricture Does well with 12 Mexican catheter catheterizing once a week - will move to every 2 weeks Holiday from enzalutamide for four-month 4 month follow-up lab work 12/26 0.7 - alternating enzalutamide monthly 06/25 PSA 0.6, PSMA PET remains the same persistent prostate activity, enzalutamide 1 tab daily month on and month off 01/24 PSA 0.6, Current therapy Enzalutamide 1 tab daily 12/25 apical stricture with dilatation 10/24 Lasix renogram. Normal bilateral excretion. No evidence of obstruction. Normal split function. PET-CT - persistent prostate activity but no activity detected outside prostate 08/24 Creatinine 1.3 - Restart Enzalutamide - 1 tab - 08/23 PSMA scan Shows recurrence of disease in left base prostate abutting seminal vesicle PSA 07/23 3.9, 10/22 3.6 Dut +, 01/22 4.5 Dut +, 05/26 6.9 Dut -, 08/23 6.4, 01/23 8.0, 06/24 0.2, 09/24 3.2, 10/24 PSA 0.6, 01/24 Bilateral hydronephrosis Presentation through emergency room with retention and elevated creatinine to 6.[address] - 07/25 here is mild right hydronephrosis and hydroureter to the level of a 2 mm distal right ureteric calculus. There is mild left hydronephrosis/left renal collecting system dilatation without ureteral calculus Prostate cancer: Initial treatment prostate cancer 2007 with brachytherapy, rising PSA with brachy boost June 201908/23 PSMA persistent activity suggestive of locally recurrent disease, no evidence of spread Found to have rising PSA through 2018 Has been treated at [facility] in [place] with prostate seed implant - Performed June [address] Luna Prostate cancer was diagnosed 2007. Diagnosis was reached by needle biopsy, for elevated PSA. The Moy grade is 3+3 = 6. TNM Classification of Malignant Tumours (TNM) T1c. The D'Barbara (NCCN) risk category is Low Risk (PSA< 10, Gl < 7, T1c). Initial therapy included Primary treatment, Brachytherapy 2007 , Additional treatment 02/17 5AR - stopped 01/18 Cysto with dilation of prostate apex to 16Fr 12/20 operative DVIU for prostatic apex stricture to 18 Mexican - additional treatment seeds to prostate with Dr. Luna June 2019 Recent labs included a PSA (prostate-specific antigen) 07/17 7.7, 03/18 9.9 08/17 per patient 9.1, 01/17 14.3 05/21 6.4, 10/18 5.0, 01/18 5.1 F 7.8 06/19 5.1 F 11, 09/19 6.0 F 10, 03/21 7.6 07/22 2.6, 12/22 3.1, 04/24 3.9, 07/23 3.9, 10/22 3.6 Recent imaging included 05/21 , a bone scan, with no evidence of metastasis 08/18 an ultrasound, bilateral renal cysts 08/19 , an MRI (magnetic resonance imaging) - bilateral renal cysts up to 4 cm, bilateral renal proteinaceous cysts. Associated conditions erectile dysfunction Yes Nephrolithiasis/Urolithiasis: Episode treated at [facility] 12/22 Calcium oxalate stone on right side 8 mm Urolithiasis was diagnosed 12[place]19 [place] [facility] [place] pain and dark urine. The patient previously had kidney stones whose composition w unknown. Laboratory investigations include no recent labs. 24 Hour urine evaluation none on file. Prior treatment(s) include observation. Prior imaging includes 12/[address] (computed tomography) scan of the abdomen/pelvis (stone protocol) - renal cyst, bilateral punctate stones, presumed stone passage on right side 01/18 , a renal ultrasound, small stones with bilateral cysts - 01/20 renal ultrasound no stones Current therapeutic plan will be to continue with imaging surveillance [facility] Medical History Diabetes SOB (shortness of breath) Bladder infection Renal stones Neuropathy Mild acid reflux Hyperlipidemia Gross hematuria Prostate stricture Rising PSA following treatment for malignant neoplasm of prostate Urinary urgency Rising PSA following treatment for malignant neoplasm of prostate Surgical History History of prostate surgery History of appendectomy H/O hernia repair Social History Household Members: Spouse Housing: House Do you presently have visiting nurse or other home services: No Patient Tobacco Use Status: Former Tobacco user Tobacco use type: Cigarette Years Smoked: 15 Advance Directives Date on File: 07/28/23 service: No Review of Systems Const Denies chills and Denies fever(s) Card Reports no additional complaints and Denies syncope Resp Denies cough GI Denies abdominal pain and Denies heartburn Reports as per HPI and Denies change in libido Neuro Denies syncope Psych Denies change in libido Endo Denies change in libido Physical Exam Const General: cooperative, healthy appearing, comfortable and no acute distress Orientation/consciousness: patient oriented x3 HEENT Face and sinus: Yes normal facial exam Mouth: moist mucous membranes Neck Neck: Yes normal visual inspection, Yes full ROM and Yes trachea midline Chest Chest palpation & inspection: normal inspection of the chest Resp Effort & Inspection: normal respiratory effort, able to speak in complete sentences and no respiratory distress GI Inspection: Yes normal to inspection Back/Spine/Pelvis Cervical Spine: normal cervical lordosis Thoracic/Lumbar Spine: thoracic and lumbar spine normal to inspection Skin General skin exam: no rashes or lesions noted Neuro General: patient oriented x3, gait normal, tone normal and moves all extremities Extrem General: Yes normal to inspection and Yes capillary refill normal Assessment & Plan Assessment & Plan (1) Urethral stricture: Code(s): N35.919 - Unspecified urethral stricture, male, unspecified site Category: Medical (2) Biochemically recurrent castration-sensitive adenocarcinoma of prostate: Code(s): C61 - Malignant neoplasm of prostate; R97.21 - Rising PSA following treatment for malignant neoplasm of prostate; Z19.1 - Hormone sensitive malignancy status Category: Medical Plan Four month follow-up lab work Orders: Orders Testosterone, Total 4 Months C61 - Malignant neoplasm of prostate, R97.21 - Rising PSA following treatment for malignant neoplasm of prostate, Z19.1 - Hormone sensitive malignancy status Prostate Specific Antigen 4 Months C61 - Malignant neoplasm of prostate, R97.21 - Rising PSA following treatment for malignant neoplasm of prostate, Z19.1 - Hormone sensitive malignancy status Medications: New sulfamethoxazole-trimethoprim 400-80 mg (Bactrim) Take 1 tablet in morning and evening on day of dilation 1 tab PO BID 30 tabs 0RF 15 days N35.919 - Unspecified urethral stricture, male, unspecified site, N39.0 - Urinary tract infection, site not specified Patient Instructions: This note is constructed using voice recognition software. While every effort has been made to ensure accuracy stretching press operator errors may have been included. Imaging studies, laboratory and physical exam results were discussed and reviewed in detail. No major barriers to patient understanding were identified. An opportunity to ask questions regarding the treatment plan was provided. All questions were answered. The patient expressed understanding and agreement with the above treatment plan. The patient is aware they should contact our office by phone for worsening of their current condition or the appearance of new urologic symptoms. Compliance is encouraged with any medications and followup testing that is ordered. It is a privilege to participate in the urologic care of your patient. If you have any questions or concerns regarding treatment for the above conditions, or other urologic issues, please do not hesitate to contact me. The office telephone contact is [phone]. Sincerely, Dr Henry Mora MD, [facility] - Urology Compassionate Specialist Care for the Genitourinary System Coding Level of Care Code Est Pt Level 3 (25400) Complex EM visit Add On G2211 Diagnoses Urethral stricture N35.919 Biochemically recurrent castration-sensitive adenocarcinoma of prostate C61; R97.21; Z19.1
--- OUTSIDE RECORDS SUMMARY | 2025-01-14 10:14 | XMS_ITS | Patient Health Record ---
Author Organization [facility] Address [address] [place] [address] Care Team Providers Care Monument Setter Helper Name Role Phone PIEDAD PADILLA Primary Care Provider [phone] Marbin Carpenter Unavailable [phone] SánchezdemarCiara andrews Unavailable [phone] Allergies Allergen (clinical drug ingredient) Drug/Non Drug Allergy documented on EMR Reaction Allergy Type Onset Date Status Amoxicillin-Pot Clavulanate diarrhea Drug Allergy Active Results Component Value Reference Range Notes Hemoglobin [id number] Reviewed date:11/21/2024 07:46:37 AM Interpretation: Performing Lab:[facility], [address] [facility], Phone - [phone], Director - MDJodry Notes/Report: Hemoglobin A1c 6.1 4.8-5.6 % . Prediabetes: 5.7 - 6.4 Diabetes: >6.4 Glycemic control for adults with diabetes: <7.0 Basic Metabolic Panel (8-88 [id number] Reviewed date:11/21/2024 07:46:33 AM Interpretation: Performing Lab:[facility], [address] [facility], Phone - [phone], Director - MDJodry Notes/Report: Glucose 175 70-99 mg/dL BUN 20 8-27 mg/dL Creatinine 1.27 0.76-1.27 mg/dL eGFR 55 >59 mL/min/1.73 BUN/Creatinine Ratio 16 10-24 Sodium 141 134-144 mmol/L Potassium 4.1 3.5-5.2 mmol/L Chloride 107 96-106 mmol/L Carbon Dioxide, Total 18 20-29 mmol/L Calcium 9.1 8.6-10.2 mg/dL TISSUE EXAM Reviewed date:11/11/2024 12:40:33 PM Interpretation: Performing Lab: Notes/Report: Labeled esophagus biopsies . Received in formalin, are six irregular soft to rubbery, owen-pink to red, tissue fragments, approximately ranging from 0.2 cm to 0.4 cm in greatest diameters, which are wrapped in paper and submitted in toto in one cassette, six pieces, multiple levels. Please note: Small tissue fragments may not survive processing. hs/DG Final Diagnosis A. Esophagus, biopsi es ge junction: - Esophageal squamocolumnar junction mucosa with focal acute inflammation. - Negative for intestinal metaplasia. Gross Description A. Esophagus, biopsi es ge junction: Disclaimer Unless otherwise specified, all tissue is 10% NB formalin fixed and paraffin embedded. Comp. Metabolic Panel (14-3 [id number] Reviewed date:07/21/2024 07:55:53 AM Interpretation: Performing Lab:[facility], [address] [facility], Phone - [phone], Director - Gulshan Notes/Report: Glucose 100 70-99 [...] 0-40 IU/L ALT (SGPT) 13 0-44 IU/L Lipid Panel-[id number] Reviewed date:07/21/2024 07:55:46 AM Interpretation: Performing Lab:[facility] [place], [address] [facility], [place], Phone - [phone], Director - Gulshan Notes/Report: Cholesterol, Total 121 100-199 mg/dL Triglycerides 82 0-149 mg/dL HDL Cholesterol 62 >39 mg/dL VLDL Cholesterol Tariq 16 5-40 mg/dL LDL Chol Calc ([facility]) 43 0-99 mg/dL Albumin/Creatinine Ratio,Curt ne-[id number] Reviewed date:07/21/2024 07:55:29 AM Interpretation: Performing Lab:[facility], [address] [place] [address], Phone - [phone], Director - MDAnnabelladry Notes/Report: Creatinine, Urine 195.8 Not Estab. mg/dL Albumin, Urine 172.0 Not Estab. ug/mL Alb/Creat Ratio 88 0-29 mg/g creat Normal: 0 - 29 Moderately increased: 30 - 300 Severely increased: >300 CBC, Platelet, No Differenti al-[id number] Reviewed date:07/21/2024 07:55:15 AM Interpretation: Performing Lab:[facility], [address] [place] [address], [place], Phone - [phone], Director - Gulshan Notes/Report: WBC 3.7 3.4-10.8 x10E3/uL RBC 3.85 4.14-5.80 x10E6/uL Hemoglobin 11.2 13.0-17.7 g/dL Hematocrit 35.1 37.5-51.0 % MCV 91 79-97 fL MCH 29.1 26.6-33.0 pg MCHC 31.9 31.5-35.7 g/dL RDW 12.9 11.6-15.4 % Platelets 134 150-450 x10E3/uL Hemoglobin H2c-[id number] Reviewed date:07/21/2024 07:55:22 AM Interpretation: Performing Lab:[facility], [address] [place] [address], Phone - [phone], Director - MDJodry Notes/Report: Hemoglobin A1c 6.2 4.8-5.6 % . Prediabetes: 5.7 - 6.4 Diabetes: >6.4 Glycemic control for adults with diabetes: <7.[address] SKULL TO MID THIGH OSORIO BSEQUENT Reviewed date:06/06/2024 07:44:27 AM Interpretation: Performing Lab: Notes/Report: Note See Note [facility], a member of [facility] Referrals Patient Name: DEANGELO PFEIFFER Date of : 1935 Reason for Exam: PROSTATE CANCER Exam Date: 06/04/2024 [id number] EST Report Status: Final Ordering Provider: HENRY [...] not designed to produce and cannot replace obpto-dj-vhp-art true diagnostic CT examination with specific protocols. 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) Active confirmed Problem Disorder due to type 2 diabetes mellitus (980285830) Type 2 diabetes mellitus with unspecified complications (E11.8) Active confirmed Problem Mixed hyperlipidemia (920149974) Mixed hyperlipidemia (E78.2) Active confirmed Problem Angina pectoris (256854081) Angina pectoris, unspecified (I20.9) Active confirmed Problem Stricture of esophagus (39304180) Esophageal obstruction (K22.2) Active confirmed Problem 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) Active confirmed Problem History of malignant neoplasm of prostate (245857515) Personal history of malignant neoplasm of prostate (Z85.46) Active confirmed Problem Lower urinary tract symptoms due to benign prostatic hypertrophy (07011757333898) Benign prostatic hyperplasia with lower urinary tract symptoms (N40.1) Active confirmed Problem Chronic kidney disease stage 3A (disorder) (483626877) Chronic kidney disease, stage 3a (N18.31) Active confirmed Problem Essential hypertension (70375375) Essential hypertension (I10) Active confirmed Vital Signs Heart Rate 57 /min 11/14/2024 Temperature 96.8 degrees Fahrenheit 11/14/2024 Oximetry 99 % 11/14/2024 Blood pressure diastolic 60 mm Hg 11/14/2024 Height 5'5 in 11/14/2024 Blood pressure systolic 120 mm Hg 11/14/2024 Weight 147.0 lbs 11/14/2024 BMI 24.46 kg/m2 11/14/2024 Encounters Encounter Location Date Provider Diagnosis [address] [address] 02/05/2024 [facility] Mixed hyperlipidemia E78.2 ; Anemia, unspecified D64.9 and Type 2 diabetes mellitus with unspecified complications E11.[address] [address] 08/12/2024 [facility] Hospital discharge follow-up Z09 ; Diabetes mellitus due to underlying condition with diabetic nephropathy E08.21 ; Mixed hyperlipidemia E78.2 ; Personal history of malignant neoplasm of prostate Z85.46 ; Esophageal obstruction K22.2 and Unspecified bacterial pneumonia J15.[address] [place] [address] 11/14/2024 [facility] Diabetes mellitus du e to underlying condition with diabetic nephropathy E08.21 ; Annual wellness visit Z00.00 ; Mixed hyperlipidemia E78.2 ; Personal history of malignant neoplasm of prostate Z85.46 ; Esophageal obstruction K22.2 and Edema, unspecified R60.[address] [place] [address] 04/15/[address] [place] [address] 04/25/[address] [place] [address] 06/14/2024 [facility] Type 2 diabetes kaleigh itus with unspecified complications E11.8 and Ulcerative (chronic) rectosigmoiditis without complications K51.[address] [place] [address] 09/16/[address] [place] [address] 09/17/[address] [place] [address] 12/12/2024 [facility] Type 2 diabetes kaleigh itus with unspecified complications E11.8 Assessments Encounter Date Diagnosis (ICD Code) Assessment Notes Treatment Notes Treatment Clinical Notes Section Notes 12/12/2024 Type 2 diabetes mellitus with unspecified complications (ICD-10 - E11.8) 02/05/2024 Mixed hyperlipidemia (ICD-10 - E78.2) 85 [...] and he currently sees Dr. Luna at [facility] and Dr. Corrales locally. Type II diabetes mellitus. A1c 6.5 Slightly increase from his previous A1c patient reported eating more sweet but he is aware and will follow a more strict diet. Lipid profile and HbA1c done in January 2024 were both discussed with patient. No change to his diabetic medication therapy. . He is on right medications. He sees his heater installer. Foot care discussed. Chronic kidney disease stage 3. He does not appear to be in volume overload. creatinine runs from 1.4-1.6 Prostate cancer. s/p brachytherapy in and he currently sees Dr. Luna at [facility] and Dr. Corrales locally. He is s/p cystoscopy, bilateral retrograde and bilateral stent placement at [facility] last 07/28/2023 iron deficiency anemia continue with [...] renal function is stable. he has seen heater installer in the past 1 year. Foot care [...] renal function is stable. he has seen heater installer in the past 1 year. Foot care [...] renal function is stable. he has seen heater installer in the past 1 year. Foot care [...] renal function is stable. he has seen heater installer in the past 1 year. Foot care [...] renal function is stable. he has seen heater installer in the past 1 year. Foot care [...] renal function is stable. he has seen heater installer in the past 1 year. Foot care [...] and he currently sees Dr. Luna at [facility] and Dr. Corrales locally. Type II diabetes mellitus. A1c 6.5 Slightly increase from his previous A1c patient reported eating more sweet but he is aware and will follow a more strict diet. Lipid profile and HbA1c done in January 2024 were both discussed with patient. No change to his diabetic medication therapy. . He is on right medications. He sees his heater installer. Foot care discussed. Chronic kidney disease stage 3. He does not appear to be in volume overload. creatinine runs from 1.4-1.6 Prostate cancer. s/p brachytherapy in and he currently sees Dr. Luna at [facility] and Dr. Corrales locally. He is s/p cystoscopy, bilateral retrograde and bilateral stent placement at [facility] last 07/28/2023 iron deficiency anemia continue with [...] renal function is stable. he has seen heater installer in the past 1 year. Foot care [...] renal function is stable. he has seen heater installer in the past 1 year. Foot care [...] code and his is his healthcare proxy. 02/05/2024 Type 2 diabetes mellitus with unspecified [...] and he currently sees Dr. Luna at [facility] and Dr. Corrales locally. Type II diabetes mellitus. A1c 6.5 Slightly increase from his previous A1c patient reported eating more sweet but he is aware and will follow a more strict diet. Lipid profile and HbA1c done in January 2024 were both discussed with patient. No change to his diabetic medication therapy. . He is on right medications. He sees his heater installer. Foot care discussed. Chronic kidney disease stage 3. He does not appear to be in volume overload. creatinine runs from 1.4-1.6 Prostate cancer. s/p brachytherapy in and he currently sees Dr. Luna at [facility] and Dr. Corrales locally. He is s/p cystoscopy, bilateral retrograde and bilateral stent placement at [facility] last 07/28/2023 iron deficiency anemia continue with iron supplements, lab work showed normalization of iron levels. All questions were answered 08/12/2024 Esophageal obstruction (ICD-10 - K22.2) Deangelo [...] renal function is stable. he has seen heater installer in the past 1 year. Foot care [...] renal function is stable. he has seen heater installer in the past 1 year. Foot care [...] renal function is stable. he has seen heater installer in the past 1 year. Foot care [...] renal function is stable. he has seen heater installer in the past 1 year. Foot care [...] Provider Name:PIEDAD PADILLA , 05/21/2025 09:00:00 AM, [address] [place] [address], [phone], Insurance Providers Payer Name Payer Address Payer Phone Subscriber Number Group Number Insured Name Patient Relationship to Insured Coverage Start Date Coverage End Date [employer] [address] [address] [place] [address] [phone] [id number] Crispinkeanu swan Deangelo Self - patient is the insured Medical [...]
--- OUTSIDE RECORDS SUMMARY | 2025-01-14 10:14 | XMS_ITS | Clinical Summary ---
Author Organization [facility] [employer] [facility] Address [address] [place] [address] Phone Care Team Providers Care Dry Janitor Name Role Phone Dolly Ruggiero MD Primary Care Provider [phone] Allergies Active Allergy Reactions Criticality Noted Date [...] Date Diagnosed Date Chronic ulcerative rectosigm oiditis ([facility] V24, [facility] V28) 09/05/2024 Stricture of esophagus 09/05/2024 Prostate cancer ([facility] V24, [facility] V28) 09/05 Sensorineural hearing loss, bilateral 08/27/2024 [...] restarting metoprolol. Coronary artery disease invo lving [place] coronary artery of [place] heart without angina pectoris 04/18/2023 Overview (04/17/2024): [...] lead Dysphagia 04/14/2023 Overview (04/17/2024): Status post Ruba fundoplication dysphagia requiring recurrent esophageal dilatation by [...] LDL 39. Continue with rosuvastatin. Angina pectoris (CMS/HCC V24) 04/13/2023 Stage 3 chronic kidney disease (CMS/HCC V24, CMS /HCC V28) 11/18/2022 Encounters Date Type Department Care Team Description 11/08/2024 7:28 AM EDT Anesthesia Event [facility] Endoscopy [address] [place] [address] Abdulkadir Guillory MD 11/08/2024 6:40 AM EDT - 11/08/2024 11:59 PM EDT Hospital Encounter [facility] [address] [place] [address] Antoni Funes MD Guerin, Erik R, CRNA Dasilva, John E, MD Abnormal CT scan; Pharyngoesophageal dysphagia Discharge Disposition: Home or Self Care from Last 3 Months Surgical History Surgery Date Site/Laterality Comments POST PROSTATE SEED IMPLANT CT 04/03/2007 - 04/02/2008 X2 REPAIR HIATAL HERNIA TRANSAB DOMINAL APPROACH 04/03/2017 - 04/02/2018 AT [facility] APPENDECTOMY RUBA FUNDOPLICATION ESOPHAGOGASTRODUODENOSCOPY 03/22/2024 Mild schatzki ring found with food in distal esophagus and successfully removed and dilated. ESOPHAGOGASTRODUODENOSCOPY 01/14/2022 ESOPHAGOGASTRODUODENOSCOPY 12/02/2021 Food distal esophagus ESOPHAGOGASTRODUODENOSCOPY 09/23/2020 Cole's mucosa negative for dysplasia COLONOSCOPY 09/23/2020 ESOPHAGOGASTRODUODENOSCOPY 08/14/2019 COLONOSCOPY 05/24/2018 Medical History Medical History Date Comments Type 2 diabetes mellitus wit h unspecified complications ([facility] V24, [facility] V28) DX:Type 2 diabetes mellitus with unspecified complications (HCC) Malignant neoplasm of prosta te ([facility] V24, [facility] V28) DX:Malignant neoplasm of pro state (HCC) Ulcerative rectosigmoiditis without complication ([facility] V24, [facility] V28) DX:Ulcerative rectosigmoiditis without complication (HCC) Esophageal obstruction DX:Esopha geal obstruction Chronic kidney disease, stag e 3a ([facility] V24, [facility] V28) DX:Chronic kidney disease, stage 3a (HCC) Ulcerative colitis ([facility] V24, [facility] V28) DX:Ulcerative colitis (HCC) Prostate cancer ([facility] V24 , [facility] V28) DX:Prostate cancer (HCC) Angina of effort ([facility] V24) 2003 GERD (gastroesophageal reflux disease) Social History Tobacco Use Types Packs/Day Years Used Date Smoking Tobacco: Former Cigarettes Smokeless Tobacco: Never Tobacco Cessation:Counseling Given: Not Answered Alcohol Use Standard Drinks/Week Comments Yes 0 (1 standard drink = 0.6 oz pur e alcohol) once a week wine Interpersonal Safety Answer Date Record ed Physical Abuse Unrecognized value 11/08/2024 Verbal Abuse Unrecognized value 11/08/2024 Sex and Gender Information Value Date [...] BMP Blood Test 05/18/2023 Depression Screening 04/03/2024 Diabetes: Blood Sugar Control Test (HGBA1C) 09/05/2024 Zoster Vaccines (2 of 2) 11/11/2024 09/16/2024 COVID-19 Vaccine (6 - Pfizer risk 2023- season) 2024 12/08/2023, 01/19/2023, 12/14/2021, Additional history exists Influenza Vaccine (#1) 2024 , 12/20/2022, 01/08/2022, [...] Months Results * EGD Anesthesia - MAC; [facility] ENDOSCOPY (11/08/2024 7:38 AM EDT) Anatomical Region [...] previously scheduled. Narrative 11/08/2024 7:39 AM EDT [facility] GI Patient Name: Deangelo Pfeiffer Procedure Date: 11/08/2024 7:25 AM Date of : 1935 Age: 89 Room: ROOM 14 Gender: Male Note Status: Finalized Attending MD: Antoni Fnues MD, Procedure Date No Time: 11/08/2024 Procedure: [...] was normal. Procedure Code(s): --- Professional --- 23739, Esophagogastroduodenoscopy, flexible, transoral; with biopsy, single or multiple Diagnosis Code(s): --- Professional --- R93.3, Abnormal findings on diagnostic imaging of other parts of digestive tract CPT copyright 2020 [employer]. All rights reserved. The codes documented in this report are preliminary and upon kraft digester operator review may be revised to meet current compliance requirements. Antoni Funes MD 11/08/2024 7:39:30 AM This report has been signed electronically.Antoni Funes MD Number of Addenda: 0 Note Initiated On: 11/08/2024 7:25 AM Scope In: Scope Out: Endoscopy Department at [facility] - [address] [place] [id number] Procedure Note Antoni Funes MD - 11/08/2024 [facility] GI Patient Name: Deangelo Pfeiffer Procedure Date: [...] was normal. Procedure Code(s): --- Professional --- 00232, Esophagogastroduodenoscopy, flexible, transoral; with biopsy, single or multiple Diagnosis Code(s): --- Professional --- R93.3, Abnormal findings on diagnostic imaging of other parts of digestive tract CPT copyright 2020 [employer]. All rights reserved. The codes documented in this report are preliminary and upon kraft digester operator reviewmay be revised to meet current compliance requirements. Antoni Funes MD 11/08/2024 7:39:30 AM This report has been signed electronically.Antoni Funes MD Number of Addenda: 0 Note Initiated On: 11/08/2024 7:25 AM Scope In: Scope Out: Endoscopy Department at [facility] - [address] [place] [id number] IMPRESSION: - Z-line variable, 40 cm from the incisors. 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 Biopsied. - Normal stomach. - Normal examined duodenum. Recommendation: - Discharge patient to home. - Resume previous diet. - Continue present medications. - Await pathology results. - Return to GI clinic as previously scheduled. Antoni Funes MD GI~PROCEDURE ORDERABLES Final Result * Tissue exam (11/08/2024 7:34 AM EDT) Final Diagnosis A. Esophagus, biopsies ge junction: - Esophageal squamocolumnar junction mucosa with focal acute inflammation. - Negative for intestinal metaplasia. 11/11/2024 9:30 AM EDT [facility] Gross Description A. Esophagus, biopsies [...] survive processing. hs/DG 11/11/2024 9:30 AM EDT [facility] Disclaimer Unless otherwise specified, all tissue is 10% NB formalin fixed and paraffin embedded. 11/11/2024 9:30 AM EDT [facility] Tissue Esophageal structure / Unknown 11/08/2024 7:34 AM EDT 11/08/2024 10:11 AM EDT Antoni Funes MD LAB PATHOLOGY ORDERABLES Che l Result [facility] [address] [place] [address], * COLONOSCOPY (10/16/2024 10:09 AM EDT) Anatomical Region Laterality Modality Endoscopy Historical Provider GI~PROCEDURE ORDERABLES F inal Result from Last 3 Months Insurance [employer] MEDICARE Care Teams Dry Janitor Relationship Specialty Start Date End Date Dolly Ruggiero MD [address] [place] [address] PCP - General 01/31/23
--- OUTSIDE RECORDS SUMMARY | 2025-01-14 10:14 | XMS_ITS | Clinical Summary ---
Author Organization [facility] Address [address] [place] [address] Phone Care Team Providers Care Small Products Assembler Name Role Phone Dolly Ruggiero MD Primary Care Provider [phone] Allergies Active Allergy Reactions Criticality Noted Date [...] complete this topic Insurance Jessica Alma [facility] [place] [address] UHC Medicare Care Teams Small Products Assembler Relationship Specialty Start Date End Date Dolly Ruggiero MD [address] [place] [address] PCP - General Internal Medicine 07/27/22
== END 2025-01-14 09:47 | disposition home or self-care (01) ==
LOC: HO.HUSH 09:22
PROVIDERS: PCP Hospitalist; Visit Provider Urology
DX: N35.919 Unspecified urethral stricture, male, unspecified site (principal); C61 Malignant neoplasm of prostate; R97.21 Rising PSA following treatment for malignant neoplasm of prostate; Z19.1 Hormone sensitive malignancy status
CPT/HCPCS: 99213; G2211

== ENCOUNTER → 2025-01-14 09:21 | Outpatient (BNVA) | payer MEDICARE, SELFPAY | PROVIDERS: PCP Hospitalist; Visit Provider Urology | DX: C61 Malignant neoplasm of prostate (principal); R97.21 Rising PSA following treatment for malignant neoplasm of prostate; Z19.1 Hormone sensitive malignancy status; N35.919 Unspecified urethral stricture, male, unspecified site; N39.0 Urinary tract infection, site not specified | CPT/HCPCS: 99212 ==